=== PATIENT | female | born 2000 | race Caucasian/White ===

== ENCOUNTER 2025-02-23 10:55 | Outpatient (OUT) | payer OTHER, SELFPAY ==
[2025-02-23 11:48] LABS: Basophils Percent Auto 0.3 % (0.2-2.0); Eosinophils Absolute Auto 0.2 10^3/uL (0.0-0.7); Eosinophils Percent Auto 1.2 % (0.9-7.0); Hematocrit 35.1 % (36.0-48.0); Hemoglobin 12.5 g/dL (12.0-16.0); Immature Granulocytes Abs Auto 0.06 10^3/uL (0.00-0.03); Immature Granulocytes Pct Auto 0.4 % (0.0-0.5); Lymphocytes Absolute Auto 3.8 10^3/uL (1.2-3.8); Lymphocytes Percent Auto 27.2 % (20.5-60.0); Mean Corpuscular HGB Conc 35.6 g/dL (29.9-35.2); Mean Corpuscular Hemoglobin 32.2 pg (26.7-34.0); Mean Corpuscular Volume 90.5 fL (81.0-99.0); Mean Platelet Volume 9.2 fL (9.5-13.5); Monocytes Absolute Auto 0.8 10^3/uL (0.3-0.8); Monocytes Percent Auto 5.5 % (1.7-12.0); Neutrophils Absolute Auto 9.2 10^3/uL (1.4-6.5); Neutrophils Percent Auto 65.4 % (43.0-75.0); Platelet Count 245 10^3/uL (150-450); Red Blood Count 3.88 10^6/uL (4.20-5.40); Red Cell Distribution Width 12.6 % (11.0-15.0); White Blood Count 14.1 10^3/uL (4.0-11.0)
[2025-02-23 12:21] LABS: Thyroid Stimulating Hormone 1.845 uIU/mL (0.358-3.740)
[2025-02-23 12:46] LABS: Amphetamine Screen Urine NEGATIVE (NEGATIVE); Barbiturates Screen Urine NEGATIVE (NEGATIVE); Benzodiazepines Screen Urine NEGATIVE (NEGATIVE); Buprenorphine Screen Urine NEGATIVE (NEGATIVE); Cannabinoid Screen Urine POSITIVE (NEGATIVE); Cocaine Screen Urine NEGATIVE (NEGATIVE); Methadone Screen Urine NEGATIVE (NEGATIVE); Methamphetamines Screen Urine NEGATIVE (NEGATIVE); Opiate Screen Urine NEGATIVE (NEGATIVE); Oxycodone Screen Urine NEGATIVE (NEGATIVE); Phencyclidine Screen Urine NEGATIVE (NEGATIVE); Tricyclic Antidepressant Urine NEGATIVE (NEGATIVE)
[2025-02-23 13:06] LABS: BOX Test Reference Lab unity; BOX Test Sent Out unity
[2025-02-23 13:13] LABS: Estimated Average Glucose 103 mg/dL; Glycohemoglobin A1C 5.2 % (4.5-6.2)
[2025-02-24 05:11] LABS: HIV Ab/p24 Ag Screen Non Reactive (Non Reactive)
[2025-02-24 06:08] LABS: HBsAg Screen Negative (Negative); HCV Ab Non Reactive (Non Reactive)
[2025-02-24 08:09] LABS: Rubella Antibodies, IgG 1.09 index (Immune >0.99)
[2025-02-24 12:10] LABS: Rapid Plasma Reagin, Quant Non Reactive titer (NonRea<1:1)
[2025-02-25 01:08] LABS: AFP Value 42.1 ng/mL (.); Gest. Age on Collection Date 18.9 weeks (.); Gestat. Age Based On As provided (.); Insulin Dep Diabetes No (.); Maternal Age At EDD 26.7 yr (.); OSBR Risk 1 IN 6916 (.); Results Report (.)
== END 2025-02-23 10:56 | disposition home or self-care (01) ==
LOC: LAB 11:03
PROVIDERS: Visit Provider Obstetrics & Gynecology
DX: Z34.90 Encounter for supervision of normal pregnancy, unspecified, unspecified trimester (principal); N92.6 Irregular menstruation, unspecified; Z01.419 Encounter for gynecological examination (general) (routine) without abnormal findings
CPT/HCPCS: 36415; 80307; 82105; 83036; 84443; 85025; 86592; 86762; 86803; 86850; 86900; 86901; 87086; 87340; 87389; 88175

== ENCOUNTER 2025-02-23 13:00 | Outpatient (REF) | payer OTHER, SELFPAY | END 2025-02-23 13:01 | disposition home or self-care (01) | LOC: LAB 13:00 | PROVIDERS: Visit Provider Physician Assistant | DX: Z01.419 Encounter for gynecological examination (general) (routine) without abnormal findings (principal) | CPT/HCPCS: 88175 ==

== ENCOUNTER 2025-03-31 10:00 | Outpatient (OUT) | payer OTHER, SELFPAY ==
--- OUTSIDE RECORDS SUMMARY | 2025-03-23 10:40 | XMS_ITS | Encounter Summary ---
Author Organization [facility] Address [address] [place] [address] Care Team Providers Care Director Dance Name Role Phone Unavailable Primary Care Provider Unavailabl e Reason for Visit * Reason Comments Routine Visit Encounter Details Date Type Department Care Team (Late st Contact Info) Description 03/23/2025 10:40 AM EDT Routine [facility] [address] [id number] Jose Bonilla, DO [address] [facility] [address] [place], [facility]11 Second trimester ; 22 weeks gestation of ; Diabetes mellitus screening Social History Tobacco Use Types Packs/Day Years Used Date Smoking Tobacco: Never Assessed Estimated Date of Delivery Comme nts Yes 07/21/2025 Based on Ultraso und Sex and Gender Information Value Date Recorded Sex Assigned at Not on file Legal Sex Female 7:31 PM EDT Gender Identity Not on file Sexual Orientation Not on file documented as of this encounter Last Filed Vital Signs Vital Sign Reading Time Taken Comments Blood Pressure 114/74 03/23/2025 11:11 AM EDT Pulse - - Temperature - - Respiratory Rate - - Oxygen Saturation - - Inhaled Oxygen Concentration - - Weight 119 kg (263 lb 1.9 oz) 03/23/2025 11:11 A M EDT Height - - Body Mass Index - - documented in this encounter Progress Notes * Cheri Lombardi LPN - 03/23/2025 10:40 AM EDT Reason for Appointment: Patient ID: Hanna Barnes is a 24 y.o. female who presents for Routine Visit Patient presents today for Return OB appointment. MEDICATIONS Current Outpatient Medications Medication Instructions ondansetron (ZOFRAN) 4 mg, Oral, Every 6 hours PRN, Take 1 tablet by mouth every 6 hours as needed for nausea. MV-Min-Fe Fum-FA-DHA ( 1 PO) Take by mouth ALLERGIES Allergies Allergen Reactions Latex Hives and Rash Wound Dressing Adhesive Hives, Rash and Itching PROBLEMS Active Ambulatory Problems Diagnosis Date Noted No Active Ambulatory Problems Resolved Ambulatory Problems Diagnosis Date Noted No Resolved Ambulatory Problems No Additional Past Medical History HISTORY PAST MEDICAL HISTORY SOCIAL HISTORY History reviewed. No pertinent past medical history. Social History Tobacco Use Smoking status: Not on file Smokeless tobacco: Not on file Substance Use Topics Alcohol use: Not on file Drug use: Not on file FAMILY HISTORY No family history on file. SURGICAL HISTORY History reviewed. No pertinent surgical history. REVIEW OF SYSTEMS Review of Systems: Review of Systems Constitutional: Negative. HENT: Negative. Eyes: Negative. Respiratory: Negative. Cardiovascular: Negative. Gastrointestinal: Negative. Genitourinary: Negative. Musculoskeletal: Negative. Skin: Negative. Neurological: Negative. All other systems reviewed and are negative. Hematological: Negative. Endocrine: Negative. Allergic/Immunologic: Negative. OBJECTIVE Objective: Physical Exam Constitutional: Appearance: Normal appearance. She is well-developed. Cardiovascular: Rate and Rhythm: Normal rate and regular rhythm. Pulmonary: Effort: Pulmonary effort is normal. Breath sounds: Normal breath sounds. Abdominal: General: Bowel sounds are normal. There is no distension. Palpations: Abdomen is soft. Tenderness: There is no abdominal tenderness. There is no guarding or rebound. Musculoskeletal: General: No swelling. Normal range of motion. Right lower leg: No edema. Left lower leg: No edema. Neurological: Mental Status: She is alert and oriented to person, place, and time. Skin: General: Skin is warm and dry. Psychiatric: Mood and Affect: Mood normal. Behavior: Behavior normal. Vitals and nursing note reviewed. Exam conducted with a hog room supervisor present. Vitals: There is no height or weight on file to calculate BMI. BP: 114/74 Patient's last menstrual period was 10/23/2024. ASSESSMENT & PLAN ICD-10-CM 1. Second trimester Z34.92 POCT urinalysis dipstick manually resulted 2. 22 weeks gestation of Z3A.22 POCT urinalysis dipstick manually resulted 3. Diabetes mellitus screening Z13.1 CBC Glucose tolerance, 1 hour CBC Glucose tolerance, 1 hour Patient presents today for a routine obstetrics appointment. Patient is currently 22w6d with a Estimated Date of Delivery: 07/21/25. Pt given glucola and cbc orders to have obtained. Pt has HS- discussed metabolic issues. Pt to return in 4 weeks for scheduled OB appt. Documented by Cheri Lombardi LPN on behalf of: Jose Bonilla DO documented in this encounter Plan of Treatment Upcoming Encounters Date Type Department Care Team (Late st Contact Info) Description 04/20/2025 9:20 AM EDT Routine [facility] [address] [facility] [place] [id number] Jose Bonilla DO [address] [place], [place] [id number] Scheduled Orders Name Type Priority Associated Diagnoses Orde r Schedule CBC Lab Routine Diabetes mellitus screening Expected: 03/23/2025 (Approximate), Expires: 03/23/2026 Glucose tolerance, 1 hour Lab Routine Diabetes mellitus screening Expected: 03/23/2025 (Approximate), Expires: 03/23/2026 documented as of this encounter Procedures Procedure Name Priority Date/Time Associated Diagnosis Comments POCT URINALYSIS DIPSTICK Routine 03/23/2025 11:19 AM EDT Second trimester 22 weeks gestation of documented in this encounter Results * (ABNORMAL) POCT urinalysis dipstick manually resulted (03/23/2025 11:19 AM EDT) Color, UA Yellow Clarity, UA Clear Glucose, UA Negative Negative - 2000(110) ++++ mg/dL Bilirubin, UA Negative Negative - 4(70) +++ mg/dL Ketones, UA Negative Negative - 160(16) ++++ mg/dL Spec Grav, UA 1.020 1 - 1.03 Blood, UA Negative Negative - 50 Han/mcL pH, UA 5.5 5 - 9 Protein, UA Negative Negative - 1999(20) ++++ mg/dL Urobilinogen, UA 1.0 0.2 - 12 mg/dL Leukocytes, UA Negative Negative - 500+++ Jinny/mcL Nitrite, UA Negative Negative - Positive Urine 03/23/2025 11:1 9 AM EDT Jose Bonilla DO POINT OF CARE TEST ENTER/EDIT OR DERABLES Final Result documented in this encounter Visit Diagnoses Diagnosis Second trimester state, incidental 22 weeks gestation of Diabetes mellitus screening Screening for diabetes mellitus documented in this encounter
--- OUTSIDE RECORDS SUMMARY | 2025-03-23 10:40 | XMS_ITS | Encounter Summary ---
Author Organization [facility] Address [address] [facility] [place] [address] Care Team Providers Care [employer] Teacher Name Role Phone Unavailable Primary Care Provider Unavailabl e Reason for Visit * Reason Comments Routine Visit Encounter Details Date Type Department Care Team (Late st Contact Info) Description 03/23/2025 10:40 AM EDT Routine [facility] [address] [facility] [phone] Jose Bonilla, DO [address] [facility] [address] [place], [facility]11 Second trimester ; 22 weeks gestation of [...] nursing note reviewed. Exam conducted with a pharmacy helper present. Vitals: There is no height or [...] AM EDT Routine [facility] [address] [facility] [place] [phone] Jose Bonilla DO [address] [place], [place] [id number] Scheduled Orders Name Type Priority Associated Diagnoses [...]
--- OUTSIDE RECORDS SUMMARY | 2025-03-31 08:30 | XMS_ITS | Encounter Summary ---
Author Organization [facility] Healthcare Address [address] [place] [address] Care Team Providers Care Mental Health Nurse Practitioner Name Role Phone Unavailable Primary Care Provider Unavailabl e Encounter Details Date Type Department Care Team (Latest Contact Info) Description 03/31/2025 8:30 AM EDT Ancillary Procedure [facility] [address] [place] [address] Screening, , for anatomic survey Social History Tobacco Use Types Packs/Day Years Used Date Smoking Tobacco: Never Assessed Estimated Date of Delivery Comme nts Yes 07/21/2025 Based on Ultraso und Sex and Gender Information Value Date Recorded Sex Assigned at Not on file Legal Sex Female 7:31 PM EDT Gender Identity Not on file Sexual Orientation Not on file documented as of this encounter Plan of Treatment Upcoming Encounters Date Type Department Care Team (Late st Contact Info) Description 04/20/2025 9:20 AM EDT Routine [facility] [address] [place], [place] [address] [place] [address] Jose Bonilla [address] [place], [place] [id number] Pending Results Name Type Priority Associated Diagnoses Date /Time US OB 14+ weeks anatomy scan Imaging Routine Screening, , for anatomic survey 03/31/2025 9:28 AM EDT documented as of this encounter Visit Diagnoses Diagnosis Screening, , for anatomic survey Encounter for anatomic survey documented in this encounter
--- OUTSIDE RECORDS SUMMARY | 2025-03-31 08:30 | XMS_ITS | Encounter Summary ---
Author Organization [facility] Healthcare Address [address] [place] [address] Care Team Providers Care Block Sawyer Name Role Phone Unavailable Primary Care Provider Unavailabl e Encounter Details Date Type Department Care Team (Latest Contact Info) Description 03/31/2025 8:30 AM EDT Ancillary Procedure [facility] [address] [facility] [address] Screening, , for anatomic survey Social [...] Description 04/20/2025 9:20 AM EDT Routine [facility] OB [address] [place], [place] [address] [place] [address] Jose Bonilla [address] [place], [place] [id number] Pending Results Name Type Priority Associated Diagnoses Date /Time US OB 14+ weeks anatomy scan Imaging Routine Screening, , for anatomic survey 03/31/2025 9:28 AM EDT documented as of this encounter Visit Diagnoses Diagnosis Screening, , for anatomic survey Encounter for anatomic survey documented in this encounter
--- OUTSIDE RECORDS SUMMARY | 2025-03-31 09:33 | XMS_ITS | Clinical Summary ---
Author Organization [facility] Healthcare Address [address] [place] [address] Care Team Providers Care Health Information Tech Name Role Phone Unavailable Primary Care Provider Unavailabl e Allergies Active Allergy Reactions Criticality Noted Date Comments Latex Hives,Rash Low 12/25/2024 Wound Dressing Adhesive Hives,Rash,Itching Low 09/20 Medications MV-Min-Fe Fum-FA-DHA ( 1 PO) Take by mouth Active ondansetron (Zofran) 4 MG tabletIndicatio ns:Nausea and vomiting in Take 1 tablet (4 mg) by mouth every 6 (six) hours if needed for nausea or vomiting for up to 30 doses Take 1 tablet by mouth every 6 hours as needed for nausea. 30 tablet 3 01/25/2025 Active Encounters Date Type Department Care Team Description 03/31/2025 8:30 AM EDT Ancillary Procedure [facility] [address] [facility] [place] [address] Screening, , for anatomic survey 03/23/2025 10:40 AM EDT Routine [facility] [address] [place] [address] Jose Bonilla DO Second trimester ; 22 weeks gestation of ; Diabetes mellitus screening 03/23/2025 Bamboo flowsheet [facility] [address] [place] [address] Jose Bonilla DO 03/08/2025 Orders Only [facility] [address] [place] [address] Ellen Lr LPN 03/08/2025 Abstract [facility] [address] [place] [address] Jose Bonilla DO 03/02/2025 Abstract [facility] [address] [place] [address] Regla Gutierrez MA 02/23/2025 9:20 AM EDT Routine [facility]OM[facility] [address] [place] [address] Myrna Levy PA Screening, , for anatomic survey; Well woman exam with routine gynecological exam; Second trimester ; 18 weeks gestation of ; Vaginal discharge; STD exposure 02/23/2025 External Result Encounter [facility] External Department Unsolicited Myrna Levy PA 02/23/2025 Clinisync Result Encounter [facility] External Department Unsolicited Jose Bonilla DO 02/23/2025 Bamboo flowsheet [facility] [address] [place] [address] Myrna Levy PA 01/25/2025 11:20 AM EDT Routine [facility] [address] [place] [address] Jose Bonilla DO Nausea and vomiting in (Primary Dx); 14 weeks gestation of ; Second trimester 01/25/2025 Bamboo flowsheet [facility]OM[facility] [address] [place] [address] Jose Bonilla DO from Last 3 Months Social History Tobacco Use Types Packs/Day Years Used Date Smoking Tobacco: Never Assessed Estimated Date of Delivery Comme nts Yes 07/21/2025 Based on Ultraso und Sex and Gender Information Value Date Recorded Sex Assigned at Not on file Legal Sex Female 7:31 PM EDT Gender Identity Not on file Sexual Orientation Not on file Last Filed Vital Signs Vital Sign Reading Time Taken Comments Blood Pressure 114/74 03/23/2025 11:11 AM EDT Pulse - - Temperature - - Respiratory Rate - - Oxygen Saturation - - Inhaled Oxygen Concentration - - Weight 119 kg (263 lb 1.9 oz) 03/23/2025 11:11 A M EDT Height - - Body Mass Index - - Plan of Treatment Upcoming Encounters Date Type Department Care Team (Late st Contact Info) Description 04/20/2025 9:20 AM EDT Routine [facility] [address] [facility] [place] [address] Jose Bonilla, DO [address] [place] [address] [place] [address] Health Maintenance Due Date Last Done Comments Influenza Vaccine (Season Ended) 2025 11/17/19 13, 08/13/2008 Procedures Procedure Name Priority Date/Time Associated Diagnosis Comments CULTURE, URINE, ROUTINE Routine 03/23/2025 3:33 PM EDT Missed menses POCT URINALYSIS DIPSTICK Routine 03/23/2025 11:19 AM EDT Second trimester 22 weeks gestation of RECURRENT VAGINITIS (HTRX) Routine 02/23/2025 12:02 PM EDT AFP, SERUM, OPEN SPINA BIFIDA Routine 02/23/2025 11:33 AM EDT HBSAG SCREEN Routine 02/23/2025 11:33 AM EDT RAPID PLASMA REAGIN, QUANT Routine 02/23/2025 11:33 AM EDT HCV ANTIBODY RFX TO QUANT PCR Routine 02/23/2025 11:33 AM EDT ALL RUBELLA IGG AB Routine 02/23/2025 11 :33 AM EDT HIV AB/P24 AG WITH REFLEX Routine 02/23/2025 11:33 AM EDT ALL TYPE AND SCREEN Routine 02/23/2025 1 1:33 AM EDT MLR HEMOGLOBIN A1C Routine 02/23/2025 11 :33 AM EDT BOX TEST Routine 02/23/2025 11:33 AM EDT ALL THYROID STIM HORMONE Routine 02/23/2025 11:33 AM EDT ALL CBC WITH AUTO DIFF Routine 02/23/2025 11:33 AM EDT TB[facility] DRUG SCREEN RAPID (URINE) Routine 02/23/2025 11:08 AM EDT POCT URINALYSIS DIPSTICK Routine 02/23/2025 10:23 AM EDT 18 weeks gestation of IGP,APTIMA HPV,AGE GDLN Routine 02/23/2025 10:01 AM EDT PAP SMEAR Routine 02/23/2025 12:00 AM EDT POCT URINALYSIS DIPSTICK Routine 01/25/2025 11:38 AM EDT 14 weeks gestation of Second trimester from Last 3 Months Results * Urine culture (03/23/2025 3:33 PM EDT) Urine Urine specimen obtained by clean catch procedure / Unknown us Jose Irene DO LAB MICROBIOLOGY - GENERAL ORDER SHANTE Final Result EXTERNAL LAB * (ABNORMAL) POCT urinalysis dipstick manually resulted (03/23/2025 11:19 AM EDT) Only the most recent of3 resultswithin the time period is included. Color, UA Yellow Clarity, UA Clear Glucose, UA Negative Negative - 2000(110) ++++ mg/dL Bilirubin, UA Negative Negative - 4(70) +++ mg/dL Ketones, UA Negative Negative - 160(16) ++++ mg/dL Spec Grav, UA 1.020 1 - 1.03 Blood, UA Negative Negative - 50 Han/mcL pH, UA 5.5 5 - 9 Protein, UA Negative Negative - 2000(20) ++++ mg/dL Urobilinogen, UA 1.0 0.2 - 12 mg/dL Leukocytes, UA Negative Negative - 500+++ Jinny/mcL Nitrite, UA Negative Negative - Positive Urine 03/23/2025 11:1 9 AM EDT Jose Bonilla DO POINT OF CARE TEST ENTER/EDIT OR DERABLES Final Result * RECURRENT VAGINITIS (HTRX) (02/23/2025 12:02 PM EDT) [facility] ATOPOBIUM VAGINAE 0.000 19.961 - 24.689 ppm 02/24/2025 6:01 AM EDT [facility] ATOPOBIUM VAGINAE Not Detected 19.961 - 24.689 ppm 02/24/2025 6:01 AM EDT [facility] BVAB 2,3 (BACTERIAL VAGINOSIS ASSOCIATED BACTERIA 2, 3); MOBILUNCUS SPP 0.000 19.961 - 24.689 ppm 02/24/2025 6:01 AM EDT [facility] BVAB 2,3 (BACTERIAL VAGINOSIS ASSOCIATED BACTERIA 2, 3); MOBILUNCUS SPP Not Detected 19.961 - 24.689 ppm 02/24/2025 6:01 AM EDT [facility] INDU ALBICANS, PARAPSILOSIS, TROPICALIS 0.000 19.961 - 30.770 ppm 02/24/2025 6:01 AM EDT [facility] INDU ALBICANS, PARAPSILOSIS, TROPICALIS Not Detected 19.961 - 30.770 ppm 02/24/2025 6:01 AM EDT [facility] INDU GLABRATA 0.000 23.000 - 32.138 ppm 02/24/2025 6:01 AM EDT [facility] INDU GLABRATA Not Detected 23.000 - 32.138 ppm 02/24/2025 6:01 AM EDT [facility] INDU KRUSEI 0.000 23.000 - 32.271 ppm 02/24/2025 6:01 AM EDT [facility] INDU KRUSEI Not Detected 23.000 - 32.271 ppm 02/24/2025 6:01 AM EDT [facility] CHLAMYDIA TRACHOMATIS 0.000 23.000 - 31.467 ppm 02/24/2025 6:01 AM EDT [facility] CHLAMYDIA TRACHOMATIS Not Detected 23.000 - 31.467 ppm 02/24/2025 6:01 AM EDT [facility] GARDNERELLA VAGINALIS 0.000 19.961 - 24.689 ppm 02/24/2025 6:01 AM EDT [facility] GARDNERELLA VAGINALIS Not Detected 19.961 - 24.689 ppm 02/24/2025 6:01 AM EDT [facility] MEGASPHAERA (TYPES 1, 2) 0.000 19.961 - 24.689 ppm 02/24/2025 6:01 AM EDT [facility] MEGASPHAERA (TYPES 1, 2) Not Detected 19.961 - 24.689 ppm 02/24/2025 6:01 AM EDT [facility] NEISSERIA GONORRHOEAE 0.000 23.000 - 32.117 ppm 02/24/2025 6:01 AM EDT [facility] NEISSERIA GONORRHOEAE Not Detected 23.000 - 32.117 ppm 02/24/2025 6:01 AM EDT [facility] TRICHOMONAS VAGINALIS 0.000 23.000 - 32.119 ppm 02/24/2025 6:01 AM EDT [facility] TRICHOMONAS VAGINALIS Not Detected 23.000 - 32.119 ppm 02/24/2025 6:01 AM EDT [facility] MYCOPLASMA GENITALIUM 0.000 19.961 - 24.689 ppm 02/24/2025 6:01 AM EDT [facility] MYCOPLASMA GENITALIUM Not Detected 19.961 - 24.689 ppm 02/24/2025 6:01 AM EDT [facility] Tissue 02/23/2025 12:0 2 PM EDT 02/24/2025 1:27 AM EDT Myrna GARIBAY LAB BLOOD ORDERABLES Final Resul t [facility] Jeanne Paredes [facility] [place] [address] * BOX TEST (02/23/2025 11:33 AM EDT) BOX TEST SENT OUT [facility] [address] [facility] [address] 02/23/25 [facility] 02/23/2025 11:3 3 AM EDT 02/23/2025 11:35 AM EDT Narrative CLINISYTX - 02/23/2025 1:06 PM EDT Jose Irene LAB BLOOD ORDERABLES Final Resul t Performing Organization Address [facility] Co de Phone Number [facility] * HBSAG SCREEN (02/23/2025 11:33 AM EDT) Pathologist [facility] HBSAG SCREEN Negative Negative [facility] Comment: Performed at: [address] [id number] Nipple Machine Operator: Suhas Segovia PhD, Phone: [phone] 02/23/2025 11:3 3 AM EDT 02/23/2025 11:35 AM EDT Narrative CLINISYTX - 02/24/2025 12:10 PM EDT Jose Irene DO LAB BLOOD ORDERABLES Final Resul t Performing Organization Address City/[facility]/ZIP Co de Phone Number [facility] * RAPID PLASMA REAGIN, QUANT (02/23/2025 11:33 AM EDT) Pathologist [facility] RAPID PLASMA REAGIN, QUANT Non Reactive NonRea<1: 1 titer [facility] Comment: Please Note: This test does not meet current guidelines for screening and diagnosis of syphilis. This test is intended for following treatment response in patients being treated for syphilis infection. To screen for syphilis infection, a reflex cascade that includes both RPR and a treponema-specific assay should be utilized, such as Treponema pallidum (Syphilis) Screening [place] (133273) or Rapid Plasma Reagin (RPR) Test With Reflex to Quantitative RPR and Confirmatory Treponema pallidum Antibodies (817063). Performed at: [address] [id number] Nipple Machine Operator: Suhas Segovia PhD, Phone: [phone] 02/23/2025 11:3 3 AM EDT 02/23/2025 11:35 AM EDT Narrative CLINISYTX - 02/24/2025 12:10 PM EDT Jose Irene DO LAB BLOOD ORDERABLES Final Resul t Performing Organization Address [facility] Co de Phone Number [facility] * HIV AB/P24 AG WITH REFLEX (02/23/2025 11:33 AM EDT) HIV AB/P24 AG SCREEN Non Reactive Non Reactive [facility] Comment: HIV-1/HIV-2 antibodies and HIV-1 p24 antigen were NOT detected. There is no laboratory evidence of HIV infection. HIV Negative Performed at: [address] [id number] Nipple Machine Operator: Suhas Segovia PhD, Phone: [phone] 02/23/2025 11:3 3 AM EDT 02/23/2025 11:35 AM EDT Narrative CLINISYTX - 02/24/2025 5:11 AM EDT Matchbooko DO LAB BLOOD ORDERABLES Final Resul t Performing Organization Address City/[facility] Co de Phone Number [facility] * AFP, SERUM, OPEN SPINA BIFIDA (02/23/2025 11:33 AM EDT) RESULTS Report . [facility] TEST RESULTS: *Screen Negative* . TB GEST. AGE ON COLLECTION DATE 18.9 . weeks TB GESTAT. AGE BASED ON As provided . [facility] Comment: Recalculations are not recommended when gestational dating by LMP and ultrasound are within 10 days. [age] [facility] RACE . [facility] WEIGHT 256 . lbs [facility] INSULIN DEP DIABETES No . [facility] MULTIPLE GESTATION Comment . [facility] Comment:Not provided. AFP VALUE 42.1 . ng/mL [facility] AFP MOM 1.18 . [facility] OSBR RISK 1 IN 6916 . [facility] INTERPRETATION Comment . [facility] Comment: Interpretation: Screen Negative This result is screen negative for OSB. The AFP MoM calculated is based on the gestational age provided. MS-AFP can identify up to 80% of open neural tube defects. Closed neural tube defects and some open defects may not be detected by this test. This test does not screen for Down Syndrome or Trisomy 18. If screening for Down Syndrome or Trisomy 18 is desired, contact [facility] to discuss available options. The [employer] recommends amniocentesis be offered to women age 35 and older. COMMENT: Comment . [facility] Comment: Katelin Brothers, Ph.D., [facility] Director References: Available Upon Request. Multiples Of Median Cutoffs For AFP Elevations Pablo 2.5 Black 2.8 IDD 2.0 Twins 4.5 Abbreviation Definitions IDD - Insulin Dep Diabetes OSBR - Open Spina Bifida Risk For further inquiries contact [facility] at [phone]. This test was developed and its performance characteristics determined by [employer]. It has not been cleared or approved by the Food and Drug Administration. Performed at: [facility] [address] [id number] Nipple Machine Operator: Janet Lantigua [facility], Phone: [phone] 02/23/2025 11:3 3 AM EDT 02/23/2025 11:35 AM EDT Narrative CLINISYNC - 02/25/2025 1:08 AM EDT [id number] [phone] N 256 us Jose Bonilla DO LAB BLOOD ORDERABLES Final Resul t [facility] * HCV ANTIBODY RFX TO QUANT PCR (02/23/2025 11:33 AM EDT) HCV AB Non Reactive Non Reactive TB INTERPRETATION: Comment . [facility] Comment: Not infected with HCV unless early or acute infection is suspected (which may be delayed in an immunocompromised individual), or other evidence exists to indicate HCV infection. Performed at: [facility] [address] [id number] Nipple Machine Operator: Suhas Segovia PhD, Phone: [phone] 02/23/2025 11:3 3 AM EDT 02/23/2025 11:35 AM EDT Narrative CLINISYNC - 02/24/2025 8:09 AM EDT Jose Irene DO LAB BLOOD ORDERABLES Final Resul t Performing Organization Address [facility] Co de Phone Number [facility] * MLR HEMOGLOBIN A1C (02/23/2025 11:33 AM EDT) Pathologist [facility] GLYCOHEMOGLOBIN A1C 5.2 4.5 - 6.2 % [facility] Comment: ADA RECOMMENDED LIMIT 4.0 - 6.0 ADA THERAPEUTIC TARGET < 7.0 ACTION SUGGESTED > 7.0 ESTIMATED AVERAGE GLUCOSE 103 mg/dL TB 02/23/2025 11:3 3 AM EDT 02/23/2025 11:35 AM EDT Narrative CLINISYNC - 02/23/2025 1:15 PM EDT us Jose Oateso DO CLINISYNC Final Result Performing Organization Address [facility] Co de Phone Number [facility] * ALL TYPE AND SCREEN (02/23/2025 11:33 AM EDT) Pathologist [facility] BLOOD TYPE A Positive [facility] ANTIBODY SCREEN NEGATIVE TB 02/23/2025 11:3 3 AM EDT 02/23/2025 11:35 AM EDT Narrative CLINISYNC - 02/23/2025 2:44 PM EDT [facility] , Jose Irene DO CLINISYNC Final Result Performing Organization Address [facility] Co de Phone Number [facility] * ALL THYROID STIM HORMONE (02/23/2025 11:33 AM EDT) Pathologist [facility] THYROID STIMULATING HORMONE 1.845 0.358 - 3.740 uIU/mL [facility] 02/23/2025 11:3 3 AM EDT 02/23/2025 11:35 AM EDT Narrative CLINISYTX - 02/23/2025 12:22 PM EDT Jose Irene DO CLINISYNC Final Result Performing Organization Address [facility] Co de Phone Number [facility] * ALL RUBELLA IGG AB (02/23/2025 11:33 AM EDT) Pathologist [facility] RUBELLA ANTIBODIES, IGG 1.09 Immune >0.99 index [facility] Comment: Non-immune <0.90 Equivocal 0.90 - 0.99 Immune >0.99 Performed at: [facility] [id number] Nipple Machine Operator: Suhas Segovia PhD, Phone: [phone] 02/23/2025 11:3 3 AM EDT 02/23/2025 11:35 AM EDT [facility] - 02/24/2025 8:09 AM EDT Ojse Irene DO CLINISYNC Final Result Performing Organization Address [facility] Co de Phone Number [facility] * (ABNORMAL) ALL CBC WITH AUTO DIFF (02/23/2025 11:33 AM EDT) Pathologist [facility] TB WBC 14.1(H) 4.0 - 11.0 10 3/uL [facility] RBC 3.88(L) 4.20 - 5.40 10 6/uL [facility] HGB 12.5 12.0 - 16.0 g/dL [facility] TBH HCT 35.1(L) 36.0 - 48.0 % [facility] MCV 90.5 81.0 - 99.0 fL TBH TBH MCH 32.2 26.7 - 34.0 pg TBH [facility] MCHC 35.6(H) 29.9 - 35.2 g/dL [facility] TBH RDW 12.6 11.0 - 15.0 % [facility] TBH PLT 245 150 - 450 10 3/uL [facility] TBH MPV 9.2(L) 9.5 - 13.5 fL [facility] NEUTROPHILS PERCENT AUTO 65.4 43.0 - 75.0 % [facility] LYMPHOCYTES PERCENT AUTO 27.2 20.5 - 60.0 % [facility] MONOCYTES PERCENT AUTO 5.5 1.7 - 12.0 % [facility]H EO % 1.2 0.9 - 7.0 % [facility] BASOPHILS PERCENT AUTO 0.3 0.2 - 2.0 % [facility] IMMATURE GRANULOCYTES PCT AUTO 0.4 0.0 - 0.5 % [facility] NEUTROPHILS ABSOLUTE AUTO 9.2(H) 1.4 - 6.5 10 3/uL [facility] LYMPHOCYTES ABSOLUTE AUTO 3.8 1.2 - 3.8 10 3/uL [facility] MONOCYTES ABSOLUTE AUTO 0.8 0.3 - 0.8 10 3/uL [facility] TBH EO # 0.2 0.0 - 0.7 10 3/uL [facility] BASOPHILS ABSOLUTE AUTO 0.0 0.0 - 0.1 10 3/uL [facility] IMMATURE GRANULOCYTES ABS AUTO 0.06(H) 0.00 - 0.03 10 3/uL [facility] 02/23/2025 11:3 3 AM EDT 02/23/2025 11:35 AM EDT Narrative CLINISYNC - 02/23/2025 11:59 AM EDT us Jose Irene DO CLINISYNC Final Result [facility] * (ABNORMAL) TB DRUG SCREEN RAPID (URINE) (02/23/2025 11:08 AM EDT) Pathologist [facility] CANNABINOID SCREEN URINE POSITIVE(A) NEGATIVE TB[facility] PHENCYCLIDINE SCREEN URINE NEGATIVE NEGATIVE [facility] COCAINE SCREEN URINE NEGATIVE NEGATIVE TBH METHAMPHETAMINES SCREEN URINE NEGATIVE NEGATIVE TBH OPIATE SCREEN URINE NEGATIVE NEGATIVE TBH AMPHETAMINE SCREEN URINE NEGATIVE NEGATIVE TBH BENZODIAZEPINES SCREEN URINE NEGATIVE NEGATIVE TBH TRICYCLIC ANTIDEPRESSANT URINE NEGATIVE NEGATIVE TBH METHADONE SCREEN URINE NEGATIVE NEGATIVE TBH BARBITURATES SCREEN URINE NEGATIVE NEGATIVE TBH OXYCODONE SCREEN URINE NEGATIVE NEGATIVE TBH BUPRENORPHINE SCREEN URINE NEGATIVE NEGATIVE [facility] Comment: DRUG CLASS TEST SYSTEM CUT-OFF CONCENTRATIONS ARE FOLLOWS: AMP (Amphetamine): 500 ng/mL BAR (Barbiturates): 200 ng/mL BZO (Benzodiazepines): 150 ng/mL BUP (Buprenorphine): 10 ng/mL ARIEL (Cocaine): 150 ng/mL mAMP (Methamphetamine): 500 ng/mL MTD (Methadone): 200 ng/mL OPI (Opiates): 100 ng/mL OXY (Oxycodone): 100 ng/mL PCP (Phencyclidine): 25 ng/mL THC (Cannabinoids): 50 ng/mL TCA (Trycyclic Antidepressants): 300 ng/mL 02/23/2025 11:0 8 AM EDT 02/23/2025 12:21 PM EDT Narrative CLINISYNC - 02/23/2025 12:46 PM EDT Jose Bonilla DO CLINISYNC Final Result [facility]INIS[facility]NC [facility] * IGP,APTIMA HPV,AGE GDLN (02/23/2025 10:01 AM EDT) AGE GDLN ACOG TESTING Note . [facility] Comment: TESTS RESULT FLAG UNITS REF RANGE LAB Clinician Provided Cytology Information Source.............Cervix No. of containers..01 ThinPrep Vial Age Algo ACOG Nancy... FLAG LEGEND: L-Low Normal,H-High Normal,LL-Alert Low,HH-Alert High <-Panic Low,>-Panic High,A-Abnormal,AA-Critical Abnormal Performed at: 01 =G [facility] [place] [address] Jovita Russell MD, IGP, RFX APTIMA HPV ASCU Note . [facility] Comment: TESTS RESULT FLAG UNITS REF RANGE LAB DIAGNOSIS: 02 NEGATIVE FOR INTRAEPITHELIAL LESION OR MALIGNANCY. Specimen adequacy: 02 Satisfactory for evaluation. Endocervical and/or squamous metaplastic cells (endocervical component) are present. Performed by: Bing Torres, Lumber Loader ([facility]) . 02 Note: Note 02 The Pap smear is a screening test designed to aid in the detection of premalignant and malignant conditions of the uterine cervix. It is not a diagnostic procedure and should not be used as the sole means of detecting cervical cancer. Both false-positive and false-negative reports do occur. Test Methodology: Note 02 This liquid based ThinPrep(R) pap test was screened with the use of an image guided system. . 02 The HPV DNA reflex criteria were not met with this specimen result therefore, no HPV testing was performed. FLAG LEGEND: L-Low Normal,H-High Normal,LL-Alert Low,HH-Alert High <-Panic Low,>-Panic High,A-Abnormal,AA-Critical Abnormal Performed at: [address] [address] Jovita Russell MD, Performed at: =G - [facility] [address] [id number] Nipple Machine Operator: Jovita Russell MD, Phone: [phone] Performed at: - [facility] [address] [id number] Nipple Machine Operator: Jovita Russell MD, Phone: [phone] 02/23/2025 10:0 1 AM EDT 02/23/2025 1:17 PM EDT Narrative CLINISYNC - 02/25/2025 10:08 AM EDT SPATULA-ALONE CERVIX Myrna GARIBAY LAB BLOOD ORDERABLES Final Resul t Performing Organization Address [facility]/ZIP Co de Phone Number CLINISYNC [facility] * Pap Smear (02/23/2025 12:00 AM EDT) Swab Cervical swab / Unknown Myrna GARIBAY LAB CYTOLOGY ORDERABLES Final Re sult Performing Organization Address [facility]/ZIP Co de Phone Number EXTERNAL LAB from Last 3 Months Insurance [employer]
--- OUTSIDE RECORDS SUMMARY | 2025-03-31 09:33 | XMS_ITS | Encounter Summary ---
Author Organization [facility] Address [address] [place] [address] Care Team Providers Care Change Advisor Name Role Phone Unavailable Primary Care Provider Unavailabl e Encounter Details Date Type Department Care Team (Late st Contact Info) Description 03/02/2025 Abstract [facility] [address] [place] [address] Regla Gutierrez MA Social History Tobacco Use Types Packs/Day Years [...] Description 04/20/2025 9:20 AM EDT Routine [facility] [address] [place] [address] Jose Bonilla [facility] [address] [place], [place] [id number] documented as of this encounter Visit Diagnoses Not on filedocumented in this encounter
--- OUTSIDE RECORDS SUMMARY | 2025-03-31 09:33 | XMS_ITS ---
Author Organization [facility] Source Produ ction (ClinicalSummary Clone) Address Unknown Care Team Providers Care Lace Pinner Name Role Phone Unavailable Primary Care Physician Unavailab le Results * [UNITY] CARRIER SCREEN Performed by: [employer] Component Value Range Date Sickle Cell Disease/Beta-Thalassemia/Hemo globinopathies carrier screen NEGATIVE 03/05/2025 03:29 pm UTC Alpha-Thalassemia carrier screen NEGATIVE 03/05/2025 03:29 pm UTC Cystic Fibrosis carrier screen NEGATIVE 03/05/2025 03:29 pm [place] Spinal Muscular Atrophy carrier screen NEGATIVE 2 SMN1 copies, SNP not present 03/05/2025 03:29 pm UT For detailed report, see PDF See PDF 03/05/2025 03:29 pm UTC 03/05/2025 03:2 9 pm [facility] Social History Observation Value Start Date End Date
--- OUTSIDE RECORDS SUMMARY | 2025-03-31 09:33 | XMS_ITS | Encounter Summary ---
Author Organization [facility] Address [address] [place] [address] Care Team Providers Care Segment Block Layer Name Role Phone Unavailable Primary Care Provider Unavailabl e Encounter Details Date Type Department Care Team (Late st Contact Info) Description 03/08/2025 Orders Only [facility] [address] [place] [address] Ellen Lr LPN [address] [id number] Social History Tobacco Use Types Packs/Day Years [...] Description 04/20/2025 9:20 AM EDT Routine [facility] [address] [place] [address] Jose Bonilla DO [address] [place] [address] documented as of this encounter Procedures Procedure Name Priority Date/Time Associated Diagnosis Comments PAP SMEAR Routine 02/23/2025 12:00 AM EDT documented in this encounter Results * Pap Smear (02/23/2025 12:00 AM EDT) Swab Cervical swab / Unknown us Myr[facility] ORDERABLES Final Re sult [facility] documented in this encounter Visit Diagnoses Not on filedocumented in this encounter
--- OUTSIDE RECORDS SUMMARY | 2025-03-31 09:33 | XMS_ITS | Clinical Summary ---
Author Organization [facility] tem Address [id number] [address] [place] [address] Care Team Providers Care Wet Pour Mixer Name Role Phone Sade Bosserie Kem AUTOMATIC PINSETTER ADJUSTER-NURSE QUALITY Primary Care Provid er Allergies Active Allergy Reactions Criticality Noted Date Comments Adhesive 10/07/2019 Latex 11/29/2021 Medications etonogestreL (NEXPLANON) 68 mg implant 68 mg by subdermal route once. Removal in 2022 Active ibuprofen (ADVIL,MOTRIN) 800 mg tabletIndication s:Sprain of left knee, unspecified ligament, subsequent encounter Take 1 tablet (800 mg total) by mouth every 6 (six) hours as needed for pain. Take with food 60 tablet 2 Active Active Problems No known active problems Family History Medical History Relation Name Comments Mental illness Father Schizophrenia Father No Known Problems Mother Relation Name Status Comments Father Alive Mother Alive Social History Tobacco Use Types Packs/Day Years Used Date Smoking Tobacco: Never Smokeless Tobacco: Never Tobacco Cessation:Counseling Given: No Alcohol Use Standard Drinks/Week Comments No 0 (1 standard drink = 0.6 oz pur e alcohol) PHQ-2 Answer Date Recorded Total Score 0 12/07/2021 Childcare Answer Date Recorded Childcare Unknown 04/01/2019 Employment Answer Date Recorded Employment Unknown 04/01/2019 Purpose - Life Answer Date Recorded Purpose and direction in life Unknown Comments Unknown Sex and Gender Information Value Date Recorded Sex Assigned at Not on file Legal Sex Female 11:54 AM EDT Gender Identity Not on file Sexual Orientation Not on file Last Filed Vital Signs Vital Sign Reading Time Taken Comments Blood Pressure 124/76 12/07/2021 8:22 AM EST Pulse 90 12/07/2021 8:22 AM EST Temperature 36.4 C (97.6 F) 12/07/2021 8:22 AM EST Respiratory Rate 16 12/07/2021 8:22 AM EST Oxygen Saturation 97% 12/07/2021 8:22 AM EST Inhaled Oxygen Concentration - - Weight 132 kg (291 lb) 12/07/2021 8:22 AM EST Height 175.3 cm (5' 9 ) 12/07/2021 8:22 AM EST Body Mass Index 42.97 12/07/2021 8:22 AM EST Plan of Treatment Health Maintenance Due Date Last Done Comments Depression Screening 2010 Tobacco Screening 2010 Adult BMI Screening 2016 Pap Smear 2019 DTaP,Tdap and Td Vaccines (7 - Td or Tdap) 09/25/2021 09/25/2011, 07/05/2004, 05/28/2000, Additional history exists COVID-19 Vaccine (2023-2 5 season) 2024 03/28/2021, 03/07/2021 Influenza Vaccine 06/21/2025 11/17/2012, 08/13/2008 Medical Devices Not on file Insurance [employer] Care Teams Wet Pour Mixer Relationship Specialty Start Date End Date Mary Boss, CLARA-NURSE QUALITY [address] [facility] [place] [address] PCP - General Family Medicine 11/29/21
--- OUTSIDE RECORDS SUMMARY | 2025-03-31 09:33 | XMS_ITS | Encounter Summary ---
Author Organization [facility] Address [address] [facility] [place] [address] Care Team Providers Care Cash Shortage Investigator Name Role Phone Unavailable Primary Care Provider Unavailabl e Encounter Details Date Type Department Care Team (Late st Contact Info) Description 03/08/2025 Abstract [facility] [address] [place] [address] Jose Bonilla, DO [address] [place], [facility] Social History Tobacco Use Types Packs/Day Years [...] Description 04/20/2025 9:20 AM EDT Routine [facility] [address] [place] [address] Jose Bonilla, DO [address] [place] [address] documented as of this encounter Visit Diagnoses Not on filedocumented in this encounter
--- OUTSIDE RECORDS SUMMARY | 2025-03-31 09:33 | XMS_ITS | Encounter Summary ---
Author Organization [facility] Address [address] [place] [address] Care Team Providers Care Blasting Miner Name Role Phone Unavailable Primary Care Provider Unavailabl e Encounter Details Date Type Department Care Team (Late st Contact Info) Description 03/23/2025 Bamboo flowsheet [facility] OB [address] [place] [address] Jose Bonilla, DO [address] [place], [facility] Social History Tobacco Use Types Packs/Day Years [...] AM EDT Routine [facility] [address] [place] [address] Jose Bonilla, DO [address] [place], [facility] documented as of this encounter Visit Diagnoses Not on filedocumented in this encounter
--- OUTSIDE RECORDS SUMMARY | 2025-03-31 09:53 | XMS_ITS | CCD ---
Author Organization [facility]ini[facility] Care Team Providers Care Market Manager Name Role Phone HORACIO ESCOBAR Admitting Unavailable HORACIO ESCOBAR Attending Unavailable JOHN, NONE LISTED Primary Care Unavaila Germain Jasso Consulting Unavailable HORACIO ESCOBAR Consulting Unavailable Sheree Kimbrough Unavailable Isadora Arroyo Unavailable Unavailable Primary Care Provider UnavailRENATE Quinones Attending Unavailable MYRNA GARCIA Attending Unavailable RENATE BONILLA Attending Unavailable Allergies Allergy Classification Reported Allergen(s) Allergy Type Date of Onset Reaction(s) Facility (10 sources) Latex Allergy to substance 5 Hives, Rash [facility] (10 sources) Wound Dressing Adhesive Propensity to adverse reactions 5 Hives, Rash [facility] Medications Current Medications Medication Drug Class(es) Dates Sig (Normalized) Sig (Original) clindamycin 300 mg oral capsule (1 source) Lincosamide Antibacterial Start: 05-01-2023 take 1 capsule by mouth every twelve hours ondansetron 4 mg oral tablet (8 sources) Serotonin-3 Receptor Antagonist Start: 01-25-2025 take 1 tablet by mouth every six hours as needed for nausea and nausea, then take 1 tablet by mouth every six hours as needed for nausea and nausea ondansetron (Zofran) 4 MG tablet Indications: Nausea and vomiting in Take 1 tablet (4 mg) by mouth every 6 (six) hours if needed for nausea or vomiting for up to 30 doses Take 1 tablet by mouth every 6 hours as needed for nausea. 30 tablet 3 01/25/2025 Active MV-Min-Fe Fum-FA-DHA ( 1 PO) (10 sources) MV-Min-Fe Fum-FA-DHA ( 1 PO) Take by mouth Active Completed/Discontinued Medications Medication Drug Class(es) Dates Sig (Normalized) Sig (Original) brompheniramine maleate 0.4 mg/ml / dextromethorphan hydrobromide 2 mg/ml / pseudoephedrine hydrochloride 6 mg/ml oral solution (3 sources) alpha-Adrenergic Agonist, Uncompetitive F-nyfcqj-N-aspartat e Receptor Antagonist, Sigma-1 Agonist Start: 07-27-2021 Start: 07-27-2021 take 10 mL by mouth every six hours Wfxbvtemz-Zmrfulge-KQ 30-2-10 MG/5ML 10 mL Orally every 6 hours for 5 days Jul, Not-Taking dextromethorphan hydrobromid e 15 mg / guaiFENesin 400 mg / pseudoephedrine hydrochloride 60 mg oral tablet (3 sources) alpha-Adrenergic Agonist, Uncompetitive U-ipmfxh-G-aspartate Receptor Antagonist, Sigma-1 Agonist Start: 07-27-2021 Start: 07-27-2021 take 4 tablets by mo uth every twenty-four hours as needed Capmist DM 60-15-400 MG as needed Orally every 4-6 hours as needed, max 4 tablets in 24 hours for 5 days Jul, Not-Taking Problems Active Problems Problem Classification Problem Date Documented Date Episodic/Chronic E Codes: Fall (1 source) Unspecified fall, initial encounter; Translations: [UNSPECIFIED FALL INITIAL ENCOUNTER] Onset: 11-29-2021 Episodic Immunizations and screening for infectious disease (4 sources) Contact with and (suspected) exposure to other viral communicable diseases; Translations: [Exposure to sexually transmissible disorder] Onset: 07-27-2021 Resolved: 09-19-2021 Episodic Menstrual disorders (1 source) Missed period; Translations: [Irregular menstruation, unspecified] 12-24-2024 Chronic Other complications of (2 sources) Vomiting of , unspecified; Translations: [Unspecified vomiting of , unspecified as to episode of care or not applicable] 01-25-2025 Episodic Other female genital disorders (2 sources) Vaginal discharge; Translations: [Other specified noninflammatory disorders of vagina] 02-23-2025 Episodic Other non-traumatic joint disorders (3 sources) Pain in left knee; Translations: [PAIN IN LEFT KNEE] Onset: 11-27-2021 Episodic Other and delivery including normal (6 sources) Second trimester ; Translations: [Encounter for supervision of normal , unspecified, second trimester] 01-25-2025 Episodic Other screening for suspected conditions (not mental disorders or infectious disease) (2 sources) Patient encounter status; Translations: [Encounter for other specified screening] 02-23-2025 Episodic Other skin disorders (1 source) Personal history of diseases of the skin and subcutaneous tissue Episodic Residual codes; unclassified (2 sources) Gestation period, 14 weeks; Translations: [14 weeks gestation of ] 01-25-2025 Episodic Residual codes; unclassified (2 sources) Gestation period, 18 weeks; Translations: [18 weeks gestation of ] 02-23-2025 Episodic Skin and subcutaneous tissue infections (1 source) Cutaneous abscess of right lower limb Episodic Sprains and strains (1 source) Sprain of unspecified site of left knee, initial encounter; Translations: [SPRAIN UNS SITE LT KNEE INITIAL] Onset: 11-29-2021 Episodic Past or Other Problems Problem Classification Problem Date Documented Da te Episodic/Chronic Other upper respiratory infections (1 source) Acute upper respiratory infection, unspecified; Translations: [Viral URI with cough J06.9] Onset: 07-27-2021 Resolved: 07-27-2021 Episodic Viral infection (1 source) COVID-19 Onset: 09-19-2021 Resolved: 09-19-2021 Results Test Name Value Interpretation Reference Range Facility RECURRENT VAGINITIS (HTRX)on 02-24-2025 ATOPOBIUM VAGINAE 0 [facility] ATOPOBIUM VAGINAE Not detected [facility] BVAB 2,3 (BACTERIAL VAGINOSIS ASSOCIATED BACTERIA 2, 3); MOBILUNCUS SPP 0 [facility] BVAB 2,3 (BACTERIAL VAGINOSIS ASSOCIATED BACTERIA 2, 3); MOBILUNCUS SPP Not detected [facility] INDU ALBICANS, PARAPSILOSIS, TROPICALIS 0 [facility] INDU ALBICANS, PARAPSILOSIS, TROPICALIS Not detected [facility] INDU GLABRATA [address] [facility] INDU GLABRATA Not detected [facility]I [facility]I Not [facility] CHLAMYDIA TRACHOMATIS 0 [facility] CHLAMYDIA TRACHOMATIS Not detected [facility] GARDNERELLA VAGINALIS 0 [facility] GARDNERELLA VAGINALIS Not detected [facility] MEGASPHAERA (TYPES 1, 2) 0 [facility] MEGASPHAERA (TYPES 1, 2) Not detected [facility] MYCOPLASMA GENITALIUM 0 [facility] MYCOPLASMA GENITALIUM Not detected [facility] NEISSERIA GONORRHOEAE 0 [facility] NEISSERIA GONORRHOEAE Not detected [facility] TRICHOMONAS VAGINALIS 0 [facility] TRICHOMONAS VAGINALIS Not detected [facility] ALL CBC WITH AUTO DIFFon BASOPHILS ABSOLUTE AUTO 0 [facility] Basophils/100 WBC (Bld) 0.3 % 0.2 - 2.0 % [facility] Eosinophils/100 WBC (Bld) 1.2 % 0.9 - 7.0 % [facility] Erythrocyte distribution width (RBC) [Ratio] 12.6 % 11.0 - 15.0 % [facility] Hematocrit (Bld) [Volume fraction] 35.1 % Low 36.0 - 48.0 % [facility] Hemoglobin (Bld) [Mass/Vol] 12.5 g/dL 12.0 - 16.0 g/dL [facility] IMMATURE GRANULOCYTES ABS AUTO 0.06 High [facility] Immature granulocytes/100 WBC (Bld) 0.4 % 0.0 - 0.5 % [facility] Interpretation and review of laboratory results Abnormal [facility] LYMPHOCYTES ABSOLUTE AUTO 3.8 [facility] Lymphocytes/100 WBC (Bld) 27.2 % 20.5 - 60.0 % [facility] MCH (RBC) [Entitic mass] 32.2 pg 26.7 - 34.0 pg [facility] MCHC (RBC) [Mass/Vol] 35.6 g/dL High 29.9 - 35.2 g/dL [facility] MCV (RBC) [Entitic vol] 90.5 fL 81.0 - 99.0 fL [facility] MONOCYTES ABSOLUTE AUTO 0.8 [facility] Monocytes/100 WBC (Bld) 5.5 % 1.7 - 12.0 % [facility] NEUTROPHILS ABSOLUTE AUTO 9.2 High [facility] Neutrophils/100 WBC (Bld) 65.4 % 43.0 - 75.0 % [facility] Platelet mean volume (Bld) [Entitic vol] 9.2 fL Low 9.5 - 13.5 fL [facility].2 [facility] PLT 245 [facility] TB RBC 3.88 Low [facility] WBC 14.1 High [facility] Health[facility] e [facility] e Urinalysis macro (dipstick) panel (U)on 02-23-2025 Bilirubin, UA Negative Negative - 4(70) +++ mg/dL [facility] Blood, UA Negative Negative - 50 Han/mcL [facility] Clarity, UA Clear [facility] Color, UA Yellow [facility] Glucose, UA Negative Negative - 1999(110) ++++ mg/dL [facility] Interpretation and review of laboratory results Abnormal [facility] Ketones, UA Negative Negative - 160(16) ++++ mg/dL [facility] Leukocytes, UA Negative Negative - 500+++ Jinny/mcL [facility] Nitrite, UA Negative Negative - Positive [facility] pH, UA 6.5 5 - 9 [facility] Healthcar e Protein, UA Negative Negative - 1999(20) ++++ mg/dL [facility] Spec Grav, UA 1.02 1 - 1.03 [facility] Urobilinogen, UA 1.0 0.2 - 12 mg/dL [facility] Urinalysis macro (dipstick) panel (U)on 01-25-2025 Bilirubin, UA Negative Negative - 4(70) +++ mg/dL [facility] Blood, UA Positive Negative - 50 Han/mcL [facility] Comment on above: trace-intact Clarity, UA Clear [facility] Healthca re Color, UA Yellow [facility] Health[facility] e Glucose, UA Negative Negative - 1999(110) ++++ mg/dL [facility] Interpretation and review of laboratory results Abnormal [facility] Ketones, UA Negative Negative - 160(16) ++++ mg/dL [facility] Leukocytes, UA Negative Negative - 500+++ Jinny/mcL [facility] Healthcare Nitrite, UA Negative Negative - Positive [facility] pH, UA 6.5 5 - 9 [facility] Health[facility] e Protein, UA Negative Negative - 1999(20) ++++ mg/dL [facility] Spec Grav, UA 1.025 1 - 1.03 [facility] Urobilinogen, UA 0.2 0.2 - 12 mg/dL [facility] HCG ( test) Ql (U)o n 12-25-2024 Interpretation and review of laboratory results Abnormal [facility] Preg Test, Ur Positive Negative [facility]inalysis macro (dipstick) panel (U)on 12-25-2024 Bilirubin, UA Negative Negative - 4(70) +++ mg/dL [facility] Blood, UA Positive Negative - 50 Han/mcL [facility] Comment on above: small Clarity, UA Clear [facility], UA Yellow [facility] e Glucose, UA Negative Negative - 1999(110) ++++ mg/dL [facility] Interpretation and review of laboratory results Abnormal [facility] Ketones, UA Negative Negative - 160(16) ++++ mg/dL [facility] Leukocytes, UA Negative Negative - 500+++ Jinny/mcL [facility] Nitrite, UA Negative Negative - Positive [facility] pH, UA 6 5 - 9 [facility] e Protein, UA Negative Negative - 1999(20) ++++ mg/dL [facility] Spec Grav, UA 1.03 1 - 1.03 [facility] Urobilinogen, UA 0.2 0.2 - 12 mg/dL [facility] US OB TRANSVAGINALon 025 US OB TRANSVAGINAL EXAM: US OB TRANSVAGINAL HISTORY: Dating. COMPARISON: None available. TECHNIQUE: Two-dimensional transvaginal grayscale ultrasound imaging of the pelvis was performed. Color Doppler evaluation of the ovaries was also performed. FINDINGS: The uterus demonstrates a normal homogeneous echotexture. The cervix measures 3.9 cm in length and the cervical os is closed. The right ovary is not visualized. The left ovary measures 2.8 x 1.9 x 1.9 cm and demonstrates a normal echotexture. There is normal color Doppler flow. No fluid is present within the cul-de-sac. There is a single, live intrauterine gestation identified with a heart rate of 164 beats per minute and a crown-rump length measurement of 3.2 cm, correlating to a gestational age of 10 weeks 1 days (+/- 6 days). There is no subchorionic hemorrhage visualized. A yolk sac is visualized. IMPRESSION: 1. Single, live intrauterine gestation 8 weeks, 6 days by LMP. Today's ultrasound measurements correlate with a gestational age of 10 weeks 1 days (+/- 6 days). NEREIDA by today's ultrasound is 07/21/2025. 2. Normal color Doppler evaluation of the left ovary, the right ovary was not visualized. Electronically Signed:Electronical ly signed by NANDA GRANT II, MD, PHD at 25-Dec-2024 08:23:40 AM [facility] Normal Not Available Comment on above: Order Comment: US OB TRANSVAGINAL No LMP recorded. XR KNEE LT 4V or >on 022 XR KNEE LT 4V or > EXAM: Left knee HISTORY: Medial left knee pain after a fall. TECHNIQUE: 4 views of the left knee were obtained. FINDINGS: There is no evidence of fracture or dislocation. There are no suspicious bone lesions. Soft tissues are normal. IMPRESSION: Unremarkable exam. Electronically authenticated by: GERMAIN LUNA Date: 2021-11-27 08:39 Normal [facility] COVID Quick Testingon 2020 Result Negative [employer] Other Vital Signs Date Time Vital Sign Value Performing Clinician Facility 02-23-2025 10:18-0400 Body weight 116.48 kg Myrna GARIBAY Work Phone: [facility] 02-23-2025 10:18-0400 Diastolic blood pressure 70 mm[Hg] Myrna GARIBAY Work Phone: [facility] 02-23-2025 10:18-0400 Systolic blood pressure 116 mm[Hg] Myrna GARIBAY Work Phone: [facility] 01-25-2025 11:32-0400 Body weight 117.84 kg Renate Irene DO Work Phone: [facility] 01-25-2025 11:32-0400 Diastolic blood pressure 68 mm[Hg] Renate Irene DO Work Phone: [facility] 01-25-2025 11:32-0400 Systolic blood pressure 118 mm[Hg] Renate Irene DO Work Phone: [facility] 12-25-2024 11:54-0500 Body weight 109.77 kg [facility] 12-25-2024 11:54-0500 Diastolic blood pressure 70 mm[Hg] [facility] Nurse [facility] 12-25-2024 11:54-0500 Systolic blood pressure 118 mm[Hg] [facility] Nurse [facility] 05-01-2023 13:20-0400 Body height 175.26 cm Isadora Arroyo Other [facility] Other 05-01-2023 13:20-0400 Body mass index (BMI) [Ratio] 38.98 kg/m2 Isadora Arroyo Other [facility] Other 05-01-2023 13:20-0400 Body temperature 97.8 [degF] Isadora Arroyo Other [facility] Other 05-01-2023 13:20-0400 Body weight 119.75 kg Isadora Arroyo Other [facility] Other 05-01-2023 13:20-0400 Respiratory rate 18 /min Isadora Arroyo Other [facility] Other 05-01-2023 13:20-0400 SaO2% (BldA) [Mass fraction] 98 % Isadora Arroyo Other [facility] Other 09-19-2021 14:15-0500 Body height 175.26 cm Sheree Ginty Other [facility] Other 09-19-2021 14:15-0500 Body mass index (BMI) [Ratio] 36.91 kg/m2 Sheree Ginty Other [facility] Other 09-19-2021 14:15-0500 Body temperature 96.3 [degF] Sheree Ginty Other [facility] Other 09-19-2021 14:15-0500 Body weight 113.4 kg Sheree Ginty Other [facility] Other 09-19-2021 14:15-0500 Respiratory rate 18 /min Sheree Ginty Other [facility] Other 09-19-2021 14:15-0500 SaO2% (BldA) [Mass fraction] 97 % Sheree Ginty Other [facility] Other 07-27-2021 11:15-0400 Body height 175.26 cm Sheree Ginty Other [facility] Other 07-27-2021 11:15-0400 Body mass index (BMI) [Ratio] 36.91 kg/m2 Sheree Ginty Other [facility] Other 07-27-2021 11:15-0400 Body temperature 96.7 [degF] Sheree Ginty Other [facility] Other 07-27-2021 11:15-0400 Body weight 113.4 kg Sheree Ginty Other [facility] Other 07-27-2021 11:15-0400 Respiratory rate 18 /min Sheree Ginty Other [facility] Other 07-27-2021 11:15-0400 SaO2% (BldA) [Mass fraction] 98 % Sheree Ginty Other [facility] [employer] Other Encounters Encounter Date Encounter Type Care Provider Facility Start: 03-23-2025 End: 03-23-2025 Diana Bonilla DO Work Phone: [facility] Start: 03-23-2025 End: 03-23-2025 Bamboo flowsheet Renate Irene DO Work Phone: [facility] Start: 03-23-2025 End: 03-23-2025 ambulatory RENATE IRENE Not Available Start: 02-23-2025 End: 02-23-2025 Bamboo flowsheet Myrna GARIBAY Work Phone: [facility] Start: 02-23-2025 End: 02-24-2025 Bamboo flowsheet Myrna GARIBAY Work Phone: [facility] Start: 02-23-2025 End: 02-23-2025 [facility]inis[facility] Result Encounter Renate Irene DO Work Phone: [facility] External Department Unsolicited Start: 02-23-2025 End: 02-24-2025 External Result Encounter Myrna GARIBAY Work Phone: [facility] External Department Unsolicited Start: 02-23-2025 End: 02-23-2025 Patient encounter procedure Myrna GARIBAY Work Phone: [facility] Healthcare Start: 02-23-2025 End: 02-23-2025 Periodic preventive med est patient 18-39 yrs Myrna GARIBAY Work Phone: [facility] Comment on above: Screening, , for anatomic survey; Well woman exam with routine gynecological exam; Second trimester ; 18 weeks gestation of ; Vaginal discharge; STD exposure Start: 02-23-2025 End: 02-23-2025 ambulatory MYRNA GARCIA Not Available Start: 01-25-2025 End: 01-25-2025 Bamboo flowsheet Renate Irene DO Work Phone: [facility] Start: 01-25-2025 End: 01-25-2025 Bamboo flowsheet Renate Irene DO Work Phone: [facility] Start: 01-25-2025 End: 01-25-2025 ambulatory RENATE IRENE Not Available Start: 01-25-2025 End: 01-25-2025 flow sheet Renate Irene DO Work Phone: [facility] Comment on above: Nausea and vomiting in (Primary Dx); 14 weeks gestation of ; Second trimester Start: 12-24-2024 End: 12-24-2024 Office outpatient visit 5 minutes [facility] Irene Nurse [facility] Comment on above: GA: 10w1d Start: 12-24-2024 End: 12-24-2024 ambulatory RENATE IRENE Not Available Start: 05-01-2023 End: 05-01-2023 ambulatory Isadora Arroyo Other [employer] Other Start: 05-01-2023 Office outpatient vi sit 15 minutes Isadoradmitry Arroyo [facility] Start: 11-27-2021 End: 11-27-2021 ambulatory HORACIO ESCOBAR Facility: Start: 09-19-2021 End: 09-19-2021 ambulatory Sheree Ginty Other [facility] [employer] Other Start: 09-19-2021 Office outpatient vi sit 15 minutes Sheree Ginty [facility] Start: 07-27-2021 Office outpatient vi sit 15 minutes Sheree Ginty [facility] Procedures Date Procedure Procedure Detail Performing Clinician Start: 02-23-2025 RECURRENT VAGINITIS (HTRX) Myrna GARIBAY Work Phone: Start: 02-23-2025 ALL CBC WITH AUTO DIFF Renate Irene DO Work Phone: Start: 02-23-2025 Urnls dip stick/tabl et rgnt non-auto w/o micrscp Renate Irene DO Work Phone: Start: 01-25-2025 Urnls dip stick/tabl et rgnt non-auto w/o micrscp Renate Irene DO Work Phone: Start: 12-25-2024 Urnls dip stick/tabl et rgnt non-auto w/o micrscp Renate Irene DO Work Phone: Plan of Treatment Date Care Activity Detail Author Start: 06-21-2025 Influenza vaccination Influenz a Vaccine (Season Ended) [facility] Start: 03-23-2025 End: 03-23-2025 Patient encounter procedure [facility] Comment on above: Arrived Start: 02-23-2025 End: 08-26-2025 Alpha fetoprotein, maternal Alpha fetoprotein, maternal Lab Routine Second trimester 18 weeks gestation of Expected: 02/23/2025 (Approximate), Expires: 08/26/2025 [facility] Healthcare Comment on above: Expected: 02/23/2025 (Approximate), Expires: 08/26/2025 Start: 02-23-2025 End: 05-26-2025 US for US OB 14+ weeks anatomy scan Imaging Routine Screening, , for anatomic survey Expected: 02/23/2025, Expires: 05/26/2025 [facility] Comment on above: Expected: 02/23/2025 , Expires: 05/26/2025 Start: 02-23-2025 End: 02-23-2025 Patient encounter procedure [facility] Comment on above: Arrived Start: 12-24-2024 End: 12-24-2025 ABO/Rh ABO/Rh Lab Routine Missed menses , unspecified gestational age Expected: 12/24/2024 (Approximate), Expires: 12/24/2025 [facility] Comment on above: Expected: 12/24/2024 (Approximate), Expires: 12/24/2025 Start: 12-24-2024 End: 12-24-2025 Blood type and Indirect antibody screen panel - Blood Type and screen Lab Routine Missed menses , unspecified gestational age Expected: 12/24/2024 (Approximate), Expires: 12/24/2025 [facility] Work Phone: Comment on above: Expected: 12/24/2024 (Approximate), Expires: 12/24/2025 Start: 12-24-2024 End: 12-24-2025 Drugs of abuse panel - Urine by Screen method Rapid drug screen, urine Lab Routine , unspecified gestational age Encounter for supervision of normal first in first trimester Expected: 12/24/2024 (Approximate), Expires: 12/24/2025 [facility] Comment on above: Expected: 12/24/2024 (Approximate), Expires: 12/24/2025 Bacteria identified in Urine by Culture Urine culture Microbiology Routine Missed menses Ordered: 12/24/2024 [facility] Comment on above: Ordered: 12/24/2024 CBC W Auto Different ial panel - Blood CBC and differential Lab Routine Missed menses , unspecified gestational age Ordered: 12/24/2024 [facility] Comment on above: Ordered: 12/24/2024 CHLAMYDIA TRACHOMATI S (GENITO/STI) CHLAMYDIA TRACHOMATIS (GENITO/STI) Lab Routine STD exposure Ordered: 02/23/2025 [facility] Comment on above: Ordered: 02/23/2025 Cytology Cervical or vaginal smear or scraping study Pap Smear Pathology and Cytology Routine Well woman exam with routine gynecological exam Ordered: 02/23/2025 [facility] Comment on above: Ordered: 02/23/2025 Hemoglobin A1c/Hemoglobin.total in Blood Hemoglobin A1c Lab Routine Missed menses , unspecified gestational age Ordered: 12/24/2024 [facility] Comment on above: Ordered: 12/24/2024 Hepatitis B virus surface Ag [Presence] in Serum or Plasma by Immunoassay Hepatitis B surface antigen Lab Routine Missed menses , unspecified gestational age Ordered: 12/24/2024 [facility] Comment on above: Ordered: 12/24/2024 Hepatitis C virus Ab [Presence] in Serum or Plasma by Immunoassay Hepatitis C antibody Lab Routine Missed menses , unspecified gestational age Ordered: 12/24/2024 [facility] Comment on above: Ordered: 12/24/2024 HIV-1/HIV-2 antigen/antibody combination immunoassay HIV-1 and HIV-2 antibodies Lab Routine Missed menses , unspecified gestational age Ordered: 12/24/2024 [facility] Comment on above: Ordered: 12/24/2024 Neisseria gonorrhoea e DNA [Presence] in Unspecified specimen by COLLIN with probe detection Neisseria gonorrhea DNA probe, direct Lab Routine STD exposure Ordered: 02/23/2025 [facility] Comment on above: Ordered: 02/23/2025 Reagin Ab [Presence] in Serum by RPR RPR Lab Routine Missed menses , unspecified gestational age Ordered: 12/24/2024 [facility] Comment on above: Ordered: 12/24/2024 Rubella antibody, IgG Rubella an tibody, IgG Lab Routine Missed menses , unspecified gestational age Ordered: 12/24/2024 [facility] Healthcare Comment on above: Ordered: 12/24/2024 SURESWAB(R) ADVANCED VAGINITIS PLUS, TMA SURESWAB(R) ADVANCED VAGINITIS PLUS, TMA Pathology and Cytology Routine Vaginal discharge Ordered: 02/23/2025 [facility] Work Phone: Comment on above: Ordered: 02/23/2025 Thyrotropin [Units/volume] in Serum or Plasma TSH Lab Routine , unspecified gestational age Ordered: 12/24/2024 [facility] Comment on above: Ordered: 12/24/2024 Immunizations Immunization Date Immunization Notes Care Provider Maria santiago 11-17-2012 influenza virus vacc ine, unspecified formulation Renate Irene DO Work Phone: [facility] Payers Date Payer Category Payer Private Health [place] [address] [id number] 2024 Unknown [id number] 1998 Unknown [id number] 1998 Unknown [id number] [id number] 1998 Unknown [id number] [id number] 1998 Unknown [id number] [id number] 1998 Unknown [id number] [id number] 1998 Unknown [id number] [id number] 1959 Unknown [id number] Unknown [id number] Social History Date Type Detail Facility Sex Assigned At [facility] Other Tobacco smoking status TXIS Tobacco smoking consumption unknown [facility] Start: 10-28-2024 [facility] Start: [facility] Sex assigned at Not on file [facility] History of Present illness Narrative 02-23-2025 PH[facility]EN[facility] Desir - 02/23/2025 9:20 AM EDT Note Date & Type Note Facility 02-23-2025 History of Presen t illness Narrative Reason for Appointment: Patient ID: Hanna Barnes is a 24 y.o. female who presents for Routine Visit, Well Women Visit, and STI Screening Patient presents today for Return OB appointment. MEDICATIONS Current Outpatient Medications Medication Instructions ondansetron (ZOFRAN) 4 mg, Oral, Every 6 hours PRN, Take 1 tablet by mouth every 6 hours as needed for nausea. MV-Min-Fe Fum-FA-DHA ( 1 PO) Take by mouth ALLERGIES Allergies Allergen Reactions Latex Hives and Rash Wound Dressing Adhesive Hives and Rash PROBLEMS Active Ambulatory Problems Diagnosis Date Noted No Active Ambulatory Problems Resolved Ambulatory Problems Diagnosis Date Noted No Resolved Ambulatory Problems No Additional Past Medical History HISTORY PAST MEDICAL HISTORY SOCIAL HISTORY No past medical history on file. Social History Tobacco Use Smoking status: Not on file Smokeless tobacco: Not on file Substance Use Topics Alcohol use: Not on file Drug use: Not on file FAMILY HISTORY No family history on file. SURGICAL HISTORY No past surgical history on file. REVIEW OF SYSTEMS Review of Systems: Review of Systems Constitutional: Negative. HENT: Negative. Eyes: Negative. Respiratory: Negative. Cardiovascular: Negative. Gastrointestinal: Negative. Genitourinary: Negative. Musculoskeletal: Negative. Skin: Negative. Neurological: Negative. All other systems reviewed and are negative. Hematological: Negative. Endocrine: Negative. Allergic/Immunologic: Negative. OBJECTIVE Objective: Physical Exam Constitutional: Appearance: Normal appearance. She is normal weight. Genitourinary: Right Adnexa: not tender and no mass present. Left Adnexa: not tender and no mass present. No cervical discharge. Breasts: Breasts are soft. Right: Normal. Left: Normal. HENT: Head: Normocephalic. Nose: Nose normal. Mouth/Throat: Mouth: Mucous membranes are moist. Cardiovascular: Rate and Rhythm: Normal rate. Pulses: Normal pulses. Pulmonary: Effort: Pulmonary effort is normal. Breath sounds: Normal breath sounds. Abdominal: General: Bowel sounds are normal. Palpations: Abdomen is soft. Musculoskeletal: General: Normal range of motion. Cervical back: Normal range of motion. Neurological: General: No focal deficit present. Mental Status: She is alert and oriented to person, place, and time. Skin: General: Skin is warm and dry. Psychiatric: Mood and Affect: Mood normal. Behavior: Behavior normal. Thought Content: Thought content normal. Judgment: Judgment normal. Vitals and nursing note reviewed. Exam conducted with a oil sprayer present. Vitals: There is no height or weight on file to calculate BMI. BP: 116/70 Patient's last menstrual period was 10/23/2024. ASSESSMENT & PLAN ICD-10-CM 1. Screening, , for anatomic survey Z36.89 US OB 14+ weeks anatomy scan 2. Well woman exam with routine gynecological exam Z01.419 Pap Smear 3. Second trimester Z34.92 Alpha fetoprotein, maternal Alpha fetoprotein, maternal 4. 18 weeks gestation of Z3A.18 POCT urinalysis dipstick manually resulted Alpha fetoprotein, maternal Alpha fetoprotein, maternal 5. Vaginal discharge N89.8 SURESWAB(R) ADVANCED VAGINITIS PLUS, TMA 6. STD exposure Z20.2 CHLAMYDIA TRACHOMATIS (GENITO/STI) Neisseria gonorrhea DNA probe, direct Return OB/Annual Exam: Patient presents today for a annual exam/routine obstetrics appointment. Patient is currently 18w6d . Patient states she is doing well but has complaints of nausea in the morning. Pap and cultures was obtained without difficulty and patient was given orders for anatomy scan and msAFP to be obtained. Orders Placed This Encounter Procedures US OB 14+ weeks anatomy scan CHLAMYDIA TRACHOMATIS (GENITO/STI) Neisseria gonorrhea DNA probe, direct Alpha fetoprotein, maternal POCT urinalysis dipstick manually resulted Follow Up: Patient is to schedule annual exam for next year and return to office in 4 weeks for OB appointment. Documented by PH[facility]EN[facility] Desir on behalf of: [facility] Desir documented in this encounter [facility] History of Present illness Narrative 01-25-2025 Melissa Cowna NP - 01/25/2025 11:20 AM EDT Note Date & Type Note Facility 01-25-2025 History of Presen t illness Narrative Reason for Appointment: Patient ID: Hanna Barnes is a 24 y.o. female who presents for Routine Visit Patient presents today for Return OB appointment. MEDICATIONS Current Outpatient Medications Medication Instructions MV-Min-Fe Fum-FA-DHA ( 1 PO) Take by mouth ALLERGIES Allergies Allergen Reactions Latex Hives and Rash Wound Dressing Adhesive Hives and Rash PROBLEMS Active Ambulatory Problems Diagnosis Date Noted [...] Eyes: Negative. Respiratory: Negative. Cardiovascular: Negative. Gastrointestinal: Positive for nausea. Genitourinary: Negative. Musculoskeletal: Negative. Skin: Negative. Neurological: [...] nursing note reviewed. Exam conducted with a oil sprayer present. Vitals: There is no height or weight on file to calculate BMI. BP: 118/68 Patient's last menstrual period was 10/23/2024. ASSESSMENT & PLAN ICD-10-CM 1. 14 weeks gestation of Z3A.14 POCT urinalysis dipstick manually resulted 2. Second trimester Z34.92 POCT urinalysis dipstick manually resulted Return OB: Patient presents today for a routine obstetrics appointment. Patient is currently 14w5d . Patient states she is doing well but has complaints of being tired due to current . Complaints of nausea and vomiting but reports this has improved and she is able to eat and drink throughout the day. Zofran is sent to the pharmacy today. Orders Placed This Encounter Procedures POCT urinalysis dipstick manually resulted Follow Up: Patient is to return to office in 4 week for routine OB appointment. Documented by Melissa Cowan NP on behalf of: Renate Bonilla DO documented in this encounter [facility] History of Present illness Narrative 12-24-2024 Regla Gutierrez MA - 12/24/2024 1:00 PM EST Note Date & Type Note Facility 12-24-2024 History of Presen t illness Narrative Reason for Appointment: Patient ID: Hanna Barnes is a 24 y.o. female who presents for Amenorrhea Patient presents today for a Nurse OB Intake appointment. Patient is 10w2d with a Estimated Date of Delivery: 07/21/25 OB History Para Term AB Living 1 SAB IAB Ectopic Multiple Live Births # Outcome Date GA Lbr Zhang/2nd Weight Sex Type Anes PTL Lv 1 Current Current Medications: has a current medication list which includes the following prescription(s): mv-min-fe fum-fa-dha. Medical History: Active Ambulatory Problems Diagnosis Date Noted No Active Ambulatory Problems Resolved Ambulatory Problems Diagnosis Date Noted No Resolved Ambulatory Problems No Additional Past Medical History No family history on file. Social History Tobacco Use Smoking status: Not on file Smokeless tobacco: Not on file Substance Use Topics Alcohol use: Not on file Drug use: Not on file No past surgical history on file. Allergies Allergen Reactions Latex Hives and Rash Wound Dressing Adhesive Hives and Rash Vitals: There is no height or weight on file to calculate BMI. BP: 118/70 Patient's last menstrual period was 10/23/2024. Assessment/Plan Diagnoses and all orders for this visit: Missed menses - Type and screen; Future - ABO/Rh; Future - CBC and differential - Hemoglobin A1c - RPR - Rubella antibody, IgG - Hepatitis B surface antigen - Hepatitis C antibody - HIV-1 and HIV-2 antibodies - Urine culture - POCT , urine manually resulted - POCT urinalysis dipstick manually resulted , unspecified gestational age - Type and screen; Future - ABO/Rh; Future - CBC and differential - Hemoglobin A1c - RPR - Rubella antibody, IgG - Hepatitis B surface antigen - Hepatitis C antibody - HIV-1 and HIV-2 antibodies - Rapid drug screen, urine; Future - TSH Encounter for supervision of normal first in first trimester - Rapid drug screen, urine; Future Nurse Note: OB Intake: Patient presents today for first OB visit. Patients history has been reviewed in great detail including any potential risks. Patient signed consent forms and patient desires testing in both trimesters. Patient currently has no complaints and has been advised to drink 6-8 glasses of water a day, eat no raw or undercooked meat, and stay away from [facility]. Patient has also been advised to not change litter boxes and eat 6 small meals a day. Patient has been consulted regarding the do's and don'ts of . Patient was given labs and all questions and concerns were answered. Follow Up: Patient is to return in 4 weeks for routine OB appointment. Follow Up: Patient is to have labs drawn at directed and return to office for initial OB appointment with provider. Patient may call office as needed with any concerns or questions. Nurse Visit Completed by: Regla Gutierrez MA documented in this encounter [facility] Evaluation note 09-19-2021 Note Date & Type Note Facility 09-19-2021 Evaluation note Encounter Date Diagnosis Assessment Notes Aug, Contact with and (suspected) exposure to other viral communicable diseases (ICD-10 - Z20.828) Aug, COVID-19 (ICD-10 - U07.1) Rapid COVID test performed in office today. Advised patient that test was positive. Instructed patient to isolate per CDC guidelines for 10 days from symptom onset. May return to work/activities outside home after isolation period as long as symptoms are improving and has been afebrile for 24 hours without use of antipyretic. Advised patient that health dept. will be in contact as results are reported to them. Advised patient that treatment of COVID is with viral supportive care OTC cold medications, Tylenol/Motrin as needed for body aches/fever. Increase fluids and rest. Encouraged use of cool mist humidifier. Follow-up with PCP to advise of positive result and further management need. Immediate eval for SOB, difficulty, chest pain, fevers that do not break with antipyretic or any other concerning symptoms as reviewed on patient education handout. Patient verbalizes understanding and is agreeable to treatment plan. Patient left in stable condition Aug, Other Additional time spent conducting pre-visit phone call, screening for symptoms, instructions on social distancing, application and removal of PPE, and cleaning of examination room, equipment and supplies was preformed. Patient education given for testing methodology and results. Patient care instructions given in writting by [facility] document [facility] Other Evaluation note 07-27-2021 Note Date & Type Note Facility 07-27-2021 Evaluation note Encounter Date Diagnosis Assessment Notes Jul, Contact with and (suspected) exposure to other viral communicable diseases (ICD-10 - Z20.828) Jul, Viral URI with cough (ICD-10 - J06.9) Advised patient that COVID antigen test was negative today. Advised patient that will tx as viral URI. Supportive care as directed, increase fluids and rest, Tylenol/Motrin as directed, rx of Capmist, cool mist humidifier, throat lozenges. Advised patient that Capmist contains cough suppressant, antihistamine, and nasal decongestant and to avoid other OTC medications unless directed by provider. Discussed infection control practices such as good hand washing and mask wearing. Patient to follow-up with UC or PCP for persistent or worsening sx despite tx. Immediate eval by ER for warning s/sx as discussed, including but not limited to, SOB, difficulty breathing, chest pain, palpitations, fever >103 or fevers that are not reduced with antipyretic, significant dehydration (unable to keep fluids or food down, persistent vomiting/diarrh ea), abdominal pain, lethargy, severe headache. Patient was provided with education hand sheet. Patient verbalizes understanding and is agreeable to treatment plan Jul, Other Additional time spent conducting pre-visit phone call, screening for symptoms, instructions on social distancing, application and removal of PPE, and cleaning of examination room, equipment and supplies was preformed. Patient education given for testing methodology and results. Patient care instructions given in writting by [facility] Care [facility] document [facility] Other Evaluation note Note Date & Type Note Facility Evaluation note [place] [facility] Other Evaluation note Note Date & Type Note Facility Evaluation note Diagnosis Nausea and vomiting in - Primary Unspecified vomiting of , unspecified as to episode of care 14 weeks gestation of Second trimester state, incidental documented in this encounter [facility] Evaluation note Note Date & Type Note Facility Evaluation note Diagnosis Screening, , for anatomic survey Encounter for anatomic survey Well woman exam with routine gynecological exam Routine gynecological examination Second trimester state, incidental 18 weeks gestation of Vaginal discharge Leukorrhea, not specified as infective STD exposure documented in this encounter [facility] Evaluation note Note Date & Type Note Facility Evaluation note Diagnosis Missed menses , unspecified gestational age Encounter for supervision of normal first in first trimester documented in this encounter [facility] Healthcare Summary Purpose Family History No Family History Records FoundNo Family History Records Found Advance Directives No Advanced Directives Records FoundNo Advanced Directives Records Found Additional Source Comments INFORMATION SOURCE (unrecogn ized section and content) DATE CREATED AUTHOR 11/29/2021 [facility] DATE CREATED AUTHOR 'S TC ATGENARO 03/24/2025 [facility] EPIC REASON FOR VISIT (unrecogniz ed section and content) Reason Comments Routine Visit Reason Comments Routine Visit Well Women Visit STI Screening Reason Comments Amenorrhea FOR RECORDS PERTAINING TO PATIENTS WHO ARE OR HAVE BEEN ENROLLED IN A CHEMICAL DEPENDENCY/SUBSTANCEABUSE PROGRAM, SOME INFORMATION MAY BE OMITTED. This clinical summary was aggregated from multiple sources. Caution should be exercised in using it in the provision of clinical care. This summary normalizes information from multiple sources, and as a consequence, information in this document may materially change the coding, format and clinical context of patient data. In addition, data may be omitted in some cases. CLINICAL DECISIONS SHOULD BE BASED ON THE PRIMARY CLINICAL RECORDS. [facility]. provides no warranty or guarantee of the accuracy or completeness of information in this document.
--- OUTSIDE RECORDS SUMMARY | 2025-03-31 10:02 | XMS_ITS | Clinical Summary ---
Author Organization [facility] Healthcare Address [address] [place] [address] Care Team Providers Care Supply Chain Analyst Name Role Phone Unavailable Primary Care Provider [...] 03/31/2025 8:30 AM EDT Ancillary Procedure [facility] [address] [place] [address] Screening, , for anatomic survey 03/31/2025 Telephone [facility] [address] [place] [address] Ellen Lr LPN 03/23/2025 10:40 AM EDT Routine [facility] [address] [place] [address] Jose Bonilla DO Second trimester ; 22 weeks gestation of ; Diabetes mellitus screening 03/23/2025 Bamboo flowsheet [facility] [address] [place] [address] Jose Bonilla DO 03/08/2025 Orders Only [facility] [address] [place] [address] Joshrohit EllenLESLY 03/08/2025 Abstract [facility] [address] [place] [address] Jose Bonilla DO 03/02/2025 Abstract [facility] [address] [place] [address] Regla Gutierrez MA 02/23/2025 9:20 AM EDT Routine [facility]OM[facility] [address] [place] [address] Myrna Levy PA Screening, , for anatomic survey; Well woman exam with routine gynecological exam; Second trimester ; 18 weeks gestation of ; Vaginal discharge; STD exposure 02/23/2025 External Result Encounter [facility] External Department Unsolicited Myrna Levy PA 02/23/2025 Clinisync Result Encounter [facility] External Department Unsolicited Jose Bonilla, 02/23/2025 Bamboo flowsheet [facility]OM[facility] [address] [place] [address] Myrna Levy PA 01/25/2025 11:20 AM EDT Routine [facility]OM[facility] [address] [place] [address] Jose Bonilla DO Nausea and vomiting in (Primary Dx); 14 weeks gestation of ; Second trimester 01/25/2025 Bamboo flowsheet [facility]OM[facility] [address] [place] [address] Jose Bonilla DO from Last 3 Months [...] AM EDT Routine [facility] [address] [facility] [place] [address] Jose Bonilla, DO [address] [facility] [place] [address] Health Maintenance Due Date Last Done Comments [...] RECURRENT VAGINITIS (HTRX) (02/23/2025 12:02 PM EDT) [facility] ATOPOBIUM VAGINAE 0.000 19.961 - 24.689 ppm 02/24/2025 6:01 AM EDT [facility] ATOPOBIUM VAGINAE Not Detected 19.961 - 24.689 ppm 02/24/2025 6:01 AM EDT [facility] BVAB 2,3 (BACTERIAL VAGINOSIS ASSOCIATED BACTERIA 2, 3); MOBILUNCUS SPP 0.000 19.961 - 24.689 ppm 02/24/2025 6:01 AM EDT [facility] BVAB 2,3 (BACTERIAL VAGINOSIS ASSOCIATED BACTERIA 2, 3); MOBILUNCUS SPP Not Detected 19.961 - 24.689 ppm 02/24/2025 6:01 AM EDT [facility] INDU ALBICANS, PARAPSILOSIS, TROPICALIS 0.000 19.961 - 30.770 ppm 02/24/2025 6:01 AM EDT [facility] INDU ALBICANS, PARAPSILOSIS, TROPICALIS Not Detected 19.961 - 30.770 ppm 02/24/2025 6:01 AM EDT [facility] INDU GLABRATA 0.000 23.000 - 32.138 ppm 02/24/2025 6:01 AM EDT [facility] INDU GLABRATA Not Detected 23.000 - 32.138 ppm 02/24/2025 6:01 AM EDT [facility] INDU KRUSEI 0.000 23.000 - 32.271 ppm 02/24/2025 6:01 AM EDT [facility] INDU KRUSEI Not Detected 23.000 - 32.271 ppm 02/24/2025 6:01 AM EDT [facility] CHLAMYDIA TRACHOMATIS 0.000 23.000 - 31.467 ppm 02/24/2025 6:01 AM EDT [facility] CHLAMYDIA TRACHOMATIS Not Detected 23.000 - 31.467 ppm 02/24/2025 6:01 AM EDT [facility] GARDNERELLA VAGINALIS 0.000 19.961 - 24.689 ppm 02/24/2025 6:01 AM EDT [facility] GARDNERELLA VAGINALIS Not Detected 19.961 - 24.689 ppm 02/24/2025 6:01 AM EDT [facility] MEGASPHAERA (TYPES 1, 2) 0.000 19.961 - 24.689 ppm 02/24/2025 6:01 AM EDT [facility] MEGASPHAERA (TYPES 1, 2) Not Detected 19.961 - 24.689 ppm 02/24/2025 6:01 AM EDT [facility] NEISSERIA GONORRHOEAE 0.000 23.000 - 32.117 ppm 02/24/2025 6:01 AM EDT [facility] NEISSERIA GONORRHOEAE Not Detected 23.000 - 32.117 ppm 02/24/2025 6:01 AM EDT [facility] TRICHOMONAS VAGINALIS 0.000 23.000 - 32.119 ppm 02/24/2025 6:01 AM EDT [facility] TRICHOMONAS VAGINALIS Not Detected 23.000 - 32.119 ppm 02/24/2025 6:01 AM EDT [facility] MYCOPLASMA GENITALIUM 0.000 19.961 - 24.689 ppm 02/24/2025 6:01 AM EDT [facility] MYCOPLASMA GENITALIUM Not Detected 19.961 - 24.689 ppm 02/24/2025 6:01 AM EDT [facility] Tissue 02/23/2025 12:0 2 PM EDT 02/24/2025 1:27 AM EDT Myrna GARIBAY LAB BLOOD ORDERABLES Final Resul t [facility] [address] [place] [address] * BOX TEST (02/23/2025 11:33 AM EDT) Pathologist [facility] BOX TEST SENT OUT [facility] BOX1 [facility] BOX2 02/23/25 [facility] 02/23/2025 11:3 3 AM EDT 02/23/2025 11:35 AM EDT Narrative [facility] - 02/23/2025 1:06 PM EDT Jose Irene DO LAB BLOOD ORDERABLES Final Resul t Performing Organization Address City/[facility]/ZIP Co de Phone Number [facility] * HBSAG SCREEN (02/23/2025 11:33 AM EDT) Pathologist [facility] HBSAG SCREEN Negative Negative [facility] Comment: Performed at: - [address] [id number] Office Services Specialist: Suhas Segovia PhD, Phone: [phone] 02/23/2025 11:3 3 AM EDT 02/23/2025 11:35 AM EDT Narrative [facility] - 02/24/2025 12:10 PM EDT Jose Irene DO LAB BLOOD ORDERABLES Final Resul t Performing Organization Address City/[facility]/ZIP Co de Phone Number [facility] * RAPID PLASMA REAGIN, QUANT (02/23/2025 11:33 AM EDT) Pathologist [facility] RAPID PLASMA REAGIN, QUANT Non Reactive NonRea<1: 1 titer [facility] Comment: Please Note: This test does not meet current guidelines for screening and diagnosis of syphilis. This test is intended for following treatment response in patients being treated for syphilis infection. To screen for syphilis infection, a reflex cascade that includes both RPR and a treponema-specific assay should be utilized, such as Treponema pallidum (Syphilis) Screening [place] (958147) or Rapid Plasma Reagin (RPR) Test With Reflex to Quantitative RPR and Confirmatory Treponema pallidum Antibodies (976931). Performed at: [address] [id number] Office Services Specialist: Suhas Segovia PhD, Phone: [phone] 02/23/2025 11:3 3 AM EDT 02/23/2025 11:35 AM EDT Narrative [facility] - 02/24/2025 12:10 PM EDT SMRxT LAB BLOOD ORDERABLES Final Resul t Performing Organization Address [facility] Co de Phone Number [facility] * HIV AB/P24 AG WITH REFLEX (02/23/2025 11:33 AM EDT) Pathologist [facility] HIV AB/P24 AG SCREEN Non Reactive Non Reactive [facility] Comment: HIV-1/HIV-2 antibodies and HIV-1 p24 antigen were NOT detected. There is no laboratory evidence of HIV infection. HIV Negative Performed at: [address] [id number] Office Services Specialist: Suhas Segovia PhD, Phone: [phone] 02/23/2025 11:3 3 AM EDT 02/23/2025 11:35 AM EDT Narrative [facility] - 02/24/2025 5:11 AM EDT SMRxT LAB BLOOD ORDERABLES Final Resul t Performing Organization Address City/[facility] Co de Phone Number [facility] * AFP, SERUM, OPEN SPINA BIFIDA (02/23/2025 11:33 AM EDT) Pathologist [facility] RESULTS Report . [facility] TEST RESULTS: *Screen Negative* . [facility] GEST. AGE ON COLLECTION DATE 18.9 . weeks [facility] GESTAT. AGE BASED ON As provided . [facility] Comment: Recalculations are not recommended when gestational dating by LMP and ultrasound are within 10 days. [age] [facility] RACE . [facility] WEIGHT 256 . lbs [facility] INSULIN DEP DIABETES No . [facility] MULTIPLE GESTATION Comment . [facility] Comment:Not provided. AFP VALUE 42.1 . ng/mL [facility] AFP MOM 1.18 . [facility] OSBR RISK 1 IN 16 . [facility] INTERPRETATION Comment . [facility] Comment: Interpretation: Screen Negative This result [...] Customer Services to discuss available options. The [place] [employer] recommends amniocentesis be offered to women age 35 and older. COMMENT: Comment . [facility] Comment: Katelin Brothers, Ph.D., [facility] Director References: Available Upon Request. Multiples Of Median Cutoffs For AFP Elevations Pablo 2.5 Black 2.8 IDD 2.0 Twins 4.5 Abbreviation Definitions IDD - Insulin Dep Diabetes OSBR - Open Spina Bifida Risk For further inquiries contact [employer] [facility] at [phone]. This test was developed and its performance characteristics determined by [employer]. It has not been cleared or approved by the Food and Drug Administration. Performed at: [facility] [place], [place] [id number] Office Services Specialist: Janet Lantigua [facility], Phone: [phone] 02/23/2025 11:3 3 AM EDT 02/23/2025 11:35 AM EDT Narrative [facility] - 02/25/2025 1:08 AM EDT [id number] Jose Bonilla DO LAB BLOOD ORDERABLES Final Resul t Performing Organization Address City/[facility] Co de Phone Number [facility] * HCV ANTIBODY RFX TO QUANT PCR (02/23/2025 11:33 AM EDT) [facility] HCV AB Non Reactive Non Reactive [facility] INTERPRETATION: Comment . TB Comment: Not infected with HCV unless early or acute infection is suspected (which may be delayed in an immunocompromised individual), or other evidence exists to indicate HCV infection. Performed at: [facility] [address] [id number] Office Services Specialist: Suhas Segovia PhD, Phone: [phone] 02/23/2025 11:3 3 AM EDT 02/23/2025 11:35 AM EDT Narrative [facility] - 02/24/2025 8:09 AM EDT Jose Irene DO LAB BLOOD ORDERABLES Final Resul t Performing Organization Address [facility] Co de Phone Number [facility] * MLR HEMOGLOBIN A1C (02/23/2025 11:33 AM EDT) [facility] GLYCOHEMOGLOBIN A1C 5.2 4.5 - 6.2 % [facility] Comment: ADA RECOMMENDED LIMIT 4.0 - 6.0 ADA THERAPEUTIC TARGET < 7.0 ACTION SUGGESTED > 7.0 ESTIMATED AVERAGE GLUCOSE 103 mg/dL TB 02/23/2025 11:3 3 AM EDT 02/23/2025 11:35 AM EDT Narrative [facility] - 02/23/2025 1:15 PM EDT [employer] DO CLINISYNC Final Result Performing Organization Address [facility] Co de Phone Number [facility] * ALL TYPE AND SCREEN (02/23/2025 11:33 AM EDT) [facility] BLOOD TYPE A Positive [facility] ANTIBODY SCREEN NEGATIVE TB 02/23/2025 11:3 3 AM EDT 02/23/2025 11:35 AM EDT Narrative [facility] - 02/23/2025 2:44 PM EDT [facility] , Jose Irene DO CLINISYNC Final Result Performing Organization Address City/[facility]/ZIP Co de Phone Number [facility] * ALL THYROID STIM HORMONE (02/23/2025 11:33 AM EDT) Pathologist [facility] THYROID STIMULATING HORMONE 1.845 0.358 - 3.740 uIU/mL [facility] 02/23/2025 11:3 3 AM EDT 02/23/2025 11:35 AM EDT Narrative [facility] - 02/23/2025 12:22 PM EDT Jose Irene DO CLINISYNC Final Result Performing Organization Address [facility] Co de Phone Number [facility] * ALL RUBELLA IGG AB (02/23/2025 11:33 AM EDT) [facility] RUBELLA ANTIBODIES, IGG 1.09 Immune >0.99 index [facility] Comment: Non-immune <0.90 Equivocal 0.90 - 0.99 Immune >0.99 Performed at: [facility] [address] [id number] Office Services Specialist: Suhas Segovia PhD, Phone: [phone] 02/23/2025 11:3 3 AM EDT 02/23/2025 11:35 AM EDT Narrative [facility] - 02/24/2025 8:09 AM EDT Jose Irene DO CLINISYNC Final Result Performing Organization Address City/[facility]/ZIP Co de Phone Number [facility] * (ABNORMAL) ALL CBC WITH AUTO DIFF (02/23/2025 11:33 AM EDT) [facility] WBC 14.1(H) 4.0 - 11.0 10 3/uL [...] - 02/23/2025 11:59 AM EDT us Jose Bonilla DO CLINISYNC Final Result [facility] * (ABNORMAL) TB DRUG SCREEN RAPID (URINE) (02/23/2025 11:08 AM EDT) [facility] CANNABINOID SCREEN URINE POSITIVE(A) NEGATIVE TB PHENCYCLIDINE SCREEN URINE NEGATIVE NEGATIVE [facility] COCAINE [...] Narrative [facility] - 02/23/2025 12:46 PM EDT us Jose Bonilla DO CL[facility] Final Result [facility] * IGP,APTIMA HPV,AGE GDLN (02/23/2025 10:01 AM EDT) AGE GDLN ACOG TESTING Note . [facility] Comment: TESTS RESULT FLAG UNITS REF RANGE LAB Clinician Provided Cytology Information Source.............Cervix No. of containers..01 ThinPrep Vial Age Algo ACOG Nancy... FLAG LEGEND: L-Low Normal,H-High Normal,LL-Alert Low,HH-Alert High <-Panic Low,>-Panic High,A-Abnormal,AA-Critical Abnormal Performed at: 01 =G [facility] [address] [place] [address] Jovita Russell MD, IGP, RFX APTIMA HPV ASCU Note . [facility] Comment: TESTS RESULT FLAG UNITS REF RANGE LAB DIAGNOSIS: 02 NEGATIVE FOR INTRAEPITHELIAL LESION OR MALIGNANCY. Specimen adequacy: 02 Satisfactory for evaluation. Endocervical and/or squamous metaplastic cells (endocervical component) are present. Performed by: Bing Torres, Soda Flaker ([facility]) . 02 Note: Note 02 [...] <-Panic Low,>-Panic High,A-Abnormal,AA-Critical Abnormal Performed at: [address] [id number] Jovita Russell MD, Performed at: =G - [facility] [address] [id number] Office Services Specialist: Jovita Russell MD, Phone: [phone] Performed at: [facility] [address] [id number] Office Services Specialist: Jovita Russell MD, Phone: [phone] 02/23/2025 10:0 1 AM EDT 02/23/2025 1:17 PM EDT Narrative [facility] - 02/25/2025 10:08 AM EDT SPATULA-ALONE CERVIX Myrna GARIBAY LAB BLOOD ORDERABLES Final Resul t Performing Organization Address [facility] de Phone Number [facility] * Pap Smear (02/23/2025 12:00 AM EDT) Swab Cervical swab / Unknown Myrna GARIBAY LAB CYTOLOGY ORDERABLES Final Re sult Performing Organization Address [facility] de Phone Number EXTERNAL LAB from Last 3 Months Insurance [employer]
--- OUTSIDE RECORDS SUMMARY | 2025-03-31 10:02 | XMS_ITS | Clinical Summary ---
Author Organization [employer] [facility] tem Address [facility] [id number] [address] [place] [address] Care Team Providers Care Media Specialist Name Role Phone Sade Bosserie Kem TITLE I COORDINATOR-[facility] Primary Care Provid er Allergies Active Allergy [...] on file Insurance [employer] Care Teams Media Specialist Relationship Specialty Start Date End Date Mary Boss, [facility] [address] [facility] [place] [address] PCP - General Family Medicine 11/29/21
--- OUTSIDE RECORDS SUMMARY | 2025-03-31 10:03 | XMS_ITS | Encounter Summary ---
Author Organization [facility] Address [address] [facility] [place] [address] Care Team Providers Care Dairy Bar Manager Name Role Phone Unavailable Primary Care Provider Unavailabl e Encounter Details Date Type Department Care Team (Late st Contact Info) Description 03/02/2025 Abstract [facility] [address] [facility] [place] [place] [address] Regla Gutierrez MA Social History Tobacco [...] Description 04/20/2025 9:20 AM EDT Routine [facility] [address] [place] [address] Jose Bonilla [facility] [address] [place], [place] [id number] documented as of this encounter Visit Diagnoses Not on filedocumented in this encounter
--- OUTSIDE RECORDS SUMMARY | 2025-03-31 10:03 | XMS_ITS | Encounter Summary ---
Author Organization [facility] Address [address] [facility] [place] [place] [address] Care Team Providers Care Family Services Coordinator Name Role Phone Unavailable Primary Care Provider Unavailabl e Encounter Details Date Type Department Care Team (Late st Contact Info) Description 03/08/2025 Orders Only [facility] [address] [facility] [place] [address] Ellen Lr LPN [address] [place] [id number] Social History Tobacco Use Types Packs/Day Years [...] Description 04/20/2025 9:20 AM EDT Routine [facility] [address] [facility] [place] [address] Jose Bonilla DO [address] [facility] [place] [address] documented as of this encounter Procedures [...]
--- OUTSIDE RECORDS SUMMARY | 2025-03-31 10:03 | XMS_ITS | Encounter Summary ---
Author Organization [facility] Address [address] [place] [address] Care Team Providers Care Pay Station Department Manager Name Role Phone Unavailable Primary Care Provider Unavailabl e Encounter Details Date Type Department Care Team (Late st Contact Info) Description 03/23/2025 Bamboo flowsheet [facility] OB [address] [place] [address] Jose Bonilla, DO [address], [facility]11 Social History Tobacco Use Types Packs/Day [...] Routine [facility] [address] [place] [address] Jose Bonilla, DO [address] [place], [facility]11 documented as of this encounter Visit Diagnoses Not on filedocumented in this encounter
--- OUTSIDE RECORDS SUMMARY | 2025-03-31 10:03 | XMS_ITS | Encounter Summary ---
Author Organization [facility] Address [address] [facility] [place] [address] Care Team Providers Care Bias Machine Operator Helper Name Role Phone Unavailable Primary Care Provider Unavailabl e Encounter Details Date Type Department Care Team (Late st Contact Info) Description 03/08/2025 Abstract [facility] OB [address] [place] [address] Jose Bonilla, DO [address] [place], [facility] Social History Tobacco Use Types Packs/Day [...] Description 04/20/2025 9:20 AM EDT Routine [facility] [address] [place] [address] Jose Bonilla, DO [address] [place] [address] documented as of this encounter Visit Diagnoses Not on filedocumented in this encounter
--- OUTSIDE RECORDS SUMMARY | 2025-03-31 10:03 | XMS_ITS | Encounter Summary ---
Author Organization [facility] Address [address] [facility] [place] [address] Care Team Providers Care Excel Vba Developer Name Role Phone Unavailable Primary Care Provider Unavailabl e Encounter Details Date Type Department Care Team (Late st Contact Info) Description 03/31/2025 Telephone [facility] [address] [facility] [place] [address] Ellen Lr LPN [address] [place] [address] Social History Tobacco Use Types Packs/Day Years Used Date Smoking Tobacco: Never Assessed Estimated Date of Delivery Comme nts Yes 07/21/2025 Based on Ultraso und Sex and Gender Information Value Date Recorded Sex Assigned at Not on file Legal Sex Female 7:31 PM EDT Gender Identity Not on file Sexual Orientation Not on file documented as of this encounter Miscellaneous Notes * Telephone Encounter - Ellen Lr LPN - 03/31/2025 9:49 AM EDT Pt went too get 1 hour glucose done, and ended up throwing up the glucose. A1C order sent to [facility] to instead. documented in this encounter Plan of Treatment Upcoming Encounters Date Type Department Care Team (Late st Contact Info) Description 04/20/2025 9:20 AM EDT Routine [facility] [address] [place] [address] Jose Bonilla, DO [address] [facility] [place] [address] Scheduled Orders Name Type Priority Associated Diagnoses Orde r Schedule Hemoglobin A1c Lab Routine Diabetes mellitus screening Expected: 03/31/2025 (Approximate), Expires: 03/31/2026 documented as of this encounter Visit Diagnoses Diagnosis Diabetes mellitus screening Screening for diabetes mellitus documented in this encounter
--- OUTSIDE RECORDS SUMMARY | 2025-03-31 10:15 | XMS_ITS | CCD ---
Author Organization [facility]ini[facility] Care Team Providers Care Chorus Master Name Role Phone HORACIO ESCOBAR Admitting Unavailable [...] Propensity to adverse reactions 5 Hives, Rash [facility] Healthcare Medications Current Medications Medication Drug [...] oral solution (3 sources) alpha-Adrenergic Agonist, Uncompetitive G-mjuuen-V-aspartat e Receptor Antagonist, Sigma-1 Agonist Start: 07-27-2021 Start: 07-27-2021 take 10 mL by mouth every six hours Echaxxkso-Ycecwkly-AC 30-2-10 MG/5ML 10 mL Orally every 6 hours for 5 days Jul, Not-Taking dextromethorphan hydrobromid e 15 mg / guaiFENesin 400 mg / pseudoephedrine hydrochloride 60 mg oral tablet (3 sources) alpha-Adrenergic Agonist, Uncompetitive Z-gojpzn-B-aspartate Receptor Antagonist, Sigma-1 Agonist Start: 07-27-2021 Start: [...] VAGINITIS (HTRX)on 02-24-2025 ATOPOBIUM VAGINAE 0 [facility] ATOPOBIUM VAGINAE Not detected [facility] Healthcare BVAB 2,3 (BACTERIAL VAGINOSIS ASSOCIATED BACTERIA 2, 3); MOBILUNCUS SPP 0 [facility] BVAB 2,3 (BACTERIAL VAGINOSIS ASSOCIATED BACTERIA 2, 3); MOBILUNCUS SPP Not detected [facility] Healthcare INDU ALBICANS, PARAPSILOSIS, TROPICALIS 0 [facility] INDU ALBICANS, PARAPSILOSIS, TROPICALIS Not detected [facility] INDU GLABRATA 0 [facility] lthcare INDU GLABRATA Not detected [facility]I Not [facility] CHLAMYDIA TRACHOMATIS 0 [facility] CHLAMYDIA TRACHOMATIS Not detected [facility] GARDNERELLA VAGINALIS 0 [facility] GARDNERELLA VAGINALIS Not detected [facility] MEGASPHAERA (TYPES 1, 2) 0 [facility] MEGASPHAERA (TYPES 1, 2) Not detected [facility] MYCOPLASMA GENITALIUM 0 [facility] MYCOPLASMA GENITALIUM Not detected [facility] NEISSERIA GONORRHOEAE 0 [facility] NEISSERIA GONORRHOEAE Not detected [facility] TRICHOMONAS VAGINALIS 0 [facility] TRICHOMONAS VAGINALIS Not detected [facility] e ALL CBC WITH AUTO DIFFon BASOPHILS ABSOLUTE AUTO 0 [facility] Basophils/100 WBC (Bld) 0.3 % 0.2 - 2.0 % [facility] Eosinophils/100 WBC (Bld) 1.2 % 0.9 - 7.0 % [facility] Erythrocyte distribution width (RBC) [Ratio] 12.6 % 11.0 - 15.0 % [facility] Hematocrit (Bld) [Volume fraction] 35.1 % Low 36.0 - 48.0 % [facility] Healthcar e Hemoglobin (Bld) [Mass/Vol] 12.5 g/dL 12.0 - 16.0 g/dL [facility] IMMATURE GRANULOCYTES ABS AUTO 0.06 High [facility] Immature granulocytes/100 WBC (Bld) 0.4 % 0.0 - 0.5 % [facility] Interpretation and review of laboratory results Abnormal [facility] LYMPHOCYTES ABSOLUTE AUTO 3.8 [facility] Lymphocytes/100 WBC (Bld) 27.2 % 20.5 - 60.0 % [facility] MCH (RBC) [Entitic mass] 32.2 pg 26.7 - 34.0 pg [facility] MCHC (RBC) [Mass/Vol] 35.6 g/dL High 29.9 - 35.2 g/dL [facility] MCV (RBC) [Entitic vol] 90.5 fL 81.0 - 99.0 fL [facility] MONOCYTES ABSOLUTE AUTO 0.8 [facility] Monocytes/100 WBC (Bld) 5.5 % 1.7 - 12.0 % [facility] NEUTROPHILS ABSOLUTE AUTO 9.2 High [facility] Neutrophils/100 WBC (Bld) 65.4 % 43.0 - 75.0 % [facility] Platelet mean volume (Bld) [Entitic vol] 9.2 fL Low 9.5 - 13.5 fL [facility] # 0.2 [facility] TBH PLT 245 [facility] TB RBC 3.88 Low [facility] WBC 14.1 High [facility] Healthcar e [facility] Healthcar e Urinalysis macro (dipstick) panel (U)on 02-23-2025 Bilirubin, UA Negative Negative - 4(70) +++ mg/dL [facility] Blood, UA Negative Negative - 50 Han/mcL [facility] Healthcare Clarity, UA Clear [facility] re Color, UA Yellow [facility] Healthcar e Glucose, UA Negative Negative - 1999(110) ++++ mg/dL [facility] Interpretation and review of laboratory results Abnormal [facility] Ketones, UA Negative Negative - 160(16) ++++ mg/dL [facility] Leukocytes, UA Negative Negative - 500+++ Jinny/mcL [facility] Healthcare Nitrite, UA Negative Negative - Positive [facility] pH, UA 6.5 5 - 9 [facility] Healthcar e Protein, UA Negative Negative - 1999(20) ++++ mg/dL [facility] Spec Grav, UA 1.02 1 - 1.03 [facility] Urobilinogen, UA 1.0 0.2 - 12 mg/[facility] Urinalysis macro (dipstick) panel (U)on 01-25-2025 Bilirubin, UA Negative Negative - 4(70) +++ mg/dL [facility] Blood, UA Positive Negative - 50 Han/mcL [facility] Healthcare Comment on above: trace-intact Clarity, UA Clear [facility] Healthca re Color, UA Yellow [facility] Healthcar e Glucose, UA Negative Negative - 1999(110) ++++ mg/dL [facility] Interpretation and review of laboratory results Abnormal [facility] Ketones, UA Negative Negative - 160(16) ++++ mg/dL [facility] Leukocytes, UA Negative Negative - 500+++ Jinny/mcL [facility] Healthcare Nitrite, UA Negative Negative - Positive [facility] pH, UA 6.5 5 - 9 [facility] Healthcar e Protein, UA Negative Negative - 1999(20) ++++ mg/dL [facility] Spec Grav, UA 1.025 1 - 1.03 [facility] Urobilinogen, UA 0.2 0.2 - 12 mg/dL [facility] HCG ( test) Ql (U)o n 12-25-2024 Interpretation and review of laboratory results Abnormal [facility] Preg Test, Ur Positive Negative [facility] Urinalysis macro (dipstick) panel (U)on 12-25-2024 Bilirubin, UA Negative Negative - 4(70) +++ mg/dL [facility] Blood, UA Positive Negative - 50 Han/mcL [facility] Comment on above: small Clarity, UA Clear [facility] Color, UA Yellow [facility] An[facility]kecar [facility] Glucose, UA Negative Negative - 1999(110) ++++ mg/dL [facility] Interpretation and review of laboratory results Abnormal [facility] Ketones, UA Negative Negative - 160(16) ++++ mg/dL [facility] Leukocytes, UA Negative Negative - 500+++ Jinny/mcL [facility] Nitrite, UA Negative Negative - Positive [facility] pH, UA 6 5 - 9 [facility] e Protein, UA Negative Negative - 1999(20) ++++ mg/dL [facility] Spec Grav, UA 1.03 1 - 1.03 [facility] Urobilinogen, UA 0.2 0.2 - 12 mg/dL [facility] Healthcar e US OB TRANSVAGINALon 025 US [...] II, MD, PHD at 25-Dec-2024 08:23:40 AM [facility] T[facility] Normal Not Available Comment on above: [...] GERMAIN LUNA Date: 2021-11-27 08:39 Normal [facility] COVID Quick Testingon 2020 Result Negative [employer] Other Vital Signs Date Time Vital Sign Value Performing Clinician Facility 02-23-2025 10:18-0400 Body weight 116.48 kg Myrna GARIBAY Work Phone: [facility] 02-23-2025 10:18-0400 Diastolic blood pressure 70 mm[Hg] Myrna GARIBAY Work Phone: [facility] 02-23-2025 10:18-0400 Systolic blood pressure 116 mm[Hg] Myrna GARIBAY Work Phone: [facility] 01-25-2025 11:32-0400 Body weight 117.84 kg Renate Irene DO Work Phone: [facility] 01-25-2025 11:32-0400 Diastolic blood pressure 68 mm[Hg] Renate Irene DO Work Phone: [facility] 01-25-2025 11:32-0400 Systolic blood pressure 118 mm[Hg] Renate Irene DO Work Phone: [facility] 12-25-2024 11:54-0500 Body weight 109.77 kg [facility] Nurse [facility] 12-25-2024 11:54-0500 Diastolic blood pressure 70 mm[Hg] [facility] Nurse [facility] 12-25-2024 11:54-0500 Systolic blood pressure 118 mm[Hg] [facility] Nurse [facility] 05-01-2023 13:20-0400 Body height 175.26 cm Isadora Arroyo Other [facility] Other 05-01-2023 13:20-0400 Body mass index (BMI) [Ratio] 38.98 kg/m2 Isadora Arroyo Other [facility] Other 05-01-2023 13:20-0400 Body temperature 97.8 [degF] Isadora Arroyo Other [facility] Other 05-01-2023 13:20-0400 Body weight 119.75 kg Isadora Arroyo Other [facility] Other 05-01-2023 13:20-0400 Respiratory rate 18 /min Isadora Arroyo Other [facility] Other 05-01-2023 13:20-0400 SaO2% (BldA) [Mass fraction] 98 % Isadora Arroyo Other [facility] Other 09-19-2021 14:15-0500 Body height 175.26 cm Sheree Ginty Other [facility] Other 09-19-2021 14:15-0500 Body mass index (BMI) [Ratio] 36.91 kg/m2 Sheree Ginty Other [facility] Other 09-19-2021 14:15-0500 Body temperature 96.3 [degF] Sheree Ginty Other [facility] Other 09-19-2021 14:15-0500 Body weight 113.4 kg Sheree Ginty Other [facility] Other 09-19-2021 14:15-0500 Respiratory rate 18 /min Sheree Ginty Other [facility] Other 09-19-2021 14:15-0500 SaO2% (BldA) [Mass fraction] 97 % Sheree Ginty Other [facility] Other 07-27-2021 11:15-0400 Body height 175.26 cm Sheree Ginty Other [facility] Other 07-27-2021 11:15-0400 Body mass index (BMI) [Ratio] 36.91 kg/m2 Sheree Ginty Other [facility] Other 07-27-2021 11:15-0400 Body temperature 96.7 [degF] Sheree Ginty Other [facility] Other 07-27-2021 11:15-0400 Body weight 113.4 kg Sheree Ginty Other [facility] Other 07-27-2021 11:15-0400 Respiratory rate 18 /min Sheree Ginty Other [facility] Other 07-27-2021 11:15-0400 SaO2% (BldA) [Mass fraction] 98 % Sheree Ginty Other [facility] Other Encounters Encounter Date Encounter Type Care [...] Result Encounter Renate Irene DO Work Phone: [facility] External Department Unsolicited Start: 02-23-2025 End: 02-24-2025 External Result Encounter Myrna GARIBAY Work Phone: [facility] External Department Unsolicited Start: 02-23-2025 End: 02-23-2025 Patient encounter procedure Myrna GARIBAY Work Phone: [facility] Healthcare Start: 02-23-2025 End: 02-23-2025 Periodic [...] 05-01-2023 End: 05-01-2023 ambulatory Isadora Arroyo Other [employer] Other Start: 05-01-2023 Office outpatient vi sit 15 minutes Isadoradmitry Arroyo [facility] Start: 11-27-2021 End: 11-27-2021 ambulatory HORACIO ESCOBAR Facility: Start: 09-19-2021 End: 09-19-2021 ambulatory Sheree Ginty Other [facility] Other Start: 09-19-2021 Office outpatient vi sit [...] gestation of Expected: 02/23/2025 (Approximate), Expires: 08/26/2025 [facility] Comment on above: Expected: 02/23/2025 (Approximate), Expires: 08/26/2025 Start: 02-23-2025 End: 05-26-2025 US for US OB 14+ weeks anatomy scan Imaging Routine Screening, , for anatomic survey Expected: 02/23/2025, Expires: 05/26/2025 [facility] Comment on above: Expected: 02/23/2025 , Expires: 05/26/2025 Start: 02-23-2025 End: 02-23-2025 Patient encounter procedure [facility] Comment on above: Arrived Start: 12-24-2024 End: 12-24-2025 ABO/Rh ABO/Rh Lab Routine Missed menses , unspecified gestational age Expected: 12/24/2024 (Approximate), Expires: 12/24/2025 [facility] Comment on above: Expected: 12/24/2024 (Approximate), Expires: 12/24/2025 Start: 12-24-2024 End: 12-24-2025 Blood type and Indirect antibody screen panel - Blood Type and screen Lab Routine Missed menses , unspecified gestational age Expected: 12/24/2024 (Approximate), Expires: 12/24/2025 [facility] Work Phone: Comment on above: Expected: 12/24/2024 (Approximate), Expires: 12/24/2025 Start: 12-24-2024 End: 12-24-2025 Drugs of abuse panel - Urine by Screen method Rapid drug screen, urine Lab Routine , unspecified gestational age Encounter for supervision of normal first in first trimester Expected: 12/24/2024 (Approximate), Expires: 12/24/2025 [facility] Comment on above: Expected: 12/24/2024 (Approximate), Expires: 12/24/2025 Bacteria identified in Urine by Culture Urine culture Microbiology Routine Missed menses Ordered: 12/24/2024 [facility] Comment on above: Ordered: 12/24/2024 CBC W Auto Different ial panel - Blood CBC and differential Lab Routine Missed menses , unspecified gestational age Ordered: 12/24/2024 [facility] Comment on above: Ordered: 12/24/2024 CHLAMYDIA TRACHOMATI S (GENITO/STI) CHLAMYDIA TRACHOMATIS (GENITO/STI) Lab Routine STD exposure Ordered: 02/23/2025 [facility] Comment on above: Ordered: 02/23/2025 Cytology Cervical or vaginal smear or scraping study Pap Smear Pathology and Cytology Routine Well woman exam with routine gynecological exam Ordered: 02/23/2025 [facility] Comment on above: Ordered: 02/23/2025 Hemoglobin A1c/Hemoglobin.total in Blood Hemoglobin A1c Lab Routine Missed menses , unspecified gestational age Ordered: 12/24/2024 [facility] Comment on above: Ordered: 12/24/2024 Hepatitis B virus surface Ag [Presence] in Serum or Plasma by Immunoassay Hepatitis B surface antigen Lab Routine Missed menses , unspecified gestational age Ordered: 12/24/2024 [facility] Comment on above: Ordered: 12/24/2024 Hepatitis C virus Ab [Presence] in Serum or Plasma by Immunoassay Hepatitis C antibody Lab Routine Missed menses , unspecified gestational age Ordered: 12/24/2024 [facility] Comment on above: Ordered: 12/24/2024 HIV-1/HIV-2 antigen/antibody combination immunoassay HIV-1 and HIV-2 antibodies Lab Routine Missed menses , unspecified gestational age Ordered: 12/24/2024 [facility] Comment on above: Ordered: 12/24/2024 Neisseria gonorrhoea e DNA [Presence] in Unspecified specimen by COLLIN with probe detection Neisseria gonorrhea DNA probe, direct Lab Routine STD exposure Ordered: 02/23/2025 [facility] Comment on above: Ordered: 02/23/2025 Reagin Ab [Presence] in Serum by RPR RPR Lab Routine Missed menses , unspecified gestational age Ordered: 12/24/2024 [facility] Comment on above: Ordered: 12/24/2024 Rubella antibody, IgG Rubella an tibody, IgG Lab Routine Missed menses , unspecified gestational age Ordered: 12/24/2024 [facility] Healthcare Comment on above: Ordered: 12/24/2024 SURESWAB(R) ADVANCED VAGINITIS PLUS, TMA SURESWAB(R) ADVANCED VAGINITIS PLUS, TMA Pathology and Cytology Routine Vaginal discharge Ordered: 02/23/2025 [facility] Work Phone: Comment on above: Ordered: 02/23/2025 Thyrotropin [Units/volume] in Serum or Plasma TSH Lab Routine , unspecified gestational age Ordered: 12/24/2024 [facility] Comment on above: Ordered: 12/24/2024 Immunizations Immunization Date Immunization Notes Care Provider Maria santiago 11-17-2012 influenza virus vacc ine, unspecified formulation Renate Irene DO Work Phone: [facility] Healthcare Payers Date Payer Category Payer Private Health Insurance [employer] [id number] 2024 Unknown [id number] 1998 Unknown [id number] 1998 Unknown [id number] 1998 Unknown [id number] 1998 Unknown [id number] 1998 Unknown [id number] 1998 Unknown [id number] 1959 Unknown [id number] Unknown [id number] Social History Date Type Detail Facility Sex Assigned At [facility] Other Tobacco smoking status NCIS Tobacco smoking consumption unknown [facility] Start: [...] nursing note reviewed. Exam conducted with a batting machine operator insulation present. Vitals: There is no height or [...] History of Present illness Narrative 01-25-2025 Melissa Cowan NP - 01/25/2025 11:20 AM EDT Note [...] nursing note reviewed. Exam conducted with a batting machine operator insulation present. Vitals: There is no height or [...] or undercooked meat, and stay away from [facility]. Patient has also been advised to [...] Regla Gutierrez MA documented in this encounter [facility] Evaluation note 09-19-2021 Note Date & [...] Patient care instructions given in writting by [facility] At Home document [facility] Other Evaluation note 07-27-2021 Note Date & [...] Patient care instructions given in writting by [facility] Care At Home document [employer] Other Evaluation note Note Date & Type Note Facility Evaluation note [facility] Other Evaluation note Note Date & Type [...] in first trimester documented in this encounter [facility] Healthcare Summary Purpose Family History No Family History Records FoundNo Family History Records Found Advance Directives No Advanced Directives Records FoundNo Advanced Directives Records Found Additional Source Comments INFORMATION SOURCE (unrecogn ized section and content) DATE CREATED AUTHOR 11/29/2021 [facility] DATE CREATED AUTHOR 'S TC ATGENARO 03/24/2025 [facility] EPIC REASON FOR VISIT (unrecogniz [...] BE BASED ON THE PRIMARY CLINICAL RECORDS. [facility]. provides no warranty or guarantee of the accuracy or completeness of information in this document.
[2025-03-31 10:23] LABS: Basophils Absolute Auto 0.1 10^3/uL (0.0-0.1); Basophils Percent Auto 0.4 % (0.2-2.0); Eosinophils Absolute Auto 0.1 10^3/uL (0.0-0.7); Hematocrit 33.7 % (36.0-48.0); Hemoglobin 11.6 g/dL (12.0-16.0); Immature Granulocytes Abs Auto 0.09 10^3/uL (0.00-0.03); Immature Granulocytes Pct Auto 0.7 % (0.0-0.5); Lymphocytes Absolute Auto 3.2 10^3/uL (1.2-3.8); Lymphocytes Percent Auto 23.7 % (20.5-60.0); Mean Corpuscular HGB Conc 34.4 g/dL (29.9-35.2); Mean Corpuscular Hemoglobin 32.1 pg (26.7-34.0); Mean Corpuscular Volume 93.4 fL (81.0-99.0); Mean Platelet Volume 9.2 fL (9.5-13.5); Monocytes Absolute Auto 0.9 10^3/uL (0.3-0.8); Monocytes Percent Auto 6.3 % (1.7-12.0); Neutrophils Absolute Auto 9.2 10^3/uL (1.4-6.5); Neutrophils Percent Auto 67.9 % (43.0-75.0); Platelet Count 231 10^3/uL (150-450); Red Blood Count 3.61 10^6/uL (4.20-5.40); White Blood Count 13.6 10^3/uL (4.0-11.0)
[2025-03-31 10:41] LABS: Estimated Average Glucose 91 mg/dL; Glycohemoglobin A1C 4.8 % (4.5-6.2)
== END 2025-03-31 10:01 | disposition home or self-care (01) ==
LOC: LAB 10:01
PROVIDERS: Visit Provider Obstetrics & Gynecology
DX: Z13.1 Encounter for screening for diabetes mellitus (principal)
CPT/HCPCS: 36415; 83036; 85025

== ENCOUNTER 2025-06-24 14:43 | Outpatient (REF) | payer OTHER, SELFPAY ==
--- OUTSIDE RECORDS SUMMARY | 2025-06-24 15:06 | XMS_ITS | CCD ---
Author Organization [facility] Care Team Providers Care Nursing Information Systems Coordinator Name Role Phone HORACIO ESCOBAR Admitting Unavailable HORACIO ESCOBAR Attending Unavailable DR JOHN NONE LISTED Primary Care Unavaila Germain Jasso Consulting Unavailable HORACIO ESCOBAR Consulting Unavailable Sheree Kimbrough Unavailable Isadora Arroyo Unavailable Unavailable Primary Care Provider UnavailRENATE Quinones Attending Unavailable MYRNA GARCIA Attending Unavailable RENATE BONILLA Attending Unavailable RENATE BONILLA Attending Unavailable MYRNA GARCIA Attending Unavailable MYRNA GARCIA Referring Unavailable MELISSA COWAN Attending Unavailable RENATE BONILLA Attending Unavailable MYRNA GARCIA Attending Unavailable Allergies Allergy Classification Reported Allergen(s) Allergy Type Date of Onset Reaction(s) Facility (20 sources) Latex Allergy to substance 5 Hives, Rash [facility] (20 sources) Wound Dressing Adhesive Propensity to adverse reactions 9 Hives, Rash, Itching [facility] Medications Current Medications Medication Drug Class(es) Dates Sig (Normalized) Sig (Original) clindamycin 300 mg oral capsule (1 source) Lincosamide Antibacterial Start: 05-01-2023 take 1 capsule by mouth every twelve hours ondansetron 4 mg oral tablet (20 sources) Serotonin-3 Receptor Antagonist Start: 01-25-2025 take 1 tablet by mouth every six hours as needed for nausea and nausea, then take 1 tablet by mouth every six hours as needed for nausea and nausea ondansetron (Zofran) 4 MG tablet Indications: Nausea and vomiting in ([facility]) Take 1 tablet (4 mg) by mouth every 6 (six) hours if needed for nausea or vomiting for up to 30 doses Take 1 tablet by mouth every 6 hours as needed for nausea. 30 tablet 3 01/25/2025 Active MV-Min-Fe Fum-FA-DHA ( 1 PO) (20 sources) MV-Min-Fe Fum-FA-DHA ( 1 PO) Take by mouth Active Completed/Discontinued Medications Medication Drug Class(es) Dates Sig (Normalized) Sig (Original) brompheniramine maleate 0.4 mg/ml / dextromethorphan hydrobromide 2 mg/ml / pseudoephedrine hydrochloride 6 mg/ml oral solution (3 sources) alpha-Adrenergic Agonist, Uncompetitive V-cwzueg-Z-aspartat e Receptor Antagonist, Sigma-1 Agonist Start: 07-27-2021 Start: 07-27-2021 take 10 mL by mouth every six hours Ndslesesu-Urdmblqc-MN 30-2-10 MG/5ML 10 mL Orally every 6 hours for 5 days Jul, Not-Taking dextromethorphan hydrobromid e 15 mg / guaiFENesin 400 mg / pseudoephedrine hydrochloride 60 mg oral tablet (3 sources) alpha-Adrenergic Agonist, Uncompetitive G-hbkapf-Z-aspartate Receptor Antagonist, Sigma-1 Agonist Start: 07-27-2021 Start: 07-27-2021 take 4 tablets by mo [facility] every twenty-four hours as needed Capmist DM [...] care or not applicable] 01-25-2025 Episodic Other complications of (2 sources) size does not accord with dates; Translations: [Uterine size-date discrepancy, second trimester] 05-05-2025 Episodic Other female genital disorders (2 sources) Vaginal discharge; Translations: [Other specified noninflammatory disorders of vagina] 02-23-2025 Episodic Other non-traumatic joint disorders (3 sources) Pain in left knee; Translations: [PAIN IN LEFT KNEE] Onset: 11-27-2021 Episodic Other and delivery including normal (20 sources) Second trimester ; Translations: [Encounter for supervision of normal , unspecified, second trimester] 01-25-2025 Episodic Other screening for suspected conditions (not mental disorders or infectious disease) (4 sources) Patient encounter status; Translations: [Encounter for other specified screening] 02-23-2025 Episodic Other skin disorders (1 source) Personal history of diseases of the skin and subcutaneous tissue Episodic Residual codes; unclassified (2 sources) Gestation period, 14 weeks; Translations: [14 weeks gestation of ] 01-25-2025 Episodic Residual codes; unclassified (2 sources) Gestation period, 18 weeks; Translations: [18 weeks gestation of ] 02-23-2025 Episodic Residual codes; unclassified (2 sources) Gestation period, 22 weeks; Translations: [22 weeks gestation of ] 03-23-2025 Episodic Residual codes; unclassified (2 sources) Gestation period, 26 weeks; Translations: [26 weeks gestation of ] 04-20-2025 Episodic Residual codes; unclassified (2 sources) Gestation period, 29 weeks; Translations: [29 weeks gestation of ] 05-05-2025 Episodic Residual codes; unclassified (2 sources) Gestation period, 31 weeks; Translations: [31 weeks gestation of ] 05-19-2025 Episodic Residual codes; unclassified (2 sources) Gestation period, 32 weeks; Translations: [32 weeks gestation of ] 05-31-2025 Episodic Residual codes; unclassified (2 sources) Gestation period, 35 weeks; Translations: [35 weeks gestation of ] 06-16-2025 Episodic Residual codes; unclassified (2 sources) Gestation period, 36 weeks; Translations: [36 weeks gestation of ] 06-24-2025 Episodic Skin and subcutaneous tissue infections (1 [...] Test Name Value Interpretation Reference Range Facility Urinalysis macro (dipstick) panel (U)on 06-24-2025 Bilirubin, UA Negative Negative - 4(70) +++ mg/dL [facility] Blood, UA Negative Negative - 50 Han/mcL [facility] Healthcare Clarity, UA Cloudy [facility] re Color, UA Yellow [facility] Glucose, UA Negative Negative - 1999(110) ++++ mg/dL [facility] Interpretation and review of laboratory results Abnormal [facility] Ketones, UA Negative Negative - 160(16) ++++ mg/dL [facility] Leukocytes, UA 1+ Negative - 500+++ Jinny/mcL [facility] Nitrite, UA Negative Negative - Positive [facility] pH, UA 6 5 - 9 [facility] Protein, UA Negative Negative - 1999(20) ++++ mg/dL [facility] Spec Grav, UA 1.02 1 - 1.03 [facility] care Urobilinogen, UA 1.0 0.2 - 12 mg/dL [facility] Urinalysis macro (dipstick) panel (U)on 06-16-2025 Bilirubin, UA Negative Negative - 4(70) +++ mg/dL [facility] Blood, UA Negative Negative - 50 Han/mcL [facility] Healthcare Clarity, UA Clear [facility] Color, UA Yellow [facility] Glucose, UA Negative Negative - 1999(110) ++++ mg/dL [facility] Interpretation and review of laboratory results Normal [facility] Ketones, UA Negative Negative - 160(16) ++++ mg/dL [facility] Leukocytes, UA Negative Negative - 500+++ Jinny/mcL [facility] Healthcare Nitrite, UA Negative Negative - Positive [facility] pH, UA 6.5 5 - 9 [facility] Protein, UA Negative Negative - 1999(20) ++++ mg/dL [facility] Spec Grav, UA 1.025 1 - 1.03 [facility] Urobilinogen, UA 1.0 0.2 - 12 mg/dL [facility] Urinalysis macro (dipstick) panel (U)on 05-31-2025 Bilirubin, UA Negative Negative - 4(70) +++ mg/dL [facility] Blood, UA Negative Negative - 50 Han/mcL [facility] Clarity, UA [facility], UA Yellow [facility] Healthcar e Glucose, UA Negative Negative - 1999(110) ++++ mg/dL [facility] Interpretation and review of laboratory results Abnormal [facility] Ketones, UA Negative Negative - 160(16) ++++ mg/dL [facility] Leukocytes, UA Negative Negative - 500+++ Jinny/mcL [facility] Nitrite, UA Negative Negative - Positive [facility] pH, UA 6 5 - 9 [facility] [employer] [facility] e Protein, UA Trace Negative - 1999(20) ++++ mg/dL [facility] Spec Grav, UA 0.03 1 - 1.03 [facility] Urobilinogen, UA 0.2 0.2 - 12 mg/dL [facility] US OB FOLLOW UP TRANSABDOMIN AL APPROACHon 05-19-2025 US OB FOLLOW UP TRANSABDOMINAL APPROACH EXAM: US OB FOLLOW UP TRANSABDOMINAL APPROACH HISTORY: Inconsistent size. COMPARISON: Ob ultrasound 03/31/2025. TECHNIQUE: Two-dimensional transabdominal grayscale ultrasound imaging of the pelvis was performed. FINDINGS: Gestation: Single Presentation: Cephalic Cardiac Activity: 126 beats per minute Amniotic Fluid Index: 22.2 cm MEASUREMENTS: BPD: 8.0 cm EGA: 32 weeks 2 days HC: 28.9 cm EGA: 31 weeks 6 days AC: 27.7 cm EGA: 31 weeks 5 days FL: 6.0 cm EGA: 31 weeks 3 days HC/AC Ratio: 1.05 The gestational age by today's ultrasound is 31 weeks 6 days (+/- 16 days gestation). Estimated Weight: 1812 grams, +/- 272 grams ( 4 lb 0 oz). Weight Percentile for gestational age: 61 % IMPRESSION: 1. Single, live intrauterine gestation 31 weeks, 0 days by LMP. Today's ultrasound measurements correlate with a gestational age of 31 weeks 6 days. Estimated weight is 1812 grams, +/- 272 grams ( 4 lb 0 oz) which correlates to 61 %. NEREIDA by today's ultrasound is 07/15/2025. 2. Amniotic fluid index within the upper limits of normal. Interpreted by: Electronically signed by NANDA GRANT II, MD, PHD at 20-May-2025 08:33:27 AM [facility] Normal Not Available Comment on above: Order Comment: US OB SCAN FOR GROWTH Estimated Date of Delivery: 07/21/25 Gestational Age as of 05/05/2025: 29w0d Urinalysis macro (dipstick) panel (U)on 05-19-2025 Bilirubin, UA Negative Negative - 4(70) +++ mg/dL [facility] Blood, UA Negative Negative - 50 Han/mcL [facility] Clarity, UA Clear [facility] Color, UA Yellow [facility] Glucose, UA Negative Negative - 1999(110) ++++ mg/dL [facility] Interpretation and review of laboratory results Normal [facility] Ketones, UA Negative Negative - 160(16) ++++ mg/dL [facility] Healthcare Leukocytes, UA Negative Negative - 500+++ Jinny/mcL [facility] Nitrite, UA Negative Negative - Positive [facility] pH, UA 6 5 - 9 [facility] Protein, UA Negative Negative - 1999(20) ++++ mg/dL [facility] Spec Grav, UA 1.03 1 - 1.03 [facility] Urobilinogen, UA 0.2 0.2 - 12 mg/dL [facility] Urinalysis macro (dipstick) panel (U)on 05-05-2025 Bilirubin, UA Negative Negative - 4(70) +++ mg/dL [facility] Blood, UA Negative Negative - 50 Han/mcL [facility] Clarity, UA Clear [facility] re Color, UA Yellow [facility] Glucose, UA Negative Negative - 1999(110) ++++ mg/dL [facility] Interpretation and review of laboratory results Abnormal [facility] Ketones, UA Negative Negative - 160(16) ++++ mg/dL [facility] Leukocytes, UA Negative Negative - 500+++ Jinny/mcL [facility] Nitrite, UA Negative Negative - Positive [facility] pH, UA 6.5 5 - 9 [facility] Healthcar e Protein, UA Trace Negative - 1999(20) ++++ mg/dL [facility] Spec Grav, UA 1.025 1 - 1.03 [facility] Urobilinogen, UA 0.2 0.2 - 12 mg/dL [facility] Urinalysis macro (dipstick) panel (U)on 04-20-2025 Bilirubin, UA Negative Negative - 4(70) +++ mg/dL [facility] Blood, UA Negative Negative - 50 Han/mcL [facility] Clarity, UA Clear [facility] re Color, UA Sheree [facility] e Glucose, UA Negative Negative - 1999(110) ++++ mg/dL [facility] Interpretation and review of laboratory results Abnormal [facility] Ketones, UA Negative Negative - 160(16) ++++ mg/dL [facility] Leukocytes, UA Negative Negative - 500+++ Jinny/mcL [facility] Nitrite, UA Negative Negative - Positive [facility] pH, UA 5.5 5 - 9 [facility] Healthcar e Protein, UA Trace Negative - 1999(20) ++++ mg/dL [facility] Spec Grav, UA 1.03 1 - 1.03 [facility] Urobilinogen, UA 0.2 0.2 - 12 mg/dL [facility] MLR HEMOGLOBIN A1Con 025 Glucose [Mass/Vol] 91 mg/dL [facility] HbA1c (Bld) [Mass fraction] 4.8 % 4.5 - 6.2 % [facility] Comment on above: ADA RECOMMENDED LIMI T 4.0 - 6.0 ADA THERAPEUTIC TARGET < 7.0 ACTION SUGGESTED > 7.0 [facility] Healthcar e US OB 14+ WEEKS ANATOMY SCAN on 03-31-2025 US OB 14+ WEEKS ANATOMY SCAN EXAM: US OB 14+ WEEKS ANATOMY SCAN HISTORY: anatomy. COMPARISON: Ob ultrasound 12/24/2024. TECHNIQUE: Two-dimensional transabdominal grayscale ultrasound imaging of the pelvis was performed. FINDINGS: Gestation: Single Presentation: Cephalic Cardiac Activity: Present Placental Location: Posterior with no sonographic abnormalities identified. Distance from Placental Tip to Cervix: 4.7 cm Cervical Length: 4.0 cm Amniotic Fluid: Appears adequate MEASUREMENTS: BPD: 6.2 cm EGA: 25 weeks 0 days HC: 22.5 cm EGA: 24 weeks 4 days AC: 20.6 cm EGA: 25 weeks 1 days FL: 4.3 cm EGA: 23 weeks 6 days HC/AC Ratio: 1.09 The gestational age by today's ultrasound is 24 weeks 5 days (+/- 12 days gestation). Estimated Weight: 718 grams, +/- 108 grams ( 1 lb 9 oz). Weight Percentile for gestational age: 71 % ANATOMY C-Spine: Unremarkable T-Spine: Unremarkable L-Spine: Unremarkable Sacrum: Unremarkable Four Chamber Heart: Unremarkable LVOT: Unremarkable RVOT: Unremarkable Stomach: Unremarkable Kidneys: Unremarkable Bladder: Unremarkable Diaphragm: Unremarkable Cord insertion: Unremarkable Cord vessels: Three Lateral Ventricles: Unremarkable Cerebellum: Unremarkable Cisterna Magna: Unremarkable Posterior Fossa: Unremarkable Right Femur: Unremarkable Left Femur: Unremarkable Right Tib/Fib: Unremarkable Left Tib/Fib: Unremarkable Right Rad/Ulnar: Unremarkable Left Rad/Ulnar: Unremarkable Right Humerus: Unremarkable Left Humerus: Unremarkable Nose/Lips: Unremarkable Profile: Unremarkable Orbits: Unremarkable IMPRESSION: 1. Single, live intrauterine gestation 24 weeks, 0 days by LMP. Today's ultrasound measurements correlate with a gestational age of 24 weeks 5 days. Estimated weight is 718 grams, +/- 108 grams ( 1 lb 9 oz) which correlates to 71 %. NEREIDA is 07/16/2025. 2. Unremarkable ultrasound of the anatomy. Interpreted by: Electronically signed by NANDA GRANT II, MD, PHD at 02-Apr-2025 10:21:46 AM [facility] Normal Not Available Comment on above: Order Comment: US OB ANATOMY SINGLE W US OB CERVICAL LENGTH Estimated Date of Delivery: 07/21/25 Gestational Age as of 02/23/2025: 18w6d Urinalysis macro (dipstick) panel (U)on 03-23-2025 Bilirubin, UA Negative Negative - 4(70) +++ mg/dL [facility] Blood, UA Negative Negative - 50 Han/mcL [facility] Clarity, UA Clear [facility] Color, UA Yellow [facility] Glucose, UA Negative Negative - 2000(110) ++++ mg/dL [facility] Interpretation and review of laboratory results Abnormal [facility] Ketones, UA Negative Negative - 160(16) ++++ mg/dL [facility] Leukocytes, UA Negative Negative - 500+++ Jinny/mcL [facility] Nitrite, UA Negative Negative - Positive [facility] pH, UA 5.5 5 - 9 [facility] e Protein, UA Negative Negative - 2000(20) ++++ mg/dL [facility] Spec Grav, UA 1.02 1 - 1.03 [facility] Urobilinogen, UA 1.0 0.2 - 12 mg/dL [facility] RECURRENT VAGINITIS (HTRX)on 02-24-2025 ATOPOBIUM VAGINAE 0 [facility] ATOPOBIUM VAGINAE Not detected [facility] BVAB 2,3 (BACTERIAL VAGINOSIS ASSOCIATED BACTERIA 2, 3); MOBILUNCUS SPP 0 [facility] BVAB 2,3 (BACTERIAL VAGINOSIS ASSOCIATED BACTERIA 2, 3); MOBILUNCUS SPP Not detected [facility] INDU ALBICANS, PARAPSILOSIS, TROPICALIS 0 [facility] INDU ALBICANS, PARAPSILOSIS, TROPICALIS Not detected [facility]DU [facility]RATA [facility] Not detected [facility] INDU [facility]USEI 0 [facility] IN[facility]I Not detected [facility] CHLAMYDIA TRACHOMATIS 0 [facility] CHLAMYDIA TRACHOMATIS Not detected [facility] GARDNERELLA VAGINALIS 0 [facility] GARDNERELLA VAGINALIS Not detected [facility] MEGASPHAERA (TYPES 1, 2) 0 [facility] MEGASPHAERA (TYPES 1, 2) Not detected [facility] MYCOPLASMA GENITALIUM 0 [facility] MYCOPLASMA GENITALIUM Not detected [facility] NEISSERIA GONORRHOEAE 0 [facility] NEISSERIA GONORRHOEAE Not detected [facility] TRICHOMONAS VAGINALIS [address] [facility] TRICHOMONAS VAGINALIS Not detected [facility] e ALL CBC WITH AUTO DIFFon BASOPHILS ABSOLUTE AUTO 0 [facility] Basophils/100 WBC (Bld) 0.3 % 0.2 - 2.0 % [facility] Eosinophils/100 WBC (Bld) 1.2 % 0.9 - 7.0 % [facility] Erythrocyte distribution width (RBC) [Ratio] 12.6 % 11.0 - 15.0 % [facility] Hematocrit (Bld) [Volume fraction] 35.1 % Low 36.0 - 48.0 % [facility] Healthcar e Hemoglobin (Bld) [Mass/Vol] 12.5 g/dL 12.0 - 16.0 g/dL [facility] IMMATURE GRANULOCYTES ABS AUTO 0.[address] [facility] Immature granulocytes/100 WBC (Bld) 0.4 % 0.0 - 0.5 % [facility] Interpretation and review of laboratory results Abnormal [facility] LYMPHOCYTES ABSOLUTE AUTO 3.8 [facility] Lymphocytes/100 WBC (Bld) 27.2 % 20.5 - 60.0 % [facility] MCH (RBC) [Entitic mass] 32.2 pg 26.7 - 34.[address] [facility] MCHC (RBC) [Mass/Vol] 35.6 g/dL High 29.9 - 35.2 g/dL [facility] MCV (RBC) [Entitic vol] 90.5 fL 81.0 - 99.[address] [facility] MONOCYTES ABSOLUTE AUTO 0.8 [facility] Monocytes/100 WBC (Bld) 5.5 % 1.7 - 12.0 % [facility] NEUTROPHILS ABSOLUTE AUTO 9.[address] [facility] Neutrophils/100 WBC (Bld) 65.4 % 43.0 - 75.0 % [facility] Platelet mean volume (Bld) [Entitic vol] 9.2 fL Low 9.5 - 13.5 fL [facility] EO # 0.2 [facility] TB PLT 245 [facility] e TB RBC 3.88 Low [facility] Healthcar e TB WBC 14.1 High [facility] Healthcar e [facility] e Urinalysis macro (dipstick) panel (U)on 02-23-2025 Bilirubin, UA Negative Negative - 4(70) +++ mg/dL [facility] Blood, UA Negative Negative - 50 Han/mcL [facility] Clarity, UA Clear [facility] Healthca re Color, UA Yellow [facility] Health[facility] e Glucose, UA Negative Negative - 2000(110) ++++ mg/dL [facility] Interpretation and review of laboratory results Abnormal [facility] Ketones, UA Negative Negative - 160(16) ++++ mg/dL [facility] Leukocytes, UA Negative Negative - 500+++ Jinny/mcL [facility] Nitrite, UA Negative Negative - Positive [facility] pH, UA 6.5 5 - 9 [facility] Protein, UA Negative Negative - 1999(20) ++++ mg/dL [facility] Healthcare Spec Grav, UA 1.02 1 - 1.03 [facility] care Urobilinogen, UA 1.0 0.2 - 12 mg/dL [facility] Urinalysis macro (dipstick) panel (U)on 01-25-2025 Bilirubin, UA Negative Negative - 4(70) +++ mg/dL [facility] Healthcare Blood, UA Positive Negative - 50 Han/mcL [facility] Healthcare Comment on above: trace-intact Clarity, UA Clear [facility] re Color, UA Yellow [facility] Glucose, UA Negative Negative - 1999(110) ++++ mg/dL [facility] Interpretation and review of laboratory results Abnormal [facility] Ketones, UA Negative Negative - 160(16) ++++ mg/dL [facility] Leukocytes, UA Negative Negative - 500+++ Jinny/mcL [facility] Nitrite, UA Negative Negative - Positive [facility] pH, UA 6.5 5 - 9 [facility] Healthcar e Protein, UA Negative Negative - 1999(20) ++++ mg/dL [facility] Healthcare Spec Grav, UA 1.025 1 - 1.03 [facility] care Urobilinogen, UA 0.2 0.2 - 12 mg/dL [facility] Healthcare [facility] HCG ( test) Ql (U)o n 12-25-2024 Interpretation and review of laboratory results Abnormal [facility] Preg Test, Ur Positive Negative [facility] Health care [facility] Urinalysis macro (dipstick) panel (U)on 12-25-2024 Bilirubin, UA Negative Negative - 4(70) +++ mg/dL [facility] Blood, UA Positive Negative - 50 Han/mcL [facility] Healthcare Comment on above: small Clarity, UA Clear [facility] Color, UA Yellow [facility] Glucose, UA Negative Negative - 1999(110) ++++ mg/dL [facility] Interpretation and review of laboratory results Abnormal [facility] Ketones, UA Negative Negative - 160(16) ++++ mg/dL [facility] Healthcare Leukocytes, UA Negative Negative - 500+++ Jinny/mcL [facility] Healthcare Nitrite, UA Negative Negative - Positive [facility] pH, UA 6 5 - 9 [facility] Healthcar e Protein, UA Negative Negative - 1999(20) ++++ mg/dL [facility] Spec Grav, UA 1.03 1 - 1.03 [facility] Urobilinogen, UA 0.2 0.2 - 12 mg/dL [facility] US OB TRANSVAGINALon 025 US [...] II, MD, PHD at 25-Dec-2024 08:23:40 AM [facility] [employer] Normal Not Available Comment on above: Order Comment: US OB TRANSVAGINAL No LMP recorded. XR KNEE LT 4V or >on XR KNEE LT 4V or > EXAM: Left knee HISTORY: Medial left knee pain after a fall. TECHNIQUE: 4 views of the left knee were obtained. FINDINGS: There is no evidence of fracture or dislocation. There are no suspicious bone lesions. Soft tissues are normal. IMPRESSION: Unremarkable exam. Electronically authenticated by: GERMAIN LUNA Date: 2021-11-27 08:39 Normal [facility] COVID Quick Testingon 2020 Result [facility] Other Vital Signs Date Time Vital Sign Value Performing Clinician Facility 06-24-2025 08:45-0400 Body weight 134.72 kg Renate Irene DO Work Phone: [facility] 06-24-2025 08:45-0400 Diastolic blood pressure 82 mm[Hg] Renate Irene DO Work Phone: [facility] 06-24-2025 08:45-0400 Systolic blood pressure 126 mm[Hg] Renate Irene DO Work Phone: [facility] 06-16-2025 08:58-0400 Body weight 131.14 kg Myrna GARIBAY Work Phone: [facility] 06-16-2025 08:58-0400 Diastolic blood pressure 82 mm[Hg] Myrna GARIBAY Work Phone: [facility] 06-16-2025 08:58-0400 Systolic blood pressure 120 mm[Hg] Myrna GARIBAY Work Phone: [facility] 05-31-2025 08:51-0400 Body weight 125.08 kg Renate Irene DO Work Phone: [facility] 05-31-2025 08:51-0400 Diastolic blood pressure 82 mm[Hg] Renate Irene DO Work Phone: [facility] 05-31-2025 08:51-0400 Systolic blood pressure 126 mm[Hg] Renate Irene DO Work Phone: [facility] 05-19-2025 10:38-0400 Body weight 123.49 kg Melissa Cowan NP Work Phone: [facility] 05-19-2025 10:38-0400 Diastolic blood pressure 72 mm[Hg] Melissa Cowan [employer] RECREATION MANAGER Work Phone: [facility] 05-19-2025 10:38-0400 Systolic blood pressure 120 mm[Hg] Melissa Cowan P[employer] RECREATION MANAGER Work Phone: [facility] 05-05-2025 09:06-0400 Body weight 121.9 kg Myrna GARIBAY Work Phone: [facility] 05-05-2025 09:06-0400 Diastolic blood pressure 80 mm[Hg] Myrna GARIBAY Work Phone: [facility] 05-05-2025 09:06-0400 Systolic blood pressure 132 mm[Hg] Myrna GARIBAY Work Phone: [facility] 04-20-2025 09:27-0400 Body weight 122.24 kg Renate Irene DO Work Phone: [facility] 04-20-2025 09:27-0400 Diastolic blood pressure 70 mm[Hg] Renate Irene DO Work Phone: [facility] 04-20-2025 09:27-0400 Systolic blood pressure 120 mm[Hg] Renate Irene DO Work Phone: [facility] 03-23-2025 11:11-0400 Body weight 119.35 kg Renate Irene DO Work Phone: [facility] 03-23-2025 11:11-0400 Diastolic blood pressure 74 mm[Hg] Renate Irene DO Work Phone: [facility] 03-23-2025 11:11-0400 Systolic blood pressure 114 mm[Hg] Renate Irene DO Work Phone: [facility] 02-23-2025 10:18-0400 Body weight 116.48 kg Myrna GARIBAY Work Phone: [facility] 02-23-2025 10:18-0400 Diastolic blood pressure 70 mm[Hg] Myrna GARIBAY Work Phone: [facility] 02-23-2025 10:18-0400 Systolic blood pressure 116 mm[Hg] Myrna GARIBAY Work Phone: [facility] 01-25-2025 11:32-0400 Body weight 117.84 kg Renate Irene DO Work Phone: [facility] 01-25-2025 11:32-0400 Diastolic blood pressure 68 mm[Hg] Renate Irene DO Work Phone: [facility] 01-25-2025 11:32-0400 Systolic blood pressure 118 mm[Hg] Renate Irene DO Work Phone: [facility] 12-25-2024 11:54-0500 Body weight 109.[address] [facility] 12-25-2024 11:54-0500 Diastolic blood pressure 70 mm[Hg] [facility] Nurse [facility] 12-25-2024 11:54-0500 Systolic blood pressure 118 mm[Hg] [facility] Nurse [facility] 05-01-2023 13:20-0400 Body height 175.26 cm Isadora Arroyo [facility] Other 05-01-2023 13:20-0400 Body mass index (BMI) [Ratio] 38.98 kg/m2 Isadora Dina [facility] Other 05-01-2023 13:20-0400 Body temperature 97.8 [degF] Isadora Dina [facility] Other 05-01-2023 13:20-0400 Body weight 119.75 kg Isadora Dina [facility] Other 05-01-2023 13:20-0400 Respiratory rate 18 /min Isadora Dina [facility] Other 05-01-2023 13:20-0400 SaO2% (BldA) [Mass fraction] 98 % Isadora Dina [facility] Other 09-19-2021 14:15-0500 Body height 175.26 cm Sheree Kimbrough [facility] Other 09-19-2021 14:15-0500 Body mass index (BMI) [Ratio] 36.91 kg/m2 Sheree Ginty [facility] Other 09-19-2021 14:15-0500 Body temperature 96.3 [degF] Sheree Ginty [facility] Other 09-19-2021 14:15-0500 Body weight 113.4 kg Sheree Ginty [facility] Other 09-19-2021 14:15-0500 Respiratory rate 18 /min Sheree Ginty [facility] Other 09-19-2021 14:15-0500 SaO2% (BldA) [Mass fraction] 97 % Sheree Ginty [facility] Other 07-27-2021 11:15-0400 Body height 175.26 cm Sheree Ginty [facility] Other 07-27-2021 11:15-0400 Body mass index (BMI) [Ratio] 36.91 kg/m2 Sheree Ginty [facility] Other 07-27-2021 11:15-0400 Body temperature 96.7 [degF] Sheree Ginty [facility] Other 07-27-2021 11:15-0400 Body weight 113.4 kg Sheree Ginty [facility] Other 07-27-2021 11:15-0400 Respiratory rate 18 /min Sheree Heathernghia [facility] Other 07-27-2021 11:15-0400 SaO2% (BldA) [Mass fraction] 98 % Sheree Heathernghia [facility] Other Encounters Encounter Date Encounter Type Care Provider Facility Start: 06-24-2025 End: 06-24-2025 Bamboo flowsheet Renate Irene DO Work Phone: [facility] Start: 06-24-2025 End: 06-24-2025 Bamboo flowsheet Renate Irene DO Work Phone: [facility] Start: 06-24-2025 End: 06-24-2025 flow sheet Renate Irene DO Work Phone: [facility] Comment on above: Third trimester preg leticia ([facility]); 36 weeks gestation of ([facility]) Start: 06-16-2025 End: 06-16-2025 Bamboo flowsheet Myrna GARIBAY Work Phone: [facility] Start: 06-16-2025 End: 06-16-2025 Bamboo flowsheet Myrna GARIBAY Work Phone: [facility] Start: 06-16-2025 End: 06-16-2025 ambulatory MYRNA GARCIA Not Available Start: 06-16-2025 End: 06-16-2025 flow sheet Myrna GARIBAY Work Phone: [facility] Comment on above: Third trimester preg leticia ([facility]); 35 weeks gestation of ([facility]) Start: 05-31-2025 End: 05-31-2025 Bamboo flowsheet Renate Irene DO Work Phone: [facility] Start: 05-31-2025 End: 05-31-2025 Bamboo flowsheet Renate Irene DO Work Phone: [facility] Start: 05-31-2025 End: 05-31-2025 flow sheet Renate Irene DO Work Phone: [facility] Comment on above: Third trimester preg leticia ([facility]); 32 weeks gestation of ([facility]) Start: 05-31-2025 End: 05-31-2025 ambulatory RENATE IRENE Not Available Start: 05-19-2025 End: 05-19-2025 Office outpatient visit 15 minutes Melissa Cowan [employer] RECRE[employer] MANAGER Work Phone: [facility] Comment on above: Third trimester preg leticia ([facility]); 31 weeks gestation of ([facility]) Start: 05-19-2025 End: 05-19-2025 ambulatory MELISSA COWAN Not Available Start: 05-05-2025 End: 05-05-2025 Bamboo flowsheet Myrna GARIBAY Work Phone: [facility] Start: 05-05-2025 End: 05-05-2025 Bamboo flowsheet Myrna GARIBAY Work Phone: [facility] Start: 05-05-2025 End: 05-05-2025 ambulatory MYRNA GARCIA Not Available Start: 05-05-2025 End: 05-05-2025 Office outpatient visit 15 minutes Myrna GARIBAY Work Phone: [facility] Comment on above: Size of fetus incons istent with dates in second trimester ([facility]) (Primary Dx); Third trimester ([facility]); 29 weeks gestation of ([facility]) Start: 04-20-2025 End: 04-20-2025 Bamboo flowsheet Renate Irene DO Work Phone: [facility] Start: 04-20-2025 End: 04-20-2025 Bamboo flowsheet Renate Irene DO Work Phone: [facility] Start: 04-20-2025 End: 04-20-2025 flow sheet Renate Irene DO Work Phone: [facility] Comment on above: Second trimester pre gnancy ([facility]); 26 weeks gestation of ([facility]) Start: 04-20-2025 End: 04-20-2025 ambulatory RENATE IRENE Not Available Start: 03-31-2025 End: 03-31-2025 Clinisync Result Encounter Renate Irene DO Work Phone: [facility] Unsolicited Start: 03-31-2025 End: 03-31-2025 Clinisync Result Encounter Renate Irene DO Work Phone: [facility] Unsolicited Start: 03-31-2025 End: 03-31-2025 ambulatory RENATE IRENE Not Available Start: 03-23-2025 End: 03-23-2025 Bamboo flowsheet Renate Irene DO Work Phone: [facility] Start: 03-23-2025 End: 03-23-2025 Bamboo flowsheet Renate Irene DO Work Phone: [facility] Start: 03-23-2025 End: 03-23-2025 flow sheet Renate Irene DO Work Phone: [facility] Comment on above: Second trimester pre gnancy; 22 weeks gestation of ; Diabetes mellitus screening Start: 03-23-2025 End: 03-23-2025 ambulatory RENATE IRENE Not Available Start: 02-23-2025 End: 02-23-2025 Bamboo flowsheet Myrna GARIBAY Work Phone: [facility] Start: 02-23-2025 End: 02-24-2025 Bamboo flowsheet Myrna GARIBAY Work Phone: [facility] Start: 02-23-2025 End: 02-23-2025 Clinisync Result Encounter Renate Irene DO Work Phone: [facility] Unsolicited Start: 02-23-2025 End: 02-24-2025 External Result Encounter Myrna GARIBAY Work Phone: [facility] External Department Unsolicited Start: 02-23-2025 End: 02-23-2025 Patient encounter procedure Myrna GARIBAY Work Phone: [facility] Healthcare Start: 02-23-2025 End: 02-23-2025 Periodic preventive med est patient 18-39 yrs Myrna GARIBAY Work Phone: [facility] Comment on above: Screening, , for anatomic survey; Well woman exam with routine gynecological exam; Second trimester ; 18 weeks gestation of ; Vaginal discharge; STD exposure Start: 02-23-2025 End: 02-23-2025 ambulatory MYRNA GARCIA Not Available Start: 01-25-2025 End: 01-25-2025 Bamboo flowsheet Renate Irene DO Work Phone: [facility] Start: 01-25-2025 End: 01-25-2025 Bamboo flowsheet Renate Irene DO Work Phone: [facility] Start: 01-25-2025 End: 01-25-2025 ambulatory RENATE IRENE Not Available Start: 01-25-2025 End: 01-25-2025 flow sheet Renate Irene DO Work Phone: [facility] Comment on above: Nausea and vomiting in (Primary Dx); 14 weeks gestation of ; Second trimester Start: 12-24-2024 End: 12-24-2024 Office outpatient visit 5 minutes [facility] Irene Nurse [facility] Comment on above: GA: 10w1d Start: 12-24-2024 End: 12-24-2024 ambulatory RENATE IRENE Not Available Start: 05-01-2023 End: 05-01-2023 ambulatory Isadora Arroyo [facility] Other Start: 05-01-2023 Office outpatient vi sit 15 minutes Isadora Arroyo [facility] Start: 11-27-2021 End: 11-27-2021 ambulatory HORACIO ESCOBAR Facility:[facility] Start: 09-19-2021 End: 09-19-2021 ambulatory [facility]inty [facility] Other Start: 09-19-2021 Office outpatient vi sit 15 minutes Sheree Ginty [facility] Start: 07-27-2021 Office outpatient vi sit 15 minutes Sheree Ginty [facility] Procedures Date Procedure Procedure Detail Performing Clinician Start: 06-24-2025 Urnls dip stick/tabl et rgnt non-auto w/o micrscp Renate Irene DO Work Phone: Start: 06-16-2025 Urnls dip stick/tabl et rgnt non-auto w/o micrscp Myrna GARIBAY Work Phone: Start: 05-31-2025 Urnls dip stick/tabl et rgnt non-auto w/o micrscp Renate Irene DO Work Phone: Start: 05-19-2025 Urnls dip stick/tabl et rgnt non-auto w/o micrscp Melissa Cowan NP Work Phone: Start: 05-05-2025 Urnls dip stick/tabl et rgnt non-auto w/o micrscp Myrna GARIBAY Work Phone: Start: 04-20-2025 Urnls dip stick/tabl et rgnt non-auto w/o micrscp Renate Irene DO Work Phone: Start: 03-31-2025 MLR HEMOGLOBIN A1C Core y Irene DO Work Phone: Start: 03-23-2025 Urnls dip stick/tabl et rgnt non-auto w/o micrscp Renate Irene DO Work Phone: Start: 02-23-2025 RECURRENT VAGINITIS (HTRX) Myrna GARIBAY [...] Treatment Date Care Activity Detail Author Start: 07-01-2025 End: 07-01-2025 Patient encounter procedure 07/01/2025 9:10 AM EDT Routine [facility] [address] [place] [id number] Myrna Garcia, PA [address] [place] [address] [facility] Start: 06-24-2025 End: 06-24-2026 CULTURE, GROUP B STREP WITH SUSCEPTIBLITY CULTURE, GROUP B STREP WITH SUSCEPTIBLITY Lab Routine Third trimester ([facility]) Expected: 06/24/2025, Expires: 06/24/2026 [facility] Work Phone: Comment on above: Expected: 06/24/2025 , Expires: 06/24/2026 Start: 06-24-2025 End: 06-24-2025 Patient encounter procedure [facility] Comment on above: Arrived Start: 06-21-2025 Influenza vaccination [facility] Start: 06-16-2025 End: 06-16-2025 Patient encounter procedure 06/16/2025 8:50 AM EDT Routine [facility] [address] [phone] Myrna Garcia, PA [address] [place] [address] [facility] Start: 05-31-2025 End: 05-31-2025 Patient encounter procedure 05/31/2025 8:40 AM EDT Routine [facility] [address] [phone] Renate Bonilla DO [address] [place], [place] [id number] Arrived [facility] Comment on above: Arrived Start: 05-05-2025 End: 09-05-2025 US for US OB follow up transabdominal approach Imaging Routine Size of fetus inconsistent with dates in second trimester ([facility]) Expected: 05/05/2025, Expires: 09/05/2025 [facility] Work Phone: Comment on above: Expected: 05/05/2025 , Expires: 09/05/2025 Start: 05-05-2025 End: 05-05-2025 Patient encounter procedure 05/05/2025 8:30 AM EDT Routine [facility] [address] [place] [address] Melissa Cowan, TORY [address] [place] [phone] [facility] Start: 04-20-2025 End: 04-20-2025 Patient encounter procedure [facility] Comment on above: Arrived Start: 03-31-2025 End: 03-31-2025 Professional / ancillary services management 03/31/2025 8:30 AM EDT Ancillary Procedure [facility] [address] [place] [address] [facility] Start: 03-23-2025 End: 03-23-2026 CBC panel - Blood by Automated count CBC Lab Routine Diabetes mellitus screening Expected: 03/23/2025 (Approximate), Expires: 03/23/2026 [facility] Work Phone: Comment on above: Expected: 03/23/2025 (Approximate), Expires: 03/23/2026 Start: 03-23-2025 End: 03-23-2026 Measurement of glucose 1 hour after glucose challenge for glucose tolerance test Glucose tolerance, 1 hour Lab Routine Diabetes mellitus screening Expected: 03/23/2025 (Approximate), Expires: 03/23/2026 [facility] Comment on above: Expected: 03/23/2025 (Approximate), Expires: 03/23/2026 Start: 03-23-2025 End: 03-23-2025 Patient encounter procedure [facility] Comment on above: Arrived Start: 02-23-2025 End: 08-26-2025 Alpha fetoprotein, maternal Alpha fetoprotein, maternal Lab Routine Second trimester 18 weeks gestation of Expected: 02/23/2025 (Approximate), Expires: 08/26/2025 [facility] Comment on above: Expected: 02/23/2025 (Approximate), Expires: 08/26/2025 Start: 02-23-2025 End: 05-26-2025 US for US OB 14+ weeks anatomy scan Imaging Routine Screening, , for anatomic survey Expected: 02/23/2025, Expires: 05/26/2025 [facility] Comment on above: Expected: 02/23/2025 , Expires: 05/26/2025 Start: 02-23-2025 End: 02-23-2025 Patient encounter procedure [facility] Comment on above: Arrived Start: 12-24-2024 End: 12-24-2025 ABO/Rh ABO/Rh Lab Routine Missed menses , unspecified gestational age Expected: 12/24/2024 (Approximate), Expires: 12/24/2025 [facility] Comment on above: Expected: 12/24/2024 (Approximate), Expires: 12/24/2025 Start: 12-24-2024 End: 12-24-2025 Blood type and Indirect antibody screen panel - Blood Type and screen Lab Routine Missed menses , unspecified gestational age Expected: 12/24/2024 (Approximate), Expires: 12/24/2025 [facility] Work Phone: Comment on above: Expected: 12/24/2024 (Approximate), Expires: 12/24/2025 Start: 12-24-2024 End: 12-24-2025 Drugs of abuse panel - Urine by Screen method Rapid drug screen, urine Lab Routine , unspecified gestational age Encounter for supervision of normal first in first trimester Expected: 12/24/2024 (Approximate), Expires: 12/24/2025 [facility] Comment on above: Expected: 12/24/2024 (Approximate), Expires: 12/24/2025 Bacteria identified in Urine by Culture Urine culture Microbiology Routine Missed menses Ordered: 12/24/2024 [facility] Comment on above: Ordered: 12/24/2024 CBC W Auto Different ial panel - Blood CBC and differential Lab Routine Missed menses , unspecified gestational age Ordered: 12/24/2024 [facility] Comment on above: Ordered: 12/24/2024 CHLAMYDIA TRACHOMATI S (GENITO/STI) CHLAMYDIA TRACHOMATIS (GENITO/STI) Lab Routine STD exposure Ordered: 02/23/2025 [facility] Comment on above: Ordered: 02/23/2025 Cytology Cervical or vaginal smear or scraping study Pap Smear Pathology and Cytology Routine Well woman exam with routine gynecological exam Ordered: 02/23/2025 [facility] Comment on above: Ordered: 02/23/2025 Hemoglobin A1c/Hemoglobin.total in Blood Hemoglobin A1c Lab Routine Missed menses , unspecified gestational age Ordered: 12/24/2024 [facility] Comment on above: Ordered: 12/24/2024 Hepatitis B virus surface Ag [Presence] in Serum or Plasma by Immunoassay Hepatitis B surface antigen Lab Routine Missed menses , unspecified gestational age Ordered: 12/24/2024 [facility] Comment on above: Ordered: 12/24/2024 Hepatitis C virus Ab [Presence] in Serum or Plasma by Immunoassay Hepatitis C antibody Lab Routine Missed menses , unspecified gestational age Ordered: 12/24/2024 [facility] Comment on above: Ordered: 12/24/2024 HIV-1/HIV-2 antigen/antibody combination immunoassay HIV-1 and HIV-2 antibodies Lab Routine Missed menses , unspecified gestational age Ordered: 12/24/2024 [facility] Comment on above: Ordered: 12/24/2024 Neisseria gonorrhoea e DNA [Presence] in Unspecified specimen by COLLIN with probe detection Neisseria gonorrhea DNA probe, direct Lab Routine STD exposure Ordered: 02/23/2025 [facility] Comment on above: Ordered: 02/23/2025 Reagin Ab [Presence] in Serum by RPR RPR Lab Routine Missed menses , unspecified gestational age Ordered: 12/24/2024 [facility] Comment on above: Ordered: 12/24/2024 Rubella antibody, IgG Rubella an tibody, IgG Lab Routine Missed menses , unspecified gestational age Ordered: 12/24/2024 [facility] Comment on above: Ordered: 12/24/2024 SURESWAB(R) ADVANCED VAGINITIS PLUS, TMA SURESWAB(R) ADVANCED VAGINITIS PLUS, TMA Pathology and Cytology Routine Vaginal discharge Ordered: 02/23/2025 [facility] Work Phone: Comment on above: Ordered: 02/23/2025 Thyrotropin [Units/volume] in Serum or Plasma TSH Lab Routine , unspecified gestational age Ordered: 12/24/2024 [facility] Comment on above: Ordered: 12/24/2024 Immunizations Immunization Date Immunization Notes Care Provider Maria santiago 11-17-2012 influenza virus vacc ine, unspecified formulation Renate Bonilla DO Work Phone: [facility] Payers Date Payer Category Payer Private Health [facility] [id number] 2024 Unknown [id number] 1998 Unknown [id number] [id number]. 2.593 1998 Unknown [id number]. 2.9 1998 Unknown [id number] 2.16.840.1.087639.3.579. 2.9 1998 Unknown [id number] 2.16.840.1.200595.3.579. 2.9 1998 Unknown [id number] 2.16.840.1.454120.3.579. 2.9 1998 Unknown [id number] 2.16.840.1.499165.3.579. 2.9 1998 Unknown [id number] 2.16.840.1.345568.3.579. 2.1258 1998 Unknown [id number] 2.16.840.1.550681.3.579. 2.9 1998 Unknown [id number] 2.16.840.1.628349.3.579. 2.1258 1998 Unknown [id number] 2.16.840.1.274641.3.579. 2.9 1998 Unknown [id number] 2.16.840.1.995147.3.579. 2.9 1998 Unknown [id number] 2.16.840.1.406623.3.579. 2.9 1998 Unknown [id number] 2.16.840.1.802399.3.579. 2.9 1959 Unknown [id number] Unknown [id number] Social History Date Type Detail Facility Sex Assigned At [facility] Other Tobacco smoking status IAIS Tobacco smoking consumption unknown [facility] Start: 10-28-2024 [facility] Start: 2000 Sex assigned at Not on file [facility] Clinical Notes 07-27-2021 to 06-24-2025 Melissa Cowan NP - 06/24/2025 8:40 AM [facility] Cast - 06/16/2025 8:50 AM Lopez Cowan NP - 05/31/2025 8:40 AM Lopez Cowan NP - 05/19/2025 10:30 AM EDT Note Date & Type Note Facility 06-24-2025 History of Presen t illness Narrative Reason [...] nursing note reviewed. Exam conducted with a roller skate assembler present. Vitals: There is no height or weight on file to calculate BMI. BP: 126/82 Patient's last menstrual period was 10/23/2024. ASSESSMENT & PLAN ICD-10-CM 1. Third trimester ([facility]) Z34.93 POCT urinalysis dipstick manually resulted CULTURE, GROUP B STREP WITH SUSCEPTIBLITY CULTURE, GROUP B STREP WITH SUSCEPTIBLITY 2. 36 weeks gestation of ([facility]) Z3A.36 Return OB: Patient presents today for [...] Renate Bonilla DO documented in this encounter [facility] 06-16-2025 History of Presen t illness Narrative Reason [...] Appearance: Normal appearance. She is normal weight. HENT: Head: Normocephalic. Cardiovascular: Rate and Rhythm: Normal rate. Pulses: Normal pulses. Pulmonary: Effort: Pulmonary effort is normal. Breath sounds: Normal breath sounds. Abdominal: Palpations: Abdomen is soft. Musculoskeletal: General: Normal range of motion. Neurological: General: No focal deficit present. Mental Status: She is alert and oriented to person, place, and time. Psychiatric: Mood and Affect: Mood normal. Behavior: Behavior normal. Thought Content: Thought content normal. Judgment: Judgment normal. Vitals and nursing note reviewed. Vitals: There is no height or weight on file to calculate BMI. BP: 120/82 Patient's last menstrual period was 10/23/2024. ASSESSMENT & PLAN ICD-10-CM 1. Third trimester ([facility]) Z34.93 POCT urinalysis dipstick manually resulted POCT urinalysis dipstick manually resulted 2. 35 weeks gestation of ([facility]) Z3A.35 POCT urinalysis dipstick manually resulted Return OB: Patient presents today for a routine obstetrics appointment. Patient is currently 35w0d . Patient states she is doing well but has complaints of being tired due to current . Patient has verbalizes frequent movement. labor precautions was discussed/given and patient was instructed to perform kick counts three times a day. Orders Placed This Encounter Procedures POCT urinalysis dipstick manually resulted POCT urinalysis dipstick manually resulted Follow Up: Patient is to return to office in 1 week for routine OB appointment. Documented by PHOENIX Desir on behalf of: PHOENIX Desir documented in this encounter [facility] 05-31-2025 History of Presen t illness Narrative Reason for Appointment: Patient ID: Hanna Barnes is a 24 y.o. female who presents for Routine Visit Patient presents today for 2 Week Post Op Follow Up appointment. MEDICATIONS Current Outpatient Medications Medication Instructions [...] nursing note reviewed. Exam conducted with a roller skate assembler present. Vitals: There is no height or weight on file to calculate BMI. BP: 126/82 Patient's last menstrual period was 10/23/2024. ASSESSMENT & PLAN ICD-10-CM 1. Third trimester ([facility]) Z34.93 POCT urinalysis dipstick manually resulted 2. 32 weeks gestation of ([facility]) Z3A.32 Return OB: Patient presents today for a routine obstetrics appointment. Patient is currently 32w5d . Patient states she is doing well but has complaints of being tired due to current . Patient has verbalizes frequent movement. labor precautions was discussed/given and patient was instructed to perform kick counts three times a day. Orders Placed This Encounter Procedures POCT urinalysis dipstick manually resulted Follow Up: Patient is to return to office in 2 week for routine OB appointment. Documented by Melissa Cowan NP on behalf of: Renate Bonilla DO documented in this encounter [facility] 05-19-2025 History of Presen t illness Narrative Reason [...] nursing note reviewed. Exam conducted with a roller skate assembler present. Vitals: There is no height or weight on file to calculate BMI. BP: 120/72 Patient's last menstrual period was 10/23/2024. ASSESSMENT & PLAN ICD-10-CM 1. Third trimester ([facility]) Z34.93 POCT urinalysis dipstick manually resulted 2. 31 weeks gestation of ([facility]) Z3A.31 Return OB: Patient presents today for a routine obstetrics appointment. Patient is currently 31w0d . Patient states she is doing well but has complaints of being tired due to current . Patient has verbalizes frequent movement. labor precautions was discussed/given and patient was instructed to perform kick counts three times a day. Orders Placed This Encounter Procedures POCT urinalysis dipstick manually resulted Follow Up: Patient is to return to office in 2 week for routine OB appointment. Documented by Melissa Cowan NP on behalf of: Melissa Cowan NP documented in this encounter [facility] 05-05-2025 History of Presen t illness Narrative Reason [...] Objective: Physical Exam Constitutional: Appearance: Normal appearance. Genitourinary: Breasts: Breasts are soft. Right: Normal. Left: Normal. HENT: Head: Normocephalic. Nose: Nose normal. Mouth/Throat: Mouth: Mucous membranes are moist. Cardiovascular: Rate and Rhythm: Normal rate. Pulmonary: Effort: Pulmonary effort is normal. Abdominal: General: Bowel sounds are normal. Palpations: Abdomen is soft. Musculoskeletal: General: Normal range of motion. Cervical back: Normal range of motion. Neurological: General: No focal deficit present. Mental Status: She is alert. Skin: General: Skin is warm and dry. Psychiatric: Mood and Affect: Mood normal. Vitals and nursing note reviewed. Exam conducted with a roller skate assembler present. Vitals: There is no height or weight on file to calculate BMI. BP: 132/80 Patient's last menstrual period was 10/23/2024. ASSESSMENT & PLAN ICD-10-CM 1. Size of fetus inconsistent with dates in second trimester ([facility]) O26.842 US OB follow up transabdominal approach 2. Third trimester ([facility]) Z34.93 POCT urinalysis dipstick manually resulted 3. 29 weeks gestation of ([facility]) Z3A.29 Return OB: Patient presents today for a routine obstetrics appointment. Patient is currently 29w0d . Patient states she is doing well but has complaints of being tired due to current . Patient has verbalizes frequent movement. labor precautions was discussed/given and patient was instructed to perform kick counts three times a day. Orders Placed This Encounter Procedures US OB follow up transabdominal approach POCT urinalysis dipstick manually resulted Follow Up: Patient is to return to office in 2 week for routine OB appointment. Documented by PHOENIX Desir on behalf of: PHOENIX Desir documented in this encounter [facility] 04-20-2025 History of Presen t illness Narrative Reason [...] nursing note reviewed. Exam conducted with a roller skate assembler present. Vitals: There is no height or weight on file to calculate BMI. BP: 120/70 Patient's last menstrual period was 10/23/2024. ASSESSMENT & PLAN ICD-10-CM 1. Second trimester ([facility]) Z34.92 POCT urinalysis dipstick manually resulted 2. 26 weeks gestation of ([facility]) Z3A.26 Return OB: Patient presents today for a routine obstetrics appointment. Patient is currently 26w6d . Patient states she is doing well but has complaints of being tired due to current . Patient has verbalizes frequent movement. labor precautions was discussed/given and patient was instructed to perform kick counts three times a day. Orders Placed This Encounter Procedures POCT urinalysis dipstick manually resulted Follow Up: Patient is to return to office in 2 week for routine OB appointment. Documented by Cheri Lombardi LPN on behalf of: Renate Bonilla DO documented in this encounter [facility] 03-23-2025 History of Presen t illness Narrative Reason [...] nursing note reviewed. Exam conducted with a roller skate assembler present. Vitals: There is no height or [...] by Cheri Lombardi LPN on behalf of: Renate Bonilla DO documented in this encounter [facility] 02-23-2025 History of Presen t illness Narrative [...] nursing note reviewed. Exam conducted with a roller skate assembler present. Vitals: There is no height or [...] of: PHOENIX Desir documented in this encounter [facility] 01-25-2025 History of Presen t illness Narrative [...] nursing note reviewed. Exam conducted with a roller skate assembler present. Vitals: There is no height or [...] Renate Bonilla DO documented in this encounter [facility] 12-24-2024 History of Presen t illness Narrative [...] or undercooked meat, and stay away from [facility]. Patient has also been advised to [...] Regla Gutierrez MA documented in this encounter [facility] 09-19-2021 Evaluation note Encounter Date Diagnosis Assessment [...] Patient care instructions given in writting by [employer] [facility] [employer] Other 10-07-2021 Evaluation note* Encounter Date Diagnosis Assessment Notes Treatment Notes Treatment Clinical Notes Jul, Contact with and (suspected) exposure [...] to keep fluids or food down, persistent vomiting/diarrhea) , abdominal pain, lethargy, severe headache. Patient was [...] Patient care instructions given in writting by [employer] [facility] [employer] Other [facility] Other Evaluation note* Diagnosis Nausea and vomiting in - Primary Unspecified vomiting of , unspecified as to episode of care 14 weeks gestation of Second trimester state, incidental [facility] Diagnosis Screening, , for anatomic survey Encounter for anatomic survey Well woman exam with routine gynecological exam Routine gynecological examination Second trimester state, incidental 18 weeks gestation of Vaginal discharge Leukorrhea, not specified as infective STD exposure [facility]* Diagnosis Missed menses , unspecified gestational age Encounter for supervision of normal first in first trimester [facility] Diagnosis Second trimester state, incidental 22 weeks gestation of Diabetes mellitus screening Screening for diabetes mellitus [facility] Diagnosis Second trimester ([facility]) state, incidental 26 weeks gestation of ([facility]) [facility] Diagnosis Size of fetus inconsistent with dates in second trimester ([facility])- Primary Third trimester ([facility]) state, incidental 29 weeks gestation of ([facility]) [facility] Diagnosis Third trimester ([facility]) state, incidental 31 weeks gestation of ([facility]) [facility] Diagnosis Third trimester ([facility]) state, incidental 32 weeks gestation of ([facility]) [facility] Diagnosis Third trimester ([facility]) state, incidental 35 weeks gestation of ([facility]) [facility] Diagnosis Third trimester ([facility]) state, incidental 36 weeks gestation of ([facility]) documented in this encounter [facility] Summary Purpose Family History No Family History Records FoundNo Family History Records Found Advance Directives No Advanced Directives Records FoundNo Advanced Directives Records Found Additional Source Comments INFORMATION SOURCE (unrecogn ized section and content) DATE CREATED AUTHOR 11/29/2021 [facility] DATE CREATED AUTHOR AUTHOR'S ORGANIZ ATION 06/18/2025 [facility] EPIC REASON FOR VISIT [...] BE BASED ON THE PRIMARY CLINICAL RECORDS. [facility]. provides no warranty or guarantee of the accuracy or completeness of information in this document.
== END 2025-06-24 14:44 | disposition home or self-care (01) ==
LOC: LAB 14:43
PROVIDERS: Visit Provider Obstetrics & Gynecology
DX: Z34.93 Encounter for supervision of normal pregnancy, unspecified, third trimester (principal); Z3A.36 36 weeks gestation of pregnancy
CPT/HCPCS: 87081

== ENCOUNTER 2025-07-08 09:57 | Observation (INO) | payer OTHER, SELFPAY ==
--- OUTSIDE RECORDS SUMMARY | 2025-06-24 08:40 | XMS_ITS | Encounter Summary ---
Author Organization [facility] Address [address] [place] [address] Care Team Providers Care Alley Tender Name Role Phone Unavailable Primary Care Provider Unavailabl e Reason for Visit * Reason Comments Routine Visit Encounter Details Date Type Department Care Team (Late st Contact Info) Description 06/24/2025 8:40 AM EDT Routine [facility] [address] [id number] Jose Bonilla DO [address] [place] [address] Third trimester ([facility]); 36 weeks gestation of ([facility]) Social History Tobacco Use Types Packs/Day Years [...] Sign Reading Time Taken Comments Blood Pressure 126/82 06/24/2025 8:45 AM EDT Pulse - - Temperature - - Respiratory Rate - - Oxygen Saturation - - Inhaled Oxygen Concentration - - Weight 135 kg (297 lb) 06/24/2025 8:45 AM EDT Height - - Body Mass Index - - documented in this encounter Progress Notes * Melissa Cowan NP - 06/24/2025 8:40 AM EDT Reason for Appointment: Patient ID: [...] nursing note reviewed. Exam conducted with a verification clerk present. Vitals: There is no height or weight on file to calculate BMI. BP: 126/82 Patient's last menstrual period was 10/23/2024. ASSESSMENT & PLAN ICD-10-CM 1. Third trimester ([facility]) Z34.93 POCT urinalysis dipstick manually resulted CULTURE, GROUP B STREP WITH SUSCEPTIBLITY CULTURE, GROUP B STREP WITH SUSCEPTIBLITY 2. 36 weeks gestation of ([facility]) Z3A.36 Return OB: Patient presents today for a routine obstetrics appointment. Patient is currently 36w1d . Patient states she is doing well but has complaints of being tired due to current . Patient has verbalizes frequent movement. labor precautions was discussed/given and patient was instructed to perform kick counts three times a day. Orders Placed This Encounter Procedures CULTURE, GROUP B STREP WITH SUSCEPTIBLITY POCT urinalysis dipstick manually resulted Follow Up: Patient is to return to office in 1 week for routine OB appointment. Documented by Melissa Cowan NP on behalf of: Jose Bonilla DO documented in this encounter Plan of Treatment Upcoming Encounters Date Type Department Care Team (Late st Contact Info) Description 07/13/2025 8:50 AM EDT Routine [facility] [address] [place] [phone] Myrna Levy PA [address] [place] [address] documented as of this encounter Procedures Procedure Name Priority Date/Time Associated Diagnosis Comments POCT URINALYSIS DIPSTICK Routine 06/24/2025 8:47 AM EDT Third trimester ([facility]) CULTURE, GROUP B STREP WITH SUSCEPTIBLITY Routine 06/24/2025 8:34 AM EDT Third trimester ([facility]) documented in this encounter Results * (ABNORMAL) POCT urinalysis dipstick manually resulted (06/24/2025 8:47 AM EDT) Color, UA Yellow Clarity, UA Cloudy Glucose, UA Negative Negative - 2000(110) ++++ mg/dL Bilirubin, UA Negative Negative - 4(70) +++ mg/dL Ketones, UA Negative Negative - 160(16) ++++ mg/dL Spec Grav, UA 1.020 1 - 1.03 Blood, UA Negative Negative - 50 Han/mcL pH, UA 6.0 5 - 9 Protein, UA Negative Negative - 2000(20) ++++ mg/dL Urobilinogen, UA 1.0 0.2 - 12 mg/dL Leukocytes, UA 1+ Negative - 500+++ Jinny/mcL Nitrite, UA Negative Negative - Positive Urine 06/24/2025 8:47 AM EDT Jose Irene DO POINT OF CARE TEST ENTER/EDIT OR DERABLES Final Result * CULTURE, GROUP B STREP WITH SUSCEPTIBLITY (06/24/2025 8:34 AM EDT) Swab 06/24/2025 8:34 AM EDT Jose Irene DO LAB BLOOD ORDERABLES Final Resul t EXTERNAL LAB documented in this encounter Visit Diagnoses Diagnosis Third trimester ([facility]) state, incidental 36 weeks gestation of ([facility]) documented in this encounter
--- OUTSIDE RECORDS SUMMARY | 2025-07-01 09:10 | XMS_ITS | Encounter Summary ---
Author Organization [facility] Address [address] [place] [address] Care Team Providers Care Bulb Assembler Name Role Phone Unavailable Primary Care Provider Unavailabl e Reason for Visit * Reason Comments Routine Visit Encounter Details Date Type Department Care Team (Late st Contact Info) Description 07/01/2025 9:10 AM EDT Routine [facility] [address] [place] [id number] Myrna Levy PA [address] [place], [facility] Third trimester ([facility]); 37 weeks gestation of ([facility]) Social History Tobacco Use Types Packs/Day Years [...] Sign Reading Time Taken Comments Blood Pressure 128/76 07/01/2025 9:11 AM EDT Pulse - - Temperature - - Respiratory Rate - - Oxygen Saturation - - Inhaled Oxygen Concentration - - Weight 138 kg (305 lb) 07/01/2025 9:11 AM EDT Height - - Body Mass Index - - documented in this encounter Progress Notes * PHOENIX Desir - 07/01/2025 9:10 AM EDT Reason for Appointment: Patient ID: [...] SYSTEMS Review of Systems: Review of Systems OBJECTIVE Objective: OBGyn Exam Vitals: There is no height or weight on file to calculate BMI. BP: Patient's last menstrual period was 10/23/2024. ASSESSMENT & PLAN ICD-10-CM 1. Third trimester ([facility]) Z34.93 2. 37 weeks gestation of ([facility]) Z3A.37 Return OB: Patient presents today for a routine obstetrics appointment. Patient is currently 37w1d . Patient states she is doing well but has complaints of being tired due to current . Patient has verbalizes frequent movement. labor precautions was discussed/given and patient was instructed to perform kick counts three times a day. No orders of the defined types were placed in this encounter. Follow Up: Patient is to return to office in 1 week for routine OB appointment. Documented by Diamond Holder MA on behalf of: PHOENIX Desir documented in this encounter Plan of Treatment Upcoming Encounters Date Type Department Care Team (Late st Contact Info) Description 07/13/2025 8:50 AM EDT Routine [facility] [address] [place] [address] Myrna Levy PA [address] [place] [address] documented as of this encounter Procedures Procedure Name Priority Date/Time Associated Diagnosis Comments POCT URINALYSIS DIPSTICK Routine 07/01/2025 9:16 AM EDT Third trimester ([facility]) documented in this encounter Results * POCT urinalysis dipstick manually resulted (07/01/2025 9:16 AM EDT) Color, UA Yellow Clarity, UA [...] Nitrite, UA Negative Negative - Positive Urine 07/01/2025 9:16 AM EDT Myrna GARIBAY POINT OF CARE TEST ENTER/EDIT OR DERABLES Final Result documented in this encounter Visit Diagnoses Diagnosis Third trimester ([facility]) state, incidental 37 weeks gestation of ([facility]) documented in this encounter
--- OUTSIDE RECORDS SUMMARY | 2025-07-08 09:20 | XMS_ITS | Encounter Summary ---
Author Organization [facility] Address [address] [place] [address] Care Team Providers Care Parts Room Clerk Name Role Phone Unavailable Primary Care Provider Unavailabl e Reason for Visit * Reason Comments Routine Visit Encounter Details Date Type Department Care Team (Late Contact Info) Description 07/08/2025 9:20 AM EDT Routine [facility] [address] [place] [id number] Jose Bonilla DO [address] [place] [address] Prieto [place], [place] [id number] 38 weeks gestation of ([facility]); Third trimester ([facility]) Social History Tobacco Use Types Packs/Day Years [...] Sign Reading Time Taken Comments Blood Pressure 138/76 07/08/2025 9:29 AM EDT Pulse - - Temperature - - Respiratory Rate - - Oxygen Saturation - - Inhaled Oxygen Concentration - - Weight 139 kg (307 lb) 07/08/2025 9:29 AM EDT Height - - Body Mass Index - - documented in this encounter Plan of Treatment Upcoming Encounters Date Type Department Care Team (Late Contact Info) Description 07/13/2025 8:50 AM EDT Routine [facility] [address] [place] [address] Myrna Levy PA [address] [place] [address] [place] [phone] documented as of this encounter Procedures Procedure Name Priority Date/Time Associated Diagnosis Comments POCT URINALYSIS DIPSTICK Routine 07/08/2025 9:34 AM EDT 38 weeks gestation of ([facility]) Third trimester ([facility]) documented in this encounter Results * (ABNORMAL) POCT urinalysis dipstick manually resulted (07/08/2025 9:34 AM EDT) Color, UA Straw Clarity, UA Clear Glucose, UA Negative Negative - 2000(110) ++++ mg/dL Bilirubin, UA Negative Negative - 4(70) +++ mg/dL Ketones, UA Negative Negative - 160(16) ++++ mg/dL Spec Grav, UA 1.020 1 - 1.03 Blood, UA Negative Negative - 50 Han/mcL pH, UA 6.0 5 - 9 Protein, UA Positive Negative - 2000(20) ++++ mg/dL Urobilinogen, UA 1.0 0.2 - 12 mg/dL Leukocytes, UA Positive Negative - 500+++ Jinny/mcL Nitrite, UA Negative Negative - Positive Urine 07/08/2025 9:34 AM EDT Jose Bonilla DO POINT OF CARE TEST ENTER/EDIT OR DERABLES Final Result documented in this encounter Visit Diagnoses Diagnosis 38 weeks gestation of ([facility]) Third trimester ([facility]) state, incidental documented in this encounter
--- OUTSIDE RECORDS SUMMARY | 2025-07-08 10:02 | XMS_ITS | Encounter Summary ---
Author Organization [facility] Address [address] [place] [address] Care Team Providers Care Wave Soldering Machine Operator Name Role Phone Unavailable Primary Care Provider Unavailabl e Encounter Details Date Type Department Care Team (Late st Contact Info) Description 06/24/2025 Bamboo flowsheet [facility] [address] [place] [phone] Jose Bonilla DO [address] [place], [place] [address] Social History Tobacco Use Types Packs/Day Years [...] EDT Routine [facility] [address] [place] [address] Myrna Levy PA [address] [place] [address] documented as of this encounter Visit Diagnoses Not on filedocumented in this encounter
--- OUTSIDE RECORDS SUMMARY | 2025-07-08 10:02 | XMS_ITS | Encounter Summary ---
Author Organization [facility] Address [address] [place] [address] Care Team Providers Care Traveling Nurse Name Role Phone Unavailable Primary Care Provider Unavailabl e Encounter Details Date Type Department Care Team (Late st Contact Info) Description 03/02/2025 Abstract [facility] [address] [place] [address] Regla Gutierrez MA Social History Tobacco [...] EDT Routine [facility] [address] [place] [address] Myrna Levy PA [address] [place], [id number] documented as of this encounter Visit Diagnoses Not on filedocumented in this encounter
--- OUTSIDE RECORDS SUMMARY | 2025-07-08 10:02 | XMS_ITS | Clinical Summary ---
Author Organization [facility] Address [address] [place] [place] [address] Care Team Providers Care Glass Melt Operator Name Role Phone Unavailable Primary Care Provider Unavailabl e Allergies Active Allergy Reactions Criticality Noted Date Comments Latex Hives,Rash Low 12/25/2024 Wound Dressing Adhesive Hives,Rash,Itching Low 09/20 Medications MV-Min-Fe Fum-FA-DHA ( 1 PO) Take by mouth Active ondansetron (Zofran) 4 MG tabletIndicatio ns:Nausea and vomiting in ([facility]) Take 1 tablet (4 mg) by mouth every 6 (six) hours if needed for nausea or vomiting for up to 30 doses Take 1 tablet by mouth every 6 hours as needed for nausea. 30 tablet 3 01/25/2025 Active Encounters Date Type Department Care Team Description 07/08/2025 9:20 AM [place] [address] Jose Bonilla DO 38 weeks gestation of ([facility]); Third trimester ([facility]) 07/08/2025 [place] [address] Jose Bonilla DO 07/01/2025 9:10 [place] [address] Myrna Levy PA Third trimester ([facility]); 37 weeks gestation of ([facility]) 07/01/2025 Bamboo flowsheet [facility] [address] [place] [address] Myrna Levy PA 06/24/2025 8:40 AM EDT Routine [facility] [address] [place] [address] Jose Bonilla, Third trimester ([facility]); 36 weeks gestation of ([facility]) 06/24/2025 Bamboo flowsheet [facility] [address] [place] [address] Jose Bonilla DO 06/16/2025 8:50 AM EDT Routine [facility] [address] [place] [address] Myrna Levy PA Third trimester ([facility]); 35 weeks gestation of ([facility]) 06/16/2025 Bamboo flowsheet [facility] [address] [place] [address] Myrna Levy PA 06/14/2025 Telephone [facility] [address] [place] [address] Regla Gutierrez [place] 06/09/2025 Telephone [facility] [address] [place] [address] [place] 05/31/2025 8:40 AM EDT Routine [facility] [address] [place] [address] Jose Bonilla DO Third trimester ([facility]); 32 weeks gestation of ([facility]) 05/31/2025 Bamboo flowsheet [facility] [address] [place] [address] Jose Bonilla DO 05/19/2025 10:30 AM EDT Routine [facility] [address] [place] [address] Melissa Cowan NP Third trimester ([facility]); 31 weeks gestation of ([facility]) 05/19/2025 10:00 AM EDT Ancillary Procedure [facility] [address] [place] [address] Size of fetus inconsistent with dates in second trimester ([facility]) 05/05/2025 8:40 AM EDT Routine [facility] [address] [place] [address] Myrna Levy PA Size of fetus inconsistent with dates in second trimester ([facility]) (Primary Dx); Third trimester ([facility]); 29 weeks gestation of ([facility]) 05/05/2025 Bamboo flowsheet [facility] [address] [place] [address] Myrna Levy PA 04/20/2025 9:20 AM EDT Routine [facility] [place] [address] Jose Bonilla DO Second trimester ([facility]); 26 weeks gestation of ([facility]) 04/20/2025 Bamboo flowsheet [facility] [facility] [place] [address] Jose Bonilla DO from Last 3 Months [...] AM EDT Routine [facility] [address] [place] [address] Myrna Levy PA [address] [place] [address] Health Maintenance Due Date Last Done Comments Influenza Vaccine (#1) 2025 11/17/2012, 2007 Procedures Procedure Name Priority Date/Time Associated Diagnosis Comments POCT URINALYSIS DIPSTICK Routine 07/08/2025 9:34 AM EDT 38 weeks gestation of ([facility]) Third trimester ([facility]) POCT URINALYSIS DIPSTICK Routine 07/01/2025 9:16 AM EDT Third trimester ([facility]) POCT URINALYSIS DIPSTICK Routine 06/24/2025 8:47 AM EDT Third trimester ([facility]) CULTURE, GROUP B STREP WITH SUSCEPTIBLITY Routine 06/24/2025 8:34 AM EDT Third trimester ([facility]) POCT URINALYSIS DIPSTICK Routine 06/16/2025 10:42 AM EDT Third trimester ([facility]) 35 weeks gestation of ([facility]) POCT URINALYSIS DIPSTICK Routine 05/31/2025 8:57 AM EDT Third trimester ([facility]) POCT URINALYSIS DIPSTICK Routine 05/19/2025 10:48 AM EDT Third trimester ([facility]) US OB FOLLOW UP TRANSABDOMINAL APPROACH Routine 05/19/2025 10:31 AM EDT Size of fetus inconsistent with dates in second trimester ([facility]) POCT URINALYSIS DIPSTICK Routine 05/05/2025 9:09 AM EDT Third trimester ([facility]) POCT URINALYSIS DIPSTICK Routine 04/20/2025 9:31 AM EDT Second trimester ([facility]) from Last 3 Months Results * (ABNORMAL) POCT urinalysis dipstick manually resulted (07/08/2025 9:34 AM EDT) Only the most recent of8 resultswithin the time period is included. Color, UA Straw Clarity, UA Clear Glucose, [...] - Positive Urine 07/08/2025 9:34 AM EDT us Jose Irene DO POINT OF CARE TEST ENTER/EDIT OR DERABLES Final Result * CULTURE, GROUP B STREP WITH SUSCEPTIBLITY (06/24/2025 8:34 AM EDT) Swab 06/24/2025 8:34 AM EDT us Jose Irene DO LAB BLOOD ORDERABLES Final Resul t EXTERNAL LAB * US OB follow up transabdominal approach (05/19/2025 10:31 AM EDT) Anatomical Region Laterality Modality Body Ultrasound 05/20/2025 8:35 AM EDT Narrative 05/20/2025 8:35 AM EDT EXAM: US OB FOLLOW UP TRANSABDOMINAL APPROACH [...] II, MD, PHD at 20-May-2025 08:33:27 AM [facility] Procedure Note Nanda Grant MD - 05/20/2025 EXAM: US OB FOLLOW UP TRANSABDOMINAL APPROACH HISTORY: Inconsistent size. COMPARISON: Ob ultrasound 03/31/2025. TECHNIQUE: Two-dimensional transabdominal grayscale ultrasound imaging ofthe pelvis was performed. FINDINGS: Gestation: Single Presentation: [...] is 31 weeks 6 days (+/- 16 daysgestation). Estimated Weight: 1812 grams, +/- 272 grams ( 4 lb 0 oz). Weight Percentile for gestational age: 61 % IMPRESSION: 1. Single, live intrauterine gestation 31 weeks, 0 days by LMP. Today'sultrasound measurements correlate with a gestational age of 31 weeks 6days. Estimated weight is 1812 grams, +/- 272 grams ( 4 lb 0 oz)which correlates to 61 %. NEREIDA by today's ultrasound is 07/15/2025. 2. Amniotic fluid index within the upper limits of normal. Interpreted by: Electronically signed by NANDA GRANT II, MD, PHD [id number] 08:33:27 AM [facility] us Myrna GARIBAY IMG OB US PROCEDURES Final Resul t from Last 3 Months Insurance [employer]
--- OUTSIDE RECORDS SUMMARY | 2025-07-08 10:02 | XMS_ITS | Encounter Summary ---
Author Organization [facility] Address [address] [place] [address] Care Team Providers Care Videogame Designer Name Role Phone Unavailable Primary Care Provider Unavailabl e Encounter Details Date Type Department Care Team (Late st Contact Info) Description 07/01/2025 Bamboo flowsheet [facility] [address] [place] [address] Myrna Levy, PA [address] [place], [facility] Social History Tobacco Use Types Packs/Day [...] EDT Routine [facility] [address] [place] [phone] Myrna Levy PA [address] [place], [facility] documented as of this encounter Visit Diagnoses Not on filedocumented in this encounter
--- OUTSIDE RECORDS SUMMARY | 2025-07-08 10:02 | XMS_ITS | Clinical Summary ---
Author Organization [facility] tem Address [id number] [address] [place] [address] Care Team Providers Care Insulation Estimator Name Role Phone Mary Boss Kem TOOLING SPECIALIST-RISK MANAGER Primary Care Provid er Allergies Active Allergy [...] 07/05/2004, 05/28/2000, Additional history exists COVID-19 Vaccine (3 2024-2 6 season) 2025 03/28/2021, 03/07/2021 Influenza Vaccine 06/21/2025 11/17/2012, 08/13/2008 Medical Devices Not on file Insurance [employer] Care Teams Insulation Estimator Relationship Specialty Start Date End Date Mary Boss APRN-RISK MANAGER PCP - General Family Medicine 11/29/21
--- OUTSIDE RECORDS SUMMARY | 2025-07-08 10:02 | XMS_ITS | Encounter Summary ---
Author Organization [facility] Address [address] [place] [address] Care Team Providers Care Business Office Assistant Name Role Phone Unavailable Primary Care Provider Unavailabl e Encounter Details Date Type Department Care Team (Late st Contact Info) Description 03/08/2025 Orders Only [facility] [address] [place] [address] [place] [address] Ellen Lr LPN [address] [place], [place] [id number] Social History Tobacco Use Types Packs/Day Years [...] Info) Description 07/13/2025 8:50 AM EDT Routine [facility] [address] [place] [address] Myrna Levy PA [address] [place], [facility]11 documented as of this encounter Procedures Procedure [...]
--- OUTSIDE RECORDS SUMMARY | 2025-07-08 10:02 | XMS_ITS | Encounter Summary ---
Author Organization [facility] Address [address] [place] [address] Care Team Providers Care Geospatial Information Scientist Name Role Phone Unavailable Primary Care Provider Unavailabl e Encounter Details Date Type Department Care Team (Late st Contact Info) Description 03/08/2025 Abstract [facility] [address] [facility] [address] [address] Jose Bonilla DO [address] [place], [facility] Social History Tobacco Use Types Packs/Day Years [...] EDT Routine [facility] [address] [place] [address] Myrna Levy PA [address] [facility] [facility] [address] [place], [facility]11 documented as of this encounter Visit Diagnoses Not on filedocumented in this encounter
--- OUTSIDE RECORDS SUMMARY | 2025-07-08 10:02 | XMS_ITS | Encounter Summary ---
Author Organization [facility] Address [address] [place] [address] Care Team Providers Care Electronics Assembler And Tester Name Role Phone Unavailable Primary Care Provider Unavailabl e Encounter Details Date Type Department Care Team (Late st Contact Info) Description 07/08/2025 Bamboo flowsheet [facility] [address] [place] [address] Jose Bonilla DO [address] [place], [place] [address] Social History Tobacco Use Types Packs/Day Years [...] EDT Routine [facility] [address] [place] [address] Myrna Levy PA [address] [address] documented as of this encounter Visit Diagnoses Not on filedocumented in this encounter
--- OUTSIDE RECORDS SUMMARY | 2025-07-08 10:09 | XMS_ITS | CCD ---
Author Organization [facility] CliniSyoh Care Team Providers Care Babbitter Name Role Phone HORACIO ESCOBAR Admitting Unavailable HORACIO ESCOBAR Attending Unavailable DR JOHN NONE LISTED Primary Care Unavaila Germain Jasso Consulting Unavailable HORACIO ESCOBAR Consulting Unavailable Sheree Kimbrough Unavailable Isadora Arroyo Unavailable Unavailable Primary Care Provider UnavailRENATE Quinones Attending Unavailable MYRNA GARCIA Attending Unavailable IRENE, RENATE Attending Unavailable IRENE, RENATE Attending Unavailable MYRNA GARCIA Attending Unavailable MYRNA GARCIA Referring Unavailable MELISSA COWAN Attending Unavailable IRENE, RENATE Attending Unavailable RADHAMYRNA Attending Unavailable IRENE, RENATE Attending Unavailable MYRNA GARCIA Attending Unavailable Allergies [...] MG tablet Indications: Nausea and vomiting in ([facility]) Take 1 tablet (4 mg) by mouth [...] oral solution (3 sources) alpha-Adrenergic Agonist, Uncompetitive K-ujlles-W-aspartat e Receptor Antagonist, Sigma-1 Agonist Start: 07-27-2021 Start: 07-27-2021 take 10 mL by mouth every six hours Qaoosvhtl-Pnfucigp-VO 30-2-10 MG/5ML 10 mL Orally every 6 hours for 5 days Jul, Not-Taking dextromethorphan hydrobromid e 15 mg / guaiFENesin 400 mg / pseudoephedrine hydrochloride 60 mg oral tablet (3 sources) alpha-Adrenergic Agonist, Uncompetitive F-egsiwt-G-aspartate Receptor Antagonist, Sigma-1 Agonist Start: 07-27-2021 Start: [...] [36 weeks gestation of ] 06-24-2025 Episodic Residual codes; unclassified (2 sources) Gestation period, 37 weeks; Translations: [37 weeks gestation of ] 07-01-2025 Episodic Skin and subcutaneous tissue infections (1 [...] Range Facility Urinalysis macro (dipstick) panel (U)on 07-01-2025 Bilirubin, UA Negative Negative - 4(70) +++ mg/dL [facility] Blood, UA Negative Negative - 50 Han/mcL [facility] Clarity, UA Clear [facility] re Color, UA Yellow [facility] e Glucose, UA Negative Negative - 1999(110) ++++ mg/dL [facility] Interpretation and review of laboratory results Normal [facility] Ketones, UA Negative Negative - 160(16) ++++ mg/dL [facility] Leukocytes, UA Negative Negative - 500+++ Jinny/mcL [facility] Nitrite, UA Negative Negative - Positive [facility] pH, UA 6 5 - 9 [facility] e Protein, UA Negative Negative - 1999(20) ++++ mg/dL [facility] Spec Grav, UA 1.02 1 - 1.03 [facility] Urobilinogen, UA 1.0 0.2 - 12 mg/dL [facility]inalysis macro (dipstick) panel (U)on 06-24-2025 Bilirubin, UA Negative Negative - 4(70) +++ mg/dL [facility] Blood, UA Negative Negative - 50 Han/mcL [facility] Clarity, UA Cloudy [facility] re Color, UA Yellow [facility] Glucose, UA Negative Negative - 1999(110) ++++ mg/dL [facility] Interpretation and review of laboratory results Abnormal [facility] Ketones, UA Negative Negative - 160(16) ++++ mg/dL [facility] Leukocytes, UA 1+ Negative - 500+++ Jinny/mcL [facility] Healthcare Nitrite, UA Negative Negative - Positive [facility] Healthcare pH, UA 6 5 - 9 [facility] Protein, UA Negative Negative - 1999(20) ++++ mg/dL [facility] Healthcare Spec Grav, UA 1.02 1 - 1.03 [facility] care Urobilinogen, UA 1.0 0.2 - 12 mg/dL [facility] Urinalysis macro (dipstick) panel (U)on 06-16-2025 Bilirubin, UA Negative Negative - 4(70) +++ mg/dL [facility] Blood, UA Negative Negative - 50 Han/mcL [facility] Healthcare Clarity, UA Clear [facility] Color, UA Yellow [facility] Glucose, UA Negative Negative - 1999(110) ++++ mg/dL [facility] Interpretation and review of laboratory results Normal [facility] Ketones, UA Negative Negative - 160(16) ++++ mg/dL [facility] Healthcare Leukocytes, UA Negative Negative - 500+++ Jinny/mcL [facility] Healthcare Nitrite, UA Negative Negative - Positive [facility] pH, UA 6.5 5 - 9 [facility] Healthcar e Protein, UA Negative Negative - 1999(20) ++++ mg/dL [facility] Spec Grav, UA 1.025 1 - 1.03 [facility] care Urobilinogen, UA 1.0 0.2 - 12 mg/dL [facility] Urinalysis macro (dipstick) panel (U)on 05-31-2025 Bilirubin, UA Negative Negative - 4(70) +++ mg/dL [facility] Blood, UA Negative Negative - 50 Han/mcL [facility] Healthcare Clarity, UA Clear [facility] Color, UA Yellow [facility] Glucose, UA Negative Negative - 1999(110) ++++ mg/dL [facility] Interpretation and review of laboratory results Abnormal [facility] Healthcare Ketones, UA Negative Negative - 160(16) ++++ mg/dL [facility] Healthcare Leukocytes, UA Negative Negative - 500+++ Jinny/mcL [facility] Healthcare Nitrite, UA Negative Negative - Positive [facility] pH, UA 6 5 - 9 [facility] Protein, UA Trace Negative - 1999(20) ++++ mg/dL [facility] Healthcare Spec Grav, UA 0.03 1 - 1.03 [facility] Urobilinogen, UA 0.2 0.2 - 12 mg/dL [facility] US OB FOLLOW UP TRANSABDOMIN [...] II, MD, PHD at 20-May-2025 08:33:27 AM [facility] Normal Not Available Comment on above: Order Comment: US OB SCAN FOR GROWTH Estimated Date of Delivery: 07/21/25 Gestational Age as of 05/05/2025: 29w0d Urinalysis macro (dipstick) panel (U)on 05-19-2025 Bilirubin, UA Negative Negative - 4(70) +++ mg/dL [facility] Blood, UA Negative Negative - 50 Han/mcL [facility] Clarity, UA Clear [facility] Health[facility] re Color, UA Yellow [facility] Glucose, UA Negative Negative - 2000(110) ++++ mg/dL [facility] Interpretation and review of laboratory results Normal [facility] Ketones, UA Negative Negative - 160(16) ++++ mg/dL [facility] Healthcare Leukocytes, UA Negative Negative - 500+++ Jinny/mcL [facility] Healthcare Nitrite, UA Negative Negative - Positive [facility] pH, UA 6 5 - 9 [facility] Protein, UA Negative Negative - 1999(20) ++++ mg/dL [facility] Healthcare Spec Grav, UA 1.03 1 - 1.03 [facility] care Urobilinogen, UA 0.2 0.2 - 12 mg/dL [facility] Urinalysis macro (dipstick) panel (U)on 05-05-2025 Bilirubin, UA Negative Negative - 4(70) +++ mg/dL [facility] Blood, UA Negative Negative - 50 Han/mcL [facility] Healthcare Clarity, UA Clear [facility] Color, UA Yellow [facility] Glucose, UA Negative Negative - 1999(110) ++++ mg/dL [facility] Interpretation and review of laboratory results Abnormal [facility] Ketones, UA Negative Negative - 160(16) ++++ mg/dL [facility] Leukocytes, UA Negative Negative - 500+++ Jinny/mcL [facility] Healthcare Nitrite, UA Negative Negative - Positive [facility] pH, UA 6.5 5 - 9 [facility] Healthcar e Protein, UA Trace Negative - 1999(20) ++++ mg/dL [facility] Spec Grav, UA 1.025 1 - 1.03 [facility] Urobilinogen, UA 0.2 0.2 - 12 mg/dL [facility] Urinalysis macro (dipstick) panel (U)on 04-20-2025 Bilirubin, UA Negative Negative - 4(70) +++ mg/dL [facility] Blood, UA Negative Negative - 50 Han/mcL [facility] Healthcare Clarity, UA Clear [facility] Color, UA Sheree [facility] Glucose, UA Negative Negative - 1999(110) ++++ mg/dL [facility] Interpretation and review of laboratory results Abnormal [facility] Ketones, UA Negative Negative - 160(16) ++++ mg/dL [facility] Leukocytes, UA Negative Negative - 500+++ Jinny/mcL [facility] Healthcare Nitrite, UA Negative Negative - Positive [facility] pH, UA 5.5 5 - 9 [facility] e Protein, UA Trace Negative - 1999(20) ++++ mg/dL [facility] Spec Grav, UA 1.03 1 - 1.03 [facility] Urobilinogen, UA 0.2 0.2 - 12 mg/dL [facility] Health[facility] e MLR HEMOGLOBIN A1Con 025 Glucose [Mass/Vol] 91 mg/dL [facility] HbA1c (Bld) [Mass fraction] 4.8 % 4.5 - 6.2 % [facility] Comment on above: ADA RECOMMENDED LIMI T 4.0 - 6.0 ADA THERAPEUTIC TARGET < 7.0 ACTION SUGGESTED > 7.0 CLINISYNC [facility] e US OB 14+ WEEKS ANATOMY SCAN [...] II, MD, PHD at 02-Apr-2025 10:21:46 AM [facility] Normal Not Available Comment on above: Order Comment: US OB ANATOMY SINGLE W US OB CERVICAL LENGTH Estimated Date of Delivery: 07/21/25 Gestational Age as of 02/23/2025: 18w6d Urinalysis macro (dipstick) panel (U)on 03-23-2025 Bilirubin, UA Negative Negative - 4(70) +++ mg/dL [facility] Blood, UA Negative Negative - 50 Han/mcL [facility] Clarity, UA Clear [facility] re Color, UA Yellow [facility] e Glucose, UA Negative Negative - 1999(110) ++++ mg/dL [facility] Interpretation and review of laboratory results Abnormal [facility] Ketones, UA Negative Negative - 160(16) ++++ mg/dL [facility] Leukocytes, UA Negative Negative - 500+++ Jinny/mcL [facility] Nitrite, UA Negative Negative - Positive [facility] pH, UA 5.5 5 - 9 [facility] e Protein, UA Negative Negative - 1999(20) ++++ mg/dL [facility] Spec Grav, UA 1.02 1 - 1.03 [facility] Urobilinogen, UA 1.0 0.2 - 12 mg/dL [facility] e RECURRENT VAGINITIS (HTRX)on 02-24-2025 ATOPOBIUM VAGINAE 0 [facility] ATOPOBIUM VAGINAE Not detected [facility] BVAB 2,3 (BACTERIAL VAGINOSIS ASSOCIATED BACTERIA 2, 3); MOBILUNCUS SPP 0 [facility] BVAB 2,3 (BACTERIAL VAGINOSIS ASSOCIATED BACTERIA 2, 3); MOBILUNCUS SPP Not detected [facility] INDU ALBICANS, PARAPSILOSIS, TROPICALIS 0 [facility] INDU ALBICANS, PARAPSILOSIS, TROPICALIS Not detected [facility] INDU GLABRATA 0 [facility] Hea [facility]thcare INDU GLABRATA Not detected [facility] H ealthcare INDU KRUSEI 0 [facility] Healt hcare INDU KRUSEI Not detected [facility] CHLAMYDIA TRACHOMATIS 0 [facility] CHLAMYDIA TRACHOMATIS Not detected [facility] GARDNERELLA VAGINALIS 0 [facility] GARDNERELLA VAGINALIS Not detected [facility] MEGASPHAERA (TYPES 1, 2) 0 [facility] MEGASPHAERA (TYPES 1, 2) Not detected [facility] MYCOPLASMA GENITALIUM 0 [facility] MYCOPLASMA GENITALIUM Not detected [facility] NEISSERIA GONORRHOEAE 0 [facility] NEISSERIA GONORRHOEAE Not detected [facility] TRICHOMONAS VAGINALIS 0 [facility] TRICHOMONAS VAGINALIS Not detected [facility] e ALL CBC WITH AUTO DIFFon BASOPHILS ABSOLUTE AUTO 0 [facility] Basophils/100 WBC (Bld) 0.3 % 0.2 - 2.0 % [facility] Eosinophils/100 WBC (Bld) 1.2 % 0.9 - 7.0 % [facility] Erythrocyte distribution width (RBC) [Ratio] 12.6 % 11.0 - 15.0 % [facility] Hematocrit (Bld) [Volume fraction] 35.1 % Low 36.0 - 48.0 % [facility] Hem[facility] (Bld) [Mass/Vol] 12.5 g/dL 12.0 - 16.0 g/dL [facility] IMMATURE GRANULOCYTES ABS AUTO 0.06 High [facility] Immature granulocytes/100 WBC (Bld) 0.4 % 0.0 - 0.5 % [facility] Interpretation and review of laboratory results Abnormal [facility] LYMPHOCYTES ABSOLUTE AUTO 3.8 [facility] Lymphocytes/100 WBC (Bld) 27.2 % 20.5 - 60.0 % [facility] MCH (RBC) [Entitic mass] 32.2 pg 26.7 - 34.0 pg [facility] MCHC (RBC) [Mass/Vol] 35.6 g/dL High 29.9 - 35.2 g/dL [facility] MCV (RBC) [Entitic vol] 90.5 fL 81.0 - 99.0 fL [facility] MONOCYTES ABSOLUTE AUTO 0.8 [facility] Monocytes/100 WBC (Bld) 5.5 % 1.7 - 12.0 % [facility] NEUTROPHILS ABSOLUTE AUTO 9.2 High [facility] Neutrophils/100 WBC (Bld) 65.4 % 43.0 - 75.0 % [facility] Healthcare Platelet mean volume (Bld) [Entitic vol] 9.2 fL Low 9.5 - 13.5 fL [facility] Health are TBH EO # 0.2 [facility] TB PLT 245 [facility] TB RBC 3.88 Low [facility] TBH WBC 14.1 High [facility] Health[facility] e CLINISYNC [facility] e Urinalysis macro (dipstick) panel (U)on 02-23-2025 Bilirubin, UA Negative Negative - 4(70) +++ mg/dL [facility] Blood, UA Negative Negative - 50 Han/mcL [facility] Healthcare Clarity, UA Clear [facility] Color, UA Yellow [facility] e Glucose, UA Negative Negative - 1999(110) ++++ mg/dL [facility] Interpretation and review of laboratory results Abnormal [facility] Ketones, UA Negative Negative - 160(16) ++++ mg/dL [facility] Leukocytes, UA Negative Negative - 500+++ Jinny/mcL [facility] Healthcare Nitrite, UA Negative Negative - Positive [facility] pH, UA 6.5 5 - 9 [facility] Protein, UA Negative Negative - 1999(20) ++++ mg/dL [facility] Spec Grav, UA 1.02 1 - 1.03 [facility] Urobilinogen, UA 1.0 0.2 - 12 mg/dL [facility] Urinalysis macro (dipstick) panel (U)on 01-25-2025 Bilirubin, UA Negative Negative - 4(70) +++ mg/dL [facility] Blood, UA Positive Negative - 50 Han/mcL [facility] Healthcare Comment on above: trace-intact Clarity, UA Clear [facility] Color, UA Yellow [facility] Health[facility] e Glucose, UA Negative Negative - 1999(110) ++++ mg/dL [facility] Interpretation and review of laboratory results Abnormal [facility] Ketones, UA Negative Negative - 160(16) ++++ mg/dL [facility] Leukocytes, UA Negative Negative - 500+++ Jinny/mcL [facility] Healthcare Nitrite, UA Negative Negative - Positive [facility] pH, UA 6.5 5 - 9 [facility] e Protein, UA Negative Negative - 1999(20) ++++ mg/dL [facility] Spec Grav, UA 1.025 1 - 1.03 [facility] Urobilinogen, UA 0.2 0.2 - 12 mg/dL [facility] HCG ( test) Ql (U)o n 12-25-2024 Interpretation and review of laboratory results Abnormal [facility] Preg Test, Ur Positive Negative [facility] Urinalysis macro (dipstick) panel (U)on 12-25-2024 Bilirubin, UA Negative Negative - 4(70) +++ mg/dL [facility] Blood, UA Positive Negative - 50 Han/mcL [facility] Comment on above: small Clarity, UA Clear [facility] re Color, UA Yellow [facility] e Glucose, UA Negative Negative - 1999(110) ++++ mg/dL [facility] Interpretation and review of laboratory results Abnormal [facility] Ketones, UA Negative Negative - 160(16) ++++ mg/dL [facility] Leukocytes, UA Negative Negative - 500+++ Jinny/mcL [facility] Nitrite, UA Negative Negative - Positive [facility] pH, UA 6 5 - 9 [facility] Protein, UA Negative Negative - 1999(20) ++++ mg/dL [facility] Spec Grav, UA 1.03 1 - 1.03 [facility] Urobilinogen, UA 0.2 0.2 - 12 mg/dL [facility] US OB TRANSVAGINALon 025 US [...] II, MD, PHD at 25-Dec-2024 08:23:40 AM [facility] Normal Not Available Comment on above: [...] GERMAIN LUNA Date: 2021-11-27 08:39 Normal [facility] COVID Quick Testingon 2020 Result Negative [facility] Other Vital Signs Date Time Vital Sign Value Performing Clinician Facility 07-01-2025 09:11-0400 Body weight 138.35 kg Myrna GARIBAY Work Phone: [facility] 07-01-2025 09:11-0400 Diastolic blood pressure 76 mm[Hg] Myrna GARIBAY Work Phone: [facility] 07-01-2025 09:11-0400 Systolic blood pressure 128 mm[Hg] Myrna GARIBAY Work Phone: [facility] 06-24-2025 08:45-0400 Body weight 134.72 kg Renate Irene DO Work Phone: [facility] 06-24-2025 08:45-0400 Diastolic blood pressure 82 mm[Hg] Renate Irene DO Work Phone: [facility] 06-24-2025 08:45-0400 Systolic blood pressure 126 mm[Hg] Renate Irene DO Work Phone: [facility] 06-16-2025 08:58-0400 Body weight 131.14 kg Myrna Garcia PA Work Phone: [facility] 06-16-2025 08:58-0400 Diastolic blood pressure 82 mm[Hg] Myrna Garcia PA Work Phone: [facility] 06-16-2025 08:58-0400 Systolic blood pressure 120 mm[Hg] Myrna Radha PA Work Phone: [facility] 05-31-2025 08:51-0400 Body weight 125.08 kg Renate Irene DO Work Phone: [facility] 05-31-2025 08:51-0400 Diastolic blood pressure 82 mm[Hg] Renate Irene DO Work Phone: [facility] 05-31-2025 08:51-0400 Systolic blood pressure 126 mm[Hg] Renate Irene DO Work Phone: [facility] 05-19-2025 10:38-0400 Body weight 123.49 kg Melissa Camryn BELL CLERK Work Phone: [facility] 05-19-2025 10:38-0400 Diastolic blood pressure 72 mm[Hg] Melissa Camryn BELL CLERK Work Phone: [facility] 05-19-2025 10:38-0400 Systolic blood pressure 120 mm[Hg] Melissa Camryn BELL CLERK Work Phone: [facility] 05-05-2025 09:06-0400 Body weight 121.9 kg Myrna Garcia PA Work Phone: [facility] 05-05-2025 09:06-0400 Diastolic blood pressure 80 mm[Hg] Myrna Garcia PA Work Phone: [facility] 05-05-2025 09:06-0400 Systolic blood pressure 132 mm[Hg] Mynra Garcia PA Work Phone: [facility] 04-20-2025 09:27-0400 Body weight 122.24 kg Renate Irene DO Work Phone: [facility] 04-20-2025 09:27-0400 Diastolic blood pressure 70 mm[Hg] Renate Irene DO Work Phone: [facility] 04-20-2025 09:27-0400 Systolic blood pressure 120 mm[Hg] Renate Irene DO Work Phone: [facility] 03-23-2025 11:11-0400 Body weight 119.35 kg Renate Irene DO Work Phone: [facility] 03-23-2025 11:11-0400 Diastolic blood pressure 74 mm[Hg] Renate Irene DO Work Phone: [facility] 03-23-2025 11:11-0400 Systolic blood pressure 114 mm[Hg] Renate Irene DO Work Phone: [facility] 02-23-2025 10:18-0400 Body weight 116.48 kg Myrna GARIBAY Work Phone: [facility] 02-23-2025 10:18-0400 Diastolic blood pressure 70 mm[Hg] Myrna Garcia PA Work Phone: [facility] 02-23-2025 10:18-0400 Systolic blood pressure 116 mm[Hg] Myrna GARIBAY Work Phone: [facility] 01-25-2025 11:32-0400 Body weight 117.84 kg Renate Irene DO Work Phone: [facility] 01-25-2025 11:32-0400 Diastolic blood pressure 68 mm[Hg] Renate Irene DO Work Phone: [facility] 01-25-2025 11:32-0400 Systolic blood pressure 118 mm[Hg] Renate Irene DO Work Phone: [facility] 12-25-2024 11:54-0500 Body weight 109.77 kg [facility] Nurse [facility] 12-25-2024 11:54-0500 Diastolic blood pressure 70 mm[Hg] [facility] Nurse [facility] 12-25-2024 11:54-0500 Systolic blood pressure 118 mm[Hg] [facility] Nurse [facility] 05-01-2023 13:20-0400 Body height 175.26 cm Isadora Arroyo Other [facility] Other 05-01-2023 13:20-0400 Body mass index (BMI) [Ratio] 38.98 kg/m2 Isadora Arroyo Other [facility] Other 05-01-2023 13:20-0400 Body temperature 97.8 [degF] Isadora Arroyo Other [facility] Other 05-01-2023 13:20-0400 Body weight 119.75 kg Isadora Arroyo Other [facility] Other 05-01-2023 13:20-0400 Respiratory rate 18 /min Isadora Arroyo Other [facility] Other 05-01-2023 13:20-0400 SaO2% (BldA) [Mass fraction] 98 % Isadora Arroyo Other [facility] Other 09-19-2021 14:15-0500 Body height 175.26 cm Sheree Ginty Other [facility] Other 09-19-2021 14:15-0500 Body mass index (BMI) [Ratio] 36.91 kg/m2 Sheree Ginty Other [facility] Other 09-19-2021 14:15-0500 Body temperature 96.3 [degF] Sheree Ginty Other [facility] Other 09-19-2021 14:15-0500 Body weight 113.4 kg Sheree Ginty Other [facility] Other 09-19-2021 14:15-0500 Respiratory rate 18 /min Sheree Ginty Other [facility] Other 09-19-2021 14:15-0500 SaO2% (BldA) [Mass fraction] 97 % Sheree Ginty Other [facility] Other 07-27-2021 11:15-0400 Body height 175.26 cm Sheree Ginty Other [facility] Other 07-27-2021 11:15-0400 Body mass index (BMI) [Ratio] 36.91 kg/m2 Sheree Ginty Other [facility] Other 07-27-2021 11:15-0400 Body temperature 96.7 [degF] Sheree Ginty Other [facility] Other 07-27-2021 11:15-0400 Body weight 113.4 kg Sheree Ginty Other [facility] Other 07-27-2021 11:15-0400 Respiratory rate 18 /min Sheree Ginty Other [facility] Other 07-27-2021 11:15-0400 SaO2% (BldA) [Mass fraction] 98 % Sheree Ginty Other [facility] Other Encounters Encounter Date Encounter Type Care Provider Facility Start: 07-08-2025 End: 07-08-2025 Romeroboo flowsheet Renate Irene DO Work Phone: [facility] Start: 07-08-2025 End: 07-08-2025 Bamboo flowsheet Renate Irene DO Work Phone: [facility] Start: 07-01-2025 End: 07-01-2025 Bamboo flowsheet Myrna GARIBAY Work Phone: [facility] Start: 07-01-2025 End: 07-01-2025 Bamboo flowsheet Myrna GARIBAY Work Phone: [facility] Start: 07-01-2025 End: 07-01-2025 flow sheet Myrna GARIBAY Work Phone: [facility] Comment on above: Third trimester preg leticia ([facility]); 37 weeks gestation of ([facility]) Start: 07-01-2025 End: 07-01-2025 ambulatory MYRNA GARCIA Not Available Start: 06-24-2025 End: 06-24-2025 Bamboo flowsheet Renate Irene DO Work Phone: [facility] Start: 06-24-2025 End: 06-24-2025 Bamboo flowsheet Renate Irene DO Work Phone: [facility] Start: 06-24-2025 End: 06-24-2025 flow sheet Renate Irene DO Work Phone: [facility] Comment on above: Third trimester preg leticia ([facility]); 36 weeks gestation of ([facility]) Start: 06-24-2025 End: 06-24-2025 ambulatory RENATE IRENE Not Available Start: 06-16-2025 End: 06-16-2025 Bamboo flowsheet Myrna GARIBAY Work Phone: [facility] Start: 06-16-2025 End: 06-16-2025 Bamboo flowsheet Myrna GARIBAY Work Phone: [facility] Start: 06-16-2025 End: 06-16-2025 ambulatory MYRNA GARCIA Not Available Start: 06-16-2025 End: 06-16-2025 flow sheet Myrna GARIBAY Work Phone: [facility] Comment on above: Third trimester preg leticia ([facility]); 35 weeks gestation of ([facility] Start: 05-31-2025 End: 05-31-2025 Bamboo flowsheet Renate Irene DO Work Phone: [facility] Start: 05-31-2025 End: 05-31-2025 Bamboo flowsheet Renate Irene DO Work Phone: [facility] Start: 05-31-2025 End: 05-31-2025 flow sheet Renate Irene DO Work Phone: [facility] Comment on above: Third trimester preg leticia ([facility]); 32 weeks gestation of ([facility]) Start: 05-31-2025 End: 05-31-2025 ambulatory RENATE IRENE Not Available Start: 05-19-2025 End: 05-19-2025 Office outpatient visit 15 minutes Melissa Cowan NP Work Phone: [facility] Comment on above: Third trimester preg leticia ([facility]); 31 weeks gestation of ([facility] [facility] Start: 05-19-2025 End: 05-19-2025 ambulatory MELISSA [...] incons istent with dates in second trimester ([facility]) (Primary Dx); Third trimester ([facility]); 29 weeks gestation of ([facility]) Start: 04-20-2025 End: 04-20-2025 Bamboo flowsheet Renate Irene DO Work Phone: [facility] Start: 04-20-2025 End: 04-20-2025 Bamboo flowsheet Renate Irene DO Work Phone: [facility] Start: 04-20-2025 End: 04-20-2025 flow sheet Renate Irene DO Work Phone: [facility] Comment on above: Second trimester pre gnancy ([facility]); 26 weeks gestation of ([facility]) Start: 04-20-2025 End: 04-20-2025 ambulatory RENATE IRENE [...] 02-23-2025 Bamboo flowsheet Myrna GARIBAY Work Phone: [facility] Start: 02-23-2025 End: 02-24-2025 Bamboo flowsheet Myrna GARIBAY Work Phone: [facility] Start: 02-23-2025 End: 02-23-2025 Clinisync Result Encounter Renate Irene DO Work Phone: [facility] External Department Unsolicited Start: 02-23-2025 End: 02-24-2025 External Result Encounter Myrna GARIBAY Work Phone: [facility] External Department Unsolicited Start: 02-23-2025 End: 02-23-2025 Patient encounter procedure Myrna GARIBAY Work Phone: [facility] Start: 02-23-2025 End: 02-23-2025 Periodic preventive med est patient 18-39 yrs Myrna GARIBAY Work Phone: [facility] Comment on above: Screening, , for anatomic survey; Well woman exam with routine gynecological exam; Second trimester ; 18 weeks gestation of ; Vaginal discharge; STD exposure Start: 02-23-2025 End: 02-23-2025 ambulatory MYRNA GARCIA Not Available Start: 01-25-2025 End: 01-25-2025 Bamboo flowsheet Renate Irene DO Work Phone: [facility] Start: 01-25-2025 End: 01-25-2025 Bamboo flowsheet Renate Irene DO Work Phone: [facility] Start: 01-25-2025 End: 01-25-2025 ambulatory RENATE IRENE Not Available Start: 01-25-2025 End: 01-25-2025 flow sheet Renate Irene DO Work Phone: [facility] Comment on above: Nausea and vomiting in (Primary Dx); 14 weeks gestation of ; Second trimester Start: 12-24-2024 End: 12-24-2024 Office outpatient visit 5 minutes [facility] Irene Nurse [facility] Comment on above: GA: 10w1d Start: 12-24-2024 End: 12-24-2024 ambulatory RENATE IRENE Not Available Start: 05-01-2023 End: 05-01-2023 ambulatory Isadora Dina Other achvr Other Start: 05-01-2023 Office outpatient vi sit 15 minutes Isadora Dina [facility] Start: 11-27-2021 End: 11-27-2021 ambulatory HORACIO ESCOBAR Facility: Start: 09-19-2021 End: 09-19-2021 ambulatory Sheree Ginty Other achvr Other Start: 09-19-2021 Office outpatient vi sit 15 minutes Sheree Ginty [facility] Start: 07-27-2021 Office outpatient vi sit 15 minutes Sheree Ginty [facility] Procedures Date Procedure Procedure Detail Performing Clinician Start: 07-01-2025 Urnls dip stick/tabl et rgnt non-auto w/o micrscp Myrna GARIBAY Work Phone: Start: 06-24-2025 Urnls dip stick/tabl et rgnt [...] Treatment Date Care Activity Detail Author Start: 07-08-2025 End: 07-08-2025 Patient encounter procedure POLO DE LA TORRE Comment on above: Arrived Start: 07-01-2025 End: 07-01-2025 Patient encounter procedure [facility]O [facility] Comment on above: Arrived Start: 06-24-2025 End: 06-24-2026 CULTURE, GROUP B STREP WITH SUSCEPTIBLITY CULTURE, GROUP B STREP WITH SUSCEPTIBLITY Lab Routine Third trimester ([facility]) Expected: 06/24/2025, Expires: 06/24/2026 [facility] Work Phone: Comment on above: Expected: 06/24/2025 , Expires: 06/24/2026 Start: 06-24-2025 End: 06-24-2025 Patient encounter procedure POLO [facility] Comment on above: Arrived Start: 06-21-2025 Influenza vaccination [facility] Start: 06-16-2025 End: 06-16-2025 Patient encounter procedure 06/16/2025 8:50 AM EDT Routine [facility] [address] [address] Myrna Garcia PA [address] [place], [facility] Start: 05-31-2025 End: 05-31-2025 Patient encounter procedure 05/31/2025 8:40 AM EDT Routine [facility] [address] [address] Renate Bonilla DO [address] [place], [facility] Arrived [facility] Comment on above: Arrived Start: 05-05-2025 End: 09-05-2025 US for US OB follow up transabdominal approach Imaging Routine Size of fetus inconsistent with dates in second trimester ([facility]) Expected: 05/05/2025, Expires: 09/05/2025 [facility] Work Phone: Comment on above: Expected: 05/05/2025 , Expires: 09/05/2025 Start: 05-05-2025 End: 05-05-2025 Patient encounter procedure 05/05/2025 8:30 AM EDT Routine [facility] [address] [address] Melissa Cowan, BELL CLERK [address] [place] [address] [facility] Start: 04-20-2025 End: 04-20-2025 Patient encounter procedure [facility] Comment on above: Arrived Start: 03-31-2025 End: 03-31-2025 Professional / ancillary services management 03/31/2025 8:30 AM EDT Ancillary Procedure [facility] [address] [id number] [facility] Start: 03-23-2025 End: 03-23-2026 [...] mellitus screening Expected: 03/23/2025 (Approximate), Expires: 03/23/2026 [facility] Comment on above: Expected: 03/23/2025 (Approximate), Expires: 03/23/2026 Start: 03-23-2025 End: 03-23-2025 Patient encounter procedure [facility] Comment on above: Arrived Start: 02-23-2025 End: 08-26-2025 Alpha fetoprotein, maternal Alpha fetoprotein, maternal Lab Routine Second trimester 18 weeks gestation of Expected: 02/23/2025 (Approximate), Expires: 08/26/2025 [facility] Comment on above: Expected: 02/23/2025 (Approximate), Expires: 08/26/2025 Start: 02-23-2025 End: 05-26-2025 US for US OB 14+ weeks anatomy scan Imaging Routine Screening, , for anatomic survey Expected: 02/23/2025, Expires: 05/26/2025 [facility] Comment on above: Expected: 02/23/2025 , Expires: 05/26/2025 Start: 02-23-2025 End: 02-23-2025 Patient encounter procedure [facility] Comment on above: Arrived Start: 12-24-2024 End: 12-24-2025 ABO/Rh ABO/Rh Lab Routine Missed menses , unspecified gestational age Expected: 12/24/2024 (Approximate), Expires: 12/24/2025 [facility] Comment on above: Expected: 12/24/2024 (Approximate), Expires: 12/24/2025 Start: 12-24-2024 End: 12-24-2025 Blood type and Indirect antibody screen panel - Blood Type and screen Lab Routine Missed menses , unspecified gestational age Expected: 12/24/2024 (Approximate), Expires: 12/24/2025 [facility] Work Phone: Comment on above: Expected: 12/24/2024 (Approximate), Expires: 12/24/2025 Start: 12-24-2024 End: 12-24-2025 Drugs of abuse panel - Urine by Screen method Rapid drug screen, urine Lab Routine , unspecified gestational age Encounter for supervision of normal first in first trimester Expected: 12/24/2024 (Approximate), Expires: 12/24/2025 [facility] Comment on above: Expected: 12/24/2024 (Approximate), Expires: 12/24/2025 Bacteria identified in Urine by Culture Urine culture Microbiology Routine Missed menses Ordered: 12/24/2024 [facility] Comment on above: Ordered: 12/24/2024 CBC W Auto Different ial panel - Blood CBC and differential Lab Routine Missed menses , unspecified gestational age Ordered: 12/24/2024 [facility] Comment on above: Ordered: 12/24/2024 CHLAMYDIA TRACHOMATI S (GENITO/STI) CHLAMYDIA TRACHOMATIS (GENITO/STI) Lab Routine STD exposure Ordered: 02/23/2025 [facility] Comment on above: Ordered: 02/23/2025 Cytology Cervical or vaginal smear or scraping study Pap Smear Pathology and Cytology Routine Well woman exam with routine gynecological exam Ordered: 02/23/2025 [facility] Comment on above: Ordered: 02/23/2025 Hemoglobin A1c/Hemoglobin.total in Blood Hemoglobin A1c Lab Routine Missed menses , unspecified gestational age Ordered: 12/24/2024 [facility] Comment on above: Ordered: 12/24/2024 Hepatitis B virus surface Ag [Presence] in Serum or Plasma by Immunoassay Hepatitis B surface antigen Lab Routine Missed menses , unspecified gestational age Ordered: 12/24/2024 [facility] Comment on above: Ordered: 12/24/2024 Hepatitis C virus Ab [Presence] in Serum or Plasma by Immunoassay Hepatitis C antibody Lab Routine Missed menses , unspecified gestational age Ordered: 12/24/2024 [facility] Comment on above: Ordered: 12/24/2024 HIV-1/HIV-2 antigen/antibody combination immunoassay HIV-1 and HIV-2 antibodies Lab Routine Missed menses , unspecified gestational age Ordered: 12/24/2024 [facility] Comment on above: Ordered: 12/24/2024 Neisseria gonorrhoea e DNA [Presence] in Unspecified specimen by COLLIN with probe detection Neisseria gonorrhea DNA probe, direct Lab Routine STD exposure Ordered: 02/23/2025 [facility] Comment on above: Ordered: 02/23/2025 Reagin Ab [Presence] in Serum by RPR RPR Lab Routine Missed menses , unspecified gestational age Ordered: 12/24/2024 [facility] Comment on above: Ordered: 12/24/2024 Rubella antibody, IgG Rubella an tibody, IgG Lab Routine Missed menses , unspecified gestational age Ordered: 12/24/2024 [facility] Comment on above: Ordered: 12/24/2024 SURESWAB(R) ADVANCED VAGINITIS PLUS, TMA SURESWAB(R) ADVANCED VAGINITIS PLUS, TMA Pathology and Cytology Routine Vaginal discharge Ordered: 02/23/2025 [facility] Work Phone: Comment on above: Ordered: 02/23/2025 Thyrotropin [Units/volume] in Serum or Plasma TSH Lab Routine , unspecified gestational age Ordered: 12/24/2024 [facility] Comment on above: Ordered: 12/24/2024 Immunizations Immunization Date Immunization Notes Care Provider Maria santiago 11-17-2012 influenza virus vacc ine, unspecified formulation Renate Bonilla DO Work Phone: [facility] Payers Date Payer Category Payer Private Health Insurance [employer] [id number] 2024 Unknown [id number] 2000 Unknown [id number] 2.16.840.1.948249.3.579. 2.593 1998 Unknown [id number] 2.16.840.1.764360.3.579. 2.9 1998 Unknown [id number] 2.16.840.1.014414.3.579. 2.9 1998 Unknown [id number] 2.16.840.1.147321.3.579. 2.1258 1998 Unknown [id number] 2.16.840.1.417023.3.579. 2.9 1998 Unknown [id number] 2.16.840.1.731164.3.579. 2.9 1998 Unknown [id number] 2.16.840.1.117189.3.579. 2.1259 1998 Unknown [id number] 2.16.840.1.972306.3.579. 2.9 1998 Unknown [id number] 2.16.840.1.971205.3.579. 2.9 1998 Unknown [id number] 2.16.840.1.797236.3.579. 2.1258 1998 Unknown [id number] 2.16.840.1.643493.3.579. 2.9 1998 Unknown [id number] 2.16.840.1.138049.3.579. 2.1258 1998 Unknown [id number] 2.16.840.1.036812.3.579. 2.1259 1998 Unknown [id number] 2.16.840.1.940821.3.579. 2.1259 1998 Unknown [id number] 2.16.840.1.308343.3.579. 2.1259 1959 Unknown [id number] Unknown [id number] 2.16.840.1.354805.19 Social History Date Type Detail Facility Sex Assigned At achvr Other Tobacco smoking status [facility] Tobacco smoking consumption unknown [facility] Start: 10-28-2024 [facility] Start: 2000 Sex assigned at Not on file [facility] Clinical Notes 07-27-2021 to 07-01-2025 [facility] Desir - 07/01/2025 9:10 AM Lopez Cowan NP - 06/24/2025 8:40 AM [place] Cast - 06/16/2025 8:50 AM Lopez Cowan NP - 05/31/2025 8:40 AM EDT Note Date & Type Note Facility 07-01-2025 History of Presen t illness Narrative Reason [...] ASSESSMENT & PLAN ICD-10-CM 1. Third trimester ([facility]) Z34.93 2. 37 weeks gestation of ([facility]) Z3A.37 Return OB: Patient presents today for [...] of: [place] Desir documented in this encounter [facility] 06-24-2025 History of Presen t illness Narrative [...] nursing note reviewed. Exam conducted with a shank paperer present. Vitals: There is no height or weight on file to calculate BMI. BP: 126/82 Patient's last menstrual period was 10/23/2024. ASSESSMENT & PLAN ICD-10-CM 1. Third trimester ([facility]) Z34.93 POCT urinalysis dipstick manually resulted CULTURE, GROUP B STREP WITH SUSCEPTIBLITY CULTURE, GROUP B STREP WITH SUSCEPTIBLITY 2. 36 weeks gestation of ([facility]) Z3A.36 Return OB: Patient presents today [...] Renate Bonilla DO documented in this encounter [facility] 06-16-2025 History of Presen t illness Narrative [...] ASSESSMENT & PLAN ICD-10-CM 1. Third trimester ([facility]) Z34.93 POCT urinalysis dipstick manually resulted POCT urinalysis dipstick manually resulted 2. 35 weeks gestation of ([facility]) Z3A.35 POCT urinalysis dipstick manually resulted [...] of: [place] Desir documented in this encounter [facility] 05-31-2025 History of Presen t illness Narrative [...] nursing note reviewed. Exam conducted with a shank paperer present. Vitals: There is no height or weight on file to calculate BMI. BP: 126/82 Patient's last menstrual period was 10/23/2024. ASSESSMENT & PLAN ICD-10-CM 1. Third trimester ([facility]) Z34.93 POCT urinalysis dipstick manually resulted 2. 32 weeks gestation of ([facility]) Z3A.32 Return OB: Patient presents today [...] Renate Bonilla DO documented in this encounter [facility] 05-19-2025 History of Presen t illness Narrative [...] nursing note reviewed. Exam conducted with a shank paperer present. Vitals: There is no height or weight on file to calculate BMI. BP: 120/72 Patient's last menstrual period was 10/23/2024. ASSESSMENT & PLAN ICD-10-CM 1. Third trimester ([facility]) Z34.93 POCT urinalysis dipstick manually resulted 2. 31 weeks gestation of ([facility]) Z3A.31 Return OB: Patient presents today [...] Melissa Cowan NP documented in this encounter [facility] 05-05-2025 History of Presen t illness Narrative [...] nursing note reviewed. Exam conducted with a shank paperer present. Vitals: There is no height or weight on file to calculate BMI. BP: 132/80 Patient's last menstrual period was 10/23/2024. ASSESSMENT & PLAN ICD-10-CM 1. Size of fetus inconsistent with dates in second trimester ([facility]) O26.842 US OB follow up transabdominal approach 2. Third trimester ([facility]) Z34.93 POCT urinalysis dipstick manually resulted 3. 29 weeks gestation of ([facility]) Z3A.29 Return OB: Patient presents today [...] of: [place] Desir documented in this encounter [facility] 04-20-2025 History of Presen t illness Narrative [...] nursing note reviewed. Exam conducted with a shank paperer present. Vitals: There is no height or weight on file to calculate BMI. BP: 120/70 Patient's last menstrual period was 10/23/2024. ASSESSMENT & PLAN ICD-10-CM 1. Second trimester ([facility]) Z34.92 POCT urinalysis dipstick manually resulted 2. 26 weeks gestation of ([facility]) Z3A.26 Return OB: Patient presents today [...] Renate Bonilla DO documented in this encounter [facility] 03-23-2025 History of Presen t illness Narrative [...] nursing note reviewed. Exam conducted with a shank paperer present. Vitals: There is no height or [...] Renate Bonilla DO documented in this encounter [facility] 02-23-2025 History of Presen t illness Narrative [...] nursing note reviewed. Exam conducted with a shank paperer present. Vitals: There is no height or [...] of: [place] Desir documented in this encounter [facility] 01-25-2025 History of Presen t illness Narrative [...] nursing note reviewed. Exam conducted with a shank paperer present. Vitals: There is no height or [...] Renate Bonilla DO documented in this encounter [facility] 12-24-2024 History of Presen t illness Narrative [...] or undercooked meat, [facility]. Patient has also been advised to [...] Regla Gutierrez MA documented in this encounter [facility] 09-19-2021 Evaluation note Encounter Date Diagnosis Assessment [...] Patient care instructions given in writting by [facility] document a[facility]vr Other 10-07-2021 Evaluation note* Encounter Date Diagnosis [...] Patient care instructions given in writting by [facility] document [facility] [employer] Other Evaluation noteNort [employer] Other Evaluation note* Diagnosis Nausea and vomiting [...] note* Diagnosis Third trimester ([facility]) state, incidental 37 weeks gestation of ([facility]) documented in this encounter [facility] Summary Purpose Family History No Family History Records FoundNo Family History Records Found Advance Directives No Advanced Directives Records FoundNo Advanced Directives Records Found Additional Source Comments INFORMATION SOURCE (unrecogn ized section and content) DATE CREATED AUTHOR 11/29/2021 [facility] DATE CREATED AUTHOR AUTHOR'S ORGANIZ ATION 07/03/2025 [facility] EPIC REASON FOR VISIT [...] BE BASED ON THE PRIMARY CLINICAL RECORDS. [employer] [facility]. provides no warranty or guarantee of the accuracy or completeness of information in this document.
--- NOTE | 2025-07-08 10:10 | US_ITS ---
[facility] [place] [address] Patient Name: KURTIS RIVERA MRN: [facility]:[id number] date: 2000 Sex: F Assigned Patient Location: [facility] Current Patient Location: [facility] Accession/Order Number: [id number] Exam Date: 07/08/2025 10:11 Report Date: 07/08/2025 10:39 At the request of: RENATE RAMON DO Procedure: US OB BPP w non-stress BIOPHYSICAL PROFILE: CLINICAL INFORMATION: Increased BPs COMPARISON: None There is a single live intrauterine gestation in cephalic presentation. The reported gestational age is 38 weeks 1 day. The heart rate measures 163 beats per minute. FINDINGS: TONE: 1 or more episodes of activity extension and flexion of extremity or opening and closing of the hand [Y] 2/2 GROSS BODY MOVEMENTS: 3 or more discrete body or limb movements [Y] 2/2 BREATHING MOVEMENTS: 1 or more episodes of breathing lasting at least 30 seconds [Y] 2/2 RIVERA: A single deepest vertical pocket of amniotic fluid greater than 2 cm [Y] 2/2 RIVERA: 13.4 cm Total score: 8/8 US/US OB BPP w non-stress IMPRESSION: NORMAL BIOPHYSICAL PROFILE Impression dictated by: Cheri Da Silva M.D. 07/08/2025 10:39 AM Dictation Location: [place] [address] Electronically authenticated by: [id number] Y Date: 07/08/2025 10:39
[2025-07-08 10:14] VITALS: BP 126/71; PULSE 96
[2025-07-08 10:15] VITALS: TEMP 36.3
[2025-07-08 10:45] VITALS: BP 118/69; PULSE 80
[2025-07-08 10:48] LABS: Hematocrit 33.9 % (36.0-48.0); Hemoglobin 11.7 g/dL (12.0-16.0); Immature Granulocytes Abs Auto 0.07 10^3/uL (0.00-0.03); Immature Granulocytes Pct Auto 0.6 % (0.0-0.5); Lymphocytes Absolute Auto 2.2 10^3/uL (1.2-3.8); Mean Corpuscular HGB Conc 34.5 g/dL (29.9-35.2); Mean Corpuscular Hemoglobin 32.4 pg (26.7-34.0); Mean Corpuscular Volume 93.9 fL (81.0-99.0); Platelet Count 234 10^3/uL (150-450); Red Blood Count 3.61 10^6/uL (4.20-5.40); White Blood Count 11.0 10^3/uL (4.0-11.0)
[2025-07-08 11:06] LABS: Alanine Aminotransferase 13 U/L (14-59); Aspartate Amino Transferase 12 U/L (15-37); Blood Urea Nitrogen 12.0 mg/dL (7.0-18.0); Estimated GFR (African America >60 (>=60 mL/min/1.73m^2); Estimated GFR (Non-African Ame >60 (>=60 mL/min/1.73m^2); Uric Acid 4.4 mg/dL (2.6-6.0)
[2025-07-08 11:06] LABS: Protein Creatinine Ratio Urine 0.13; Total Protein Urine Random 16.0 mg/dL (<=11.9)
[2025-07-08 11:07] LABS: Partial Thromboplastin Time 27.1 sec (22.3-36.2); Prothrombin Time 9.6 sec (9.0-11.6)
[2025-07-08 11:15] LABS: Fibrinogen 574 mg/dL (200-400); INR <0.93
== END 2025-07-08 11:20 | disposition home or self-care (01) ==
PROVIDERS: Admitting Provider Obstetrics & Gynecology; Visit Provider Obstetrics & Gynecology
DX: O99.891 Other specified diseases and conditions complicating pregnancy (principal); R03.0 Elevated blood-pressure reading, without diagnosis of hypertension; Z3A.38 38 weeks gestation of pregnancy
CPT/HCPCS: 36415; 76818; 82565; 82570; 84156; 84450; 84460; 84520; 84550; 85025; 85384; 85610; 85730; G0378; G0379

== ENCOUNTER 2025-07-10 16:07 | Outpatient (OUT) | payer OTHER, SELFPAY ==
--- OUTSIDE RECORDS SUMMARY | 2025-07-10 16:10 | XMS_ITS | CCD ---
Author Organization [facility] CliniSyme Care Team Providers Care Bpm Solution Architect Name Role Phone HORACIO ESCOBAR Admitting Unavailable HORACIO ESCOBAR Attending Unavailable JOHN, NONE LISTED Primary Care Unavaila Germain Jasso Consulting Unavailable HORACIO ESCOBAR Consulting Unavailable Sheree Kimbrough Unavailable Isadora Arroyo Unavailable Unavailable Primary Care Provider UnavailRENATE Quinones Attending Unavailable MYRNA GARCIA Attending Unavailable IRENE, RENATE Attending Unavailable IRENE, RENATE Attending Unavailable RADHA, MYRNA Attending Unavailable MYRNA GARCIA Referring Unavailable MELISSA COWAN Attending Unavailable IRENE, RENATE Attending Unavailable RADHA, MYRNA Attending Unavailable IRENE, RENATE Attending Unavailable RADHA, MYRNA Attending Unavailable IRENE, RENATE Attending Unavailable Allergies Allergy Classification Reported Allergen(s) [...] oral solution (3 sources) alpha-Adrenergic Agonist, Uncompetitive C-mneapk-L-aspartat e Receptor Antagonist, Sigma-1 Agonist Start: 07-27-2021 Start: 07-27-2021 take 10 mL by mouth every six hours Vjulixocc-Injbxyxq-LE 30-2-10 MG/5ML 10 mL Orally every 6 hours for 5 days Jul, Not-Taking dextromethorphan hydrobromid e 15 mg / guaiFENesin 400 mg / pseudoephedrine hydrochloride 60 mg oral tablet (3 sources) alpha-Adrenergic Agonist, Uncompetitive X-pdlyrr-J-aspartate Receptor Antagonist, Sigma-1 Agonist Start: 07-27-2021 Start: [...] [37 weeks gestation of ] 07-01-2025 Episodic Residual codes; unclassified (2 sources) Gestation period, 38 weeks; Translations: [38 weeks gestation of ] 07-08-2025 Episodic Skin and subcutaneous tissue infections (1 [...] Test Name Value Interpretation Reference Range Facility US OB BPP W NON-STRESS on 07-08-2025 [place] [address] Ultrasound Report Signed Patient: KURTIS BARNES MR#: [id number] : 2000 Acct:[id number] Age/Sex: 24 / F ADM Date: Loc: [facility] 254-[address]: Renate Bonilla D.O. Ordering Physician: Renate Bonilla D.O. Date of Service: 07/08/25 Procedure(s): US OB BPP w non-stress Accession Number(s): [id number] cc: Renate Bonilla D.O.; Physician,Non-Staff M.D. The [place] [id number] Patient Name: KURTIS BARNES MRN: [id number] date: 2000 Sex: F Assigned Patient Location: [facility] Current Patient Location: [facility] Accession/Order Number: [id number] Exam Date: 07/08/2025 10:11 Report Date: 07/08/2025 10:39 At the request of: RENATE BONILLA DO Procedure: US OB BPP w non-stress BIOPHYSICAL PROFILE: CLINICAL INFORMATION: Increased BPs COMPARISON: None There is a single live intrauterine gestation in cephalic presentation. The reported gestational age is 38 weeks 1 day. The heart rate measures 163 beats per minute. FINDINGS: TONE: 1 or more episodes of activity extension and flexion of extremity or opening and closing of the hand [Y] 2/2 GROSS BODY MOVEMENTS: 3 or more discrete body or limb movements [Y] 2/2 BREATHING MOVEMENTS: 1 or more episodes of breathing lasting at least 30 seconds [Y] 2/2 RIVERA: A single deepest vertical pocket of amniotic fluid greater than 2 cm [Y] 2/2 RIVERA: 13.4 cm Total score: 8/8 US/US OB BPP w non-stress IMPRESSION: NORMAL BIOPHYSICAL PROFILE Impression dictated by: Cheri Da Silva M.D. 07/08/2025 10:39 AM Dictation Location: [place] [address] Electronically authenticated by: [id number] Y Date: 07/08/2025 10:39 Dictated By: Cheri Da Silva M.D. Signed By: 07/08/25 1041 DD/ 1039 TD/TT: Instrument Worker: [facility] Radiology, Radiologist, MD - 07/08/2025 [place] [address] Ultrasound Report Signed Patient: KURTIS BARNES MR#: [id number] : 2000 Acct:[id number] Age/Sex: 24 / F ADM Date: Loc: [facility] 254-[address]: Renate Bonilla D.O. Ordering Physician: Renate Bonilla D.O. Date of Service: 07/08/25 Procedure(s): US OB BPP w non-stress Accession Number(s): [id number] cc: Renate Bonilla D.O.; Physician,Non-Staff [place]o The [address] [address] Patient Name: KURTIS BARNES MRN: [facility]:[id number] date: 2000 Sex: F Assigned Patient Location: [facility] Current Patient Location: [facility] Accession/Order Number: [id number] Exam Date: 07/08/2025 10:11 Report Date: 07/08/2025 10:39 At the request of: RENTAE BONILLA DO Procedure: US OB BPP w non-stress BIOPHYSICAL PROFILE: CLINICAL INFORMATION: Increased BPs COMPARISON: None There is a single live intrauterine gestation in cephalic presentation. The reported gestational age is 38 weeks 1 day. The heart rate measures 163 beats per minute. FINDINGS: TONE: 1 or more episodes of activity extension and flexion of extremity or opening and closing of the hand [Y] 2/2 GROSS BODY MOVEMENTS: 3 or more discrete body or limb movements [Y] 2/2 BREATHING MOVEMENTS: 1 or more episodes of breathing lasting at least 30 seconds [Y] 2/2 RIVERA: A single deepest vertical pocket of amniotic fluid greater than 2 cm [Y] 2/2 RIVERA: 13.4 cm Total score: 8/8 US/US OB BPP w non-stress IMPRESSION: NORMAL BIOPHYSICAL PROFILE Impression dictated by: Cheri Da Silva M.D. 07/08/2025 10:39 AM Dictation Location: [email or web address] Electronically authenticated by: [id number] Y Date: 07/08/2025 10:39 Dictated By: Cheri Da Silva M.D. Signed By: 07/08/25 1041 DD/ 1039 TD/TT: Instrument Worker: [facility] Radiology Study observation (narrative) [facility] US OB BPP W NON-STRESS Ordered By: Radiologist Radiology on 07-08-2025 [facility] Work Phone: Urinalysis macro (dipstick) panel (U)on 07-08-2025 Bilirubin, UA Negative Negative - 4(70) +++ mg/dL [facility] Blood, UA Negative Negative - 50 Han/mcL [facility] Clarity, UA Clear [facility], UA Straw [facility] e Glucose, UA Negative Negative - 2000(110) ++++ mg/dL [facility] Interpretation and review of laboratory results Abnormal [facility] Ketones, UA Negative Negative - 160(16) ++++ mg/dL [facility] Leukocytes, UA Positive Negative - 500+++ Jinny/mcL [facility] Nitrite, UA Negative Negative - Positive [facility] Healthcare pH, UA 6 5 - 9 [facility] Protein, UA Positive Negative - 1999(20) ++++ mg/dL [facility] Spec Grav, UA 1.02 1 - 1.03 [facility] care Urobilinogen, UA 1.0 0.2 - 12 mg/dL [facility] Urinalysis macro (dipstick) panel (U)on 07-01-2025 Bilirubin, UA Negative Negative - 4(70) +++ mg/dL [facility] Healthcare Blood, UA Negative Negative - 50 Han/mcL [facility] Healthcare Clarity, UA Clear [facility] re Color, UA Yellow [facility] Glucose, UA Negative Negative - 1999(110) ++++ mg/dL [facility] Interpretation and review of laboratory results Normal [facility] Ketones, UA Negative Negative - 160(16) ++++ mg/dL [facility] Leukocytes, UA Negative Negative - 500+++ Jinny/mcL [facility] Healthcare Nitrite, UA Negative Negative - Positive [facility] pH, UA 6 5 - 9 [facility] Healthcar e Protein, UA Negative Negative - 1999(20) ++++ mg/dL [facility] Healthcare Spec Grav, UA 1.02 1 - 1.03 [facility] Urobilinogen, UA 1.0 0.2 - 12 mg/dL [facility]inalysis macro (dipstick) panel (U)on 06-24-2025 Bilirubin, UA Negative Negative - 4(70) +++ mg/dL [facility] Blood, UA Negative Negative - 50 Han/mcL [facility] Healthcare Clarity, UA Cloudy [facility] re Color, UA Yellow [facility] Glucose, UA Negative Negative - 1999(110) ++++ mg/dL [facility] Interpretation and review of laboratory results Abnormal [facility] Healthcare Ketones, UA Negative Negative - 160(16) ++++ mg/dL [facility] Healthcare Leukocytes, UA 1+ Negative - 500+++ Jinny/mcL [facility] Healthcare Nitrite, UA Negative Negative - Positive [facility] pH, UA 6 5 - 9 [facility] Protein, UA Negative Negative - 1999(20) ++++ mg/dL [facility] Healthcare Spec Grav, UA 1.02 1 - 1.03 [facility] care Urobilinogen, UA 1.0 0.2 - 12 mg/dL [facility] Healthcar e Urinalysis macro (dipstick) panel (U)on 06-16-2025 Bilirubin, UA Negative Negative - 4(70) +++ mg/dL [facility] Blood, UA Negative Negative - 50 Han/mcL [facility] Healthcare Clarity, UA Clear [facility] re Color, UA Yellow [facility] Glucose, UA Negative Negative - 1999(110) ++++ mg/dL [facility] Interpretation and review of laboratory results Normal [facility] Ketones, UA Negative Negative - 160(16) ++++ mg/dL [facility] Healthcare Leukocytes, UA Negative Negative - 500+++ Jinny/mcL [facility] Healthcare Nitrite, UA Negative Negative - Positive [facility] pH, UA 6.5 5 - 9 [facility] Healthcar e Protein, UA Negative Negative - 1999(20) ++++ mg/dL [facility] Spec Grav, UA 1.025 1 - 1.03 [facility] Urobilinogen, UA 1.0 0.2 - 12 mg/dL [facility] Urinalysis macro (dipstick) panel (U)on 05-31-2025 Bilirubin, UA Negative Negative - 4(70) +++ mg/dL [facility] Blood, UA Negative Negative - 50 Han/mcL [facility] Healthcare Clarity, UA Clear [facility] re Color, UA Yellow [facility] Healthcar e Glucose, UA Negative Negative - 1999(110) ++++ mg/dL [facility] Interpretation and review of laboratory results Abnormal [facility] Ketones, UA Negative Negative - 160(16) ++++ mg/dL [facility] Leukocytes, UA Negative Negative - 500+++ Jinny/mcL [facility] Healthcare Nitrite, UA Negative Negative - Positive [facility] pH, UA 6 5 - 9 [facility] Protein, UA Trace Negative - 1999(20) ++++ mg/dL [facility] Spec Grav, UA 0.03 1 - 1.03 [facility] Health care Urobilinogen, UA 0.2 0.2 - 12 mg/dL [facility] US OB FOLLOW UP [...] II, MD, PHD at 20-May-2025 08:33:27 AM [facility] Normal Not Available Comment on above: Order Comment: US OB SCAN FOR GROWTH Estimated Date of Delivery: 07/21/25 Gestational Age as of 05/05/2025: 29w0d Urinalysis macro (dipstick) panel (U)on 05-19-2025 Bilirubin, UA Negative Negative - 4(70) +++ mg/dL [facility] Blood, UA Negative Negative - 50 Han/mcL [facility] Clarity, UA Clear [facility] Color, UA Yellow [facility] Glucose, UA Negative Negative - 2000(110) ++++ mg/dL [facility] Interpretation and review of laboratory results Normal [facility] Ketones, UA Negative Negative - 160(16) ++++ mg/dL [facility] Leukocytes, UA Negative Negative - 500+++ Jinny/mcL [facility] Nitrite, UA Negative Negative - Positive [facility] pH, UA 6 5 - 9 [facility] Protein, UA Negative Negative - 1999(20) ++++ mg/dL [facility] Spec Grav, UA 1.03 1 - 1.03 [facility] Urobilinogen, UA 0.2 0.2 - 12 mg/dL [facility] Healthcar e Urinalysis macro (dipstick) panel (U)on 05-05-2025 Bilirubin, UA Negative Negative - 4(70) +++ mg/dL [facility] Healthcare Blood, UA Negative Negative - 50 Han/mcL [facility] Healthcare Clarity, UA Clear [facility] Color, UA Yellow [facility] Glucose, UA Negative Negative - 1999(110) ++++ mg/dL [facility] Interpretation and review of laboratory results Abnormal [facility] Ketones, UA Negative Negative - 160(16) ++++ mg/dL [facility] Leukocytes, UA Negative Negative - 500+++ Jinny/mcL [facility] Healthcare Nitrite, UA Negative Negative - Positive [facility] pH, UA 6.5 5 - 9 [facility] Healthcar e Protein, UA Trace Negative - 1999(20) ++++ mg/dL [facility] Healthcare Spec Grav, UA 1.025 1 - 1.03 [facility] care Urobilinogen, UA 0.2 0.2 - 12 mg/dL [facility] Urinalysis macro (dipstick) panel (U)on 04-20-2025 Bilirubin, UA Negative Negative - 4(70) +++ mg/dL [facility] Blood, UA Negative Negative - 50 Han/mcL [facility] Healthcare Clarity, UA Clear [facility] Color, UA Sheree [facility] Glucose, UA Negative Negative - 1999(110) ++++ mg/dL [facility] Interpretation and review of laboratory results Abnormal [facility] Ketones, UA Negative Negative - 160(16) ++++ mg/dL [facility] Healthcare Leukocytes, UA Negative Negative - 500+++ Jinny/mcL [facility] Healthcare Nitrite, UA Negative Negative - Positive [facility] pH, UA 5.5 5 - 9 [facility] Protein, UA Trace Negative - 1999(20) ++++ mg/dL [facility] Spec Grav, UA 1.03 1 - 1.03 [facility] Urobilinogen, UA 0.2 0.2 - 12 mg/dL [facility] e MLR HEMOGLOBIN A1Con 025 Glucose [Mass/Vol] 91 mg/dL [facility] HbA1c (Bld) [Mass fraction] 4.8 % 4.5 - 6.2 % [facility] Comment on above: ADA RECOMMENDED LIMI T 4.0 - 6.0 ADA THERAPEUTIC TARGET < 7.0 ACTION SUGGESTED > 7.0 [facility] 14+ WEEKS ANATOMY SCAN [...] II, MD, PHD at 02-Apr-2025 10:21:46 AM [facility] Normal Not Available Comment on above: Order Comment: US OB ANATOMY SINGLE W US OB CERVICAL LENGTH Estimated Date of Delivery: 07/21/25 Gestational Age as of 02/23/2025: 18w6d Urinalysis macro (dipstick) panel (U)on 03-23-2025 Bilirubin, UA Negative Negative - 4(70) +++ mg/dL [facility] Blood, UA Negative Negative - 50 Han/mcL [facility] Clarity, UA Clear [facility] re Color, UA Yellow [facility] e Glucose, UA Negative Negative - 1999(110) ++++ mg/dL [facility] Interpretation and review of laboratory results Abnormal [facility] Ketones, UA Negative Negative - 160(16) ++++ mg/dL [facility] Leukocytes, UA Negative Negative - 500+++ Jinny/mcL [facility] Nitrite, UA Negative Negative - Positive [facility] pH, UA 5.5 5 - 9 [facility] e Protein, UA Negative Negative - 1999(20) ++++ mg/dL [facility] Spec Grav, UA 1.02 1 - 1.03 [facility] Urobilinogen, UA 1.0 0.2 - 12 mg/dL [facility] e RECURRENT VAGINITIS (HTRX)on 02-24-2025 ATOPOBIUM VAGINAE 0 [facility] ATOPOBIUM VAGINAE Not detected [facility] BVAB 2,3 (BACTERIAL VAGINOSIS ASSOCIATED BACTERIA 2, 3); MOBILUNCUS SPP 0 [facility] BVAB 2,3 (BACTERIAL VAGINOSIS ASSOCIATED BACTERIA 2, 3); MOBILUNCUS SPP Not detected [facility] INDU ALBICANS, PARAPSILOSIS, TROPICALIS 0 [facility] INDU ALBICANS, PARAPSILOSIS, TROPICALIS Not detected [facility] INDU GLABRATA 0 [facility] INDU GLABRATA Not detected [facility] INDU KRUSEI 0 [facility] INDU KRUSEI Not detected [facility] CHLAMYDIA TRACHOMATIS 0 [facility] CHLAMYDIA TRACHOMATIS Not detected [facility] GARDNERELLA VAGINALIS 0 [facility] GARDNERELLA VAGINALIS Not detected [facility] MEGASPHAERA (TYPES 1, 2) 0 [facility] MEGASPHAERA (TYPES 1, 2) Not detected [facility] MYCOPLASMA GENITALIUM 0 [facility] MYCOPLASMA GENITALIUM Not detected [facility] NEISSERIA GONORRHOEAE 0 [facility] NEISSERIA GONORRHOEAE Not detected [facility] TRICHOMONAS VAGINALIS 0 [facility] TRICHOMONAS VAGINALIS Not detected [facility] ALL CBC WITH AUTO DIFFon [...] 35.1 % Low 36.0 - 48.0 % [facility] Hemoglobin (Bld) [Mass/Vol] 12.5 g/dL [...] 9.2 fL Low 9.5 - 13.5 fL [facility] are [facility] EO # 0.2 [facility] [address] [facility] TB RBC 3.88 Low [facility] TB WBC 14.1 High [facility] Urinalysis macro (dipstick) panel (U)on 02-23-2025 Bilirubin, UA Negative Negative - 4(70) +++ mg/dL [facility] Healthcare Blood, UA Negative Negative - 50 Han/mcL [facility] Healthcare Clarity, UA Clear [facility] re Color, UA Yellow [facility] Glucose, UA Negative Negative - 1999(110) ++++ mg/dL [facility] Healthcare Interpretation and review of laboratory results Abnormal [facility] Healthcare Ketones, UA Negative Negative - 160(16) ++++ mg/dL [facility] Healthcare Leukocytes, UA Negative Negative - 500+++ Jinny/mcL [facility] Healthcare Nitrite, UA Negative Negative - Positive [facility] pH, UA 6.5 5 - 9 [facility] Health[facility] e Protein, UA Negative Negative - 1999(20) ++++ mg/dL [facility] Healthcare Spec Grav, UA 1.02 1 - 1.03 [facility] Urobilinogen, UA 1.0 0.2 - 12 mg/dL [facility] Urinalysis macro (dipstick) panel (U)on 01-25-2025 Bilirubin, UA Negative Negative - 4(70) +++ mg/dL [facility] Blood, UA Positive Negative - 50 Han/mcL [facility] Healthcare Comment on above: trace-intact Clarity, UA Clear [facility] Color, UA Yellow [facility] Glucose, UA Negative Negative - 1999(110) ++++ mg/dL [facility] Interpretation and review of laboratory results Abnormal [facility] Ketones, UA Negative Negative - 160(16) ++++ mg/dL [facility] Leukocytes, UA Negative Negative - 500+++ Jinny/mcL [facility] Healthcare Nitrite, UA Negative Negative - Positive [facility] pH, UA 6.5 5 - 9 [facility] Healthcar e Protein, UA Negative Negative - 1999(20) ++++ mg/dL [facility] Spec Grav, UA 1.025 1 - 1.03 [facility] Urobilinogen, UA 0.2 0.2 - 12 mg/dL [facility] HCG ( test) Ql (U)o n 12-25-2024 Interpretation and review of laboratory results Abnormal [facility] Preg Test, Ur Positive Negative [facility] Urinalysis macro (dipstick) panel (U)on 12-25-2024 Bilirubin, UA Negative Negative - 4(70) +++ mg/dL [facility] Blood, UA Positive Negative - 50 Han/mcL [facility] Comment on above: small Clarity, UA Clear [facility] [employer] re Color, UA Yellow [facility] e Glucose, UA Negative Negative - 1999(110) ++++ mg/dL [facility] Interpretation and review of laboratory results Abnormal [facility] Ketones, UA Negative Negative - 160(16) ++++ mg/dL [facility] Leukocytes, UA Negative Negative - 500+++ Jinny/mcL [facility] Nitrite, UA Negative Negative - Positive [facility] pH, UA 6 5 - 9 [facility] e Protein, UA Negative Negative - 1999(20) ++++ mg/dL [facility] Spec Grav, UA 1.03 1 - 1.03 [facility] Urobilinogen, UA 0.2 0.2 - 12 mg/dL [facility] US OB TRANSVAGINALon 025 US [...] II, MD, PHD at 25-Dec-2024 08:23:40 AM [facility] Normal Not Available Comment on above: [...] by: GERMAIN LUNA Date: 2021-11-27 08:39 Normal [facility] COVID Quick Testingon 2020 Result Negative [facility] Other Vital Signs Date Time Vital Sign Value Performing Clinician Facility 07-08-2025 09:29-0400 Body weight 139.25 kg Renate Irene DO Work Phone: [facility] 07-08-2025 09:29-0400 Diastolic blood pressure 76 mm[Hg] Renate Irene DO Work Phone: [facility] 07-08-2025 09:29-0400 Systolic blood pressure 138 mm[Hg] Renate Irene DO Work Phone: [facility] 07-01-2025 09:11-0400 Body weight 138.35 kg Myrna GARIBAY Work Phone: [facility] 07-01-2025 09:11-0400 Diastolic blood pressure 76 mm[Hg] Myrna GARIBAY Work Phone: [facility] 07-01-2025 09:11-0400 Systolic blood pressure 128 mm[Hg] Myrna GARIBAY Work Phone: [facility] 06-24-2025 08:45-0400 Body weight 134.72 kg Renate Irene DO Work Phone: [facility] 06-24-2025 08:45-0400 Diastolic blood pressure 82 mm[Hg] Renate Irene DO Work Phone: [facility] 06-24-2025 08:45-0400 Systolic blood pressure 126 mm[Hg] Renate Irene DO Work Phone: [facility] 06-16-2025 08:58-0400 Body weight 131.14 kg Myrna GARIBAY Work Phone: [facility] 06-16-2025 08:58-0400 Diastolic blood pressure 82 mm[Hg] Myrna GARIBAY Work Phone: [facility] 06-16-2025 08:58-0400 Systolic blood pressure 120 mm[Hg] Myrna Garcia PA Work Phone: [facility] 05-31-2025 08:51-0400 Body weight 125.08 kg Renate Irene DO Work Phone: [facility] 05-31-2025 08:51-0400 Diastolic blood pressure 82 mm[Hg] Renate Irene DO Work Phone: [facility] 05-31-2025 08:51-0400 Systolic blood pressure 126 mm[Hg] Renate Irene DO Work Phone: [facility] 05-19-2025 10:38-0400 Body weight 123.49 kg Melissa Camryn ESTHETICIAN FACIALIST Work Phone: [facility] 05-19-2025 10:38-0400 Diastolic blood pressure 72 mm[Hg] Melissa Camryn ESTHETICIAN FACIALIST Work Phone: [facility] 05-19-2025 10:38-0400 Systolic blood pressure 120 mm[Hg] Melissa Camryn ESTHETICIAN FACIALIST Work Phone: [facility] 05-05-2025 09:06-0400 Body weight 121.9 kg Myrna GARIBAY Work Phone: [facility] 05-05-2025 09:06-0400 Diastolic blood pressure 80 mm[Hg] Myrna GARIBAY Work Phone: [facility] 05-05-2025 09:06-0400 Systolic blood pressure 132 mm[Hg] Myrna Garcia PA Work Phone: [facility] 04-20-2025 09:27-0400 Body weight 122.24 kg Renate Irene DO Work Phone: [facility] 04-20-2025 09:27-0400 Diastolic blood pressure 70 mm[Hg] Renate Irene DO Work Phone: [facility] 04-20-2025 09:27-0400 Systolic blood pressure 120 mm[Hg] Renate Irene DO Work Phone: [facility] 03-23-2025 11:11-0400 Body weight 119.35 kg Renate Irene DO Work Phone: [facility] 03-23-2025 11:11-0400 Diastolic blood pressure 74 mm[Hg] Renate Irene DO Work Phone: [facility] 03-23-2025 11:11-0400 Systolic blood pressure 114 mm[Hg] Renate Irene DO Work Phone: [facility] 02-23-2025 10:18-0400 Body weight 116.48 kg Myrna GARIBAY Work Phone: [facility] 02-23-2025 10:18-0400 Diastolic blood pressure 70 mm[Hg] Myrna GARIBAY Work Phone: [facility] 02-23-2025 10:18-0400 Systolic blood pressure 116 mm[Hg] Myrna Garcia PA Work Phone: [facility] 01-25-2025 11:32-0400 Body weight 117.84 kg Renate Irene DO Work Phone: [facility] 01-25-2025 11:32-0400 Diastolic blood pressure 68 mm[Hg] Renate Irene DO Work Phone: [facility] 04-07-2025 11:32-0400 Systolic blood pressure 118 mm[Hg] Renate Bonilla DO Work Phone: [facility] 12-25-2024 11:54-0500 Body weight 109.77 kg [facility] Nurse [facility] 12-25-2024 11:54-0500 Diastolic blood pressure 70 mm[Hg] [facility] Nurse [facility] 12-25-2024 11:54-0500 Systolic blood pressure 118 mm[Hg] [facility] Nurse [facility] 05-01-2023 13:20-0400 Body height 175.26 cm Isadora Dina Other [facility] Other 05-01-2023 13:20-0400 Body mass index (BMI) [Ratio] 38.98 kg/m2 Isadora Sierramond Other [facility] Other 05-01-2023 13:20-0400 Body temperature 97.8 [degF] Isadora Dina Other [facility] Other 05-01-2023 13:20-0400 Body weight 119.75 kg Isadora Sierramond Other [facility] Other 05-01-2023 13:20-0400 Respiratory rate 18 /min Isadora Sierramond Other [facility] Other 05-01-2023 13:20-0400 SaO2% (BldA) [Mass fraction] 98 % Isadora Sierramond Other [facility] Other 09-19-2021 14:15-0500 Body height 175.26 cm Sheree Ginty Other [facility] Other 09-19-2021 14:15-0500 Body mass index (BMI) [Ratio] 36.91 kg/m2 Sheree Ginty Other [facility] Other 09-19-2021 14:15-0500 Body temperature 96.3 [degF] Sheree Ginty Other [facility] Other 09-19-2021 14:15-0500 Body weight 113.4 kg Sheree Ginty Other [facility] Other 09-19-2021 14:15-0500 Respiratory rate 18 /min Sheree Ginty Other [facility] Other 09-19-2021 14:15-0500 SaO2% (BldA) [Mass fraction] 97 % Sheree Ginty Other [facility] Other 07-27-2021 11:15-0400 Body height 175.26 cm Sheree Ginty Other [facility] Other 07-27-2021 11:15-0400 Body mass index (BMI) [Ratio] 36.91 kg/m2 Sheree Ginty Other [facility] Other 07-27-2021 11:15-0400 Body temperature 96.7 [degF] Sheree Ginty Other [facility] Other 07-27-2021 11:15-0400 Body weight 113.4 kg Sheree Ginty Other [facility] Other 07-27-2021 11:15-0400 Respiratory rate 18 /min Sheree Ginty Other [facility] Other 07-27-2021 11:15-0400 SaO2% (BldA) [Mass fraction] 98 % Sheree Ginty Other [facility] Self Representation Document Preparation Other Encounters Encounter Date Encounter Type Care Provider Facility Start: 07-08-2025 End: 07-08-2025 Bamboo flowsheet Renate Irene DO Work Phone: [facility] Start: 07-08-2025 End: 07-08-2025 Bamboo flowsheet Renate Irene DO Work Phone: [facility] Start: 07-08-2025 End: 07-08-2025 Clinisync Result Encounter Renate Irene DO Work Phone: [facility] Unsolicited Start: 07-08-2025 End: 07-08-2025 flow sheet Renate Irene DO Work Phone: [facility] Comment on above: 38 weeks gestation o f ([facility]); Third trimester ([facility]) Start: 07-08-2025 End: 07-08-2025 ambulatory RENATE IRENE Not Available Start: 07-01-2025 End: 07-01-2025 Bamboo flowsheet Myrna GARIBAY Work Phone: [facility] Start: 07-01-2025 End: 07-01-2025 Bamboo flowsheet Myrna GARIBAY Work Phone: [facility] Start: 07-01-2025 End: 07-01-2025 flow sheet Myrna GARIBAY Work Phone: [facility] Comment on above: Third trimester preg leticia ([facility]); 37 weeks gestation of ([facility]) Start: 07-01-2025 End: 07-01-2025 ambulatory MYRNA GARCIA Not Available Start: 06-24-2025 End: 06-24-2025 Bamboo flowsheet Renate Irene DO Work Phone: [facility] Start: 06-24-2025 End: 06-24-2025 Bamboo flowsheet Renate Irene DO Work Phone: [facility] Start: 06-24-2025 End: 06-24-2025 flow sheet Renate Irene DO Work Phone: [facility] Comment on above: Third trimester preg leticia ([facility]); 36 weeks gestation of ([facility]) Start: 06-24-2025 End: 06-24-2025 ambulatory RENATE IRENE Not Available Start: 06-16-2025 End: 06-16-2025 Bamboo flowsheet Myrna GARIBAY Work Phone: [facility] Start: 06-16-2025 End: 06-16-2025 Bamboo flowsheet Myrna GARIBAY Work Phone: [facility] Start: 06-16-2025 End: 06-16-2025 ambulatory MYRNA GARCIA Not Available Start: 06-16-2025 End: 06-16-2025 flow sheet Myrna GARIBAY Work Phone: [facility] Comment on above: Third trimester preg leticia ([facility]); 35 weeks gestation of ([facility]) Start: 05-31-2025 End: 05-31-2025 Bamboo flowsheet Renate Irene DO Work Phone: [facility] Start: 05-31-2025 End: 05-31-2025 Bamboo flowsheet Renate Irene DO Work Phone: [facility] Start: 05-31-2025 End: 05-31-2025 flow sheet Renate Irene DO Work Phone: [facility] Comment on above: Third trimester preg leticia ([facility]); 32 weeks gestation of ([facility]) Start: 05-31-2025 End: 05-31-2025 ambulatory RENATE IRENE Not Available Start: 05-19-2025 End: 05-19-2025 Office outpatient visit 15 minutes Melissa Cowan ESTHETICIAN FACIALIST Work Phone: [facility] [place] Comment on above: Third trimester preg leticia ([facility]); 31 weeks gestation of ([facility]) Start: 05-19-2025 End: 05-19-2025 ambulatory MELISSA COWAN Not Available Start: 05-05-2025 End: 05-05-2025 Bamboo flowsheet Myrna GARIBAY Work Phone: [facility] Start: 05-05-2025 End: 05-05-2025 Bamboo flowsheet Myrna GARIBAY Work Phone: [facility] Start: 05-05-2025 End: 05-05-2025 ambulatory MYRNA GARCIA Not Available Start: 05-05-2025 End: 05-05-2025 Office outpatient visit 15 minutes Myrna GARIBAY Work Phone: [facility] Comment on above: Size of fetus incons istent with dates in second trimester ([facility]) (Primary Dx); Third trimester ([facility]); 29 weeks gestation of ([facility]) Start: 04-20-2025 End: 04-20-2025 Bamboo flowsheet Renate Irene DO Work Phone: [facility] Start: 04-20-2025 End: 04-20-2025 Bamboo flowsheet Renate Irene DO Work Phone: [facility] Start: 04-20-2025 End: 04-20-2025 flow sheet Renate Irene DO Work Phone: [facility] Comment on above: Second trimester pre gnancy ([facility]); 26 weeks gestation of ([facility]) Start: 04-20-2025 End: 04-20-2025 ambulatory RENATE IRENE Not Available Start: 03-31-2025 End: 03-31-2025 Clinisync Result Encounter Renate Irene DO Work Phone: [facility] External Department Unsolicited Start: 03-31-2025 End: 03-31-2025 [...] External Result Encounter Myrna GARIBAY Work Phone: [facility] Unsolicited Start: 02-23-2025 End: 02-23-2025 Patient encounter procedure Myrna GARIBAY Work Phone: [facility] Start: 02-23-2025 End: 02-23-2025 Periodic preventive [...] 05-01-2023 End: 05-01-2023 ambulatory Isadora Arroyo Other [facility] Other Start: 05-01-2023 Office outpatient vi sit 15 minutes Isadoradmitry Arroyo [facility] Start: 11-27-2021 End: 11-27-2021 ambulatory HORACIO ESCOBAR Facility:[facility] Start: 09-19-2021 End: 09-19-2021 ambulatory Sheree Ginty Other [facility] Other Start: 09-19-2021 Office outpatient vi sit 15 minutes Sheree Ginty [facility] Start: 07-27-2021 Office outpatient vi sit 15 minutes Sheree Ginty [facility] Procedures Date Procedure Procedure Detail Performing Clinician Start: 07-08-2025 OB BPP W NON-STRESS Renate Irene DO Work Phone: Start: 07-08-2025 Urnls dip stick/tabl et rgnt non-auto w/o micrscp Renate Irene DO Work Phone: Start: 07-01-2025 Urnls dip stick/tabl et rgnt [...] Treatment Date Care Activity Detail Author Start: 07-13-2025 End: 07-13-2025 Patient encounter procedure 07/13/2025 8:50 AM EDT Routine [facility] [address] [place] [id number] Myrna Garcia PA [address] [place], [place] [id number] [facility] Start: 07-08-2025 End: 07-08-2025 Patient encounter procedure [facility] Comment on above: Arrived Start: 07-01-2025 End: 07-01-2025 Patient encounter procedure [facility] Comment on above: Arrived Start: 06-24-2025 End: 06-24-2026 CULTURE, GROUP B STREP WITH SUSCEPTIBLITY CULTURE, GROUP B STREP WITH SUSCEPTIBLITY Lab Routine Third trimester ([facility]) Expected: 06/24/2025, Expires: 06/24/2026 [facility] Work Phone: Comment on above: Expected: 06/24/2025 , Expires: 06/24/2026 Start: 06-24-2025 End: 06-24-2025 Patient encounter procedure [facility] Comment on above: Arrived Start: 06-21-2025 Influenza vaccination [facility] Start: 06-16-2025 End: 06-16-2025 Patient encounter procedure 06/16/2025 8:50 AM EDT Routine [facility] [address] [place] [id number] Myrna Garcia PA [address] [place], [place] [id number] [facility] Start: 05-31-2025 End: 05-31-2025 Patient encounter procedure 05/31/2025 8:40 AM EDT Routine [facility] [address] [address] Renate Bonilla DO [address] [place], [place] [id number] Arrived [facility] Comment on above: Arrived Start: 05-05-2025 End: 09-05-2025 US for US OB follow up transabdominal approach Imaging Routine Size of fetus inconsistent with dates in second trimester ([facility]) Expected: 05/05/2025, Expires: 09/05/2025 [facility] Work Phone: Comment on above: Expected: 05/05/2025 , Expires: 09/05/2025 Start: 05-05-2025 End: 05-05-2025 Patient encounter procedure 05/05/2025 8:30 AM EDT Routine [facility] [address] [phone] Melissa Cowan, ESTHETICIAN FACIALIST [address] [phone] [facility] Start: 04-20-2025 End: 04-20-2025 Patient encounter procedure [facility] Comment on above: Arrived Start: 03-31-2025 End: 03-31-2025 Professional / ancillary services management 03/31/2025 8:30 AM EDT Ancillary Procedure [facility] [address] [phone] [facility] Start: 03-23-2025 End: 06-03-2026 CBC panel - Blood by Automated count CBC Lab Routine Diabetes mellitus screening Expected: 03/23/2025 (Approximate), Expires: 03/23/2026 [facility] Work Phone: Comment on above: Expected: 03/23/2025 (Approximate), Expires: 03/23/2026 Start: 03-23-2025 End: 03-23-2026 Measurement of glucose 1 hour after glucose challenge for glucose tolerance test Glucose tolerance, 1 hour Lab Routine Diabetes mellitus screening Expected: 03/23/2025 (Approximate), Expires: 03/23/2026 [facility] Comment on above: Expected: 03/23/2025 (Approximate), Expires: 03/23/2026 Start: 03-23-2025 End: 03-23-2025 Patient encounter procedure [facility] Comment on above: Arrived Start: 02-23-2025 End: 08-26-2025 Alpha fetoprotein, maternal Alpha fetoprotein, maternal Lab Routine Second trimester 18 weeks gestation of Expected: 02/23/2025 (Approximate), Expires: 08/26/2025 [facility] Comment on above: Expected: 02/23/2025 [...] gestational age Expected: 12/24/2024 (Approximate), Expires: 12/24/2025 [facility] Comment on above: Expected: 12/24/2024 [...] [facility] Comment on above: Ordered: 12/24/2024 SURESWAB(R) ADVANCED VAGINITIS PLUS, TMA SURESWAB(R) ADVANCED VAGINITIS PLUS, TMA Pathology and Cytology Routine Vaginal discharge Ordered: 02/23/2025 [facility] Work Phone: Comment on above: Ordered: 02/23/2025 Thyrotropin [Units/volume] in Serum or Plasma TSH Lab Routine , unspecified gestational age Ordered: 12/24/2024 [facility] Comment on above: Ordered: 12/24/2024 Immunizations Immunization Date Immunization Notes Care Provider Maria santiago 11-17-2012 influenza virus vacc ine, unspecified formulation Renate Bonilla DO Work Phone: [facility] Payers Date Payer Category Payer Private Health Insurance [employer] [facility] [place] [id number] 2024 Unknown [id number] 1998 Unknown [id number] 2.16.840.1.121024.3.579. 2.593 1998 Unknown [id number] 2.16.840.1.396625.3.579. 2.9 1998 Unknown [id number] 2.16.840.1.867848.3.579. 2.9 1998 Unknown [id number] 2.16.840.1.841318.3.579. 2.1258 1998 Unknown [id number] 2.16.840.1.796564.3.579. 2.1258 1998 Unknown [id number] 2.16.840.1.633466.3.579. 2.1258 1998 Unknown [id number] 2.16.840.1.047163.3.579. 2.1258 1998 Unknown [id number] 2.16.840.1.769633.3.579. 2.1258 1998 Unknown [id number] 2.16.840.1.724677.3.579. 2.1258 1998 Unknown [id number] 2.16.840.1.654039.3.579. 2.1258 1998 Unknown [id number] 2.16.840.1.492823.3.579. 2.1258 1998 Unknown [id number] 2.16.840.1.180529.3.579. 2.1258 1998 Unknown [id number] 2.16.840.1.981968.3.579. 2.1258 1998 Unknown [id number] 2.16.840.1.379544.3.579. 2.1258 1998 Unknown [id number] 2.16.840.1.601880.3.579. 2.1258 1998 Unknown [id number] 2.16.840.1.034990.3.579. 2.1258 1959 Unknown [id number] Unknown [id number] 2.16.840.1.621727.19 Social History Date Type Detail Facility Sex Assigned At [facility] Other Tobacco smoking status WYIS Tobacco smoking consumption unknown [facility] Start: 10-28-2024 [facility] Start: 2000 Sex assigned at Not on file [facility] Clinical Notes 07-27-2021 to 07-08-2025 Sonia Gunderson LPN - 07/08/2025 9:20 AM [facility] - 07/01/2025 9:10 AM EDTMelissa Cowan NP - 06/24/2025 8:40 AM [facility] - 06/16/2025 8:50 AM EDT Note Date & Type Note Facility 07-08-2025 History of Presen t illness Narrative Reason for Appointment: Patient ID: Kurtis Barnes is a 24 y.o. female who [...] Constitutional: Appearance: Normal appearance. She is well-developed. Genitourinary: Vulva normal. Cardiovascular: Rate and Rhythm: Normal rate and [...] nursing note reviewed. Exam conducted with a emergency medicine specialist present. Vitals: There is no height or weight on file to calculate BMI. BP: 138/76 Patient's last menstrual period was 10/23/2024. ASSESSMENT & PLAN ICD-10-CM 1. 38 weeks gestation of ([facility]) Z3A.38 POCT urinalysis dipstick manually resulted 2. Third trimester ([facility]) Z34.93 POCT urinalysis dipstick manually resulted Patient presents today for a routine obstetrics appointment. Patient is currently 38w1d with a Estimated Date of Delivery: 07/21/25. Elevated BP this morning and protein in urine, patient to be assessed at [facility] with possible follow up over the weekend at [facility]. Pelvic exam performed and patient is 1cm and 80% effaced. Patient to return to clinic in 1 week for routine OB. Documented by Sonia Gunderson LPN on behalf of: Renate Bonilla DO documented in this encounter [facility] 07-01-2025 History of Presen t illness Narrative Reason for Appointment: Patient ID: Kurtis Barnes is a 24 y.o. female who [...] ASSESSMENT & PLAN ICD-10-CM 1. Third trimester ([facility]) Z34.93 2. 37 weeks gestation of ([facility]) Z3A.37 Return OB: Patient presents today [...] of: [place] [facility] documented in this encounter [facility] 06-24-2025 History of Presen t illness Narrative Reason for Appointment: Patient ID: Kurtis Barnes is a 24 y.o. female who [...] nursing note reviewed. Exam conducted with a emergency medicine specialist present. Vitals: There is no height or weight on file to calculate BMI. BP: 126/82 Patient's last menstrual period was 10/23/2024. ASSESSMENT & PLAN ICD-10-CM 1. Third trimester ([facility]) Z34.93 POCT urinalysis dipstick manually resulted CULTURE, GROUP B STREP WITH SUSCEPTIBLITY CULTURE, GROUP B STREP WITH SUSCEPTIBLITY 2. 36 weeks gestation of ([facility]) Z3A.36 Return OB: Patient presents today [...] Renate Bonilla DO documented in this encounter [facility] 06-16-2025 History of Presen t illness Narrative Reason for Appointment: Patient ID: Kurtis Barnes is a 24 y.o. female who [...] ASSESSMENT & PLAN ICD-10-CM 1. Third trimester ([facility]) Z34.93 POCT urinalysis dipstick manually resulted POCT urinalysis dipstick manually resulted 2. 35 weeks gestation of ([facility]) Z3A.35 POCT urinalysis dipstick manually resulted [...] of: [place] documented in this encounter [facility] 05-31-2025 History of Presen t illness Narrative Reason for Appointment: Patient ID: Kurtis Barnes is a 24 y.o. female who [...] nursing note reviewed. Exam conducted with a emergency medicine specialist present. Vitals: There is no height or weight on file to calculate BMI. BP: 126/82 Patient's last menstrual period was 10/23/2024. ASSESSMENT & PLAN ICD-10-CM 1. Third trimester ([facility]) Z34.93 POCT urinalysis dipstick manually resulted 2. 32 weeks gestation of ([facility]) Z3A.32 Return OB: Patient presents today [...] Renate Bonilla DO documented in this encounter [facility] 05-19-2025 History of Presen t illness Narrative Reason for Appointment: Patient ID: Kurtis Barnes is a 24 y.o. female who [...] nursing note reviewed. Exam conducted with a emergency medicine specialist present. Vitals: There is no height or weight on file to calculate BMI. BP: 120/72 Patient's last menstrual period was 10/23/2024. ASSESSMENT & PLAN ICD-10-CM 1. Third trimester ([facility]) Z34.93 POCT urinalysis dipstick manually resulted 2. 31 weeks gestation of ([facility]) Z3A.31 Return OB: Patient presents today [...] Melissa Cowan NP documented in this encounter [facility] 05-05-2025 History of Presen t illness Narrative Reason for Appointment: Patient ID: Kurtis Barnes is a 24 y.o. female who [...] nursing note reviewed. Exam conducted with a emergency medicine specialist present. Vitals: There is no height or weight on file to calculate BMI. BP: 132/80 Patient's last menstrual period was 10/23/2024. ASSESSMENT & PLAN ICD-10-CM 1. Size of fetus inconsistent with dates in second trimester ([facility]) O26.842 US OB follow up transabdominal approach 2. Third trimester ([facility]) Z34.93 POCT urinalysis dipstick manually resulted 3. 29 weeks gestation of ([facility]) Z3A.29 Return OB: Patient presents today [...] of: [place] Des[place] documented in this encounter [facility] 04-20-2025 History of Presen t illness Narrative Reason for Appointment: Patient ID: Kurtis Barnes is a 24 y.o. female who [...] nursing note reviewed. Exam conducted with a emergency medicine specialist present. Vitals: There is no height or weight on file to calculate BMI. BP: 120/70 Patient's last menstrual period was 10/23/2024. ASSESSMENT & PLAN ICD-10-CM 1. Second trimester ([facility]) Z34.92 POCT urinalysis dipstick manually resulted 2. 26 weeks gestation of ([facility]) Z3A.26 Return OB: Patient presents today [...] Renate Bonilla DO documented in this encounter [facility] 03-23-2025 History of Presen t illness Narrative Reason for Appointment: Patient ID: Kurtis Barnes is a 24 y.o. female who [...] nursing note reviewed. Exam conducted with a emergency medicine specialist present. Vitals: There is no height or [...] Renate Bonilla DO documented in this encounter [facility] 02-23-2025 History of Presen t illness Narrative Reason for Appointment: Patient ID: Kurtis Barnes is a 24 y.o. female who [...] nursing note reviewed. Exam conducted with a emergency medicine specialist present. Vitals: There is no height or [...] of: [place] [facility] documented in this encounter [facility] 01-25-2025 History of Presen t illness Narrative Reason for Appointment: Patient ID: Kurtis Barnes is a 24 y.o. female who [...] nursing note reviewed. Exam conducted with a emergency medicine specialist present. Vitals: There is no height or [...] Renate Bonilla DO documented in this encounter [facility] 12-24-2024 History of Presen t illness Narrative Reason for Appointment: Patient ID: Kurtis Barnes is a 24 y.o. female who [...] or undercooked meat, and stay away from [facility]. Patient has also been advised to [...] Regla Gutierrez MA documented in this encounter [facility] 09-19-2021 Evaluation note Encounter Date Diagnosis Assessment [...] Patient care instructions given in writting by [facility] Care At Home document [facility] Other 10-07-2021 Evaluation note* Encounter Date Diagnosis [...] Patient care instructions given in writting by [facility] Care At Home document [facility] Other [facility] Other Evaluation note* Diagnosis Nausea and vomiting [...] ([facility]) state, incidental 37 weeks gestation of ([facility]) [facility] Diagnosis 38 weeks gestation of ([facility]) Third trimester ([facility]) state, incidental documented in this encounter [facility] Summary Purpose Family History No Family History Records FoundNo Family History Records Found Advance Directives No Advanced Directives Records FoundNo Advanced Directives Records Found Additional Source Comments INFORMATION SOURCE (unrecogn ized section and content) DATE CREATED AUTHOR 11/29/2021 [facility] DATE CREATED AUTHOR AUTHOR'S ORGANIZ ATION 07/09/2025 [facility] EPIC REASON FOR VISIT [...] BE BASED ON THE PRIMARY CLINICAL RECORDS. [facility] [employer]mitt[employer]. provides no warranty or guarantee of the accuracy or completeness of information in this document.
[2025-07-10 16:22] VITALS: TEMP 36.5
[2025-07-10 16:23] VITALS: BP 126/65; PULSE 86
== END 2025-07-10 17:05 | disposition home or self-care (01) ==
LOC: FBCO 16:09 → FBC 16:11
PROVIDERS: Visit Provider Obstetrics & Gynecology
DX: O16.3 Unspecified maternal hypertension, third trimester (principal); Z3A.37 37 weeks gestation of pregnancy
CPT/HCPCS: 59025

== ENCOUNTER 2025-07-27 11:09 | Observation (INO) | payer OTHER, SELFPAY ==
--- OUTSIDE RECORDS SUMMARY | 2025-07-13 08:50 | XMS_ITS | Encounter Summary ---
Author Organization [facility] Address [address] [place] [address] Care Team Providers Care Tandem Mill Operator Name Role Phone Unavailable Primary Care Provider Unavailabl e Reason for Visit * Reason Comments Routine Visit Encounter Details Date Type Department Care Team (Late st Contact Info) Description 07/13/2025 8:50 AM EDT Routine [facility] [place] [facility] [address] [place] [id number] Myrna Levy PA [address] [place], [place] [id number] 38 weeks gestation of ([facility]) (Primary Dx); Third trimester ([facility]) Social History Tobacco Use Types Packs/Day Years [...] Sign Reading Time Taken Comments Blood Pressure 128/82 07/13/2025 9:09 AM EDT Pulse - - Temperature - - Respiratory Rate - - Oxygen Saturation - - Inhaled Oxygen Concentration - - Weight 143 kg (315 lb 12.8 oz) 07/13/2025 9:09 A M EDT Height - - Body Mass Index - - documented in this encounter Progress Notes * PHOENIX Desir - 07/13/2025 8:50 AM EDT Reason for Appointment: Patient ID: [...] nursing note reviewed. Exam conducted with a transfer station attendant present. Vitals: There is no height or weight on file to calculate BMI. BP: 128/82 Patient's last menstrual period was 10/23/2024. ASSESSMENT & PLAN ICD-10-CM 1. 38 weeks gestation of ([facility]) Z3A.38 POCT urinalysis dipstick manually resulted 2. Third trimester ([facility]) Z34.93 POCT urinalysis dipstick manually resulted Patient is doing well but has complaints of being tired and having maternal discomfort due to . Patient verbalized frequent movement and was instructed to perform kick counts three times per day. labor precautions were given. Orders Placed This Encounter Procedures POCT urinalysis dipstick manually resulted Follow Up: Patient is to return to office in 1 week for routine OB appointment Documented by Regla Gutierrez MA on behalf of: PHOENIX Desir documented in this encounter Plan of Treatment Not on file documented as of this encounter Procedures Procedure Name Priority Date/Time Associated Diagnosis Comments POCT URINALYSIS DIPSTICK Routine 07/13/2025 9:15 AM EDT Third trimester ([facility]) 38 weeks gestation of ([facility]) documented in this encounter Results * (ABNORMAL) POCT urinalysis dipstick manually resulted (07/13/2025 9:15 AM EDT) Color, UA Yellow Clarity, UA Clear Glucose, UA Negative Negative - 2000(110) ++++ mg/dL Bilirubin, UA Negative Negative - 4(70) +++ mg/dL Ketones, UA Negative Negative - 160(16) ++++ mg/dL Spec Grav, UA 1.030 1 - 1.03 Blood, UA Negative Negative - 50 Han/mcL pH, UA 6.0 5 - 9 Protein, UA Trace Negative - 2000(20) ++++ mg/dL Urobilinogen, UA 1.0 0.2 - 12 mg/dL Leukocytes, UA 1+ Negative - 500+++ Jinny/mcL Nitrite, UA Negative Negative - Positive Urine 07/13/2025 9:15 AM EDT Myrna GARBIAY POINT OF CARE TEST ENTER/EDIT OR DERABLES Final Result documented in this encounter Visit Diagnoses Diagnosis 38 weeks gestation of ([facility])- Primary Third trimester ([facility]) state, incidental documented in this encounter
--- OUTSIDE RECORDS SUMMARY | 2025-07-20 08:40 | XMS_ITS | Encounter Summary ---
Author Organization [facility] Address [address] [place] [address] Care Team Providers Care Community Services Coordinator Name Role Phone Unavailable Primary Care Provider Unavailabl e Reason for Visit * Reason Comments Routine Visit Encounter Details Date Type Department Care Team (Late st Contact Info) Description 07/20/2025 8:40 AM EDT Routine [facility] [address] [place] [address] Melissa Cowan NP [address] [place] [address] Third trimester ([facility]); 39 weeks gestation of ([facility]) Social History Tobacco Use Types Packs/Day [...] Sign Reading Time Taken Comments Blood Pressure 130/80 07/20/2025 8:44 AM EDT Pulse - - Temperature - - Respiratory Rate - - Oxygen Saturation - - Inhaled Oxygen Concentration - - Weight 143 kg (316 lb) 07/20/2025 8:44 AM EDT Height - - Body Mass Index - - documented in this encounter Progress Notes * Melissa Cowan NP - 07/20/2025 8:40 AM EDT Reason for Appointment: Patient [...] nursing note reviewed. Exam conducted with a obstetric anaesthetist present. Vitals: There is no height or weight on file to calculate BMI. BP: 130/80 Patient's last menstrual period was 10/23/2024. ASSESSMENT & PLAN ICD-10-CM 1. Third trimester ([facility]) Z34.93 POCT urinalysis dipstick manually resulted 2. 39 weeks gestation of ([facility]) Z3A.39 POCT urinalysis dipstick manually resulted Return OB: Patient presents today for a routine obstetrics appointment. Patient is currently 39w6d . Patient states she is doing well [...] week for routine OB appointment. Documented by Olimpia Gomes LPN on behalf of: Melissa Cowan NP documented in this encounter Plan of Treatment Not on file documented as of this encounter Procedures Procedure Name Priority Date/Time Associated Diagnosis Comments POCT URINALYSIS DIPSTICK Routine 07/20/2025 8:50 AM EDT Third trimester ([facility]) 39 weeks gestation of ([facility]) documented in this encounter Results * (ABNORMAL) POCT urinalysis dipstick manually resulted (07/20/2025 8:50 AM EDT) Color, UA Yellow Clarity, UA [...] Leukocytes, UA Positive Negative - 500+++ Jinny/mcL Comment:3+ Nitrite, UA Negative Negative - Positive Urine 07/20/2025 8:50 AM EDT Melissa Cowan NP POINT OF CARE TEST ENTER/EDIT ORDERABLES Final Result documented in this encounter Visit Diagnoses Diagnosis Third trimester ([facility]) state, incidental 39 weeks gestation of ([facility]) documented in this encounter
[2025-07-27] VITALS (9 sets, daily range): BP systolic 112–141; BP diastolic 72–90; PULSE 76–92
--- OUTSIDE RECORDS SUMMARY | 2025-07-27 09:50 | XMS_ITS | Encounter Summary ---
Author Organization [facility] Address [address] [place] [address] Care Team Providers Care Laboratory Phlebotomist Name Role Phone Unavailable Primary Care Provider Unavailabl e Reason for Visit * Reason Comments Routine Visit Encounter Details Date Type Department Care Team (Late st Contact Info) Description 07/27/2025 9:50 AM EDT Routine [facility] [address] [place] [address] Melissa Cowan NP [address] [place] [address] Third trimester ([facility]); 40 weeks gestation of ([facility]) Social History Tobacco Use Types Packs/Day [...] Sign Reading Time Taken Comments Blood Pressure 160/100 07/27/2025 10:44 AM EDT Pulse - - Temperature - - Respiratory Rate - - Oxygen Saturation - - Inhaled Oxygen Concentration - - Weight 146 kg (321 lb 8 oz) 07/27/2025 9:57 AM E DT Height - - Body Mass Index - - documented in this encounter Progress Notes * Melissa Cowan NP - 07/27/2025 9:50 AM EDT Reason for Appointment: Patient ID: [...] nursing note reviewed. Exam conducted with a tool maker present. Vitals: There is no height or weight on file to calculate BMI. BP: 142/90 Patient's last menstrual period was 10/23/2024. ASSESSMENT & PLAN ICD-10-CM 1. Third trimester ([facility]) Z34.93 POCT urinalysis dipstick manually resulted 2. 40 weeks gestation of ([facility]) Z3A.40 Return OB: Patient presents today for a routine obstetrics appointment. Patient is currently 40w6d . Patient states she is doing well but has complaints of being tired due to current . Patient has verbalizes frequent movement. labor precautions was discussed/given and patient was instructed to perform kick counts three times a day. Patient with elevated Blood Pressure at 160/100 and contractions approximately every 10 minutes andtrace proteinuria. Notified Labor and delivery that patient will be coming to be evaluated. Orders Placed This Encounter Procedures POCT urinalysis dipstick manually resulted Follow Up: Patient is to return to office in 1 week for routine OB appointment. Documented by Melissa Cowan NP on behalf of: Melissa Cowan NP documented in this encounter Plan of Treatment Not on file documented as of this encounter Procedures Procedure Name Priority Date/Time Associated Diagnosis Comments POCT URINALYSIS DIPSTICK Routine 07/27/2025 10:05 AM EDT Third trimester ([facility]) documented in this encounter Results * (ABNORMAL) POCT urinalysis dipstick manually resulted (07/27/2025 10:05 AM EDT) Color, UA Yellow Clarity, UA Clear Glucose, UA Negative Negative - 2000(110) ++++ mg/dL Bilirubin, UA Negative Negative - 4(70) +++ mg/dL Ketones, UA Negative Negative - 160(16) ++++ mg/dL Spec Grav, UA 1.025 1 - 1.03 Blood, UA Positive Negative - 50 Han/mcL Comment:3+ pH, UA 6.0 5 - 9 Protein, UA Positive Negative - 2000(20) ++++ mg/dL Comment:Trace Urobilinogen, UA 0.2 0.2 - 12 mg/dL Leukocytes, UA Positive Negative - 500+++ Jinny/mcL Comment:3+ Nitrite, UA Negative Negative - Positive Urine 07/27/2025 10:0 5 AM EDT us Melissa Camryn PRESS TECHNICIAN POINT OF CARE TEST ENTER/EDIT ORDERABLES Final Result documented in this encounter Visit Diagnoses Diagnosis Third trimester ([facility]) state, incidental 40 weeks gestation of ([facility]) documented in this encounter
--- OUTSIDE RECORDS SUMMARY | 2025-07-27 11:15 | XMS_ITS | Clinical Summary ---
Author Organization [facility] [facility] tem Address [id number] [address] [place] [address] Care Team Providers Care Carriage Dogger Name Role Phone Mary Boss Kem PR MANAGER-CRTT Primary Care Provid er Allergies Active Allergy [...] Devices Not on file Insurance [employer] [address] Care Teams Carriage Dogger Relationship Specialty Start Date End Date Mary Boss APRN-CRTT PCP - General Family Medicine 11/29/21
--- OUTSIDE RECORDS SUMMARY | 2025-07-27 11:15 | XMS_ITS ---
Author Organization [facility] Source Produ ction (ClinicalSummary Clone) Address Unknown Care Team Providers Care Endoscopy Nurse Name Role Phone Unavailable Primary Care Physician Unavailab le Results * [UNITY] ANEUPLOIDY NIPT Performed by: [employer] Value Range Date Fraction 7.8% 03/01/2025 07 :33 pm UTC Rh(D) NIPT RhD DETECTED 03/01/2025 07:3 3 pm UTC Sex Chromosome Aneuploidy NOT DETECTED 07:33 pm UTC Monosomy X LOW RISK <1 in 10,000 2024 07:33 pm UTC Trisomy 13 LOW RISK <1 in 10,000 2024 07:33 pm UTC Trisomy 18 LOW RISK <1 in 10,000 2024 07:33 pm UTC Trisomy 21 LOW RISK <1 in 10,000 2024 07:33 pm UTC Sex MALE 03/01/2025 07:3 3 pm UTC Gestation ISRAEL 03/01/20 07:33 pm UTC For detailed report, see PDF See PDF 03/01/2025 07:33 pm UTC 03/01/2025 07:3 3 pm UTC Social History Observation Value Start Date End Date
--- OUTSIDE RECORDS SUMMARY | 2025-07-27 11:15 | XMS_ITS | Encounter Summary ---
Author Organization [facility] Address [address] [place] [address] Care Team Providers Care Designer And Patternmaker Name Role Phone Unavailable Primary Care Provider Unavailabl e Encounter Details Date Type Department Care Team (Late st Contact Info) Description 07/13/2025 Bamboo flowsheet [facility] [address] [place] [address] Myrna Levy PA [address] [place], [place] [address] Social History Tobacco Use Types Packs/Day Years Used Date Smoking Tobacco: Never Assessed Estimated Date of Delivery Comme nts Yes 07/21/2025 Based on Ultraso und Sex and Gender Information Value Date Recorded Sex Assigned at Not on file Legal Sex Female 7:31 PM EDT Gender Identity Not on file Sexual Orientation Not on file documented as of this encounter Plan of Treatment Not on file documented as of this encounter Visit Diagnoses Not on filedocumented in this encounter
--- OUTSIDE RECORDS SUMMARY | 2025-07-27 11:15 | XMS_ITS | Encounter Summary ---
Author Organization [facility] Address [address] [place] [address] Care Team Providers Care Dental Technology Advisor Name Role Phone Unavailable Primary Care Provider Unavailabl e Encounter Details Date Type Department Care Team (Late st Contact Info) Description 03/08/2025 Abstract [facility] [place] [facility] [address] [place] [address] Jose Bonilla DO [address] [place], [place] [id number] Social History Tobacco Use Types Packs/Day Years [...]
--- OUTSIDE RECORDS SUMMARY | 2025-07-27 11:15 | XMS_ITS | Encounter Summary ---
Author Organization [facility] Address [address] [facility] [place] [address] Care Team Providers Care Plasterer Helper Name Role Phone Unavailable Primary Care Provider Unavailabl e Encounter Details Date Type Department Care Team (Late st Contact Info) Description 03/08/2025 Orders Only [facility] [address] [place] [address] Ellen Lr LPN [address] [place] [phone] Social History Tobacco Use Types Packs/Day Years [...]
--- OUTSIDE RECORDS SUMMARY | 2025-07-27 11:15 | XMS_ITS | Clinical Summary ---
Author Organization [facility] Healthcare Address [address] [place] [address] Care Team Providers Care Business Systems Consultant Name Role Phone Unavailable Primary Care Provider Unavailabl e Allergies Active Allergy Reactions Criticality Noted Date Comments Latex Hives,Rash Low 12/25/2024 Wound Dressing Adhesive Hives,Rash,Itching Low 09/20 Medications MV-Min-Fe Fum-FA-DHA ( 1 PO) Take by mouth Active ondansetron (Zofran) 4 MG tabletIndicatio ns:Nausea and vomiting in ([facility]) Take 1 tablet (4 mg) by mouth every 6 (six) hours if needed for nausea or vomiting for up to 30 doses Take 1 tablet by mouth every 6 hours as needed for nausea. 30 tablet 3 01/25/2025 Active Encounters Date Type Department Care Team Description 07/27/2025 9:50 AM EDT Routine [facility] [address] Melissa Cowan NP Third trimester ([facility]); 40 weeks gestation of ([facility]) 07/27/2025 Bamboo flowsheet [facility] [address] [place] [address] Melissa Cowan NP 07/20/2025 8:40 AM EDT Routine [facility] [place] [place] [address] Melissa Cowan NP Third trimester ([facility]); 39 weeks gestation of ([facility]) 07/20/2025 Bamboo flowsheet [facility] [address] [facility] [address] Melissa Cowan NP 07/13/2025 8:50 AM EDT Routine [facility] [address] [facility] [address] Myrna Levy PA 38 weeks gestation of ([facility]) (Primary Dx); Third trimester ([facility]) 07/13/2025 Bamboo flowsheet [facility] [address] [facility] [address] Myrna Levy PA 07/08/2025 9:20 AM EDT Routine [facility] [address] [facility] [address] Renate Bonilla, 38 weeks gestation of ([facility]); Third trimester ([facility]) 07/08/2025 Clinisync Result Encounter [facility] External Department Unsolicited Renate Bonilla, 07/08/2025 Bamboo flowsheet [facility] [address] [facility] [address] Renate Bonilla, 07/01/2025 9:10 AM EDT Routine [facility] [address] [facility] [address] Myrna Levy PA Third trimester ([facility]); 37 weeks gestation of ([facility]) 07/01/2025 Bamboo flowsheet [facility] [address] [facility] [address] Myrna Levy PA 06/24/2025 8:40 AM EDT Routine [facility] [address] [facility] [address] Renate Bonilla, DO Third trimester ([facility]); 36 weeks gestation of ([facility]) 06/24/2025 Bamboo flowsheet [facility] [address] [facility] [address] Renate Bonilla, 06/16/2025 8:50 AM EDT Routine [facility] [address] [place] [address] Myrna Levy PA Third trimester ([facility]); 35 weeks gestation of ([facility]) 06/16/2025 Bamboo flowsheet [facility] [address] [place] [address] Myrna Levy PA 06/14/2025 Telephone [facility] [address] [place] [address] Regla Gutierrez MA 06/09/2025 Telephone [facility] [address] [facility] [address] Diamond Holder MA 05/31/2025 8:40 AM EDT Routine [facility] [place] [address] Renate Bonilla, Third trimester ([facility]); 32 weeks gestation of ([facility]) 05/31/2025 Bamboo flowsheet [facility] [address] [facility] [address] Renate Bonilla, 05/19/2025 10:30 AM EDT Routine [facility] [address] [place] [address] Melissa Cowan NP Third trimester ([facility]); 31 weeks gestation of ([facility]) 05/19/2025 10:00 AM EDT Ancillary Procedure [facility] [address] [address] Size of fetus inconsistent with dates in second trimester ([facility]) 05/05/2025 8:40 AM EDT Routine [facility] [address] [facility] [address] Myrna Levy PA Size of fetus inconsistent with dates in second trimester ([facility]) (Primary Dx); Third trimester ([facility]); 29 weeks gestation of ([facility]) 05/05/2025 Bamboo flowsheet [facility] [address] [place] [address] Myrna Levy PA from Last 3 Months Social History Tobacco [...] Mass Index - - Plan of Treatment Health Maintenance Due Date Last Done Comments Influenza Vaccine (#1) 2025 11/17/2012, 2007 Procedures Procedure Name Priority Date/Time Associated Diagnosis Comments POCT URINALYSIS DIPSTICK Routine 07/27/2025 10:05 AM EDT Third trimester ([facility]) POCT URINALYSIS DIPSTICK Routine 07/20/2025 8:50 AM EDT Third trimester ([facility]) 39 weeks gestation of ([facility]) POCT URINALYSIS DIPSTICK Routine 07/13/2025 9:15 AM EDT Third trimester ([facility]) 38 weeks gestation of ([facility]) MHPT FIBRINOGEN Routine 07/08/2025 10:39 AM EDT [facility] APTT Routine 07/08/2025 10:39 AM EDT SRMCOH PROTHROMBIN TIME INR W/O COUM Routine 07/08/2025 10:39 AM EDT CCF ALT Routine 07/08/2025 10:39 AM EDT [facility] AST Routine 07/08/2025 10:39 AM EDT ALL URIC ACID Routine 07/08/2025 10:39 AM EDT TBH CREATININE Routine 07/08/2025 10:39 AM EDT ALL BUN Routine 07/08/2025 10:39 AM EDT ALL CBC WITH AUTO DIFF Routine 10:39 AM EDT US OB BPP W NON-STRESS 07/08/2025 10:39 AM EDT TBH URINE T PROTEIN CREAT RATIO Routine 07/08/2025 10:10 AM EDT POCT URINALYSIS DIPSTICK Routine 07/08/2025 9:34 AM EDT 38 weeks gestation of ([facility]) Third trimester ([facility]) POCT URINALYSIS DIPSTICK Routine 07/01/2025 9:16 AM EDT Third trimester ([facility]) POCT URINALYSIS DIPSTICK Routine 06/24/2025 8:47 AM EDT Third trimester ([facility]) CULTURE, GROUP B STREP WITH SUSCEPTIBLITY Routine 06/24/2025 8:34 AM EDT Third trimester ([facility]) POCT URINALYSIS DIPSTICK Routine 06/16/2025 10:42 AM EDT Third trimester ([facility]) 35 weeks gestation of ([facility]) POCT URINALYSIS DIPSTICK Routine 05/31/2025 8:57 AM EDT Third trimester ([facility]) POCT URINALYSIS DIPSTICK Routine 05/19/2025 10:48 AM EDT Third trimester ([facility]) US OB FOLLOW UP TRANSABDOMINAL APPROACH Routine 05/19/2025 10:31 AM EDT Size of fetus inconsistent with dates in second trimester ([facility]) POCT URINALYSIS DIPSTICK Routine 05/05/2025 9:09 AM EDT Third trimester ([facility]) from Last 3 Months Results * (ABNORMAL) POCT urinalysis dipstick manually resulted (07/27/2025 10:05 AM EDT) Only the most recent of10 resultswithin the time period is included. Color, [...] Positive Urine 07/27/2025 10:0 5 AM EDT Melissa Cowan NP POINT OF CARE TEST ENTER/EDIT ORDERABLES Final Result * US OB BPP W NON-STRESS (07/08/2025 10:39 AM EDT) Anatomical Region Laterality Modality Other 07/08/2025 10:3 9 AM EDT Narrative 07/08/2025 10:41 [place] [address] Ultrasound Report Signed Patient: KURTIS BARNES MR#: [id number] : 2000 Acct:[id number] Age/Sex: 24 / F ADM Date: Loc: [facility] 254-[address]: Renate Bonilla D.O. Ordering Physician: Renate Bonilla D.O. Date of Service: 07/08/25 Procedure(s): US OB BPP w non-stress Accession Number(s): [id number] cc: Renate Bonilla D.O.; Physician,Non-Staff M.[place]da [facility] [place] [address] Patient Name: KURTIS BARNES MRN: [id number] date: 2000 Sex: F Assigned Patient Location: [facility] Current Patient Location: [facility] Accession/Order Number: [id number] Exam Date: 07/08/2025 10:11 Report Date: 07/08/2025 [...] Silva M.D. 07/08/2025 10:39 AM Dictation Location: [place] [address] Electronically authenticated by: [id number] Y Date: 07/08/2025 10:39 Dictated By: Cheri Da Silva M.D. Signed By: 07/08/25 1041 DD/ 1039 TD/TT: Solution Design Engineer: Procedure Note Radiology, Radiologist, MD - 07/08/2025 [place] [address] Ultrasound Report Signed Patient: KURTIS BARNES RMR#: [id number] : 2000Acct:[id number] Age/Sex: M Date: Loc: [facility] 254-[address]: Renate Bonilla D.O. Ordering Physician: Renate Bonilla D.O. Date of Service: 07/08/25 Procedure(s): US OB BPP w non-stress Accession Number(s): [id number] cc: Renate Bonilla D.O.; Physician,Non-Staff [place] [place] [id number] Patient Name: KURTIS BARNES MRN: [id number] date: 2000 Sex: F Assigned Patient Location: [facility] Current Patient Location: [facility] Accession/Order Number: [id number] Exam Date: 07/08/2025 10:11 Report Date: 07/08/2025 10:39 At the request of: RENATE BONILLA DO Procedure: US OB BPP w non-stress BIOPHYSICAL PROFILE: CLINICAL INFORMATION: Increased BPs COMPARISON: None There is a single live intrauterine gestation in cephalic presentation.The reported gestational age is 38 weeks 1 day. The heart rate [id number] beats per minute. FINDINGS: TONE: 1 or more episodes of activity extension and flexion of extremity or opening and closing of the hand [Y] 2/2 GROSS BODY MOVEMENTS: 3 or more discrete body or limb movements [Y] 2/2 BREATHING MOVEMENTS: 1 or more episodes of breathing lastingat least 30 seconds [Y] 2/2 RIVERA: A single deepest vertical pocket of amniotic fluid greater than 2 cm [Y] 2/2 RIVERA: 13.4 cm Total score: 8/8 US/US OB BPP w non-stress IMPRESSION: NORMAL BIOPHYSICAL PROFILE Impression dictated by: Cheri Da Silva M.D. 07/08/2025 10:39 AM Dictation Location: [employer] Electronically authenticated by: [id number] Y Date: 0:39 Dictated By: Cheri Da Silva M.D. Signed By:07/08/25 1041 DD/ 1039 TD/TT: Solution Design Engineer: Renate Irene DO [facility] Final Result * (ABNORMAL) TBH CREATININE (07/08/2025 10:39 AM EDT) CREATININE 0.51(L) 0.55 - 1.02 mg/dL TBH TBH EGFR-AF KYRGYZ >60 >=60 mL/min/1.7 3m 2 TBH TBH EGFR-NON AF KYRGYZ >60 >=60 mL/min/1.7 3m 2 TBH 07/08/2025 10:3 9 AM EDT 07/08/2025 10:45 AM EDT Narrative [facility] - 07/08/2025 11:06 AM EDT Renate Irene DO [facility] Final Result [facility] * [facility] PROTHROMBIN TIME INR W/O COUM (07/08/2025 10:39 AM EDT) PROTHROMBIN TIME 9.6 9.0 - 11.6 sec TBH TBH INR <0.93 TBH Comment: DESIRED INR: 2.0-3.0 CONDITIONS NOT LISTED BELOW 2.5-3.5 FOR PROSTHETIC HEART VALVE REPLACEMENT 2.5-3.5 RECURRENT THROMBOSIS 07/08/2025 10:3 9 AM EDT 07/08/2025 10:45 AM EDT Narrative [facility] - 07/08/2025 11:15 AM EDT us Renate Irene DO [facility] Final Result [facility] * (ABNORMAL) MHPT FIBRINOGEN (07/08/2025 10:39 AM EDT) FIBRINOGEN 574(H) 200 - 400 mg/dL TBH 07/08/2025 10:3 9 AM EDT 07/08/2025 10:45 AM EDT Narrative [facility] - 07/08/2025 11:15 AM EDT us Renate Irene DO [facility] Final Result Performing Organization Address [facility]/ZIP Co de Phone Number [facility] * (ABNORMAL) CCF AST (07/08/2025 10:39 AM EDT) ASPARTATE AMINO TRANSFERASE 12(L) 15 - 37 U/L TBH 07/08/2025 10:3 9 AM EDT 07/08/2025 10:45 AM EDT Narrative [facility] - 07/08/2025 11:06 AM EDT us Renate Irene DO [facility] Final Result [facility] * CCF APTT (07/08/2025 10:39 AM EDT) PARTIAL THROMBOPLASTIN TIME 27.1 22.3 - 36.2 sec TBH 07/08/2025 10:3 9 AM EDT 07/08/2025 10:45 AM EDT Narrative [facility] - 07/08/2025 11:15 AM EDT us Renate Irene DO [facility] Final Result [facility] TB * (ABNORMAL) [facility] ALT (07/08/2025 10:39 AM EDT) Pathologist [facility] ALANINE AMINOTRANSFERASE 13(L) 14 - 59 U/L TBH 07/08/2025 10:3 9 AM EDT 07/08/2025 10:45 AM EDT Narrative [facility] - 07/08/2025 11:06 AM EDT Renate Irene DO [facility] Final Result [facility] * ALL URIC ACID (07/08/2025 10:39 AM EDT) Pathologist [facility] URIC ACID 4.4 2.6 - 6.0 mg/dL TB 07/08/2025 10:3 9 AM EDT 07/08/2025 10:45 AM EDT Narrative [facility] - 07/08/2025 11:06 AM EDT [facility] Irene DO [facility] Final Result Performing Organization Address City/[facility]/ZIP Co de Phone Number [facility] * (ABNORMAL) ALL CBC WITH AUTO DIFF (07/08/2025 10:39 AM EDT) Pathologist [facility] TB WBC 11.0 4.0 - 11.0 10 3/uL TBH TB RBC 3.61(L) 4.20 - 5.40 10 6/uL TBH TBH HGB 11.7(L) 12.0 - 16.0 g/dL TB TB HCT 33.9(L) 36.0 - 48.0 % TBH TBH MCV 93.9 81.0 - 99.0 fL TBH TBH MCH 32.4 26.7 - 34.0 pg TBH TBH MCHC 34.5 29.9 - 35.2 g/dL TBH TBH RDW 12.1 11.0 - 15.0 % TBH TBH PLT 234 150 - 450 10 3/uL TBH TBH MPV 9.6 9.5 - 13.5 fL TBH NEUTROPHILS PERCENT AUTO 70.2 43.0 - 75.0 % TBH LYMPHOCYTES PERCENT AUTO 20.3(L) 20.5 - 60.0 % TBH MONOCYTES PERCENT AUTO 7.7 1.7 - 12.0 % TBH TBH EO % 1.0 0.9 - 7.0 % TBH BASOPHILS PERCENT AUTO 0.2 0.2 - 2.0 % TBH IMMATURE GRANULOCYTES PCT AUTO 0.6(H) 0.0 - 0.5 % TBH NEUTROPHILS ABSOLUTE AUTO 7.7(H) 1.4 - 6.5 10 3/uL TBH LYMPHOCYTES ABSOLUTE AUTO 2.2 1.2 - 3.8 10 3/uL TBH MONOCYTES ABSOLUTE AUTO 0.9(H) 0.3 - 0.8 10 3/uL TBH TBH EO # 0.1 0.0 - 0.7 10 3/uL TBH BASOPHILS ABSOLUTE AUTO 0.0 0.0 - 0.1 10 3/uL TBH IMMATURE GRANULOCYTES ABS AUTO 0.07(H) 0.00 - 0.03 10 3/uL TBH 07/08/2025 10:3 9 AM EDT 07/08/2025 10:45 AM EDT Narrative [facility] - 07/08/2025 10:50 AM EDT Renate Irene DO [facility] Final Result Performing Organization Address [facility]/ZIP Co de Phone Number [facility] TB * ALL BUN (07/08/2025 10:39 AM EDT) Pathologist [facility] BLOOD UREA NITROGEN 12.0 7.0 - 18.0 mg/dL TB 07/08/2025 10:3 9 AM EDT 07/08/2025 10:45 AM EDT Narrative [facility] - 07/08/2025 11:06 AM EDT Renate Irene DO [facility] Final Result [facility] TB * (ABNORMAL) TBH URINE T PROTEIN CREAT RATIO (07/08/2025 10:10 AM EDT) TOTAL PROTEIN URINE RANDOM 16.0(H) <=11.9 mg/dL TBH CREATININE URINE RANDOM 121.60 20.00 - 300.00 mg/dL TBH PROTEIN CREATININE RATIO URINE 0.13 TBH 07/08/2025 10:1 0 AM EDT 07/08/2025 10:45 AM EDT Narrative [facility] - 07/08/2025 11:07 AM EDT us Renate Irene DO [facility] Final Result Performing Organization Address [facility]/ZIP Co de Phone Number [facility] TB * CULTURE, GROUP B STREP WITH SUSCEPTIBLITY (06/24/2025 8:34 AM EDT) Swab 06/24/2025 8:34 AM EDT us Renate Irene DO LAB BLOOD ORDERABLES Final Resul t Performing Organization Address [facility] Co de Phone Number EXTERNAL LAB * US OB follow up [...] II, MD, PHD at 20-May-2025 08:33:27 AM [facility] Procedure Note Nanda Grant MD - [...] signed by NANDA GRANT II, MD, PHD [id number] 08:33:27 AM [facility] us Myrna GARIBAY IMG OB US PROCEDURES Final Resul t from Last [address] [place] [address] [address] Just around Us
--- OUTSIDE RECORDS SUMMARY | 2025-07-27 11:15 | XMS_ITS | Encounter Summary ---
Author Organization [facility] Address [address] [place] [address] Care Team Providers Care Freight Representative Name Role Phone Unavailable Primary Care Provider Unavailabl e Encounter Details Date Type Department Care Team (Late st Contact Info) Description 03/02/2025 Abstract [facility] [address] [place] [id number] Regla Gutierrez MA Social History Tobacco Use [...]
--- OUTSIDE RECORDS SUMMARY | 2025-07-27 11:15 | XMS_ITS | Encounter Summary ---
Author Organization [facility] Address [address] [place] [address] Care Team Providers Care Preload Supervisor Name Role Phone Unavailable Primary Care Provider Unavailabl e Encounter Details Date Type Department Care Team (Late st Contact Info) Description 07/27/2025 Bamboo flowsheet [facility] [address] [place] [address] Melissa Cowan, TORY [address] [facility] [place] [address] Social History Tobacco Use Types Packs/Day Years [...]
--- OUTSIDE RECORDS SUMMARY | 2025-07-27 11:15 | XMS_ITS | Encounter Summary ---
Author Organization [facility] Address [address] [place] [address] Care Team Providers Care Clay Washer Name Role Phone Unavailable Primary Care Provider Unavailabl e Encounter Details Date Type Department Care Team (Late st Contact Info) Description 07/20/2025 Bamboo flowsheet [facility] [address] [place] [address] Melissa Cowan, TORY [address] [facility] [place] [address] Social History Tobacco Use Types Packs/Day [...]
--- OUTSIDE RECORDS SUMMARY | 2025-07-27 11:31 | XMS_ITS | CCD ---
Author Organization [facility]ini[facility] Care Team Providers Care Transportation Department Head Name Role Phone HORACIO ESCOBAR Admitting Unavailable HORACIO ESCOBAR Attending Unavailable DR JOHN NONE LISTED Primary Care Unavaila Germain Jasso Consulting Unavailable HORACIO ESCOBAR Consulting Unavailable Sheree Kimbrough Unavailable Isadora Arroyo Unavailable Unavailable Primary Care Provider UnavailRENATE Quinones Attending Unavailable RADHA, MYRNA Attending Unavailable IRENE, RENATE Attending Unavailable IRENE, RENATE Attending Unavailable RADHA, MYRNA Attending Unavailable RADHA MYRNA Referring Unavailable MELISSA COWAN Attending Unavailable IRENE, RENATE Attending Unavailable RADHA, MYRNA Attending Unavailable IRENE, RENATE Attending Unavailable RADHA, MYRNA Attending Unavailable IRENE, RENATE Attending Unavailable RADHA, MYRNA Attending Unavailable CAMRYNMELISSA SAUNDERS Attending Unavailable Allergies Allergy Classification Reported Allergen(s) [...] MG tablet Indications: Nausea and vomiting in ([facility]) Take 1 tablet (4 mg) by mouth [...] oral solution (3 sources) alpha-Adrenergic Agonist, Uncompetitive S-fhhqzc-U-aspartat e Receptor Antagonist, Sigma-1 Agonist Start: 07-27-2021 Start: 07-27-2021 take 10 mL by mouth every six hours Lbrmmupxu-Kbcvmoxo-PM 30-2-10 MG/5ML 10 mL Orally every 6 hours for 5 days Jul, Not-Taking dextromethorphan hydrobromid e 15 mg / guaiFENesin 400 mg / pseudoephedrine hydrochloride 60 mg oral tablet (3 sources) alpha-Adrenergic Agonist, Uncompetitive A-aixwiz-M-aspartate Receptor Antagonist, Sigma-1 Agonist Start: 07-27-2021 Start: [...] of ] 07-01-2025 Episodic Residual codes; unclassified (4 sources) Gestation period, 38 weeks; Translations: [38 weeks gestation of ] 07-08-2025 Episodic Residual codes; unclassified (2 sources) Gestation period, 39 weeks; Translations: [39 weeks gestation of ] 07-20-2025 Episodic Skin and subcutaneous tissue infections (1 [...] Range Facility Urinalysis macro (dipstick) panel (U)on 07-20-2025 Bilirubin, UA Negative Negative - 4(70) +++ mg/dL [facility] Blood, UA Negative Negative - 50 Han/mcL [facility] Clarity, UA Clear [facility] re Color, UA Yellow [facility] e Glucose, UA Negative Negative - 1999(110) ++++ mg/dL [facility] Interpretation and review of laboratory results Abnormal [facility] Ketones, UA Negative Negative - 160(16) ++++ mg/dL [facility] Leukocytes, UA Positive Negative - 500+++ Jinny/mcL [facility] Comment on above: 3+ Nitrite, UA Negative Negative - Positive [facility] pH, UA 6 5 - 9 [facility] e Protein, UA Negative Negative - 1999(20) ++++ mg/dL [facility] Spec Grav, UA 1.02 1 - 1.03 [facility] Urobilinogen, UA 1.0 0.2 - 12 mg/dL [facility] Urinalysis macro (dipstick) panel (U)on 07-13-2025 Bilirubin, UA Negative Negative - 4(70) +++ mg/dL [facility] Blood, UA Negative Negative - 50 Han/mcL [facility] Clarity, UA Clear [facility] re Color, UA Yellow [facility] Glucose, UA Negative Negative - 1999(110) ++++ mg/dL [facility] Interpretation and review of laboratory results Abnormal [facility] Ketones, UA Negative Negative - 160(16) ++++ mg/dL [facility] Leukocytes, UA 1+ Negative - 500+++ Jinny/mcL [facility] Nitrite, UA Negative Negative - Positive [facility] pH, UA 6 5 - 9 [facility] e Protein, UA Trace Negative - 1999(20) ++++ mg/dL [facility] Spec Grav, UA 1.03 1 - 1.03 [facility] care Urobilinogen, UA 1.0 0.2 - 12 mg/dL [facility] US OB BPP W NON-STRESS on 07-08-2025 [place] [address] Ultrasound Report Signed Patient: KURTIS BARNES MR#: [id number] : 2000 Acct:[id number] Age/Sex: 24 / F ADM Date: Loc: [facility] 254-[address]: Renate Bonilla D.O. Ordering Physician: Renate Bonilla D.O. Date of Service: 07/08/25 Procedure(s): US OB BPP w non-stress Accession Number(s): [id number] cc: Renate Bonilla D.O.; Physician,Non-Staff M.DMaxx [place] [id number] Patient Name: KURTIS BARNES MRN: [facility]:[id number] date: 2000 Sex: F Assigned Patient Location: [facility] Current Patient Location: [facility] Accession/Order Number: [id number] Exam Date: 07/08/2025 10:11 Report Date: 07/08/2025 [...] Silva M.D. 07/08/2025 10:39 AM Dictation Location[facility] Electronically authenticated by: [id number] Y Date: 07/08/2025 10:39 Dictated By: Cheri Da Silva M.D. Signed By: 07/08/25 1041 DD/ 1039 TD/TT: Felling Machine Operator: [facility] Radiology, Radiologist, - 07/08/2025 [place] [address] Ultrasound Report Signed Patient: KURTIS BARNES MR#: [id number] : 2000 Acct:[id number] Age/Sex: 24 / F ADM Date: Loc: [facility] 254-[address]: Renate Bonilla D.O. Ordering Physician: Renate Bonilla D.O. Date of Service: 07/08/25 Procedure(s): US OB BPP w non-stress Accession Number(s): [id number] cc: Renate Bonilla D.O.; Physician,Non-Staff Charo The [address] [address] Patient Name: KURTIS BARNES MRN: [facility]:[id number] date: 2000 Sex: F Assigned Patient Location: [facility] Current Patient Location: [facility] Accession/Order Number: [id number] Exam Date: 07/08/2025 10:11 Report Date: 07/08/2025 [...] Silva M.D. 07/08/2025 10:39 AM Dictation Location: [facility] Electronically authenticated by: [id number] Y Date: 07/08/2025 10:39 Dictated By: Cheri Da Silva M.D. Signed By: 07/08/25 1041 DD/ 1039 TD/TT: Felling Machine Operator: [facility] Radiology Study observation (narrative) [facility] OB BPP W NON-STRESS Ordered By: Radiologist Radiology on 07-08-2025 [facility] Work Phone: Urinalysis macro (dipstick) panel (U)on 07-08-2025 Bilirubin, UA Negative Negative - 4(70) +++ mg/dL [facility] Blood, UA Negative Negative - 50 Han/mcL [facility] Clarity, [facility] Clear [facility], UA Straw [facility] e Glucose, UA Negative Negative - 2000(110) ++++ mg/dL [facility] Interpretation and review of laboratory results Abnormal [facility] Ketones, UA Negative Negative - 160(16) ++++ mg/dL [facility] Leukocytes, UA Positive Negative - 500+++ Jinny/mcL [facility] Nitrite, UA Negative Negative - Positive [facility] Healthcare pH, UA 6 5 - 9 [facility] Protein, UA Positive Negative - 1999(20) ++++ mg/dL [facility] Spec Grav, UA 1.02 1 - 1.03 [facility] Urobilinogen, UA 1.0 0.2 - 12 mg/dL [facility] Urinalysis macro (dipstick) panel (U)on 07-01-2025 Bilirubin, UA Negative Negative - 4(70) +++ mg/dL [facility] Healthcare Blood, UA Negative Negative - 50 Han/mcL [facility] Healthcare Clarity, UA Clear [facility] re Color, UA Yellow [facility] Glucose, UA Negative Negative - 1999(110) ++++ mg/dL [facility] Interpretation and review of laboratory results Normal [facility] Ketones, UA Negative Negative - 160(16) ++++ mg/dL [facility] Healthcare Leukocytes, UA Negative Negative - 500+++ Jinny/mcL [facility] Healthcare Nitrite, UA Negative Negative - Positive [facility] pH, UA 6 5 - 9 [facility] e Protein, UA Negative Negative - 1999(20) ++++ mg/dL [facility] Healthcare Spec Grav, UA 1.02 1 - 1.03 [facility] Health care Urobilinogen, UA 1.0 0.2 - 12 mg/dL [facility] Healthcare [facility] e Urinalysis macro (dipstick) panel (U)on 06-24-2025 Bilirubin, UA Negative Negative - 4(70) +++ mg/dL [facility] Healthcare Blood, UA Negative Negative - 50 Han/mcL [facility] Healthcare Clarity, UA Cloudy [facility] re Color, UA Yellow [facility] Glucose, UA Negative Negative - 1999(110) ++++ mg/dL [facility] Interpretation and review of laboratory results Abnormal [facility] Healthcare Ketones, UA Negative Negative - 160(16) ++++ mg/dL [facility] Healthcare Leukocytes, UA 1+ Negative - 500+++ Jinny/mcL [facility] Healthcare Nitrite, UA Negative Negative - Positive [facility] pH, UA 6 5 - 9 [facility] Protein, UA Negative Negative - 1999(20) ++++ mg/dL [facility] Healthcare Spec Grav, UA 1.02 1 - 1.03 [facility] Urobilinogen, UA 1.0 0.2 - 12 mg/dL [facility] Urinalysis macro (dipstick) panel (U)on 06-16-2025 Bilirubin, UA Negative Negative - 4(70) +++ mg/dL [facility] Blood, UA Negative Negative - 50 Han/mcL [facility] Healthcare Clarity, UA Clear [facility] re Color, UA Yellow [facility] Glucose, UA Negative Negative - 1999(110) ++++ mg/dL [facility] Interpretation and review of laboratory results Normal [facility] Ketones, UA Negative Negative - 160(16) ++++ mg/dL [facility] Healthcare Leukocytes, UA Negative Negative - 500+++ Jinny/mcL [facility] Healthcare Nitrite, UA Negative Negative - Positive [facility] pH, UA 6.5 5 - 9 [facility] Protein, UA Negative Negative - 1999(20) ++++ mg/dL [facility] Healthcare Spec Grav, UA 1.025 1 - 1.03 [facility] Urobilinogen, UA 1.0 0.2 - 12 mg/dL [facility] Urinalysis macro (dipstick) panel (U)on 05-31-2025 Bilirubin, UA Negative Negative - 4(70) +++ mg/dL [facility] Blood, UA Negative Negative - 50 Han/mcL [facility] Healthcare Clarity, UA Clear [facility] re Color, UA Yellow [facility] Glucose, UA Negative Negative - 1999(110) ++++ mg/dL [facility] Interpretation and review of laboratory results Abnormal [facility] Ketones, UA Negative Negative - 160(16) ++++ mg/dL [facility] Healthcare Leukocytes, UA Negative Negative - 500+++ Jinny/mcL [facility] Healthcare Nitrite, UA Negative Negative - Positive [facility] pH, UA 6 5 - 9 [facility] Protein, UA Trace Negative - 1999(20) ++++ mg/dL [facility] Healthcare Spec Grav, UA 0.03 1 - 1.03 [facility] Urobilinogen, UA 0.2 0.2 - 12 mg/dL [facility] US OB FOLLOW UP [...] II, MD, PHD at 20-May-2025 08:33:27 AM [facility] Normal Not Available Comment on above: Order Comment: US OB SCAN FOR GROWTH Estimated Date of Delivery: 07/21/25 Gestational Age as of 05/05/2025: 29w0d Urinalysis macro (dipstick) panel (U)on 05-19-2025 Bilirubin, UA Negative Negative - 4(70) +++ mg/dL [facility] Healthcare Blood, UA Negative Negative - 50 Han/mcL [facility] Clarity, UA Clear [facility] re Color, UA Yellow [facility] Glucose, UA Negative Negative - 2000(110) ++++ mg/dL [facility] Interpretation and review of laboratory results Normal [facility] Ketones, UA Negative Negative - 160(16) ++++ mg/dL [facility] Leukocytes, UA Negative Negative - 500+++ Jinny/mcL [facility] Nitrite, UA Negative Negative - Positive [facility] pH, UA 6 5 - 9 [facility] Protein, UA Negative Negative - 1999(20) ++++ mg/dL [facility] Spec Grav, UA 1.03 1 - 1.03 [facility] Urobilinogen, UA 0.2 0.2 - 12 mg/dL [facility] Urinalysis macro (dipstick) panel (U)on 05-05-2025 Bilirubin, UA Negative Negative - 4(70) +++ mg/dL [facility] Blood, UA Negative Negative - 50 Han/mcL [facility] Clarity, UA Clear [facility] re Color, UA Yellow [facility] Glucose, UA Negative Negative - 1999(110) ++++ mg/dL [facility] Healthcare Interpretation and review of laboratory results Abnormal [facility] Healthcare Ketones, UA Negative Negative - 160(16) ++++ mg/dL [facility] Healthcare Leukocytes, UA Negative Negative - 500+++ Jinny/mcL [facility] Healthcare Nitrite, UA Negative Negative - Positive [facility] pH, UA 6.5 5 - 9 [facility] Protein, UA Trace Negative - 1999(20) ++++ mg/dL [facility] Healthcare Spec Grav, UA 1.025 1 - 1.03 [facility] Health care Urobilinogen, UA 0.2 0.2 - 12 mg/dL [facility] Healthcare [facility] e Urinalysis macro (dipstick) panel (U)on 04-20-2025 Bilirubin, UA Negative Negative - 4(70) +++ mg/dL [facility] Healthcare Blood, UA Negative Negative - 50 Han/mcL [facility] Healthcare Clarity, UA Clear [facility] re Color, UA Sheree [facility] Glucose, UA Negative Negative - 1999(110) ++++ mg/dL [facility] Interpretation and review of laboratory results Abnormal [facility] Healthcare Ketones, UA Negative Negative - 160(16) ++++ mg/dL [facility] Healthcare Leukocytes, UA Negative Negative - 500+++ Jinny/mcL [facility] Healthcare Nitrite, UA Negative Negative - Positive [facility] pH, UA 5.5 5 - 9 [facility] Protein, UA Trace Negative - 1999(20) ++++ mg/dL [facility] Healthcare Spec Grav, UA 1.03 1 - 1.03 [facility] Urobilinogen, UA 0.2 0.2 - 12 mg/dL [facility] MLR HEMOGLOBIN A1Con 025 Glucose [Mass/Vol] 91 mg/dL [facility]althcare HbA1c (Bld) [Mass fraction] 4.8 % 4.5 - 6.2 % [facility] Comment on above: ADA RECOMMENDED LIMI T 4.0 - 6.0 ADA THERAPEUTIC TARGET < 7.0 ACTION SUGGESTED > 7.0 [facility] e US OB 14+ WEEKS ANATOMY SCAN [...] II, MD, PHD at 02-Apr-2025 10:21:46 AM [facility] Normal Not Available Comment on above: Order Comment: US OB ANATOMY SINGLE W US OB CERVICAL LENGTH Estimated Date of Delivery: 07/21/25 Gestational Age as of 02/23/2025: 18w6d Urinalysis macro (dipstick) panel (U)on 03-23-2025 Bilirubin, UA Negative Negative - 4(70) +++ mg/dL [facility] Blood, UA Negative Negative - 50 Han/mcL [facility] Clarity, UA Clear [facility] re Color, UA Yellow [facility] Glucose, UA Negative Negative - 1999(110) ++++ mg/dL [facility] Interpretation and review of laboratory results Abnormal [facility] Ketones, UA Negative Negative - 160(16) ++++ mg/dL [facility] Leukocytes, UA Negative Negative - 500+++ Jinny/mcL [facility] Nitrite, UA Negative Negative - Positive [facility] pH, UA 5.5 5 - 9 [facility] e Protein, UA Negative Negative - 1999(20) ++++ mg/dL [facility] Spec Grav, UA 1.02 1 - 1.03 [facility] Urobilinogen, UA 1.0 0.2 - 12 mg/dL [facility] RECURRENT VAGINITIS (HTRX)on 02-24-2025 ATOPOBIUM VAGINAE 0 [facility] ATOPOBIUM VAGINAE Not detected [facility] BVAB 2,3 (BACTERIAL VAGINOSIS ASSOCIATED BACTERIA 2, 3); MOBILUNCUS SPP 0 [facility] BVAB 2,3 (BACTERIAL VAGINOSIS ASSOCIATED BACTERIA 2, 3); MOBILUNCUS SPP Not detected [facility] INDU ALBICANS, PARAPSILOSIS, TROPICALIS 0 [facility] INDU ALBICANS, PARAPSILOSIS, TROPICALIS Not detected [facility] INDU GLABRATA 0 [facility] INDU GLABRATA Not detected [facility] INDU [facility]I [facility] KRUSEI Not detected [facility] CHLAMYDIA TRACHOMATIS 0 [facility] CHLAMYDIA TRACHOMATIS Not detected [facility] GARDNERELLA VAGINALIS 0 [facility] GARDNERELLA VAGINALIS Not detected [facility] MEGASPHAERA (TYPES 1, 2) 0 [facility] MEGASPHAERA (TYPES 1, 2) Not detected [facility] MYCOPLASMA GENITALIUM 0 [facility] MYCOPLASMA GENITALIUM Not detected [facility] NEISSERIA GONORRHOEAE 0 [facility] NEISSERIA GONORRHOEAE Not detected [facility] TRICHOMONAS VAGINALIS 0 [facility] TRICHOMONAS VAGINALIS Not detected [facility] ALL CBC WITH AUTO DIFFon BASOPHILS ABSOLUTE AUTO 0 [facility] Basophils/100 WBC (Bld) 0.3 % 0.2 - 2.0 % [facility] Eosinophils/100 WBC (Bld) 1.2 % 0.9 - 7.0 % [facility] Erythrocyte distribution width (RBC) [Ratio] 12.6 % 11.0 - 15.0 % [facility] Hematocrit (Bld) [Volume fraction] 35.1 % Low 36.0 - 48.0 % [facility] Hemoglobin (Bld) [Mass/Vol] 12.5 g/dL 12.0 - 16.0 g/dL [facility] IMMATURE GRANULOCYTES ABS AUTO 0.06 High [facility] Immature granulocytes/100 WBC (Bld) 0.4 % 0.0 - 0.5 % [facility] Interpretation and review of laboratory results Abnormal [facility] LYMPHOCYTES ABSOLUTE AUTO 3.8 [facility] Lymphocytes/100 WBC (Bld) 27.2 % 20.5 - 60.0 % [facility] MCH (RBC) [Entitic mass] 32.2 pg 26.7 - 34.0 pg [facility] MCHC (RBC) [Mass/Vol] 35.6 g/dL High 29.9 - 35.2 g/dL [facility] MCV (RBC) [Entitic vol] 90.5 fL 81.0 - 99.0 fL [facility] MONOCYTES ABSOLUTE AUTO 0.8 [facility] Monocytes/100 WBC (Bld) 5.5 % 1.7 - 12.0 % [facility] NEUTROPHILS ABSOLUTE AUTO 9.2 High [facility] Neutrophils/100 WBC (Bld) 65.4 % 43.0 - 75.0 % [facility] Platelet mean volume (Bld) [Entitic vol] 9.2 fL Low 9.5 - 13.5 fL [facility] EO # 0.2 [facility] TB PLT 245 [facility] RBC 3.88 Low [facility] WBC 14.1 High [facility] Urinalysis macro (dipstick) panel (U)on 02-23-2025 Bilirubin, UA Negative Negative - 4(70) +++ mg/dL [facility] Blood, UA Negative Negative - 50 Han/mcL [facility] Clarity, UA Clear [facility] re Color, UA Yellow [facility] Glucose, UA Negative Negative - 1999(110) ++++ mg/dL [facility] Interpretation and review of laboratory results [...] Urobilinogen, UA 1.0 0.2 - 12 mg/dL [facility] Urinalysis macro (dipstick) panel (U)on 01-25-2025 Bilirubin, UA Negative Negative - 4(70) +++ mg/dL [facility] Blood, UA Positive Negative - 50 Han/mcL [facility] Comment on above: trace-intact Clarity, UA Clear [facility] re Color, UA Yellow [facility] Glucose, UA Negative Negative - 1999(110) ++++ mg/dL [facility] Interpretation and review of laboratory results Abnormal [facility] Ketones, UA Negative Negative - 160(16) ++++ mg/dL [facility] Leukocytes, UA Negative Negative - 500+++ Jinny/mcL [facility] Nitrite, UA Negative Negative - Positive [facility] pH, UA 6.5 5 - 9 [facility] Protein, UA Negative Negative - 1999(20) ++++ mg/dL [facility] Spec Grav, UA 1.025 1 - 1.03 [facility] Urobilinogen, UA 0.2 0.2 - 12 mg/dL [facility] HCG ( test) Ql (U)o n 12-25-2024 Interpretation and review of laboratory results Abnormal [facility] Preg Test, Ur Positive Negative [facility] Urinalysis macro (dipstick) panel (U)on 12-25-2024 Bilirubin, UA Negative Negative - 4(70) +++ mg/dL [facility] Blood, UA Positive Negative - 50 Han/mcL [facility] Comment on above: small Clarity, UA Clear [facility] [employer] re Color, UA Yellow [facility] [employer] Glucose, UA Negative Negative - 1999(110) ++++ mg/dL [facility] Interpretation and review of laboratory results Abnormal [facility] Ketones, UA Negative Negative - 160(16) ++++ mg/dL [facility] Leukocytes, UA Negative Negative - 500+++ Jinny/mcL [facility] Nitrite, UA Negative Negative - Positive [facility] pH, UA 6 5 - 9 [facility] [employer] Protein, UA Negative Negative - 1999(20) ++++ mg/dL [facility] Spec Grav, UA 1.03 1 - 1.03 [facility] Urobilinogen, UA 0.2 0.2 - 12 mg/dL [facility] US OB TRANSVAGINALon 025 [...] II, MD, PHD at 25-Dec-2024 08:23:40 AM [facility] Normal Not Available Comment on above: [...] GERMAIN LUNA Date: 2021-11-27 08:39 Normal [facility] COVID Quick Testingon 2020 Result Negative [employer] Other Vital Signs Date Time Vital Sign Value Performing Clinician Facility 07-20-2025 08:44-0400 Body weight 143.34 kg Melissa Cowan NP Work Phone: [facility] 07-20-2025 08:44-0400 Diastolic blood pressure 80 mm[Hg] Melissa Cowan NP Work Phone: [facility] 07-20-2025 08:44-0400 Systolic blood pressure 130 mm[Hg] Melissa Cowan NP Work Phone: [facility] 07-13-2025 09:09-0400 Body weight 143.25 kg Myrna GARIBAY Work Phone: [facility] 07-13-2025 09:09-0400 Diastolic blood pressure 82 mm[Hg] Myrna GARIBAY Work Phone: [facility] 07-13-2025 09:09-0400 Systolic blood pressure 128 mm[Hg] Myrna GARIBAY Work Phone: [facility] 07-08-2025 09:29-0400 Body weight 139.25 kg Renate Irene DO Work Phone: [facility] 07-08-2025 09:29-0400 Diastolic blood pressure 76 mm[Hg] Renate Irene DO Work Phone: [facility] 07-08-2025 09:29-0400 Systolic blood pressure 138 mm[Hg] Renate Irene DO Work Phone: [facility] 07-01-2025 09:11-0400 Body weight 138.35 kg Myrna GARIBAY Work Phone: [facility] 07-01-2025 09:11-0400 Diastolic blood pressure 76 mm[Hg] Myrna GARIBAY Work Phone: [facility] 07-01-2025 09:11-0400 Systolic blood pressure 128 mm[Hg] Myrna Garcia PA Work Phone: [facility] 06-24-2025 08:45-0400 Body weight 134.72 kg Renate Irene DO Work Phone: [facility] 06-24-2025 08:45-0400 Diastolic blood pressure 82 mm[Hg] Renate Irene DO Work Phone: [facility] 06-24-2025 08:45-0400 Systolic blood pressure 126 mm[Hg] Renate Irene DO Work Phone: [facility] 06-16-2025 08:58-0400 Body weight 131.14 kg Myrna GARIBAY Work Phone: [facility] 06-16-2025 08:58-0400 Diastolic blood pressure 82 mm[Hg] Myrna Garcia PA Work Phone: [facility] 06-16-2025 08:58-0400 Systolic blood pressure 120 mm[Hg] Myrna GARIBAY Work Phone: [facility] 05-31-2025 08:51-0400 Body weight 125.08 kg Renate Irene DO Work Phone: [facility] 05-31-2025 08:51-0400 Diastolic blood pressure 82 mm[Hg] Renate Irene DO Work Phone: [facility] 05-31-2025 08:51-0400 Systolic blood pressure 126 mm[Hg] Renate Irene DO Work Phone: [facility] 05-19-2025 10:38-0400 Body weight 123.49 kg Melissa Camryn CUSTOMER SERVICE REPRESENTATIVE TELLER Work Phone: [facility] 05-19-2025 10:38-0400 Diastolic blood pressure 72 mm[Hg] Melissa Eberly CUSTOMER SERVICE REPRESENTATIVE TELLER Work Phone: [facility] 05-19-2025 10:38-0400 Systolic blood pressure 120 mm[Hg] Melissa Camryn CUSTOMER SERVICE REPRESENTATIVE TELLER Work Phone: [facility] 05-05-2025 09:06-0400 Body weight 121.9 kg Myrna GARIBAY Work Phone: [facility] 05-05-2025 09:06-0400 Diastolic blood pressure 80 mm[Hg] Myrna GARIBAY Work Phone: [facility] 05-05-2025 09:06-0400 Systolic blood pressure 132 mm[Hg] Myrna GARIBAY Work Phone: [facility] 04-20-2025 09:27-0400 Body weight 122.24 kg Renate Irene DO Work Phone: [facility] 04-20-2025 09:27-0400 Diastolic blood pressure 70 mm[Hg] Renate Irene DO Work Phone: [facility] 04-20-2025 09:27-0400 Systolic blood pressure 120 mm[Hg] Renate Irene DO Work Phone: [facility] 03-23-2025 11:11-0400 Body weight 119.35 kg Renate Irene DO Work Phone: [facility] 03-23-2025 11:11-0400 Diastolic blood pressure 74 mm[Hg] Renate Irene DO Work Phone: [facility] 03-23-2025 11:11-0400 Systolic blood pressure 114 mm[Hg] Renate Irene DO Work Phone: [facility] 02-23-2025 10:18-0400 Body weight 116.48 kg Myrna Garcia PA Work Phone: [facility] 02-23-2025 10:18-0400 Diastolic blood pressure 70 mm[Hg] Myrna Garcia PA Work Phone: [facility] 02-23-2025 10:18-0400 Systolic blood pressure 116 mm[Hg] Myrna Garcia PA Work Phone: [facility] 01-25-2025 11:32-0400 Body weight 117.84 kg Renate Irene DO Work Phone: [facility] 01-25-2025 11:32-0400 Diastolic blood pressure 68 mm[Hg] Renate Irene DO Work Phone: [facility] 01-25-2025 11:32-0400 Systolic blood pressure 118 mm[Hg] Renate Irene DO Work Phone: [facility] 12-25-2024 11:54-0500 Body weight 109.77 kg Nom Nurse [facility] 12-25-2024 11:54-0500 Diastolic blood pressure 70 mm[Hg] [facility] 12-25-2024 11:54-0500 Systolic blood pressure 118 mm[Hg] [facility] 05-01-2023 13:20-0400 Body height 175.26 cm Isadora Arroyo Other [employer] Other 05-01-2023 13:20-0400 Body mass index (BMI) [Ratio] 38.98 kg/m2 Isadora Arroyo Other [employer] Other 05-01-2023 13:20-0400 Body temperature 97.8 [degF] Isadora Arroyo Other [employer] Other 05-01-2023 13:20-0400 Body weight 119.75 kg Isadora Arroyo Other [employer] Other 05-01-2023 13:20-0400 Respiratory rate 18 /min Isadora Arroyo Other [employer] Other 05-01-2023 13:20-0400 SaO2% (BldA) [Mass fraction] 98 % Isadora Arroyo Other [employer] Other 09-19-2021 14:15-0500 Body height 175.26 cm Sheree Ginty Other [employer] Other 09-19-2021 14:15-0500 Body mass index (BMI) [Ratio] 36.91 kg/m2 Sheree Ginty Other [facility] Other 09-19-2021 14:15-0500 Body temperature 96.3 [degF] Sheree Ginty Other [facility] Other 09-19-2021 14:15-0500 Body weight 113.4 kg Sheree Ginty Other [facility] Other 09-19-2021 14:15-0500 Respiratory rate 18 /min Sheree Ginty Other [facility] Other 09-19-2021 14:15-0500 SaO2% (BldA) [Mass fraction] 97 % Sheree Ginty Other [facility] Other 07-27-2021 11:15-0400 Body height 175.26 cm Sheree Ginty Other [facility] Other 07-27-2021 11:15-0400 Body mass index (BMI) [Ratio] 36.91 kg/m2 Sheree Ginty Other [facility] Other 07-27-2021 11:15-0400 Body temperature 96.7 [degF] Sheree Ginty Other [facility] Other 07-27-2021 11:15-0400 Body weight 113.4 kg Sheree Ginty Other [facility] Other 07-27-2021 11:15-0400 Respiratory rate 18 /min Sheree Ginty Other [facility] Other 07-27-2021 11:15-0400 SaO2% (BldA) [Mass fraction] 98 % Sheree Ginty Other [facility] Other Encounters Encounter Date Encounter Type Care Provider Facility Start: 07-20-2025 End: 07-20-2025 Bamboo flowsheet Melissa Cowan NP Work Phone: [facility] Start: 07-20-2025 End: 07-20-2025 Bamboo flowsheet Melissa Cowan CUSTOMER SERVICE REPRESENTATIVE TELLER Work Phone: [facility] Start: 07-20-2025 End: 07-20-2025 Office outpatient visit 15 minutes Melissa Cowan CUSTOMER SERVICE REPRESENTATIVE TELLER Work Phone: [facility] Comment on above: Third trimester preg leticia ([facility]); 39 weeks gestation of ([facility]) Start: 07-20-2025 End: 07-20-2025 ambulatory MELISSA COWAN Not Available Start: 07-13-2025 End: 07-13-2025 Bamboo flowsheet Myrna GARIBAY Work Phone: [facility] Start: 07-13-2025 End: 07-13-2025 Bamboo flowsheet Myrna GARIBAY Work Phone: [facility] Start: 07-13-2025 End: 07-13-2025 ambulatory MYRNA GARCIA Not Available Start: 07-13-2025 End: 07-13-2025 flow sheet Myrna GARIBAY Work Phone: [facility] Comment on above: 38 weeks gestation o f ([facility]) (Primary Dx); Third trimester ([facility]) Start: 07-08-2025 End: 07-08-2025 Bamboo flowsheet Renate Irene DO Work Phone: [facility] Start: 07-08-2025 End: 07-08-2025 Bamboo flowsheet Renate Irene DO Work Phone: [facility] Start: 07-08-2025 End: 07-08-2025 Clinisync Result Encounter Renate Irene DO Work Phone: [facility] Unsolicited Start: 07-08-2025 End: 07-08-2025 flow sheet Renate Irene DO Work Phone: [facility] Comment on above: 38 weeks gestation o f ([facility]); Third trimester ([facility]) Start: 07-08-2025 End: 07-08-2025 ambulatory RENATE IRENE Not Available Start: 07-01-2025 End: 07-01-2025 Bamboo flowsheet Myrna GARIBAY Work Phone: [facility] Start: 07-01-2025 End: 07-01-2025 Bamboo flowsheet Myrna GARIBAY Work Phone: [facility] Start: 07-01-2025 End: 07-01-2025 flow sheet Myrna GARIBAY Work Phone: [facility] Comment on above: Third trimester preg leticia ([facility]); 37 weeks gestation of ([facility]) Start: 07-01-2025 End: 07-01-2025 ambulatory MYRNA GARCIA Not Available Start: 06-24-2025 End: 06-24-2025 Bamboo flowsheet Renate Irene DO Work Phone: [facility] Start: 06-24-2025 End: 06-24-2025 Bamboo flowsheet Renate Irene DO Work Phone: [facility] Start: 06-24-2025 End: 06-24-2025 flow sheet Renate Irene DO Work Phone: [facility] Comment on above: Third trimester preg leticia ([facility]); 36 weeks gestation of ([facility]) Start: 06-24-2025 End: 06-24-2025 ambulatory RENATE [...] on above: Third trimester preg leticia ([facility]); 35 weeks gestation of ([facility]) Start: 05-31-2025 End: 05-31-2025 Bamboo flowsheet Renate Irene DO Work Phone: [facility] Start: 05-31-2025 End: 05-31-2025 Bamboo flowsheet Renate Irene DO Work Phone: [facility] Start: 05-31-2025 End: 05-31-2025 flow sheet Renate Irene DO Work Phone: [facility] Comment on above: Third trimester preg leticia ([facility]); 32 weeks gestation of ([facility]) Start: 05-31-2025 End: 05-31-2025 ambulatory RENATE IRENE Not Available Start: 05-19-2025 End: 05-19-2025 Office outpatient visit 15 minutes Melissa Cowan CUSTOMER SERVICE REPRESENTATIVE TELLER Work Phone: [facility] Comment on above: Third trimester preg leticia ([facility]); 31 weeks gestation of ([facility]) Start: 05-19-2025 End: 05-19-2025 ambulatory MELISSA [...] istent with dates in second trimester ([facility]) (Primary Dx); Third trimester ([facility]); 29 weeks gestation of ([facility]) Start: 04-20-2025 End: 04-20-2025 Bamboo flowsheet Renate Irene DO Work Phone: [facility] Start: 04-20-2025 End: 04-20-2025 Bamboo flowsheet Renate Irene DO Work Phone: [facility] Start: 04-20-2025 End: 04-20-2025 flow sheet Renate Irene DO Work Phone: [facility] Comment on above: Second trimester pre gnancy ([facility]); 26 weeks gestation of ([facility]) Start: 04-20-2025 End: 04-20-2025 ambulatory RENATE [...] 05-01-2023 End: 05-01-2023 ambulatory Isadora Arroyo Other [facility] Other Start: 05-01-2023 Office outpatient vi sit 15 minutes Isadora Arroyo [facility] Start: 11-27-2021 End: 11-27-2021 ambulatory OHRACIO ESCOBAR Facility: Start: 09-19-2021 End: 09-19-2021 ambulatory Sheree Kimbrough Other [facility] Other Start: 09-19-2021 Office outpatient vi sit 15 minutes Sheree Ginty [facility] Start: 07-27-2021 Office outpatient vi sit 15 minutes Sheree Ginty [facility] Procedures Date Procedure Procedure Detail Performing Clinician Start: 07-20-2025 Urnls dip stick/tabl et rgnt non-auto w/o micrscp Melissa Cowan NP Work Phone: Start: 07-13-2025 Urnls dip stick/tabl et rgnt non-auto w/o micrscp Myrna GARIBAY Work Phone: Start: 07-08-2025 US OB BPP W NON-STRESS Renate Irene DO [...] Phone: Start: 02-23-2025 RECURRENT VAGINITIS (HTRX) Myrna Garcia PA Work Phone: Start: 02-23-2025 ALL CBC WITH [...] Treatment Date Care Activity Detail Author Start: 07-27-2025 End: 07-27-2025 Patient encounter procedure 07/27/2025 9:50 AM EDT Routine [facility] [address] [place] [address] Melissa Cowan, CUSTOMER SERVICE REPRESENTATIVE TELLER [address] [place] [address] [facility] Start: 07-20-2025 End: 07-20-2025 Patient encounter procedure [facility] Comment on above: Arrived Start: 07-13-2025 End: 07-13-2025 Patient encounter procedure 07/13/2025 8:50 AM EDT Routine [facility] [address] [place] [id number] Myrna Garcia PA [address] [place] [address] [facility] Start: 07-08-2025 End: 07-08-2025 Patient encounter procedure [facility] Comment on above: Arrived Start: 07-01-2025 End: 07-01-2025 Patient encounter procedure [facility] Comment on above: Arrived Start: 06-24-2025 End: 06-24-2026 CULTURE, GROUP B STREP WITH SUSCEPTIBLITY CULTURE, GROUP B STREP WITH SUSCEPTIBLITY Lab Routine Third trimester ([facility]) Expected: 06/24/2025, Expires: 06/24/2026 [facility] Work Phone: Comment on above: Expected: 06/24/2025 , Expires: 06/24/2026 Start: 06-24-2025 End: 06-24-2025 Patient encounter procedure [facility] Comment on above: Arrived Start: 06-21-2025 Influenza vaccination [facility] Start: 06-16-2025 End: 06-16-2025 Patient encounter procedure 06/16/2025 8:50 AM EDT Routine [facility] [address] [id number] Myrna Garcia PA [address] [place] [address] [facility] Start: 05-31-2025 End: 05-31-2025 Patient encounter procedure 05/31/2025 8:40 AM EDT Routine [facility] [address] [id number] Renate Bonilla DO [address] [place] [address] Arrived [facility] [place] [facility] Comment on above: Arrived Start: 05-05-2025 End: 09-05-2025 US for US OB follow up transabdominal approach Imaging Routine Size of fetus inconsistent with dates in second trimester ([facility]) Expected: 05/05/2025, Expires: 09/05/2025 [facility] Work Phone: Comment on above: Expected: 05/05/2025 , Expires: 09/05/2025 Start: 05-05-2025 End: 05-05-2025 Patient encounter procedure 05/05/2025 8:30 AM EDT Routine [facility] [address] [place] [place] [address] Melissa Cowan, CUSTOMER SERVICE REPRESENTATIVE TELLER [address] [place] [id number] [facility] Start: 04-20-2025 End: 04-20-2025 Patient encounter procedure [facility] Comment on above: Arrived Start: 03-31-2025 End: 03-31-2025 Professional / ancillary services management 03/31/2025 8:30 AM EDT Ancillary Procedure [facility] [address] [place] [address] [facility] Start: 03-23-2025 End: 03-23-2026 CBC panel - Blood by Automated count CBC Lab Routine Diabetes mellitus screening Expected: 03/23/2025 (Approximate), Expires: 03/23/2026 [facility] Work Phone: Comment on above: Expected: 03/23/2025 (Approximate), Expires: 03/23/2026 Start: 03-23-2025 End: 03-23-2026 Measurement of glucose 1 hour after glucose challenge for glucose tolerance test Glucose tolerance, 1 hour Lab Routine Diabetes mellitus screening Expected: 03/23/2025 (Approximate), Expires: 03/23/2026 [facility] Comment on above: Expected: 03/23/2025 (Approximate), Expires: 03/23/2026 Start: 03-23-2025 End: 03-23-2025 Patient encounter procedure [facility] Comment on above: Arrived Start: 02-23-2025 End: 08-26-2025 Alpha fetoprotein, maternal Alpha fetoprotein, maternal Lab Routine Second trimester 18 weeks gestation of Expected: 02/23/2025 (Approximate), Expires: 08/26/2025 [facility] Comment on above: Expected: 02/23/2025 (Approximate), Expires: 08/26/2025 Start: 02-23-2025 End: 05-26-2025 US for US OB 14+ weeks anatomy scan Imaging Routine Screening, , for anatomic survey Expected: 02/23/2025, Expires: 05/26/2025 [facility] Comment on above: Expected: 02/23/2025 , Expires: 05/26/2025 Start: 02-23-2025 End: 02-23-2025 Patient encounter procedure [facility] Comment on above: Arrived Start: 12-24-2024 End: 12-24-2025 ABO/Rh ABO/Rh Lab Routine Missed menses , unspecified gestational age Expected: 12/24/2024 (Approximate), Expires: 12/24/2025 [facility] Comment on above: Expected: 12/24/2024 (Approximate), Expires: 12/24/2025 Start: 12-24-2024 End: 12-24-2025 Blood type and Indirect antibody screen panel - Blood Type and screen Lab Routine Missed menses , unspecified gestational age Expected: 12/24/2024 (Approximate), Expires: 12/24/2025 [facility] Work Phone: Comment on above: Expected: 12/24/2024 (Approximate), Expires: 12/24/2025 Start: 12-24-2024 End: 12-24-2025 Drugs of abuse panel - Urine by Screen method Rapid drug screen, urine Lab Routine , unspecified gestational age Encounter for supervision of normal first in first trimester Expected: 12/24/2024 (Approximate), Expires: 12/24/2025 [facility] Comment on above: Expected: 12/24/2024 (Approximate), Expires: 12/24/2025 Bacteria identified in Urine by Culture Urine culture Microbiology Routine Missed menses Ordered: 12/24/2024 [facility] Comment on above: Ordered: 12/24/2024 CBC W Auto Different ial panel - Blood CBC and differential Lab Routine Missed menses , unspecified gestational age Ordered: 12/24/2024 [facility] Comment on above: Ordered: 12/24/2024 CHLAMYDIA TRACHOMATI S (GENITO/STI) CHLAMYDIA TRACHOMATIS (GENITO/STI) Lab Routine STD exposure Ordered: 02/23/2025 [facility] Comment on above: Ordered: 02/23/2025 Cytology Cervical or vaginal smear or scraping study Pap Smear Pathology and Cytology Routine Well woman exam with routine gynecological exam Ordered: 02/23/2025 [facility] Comment on above: Ordered: 02/23/2025 Hemoglobin A1c/Hemoglobin.total in Blood Hemoglobin A1c Lab Routine Missed menses , unspecified gestational age Ordered: 12/24/2024 [facility] Comment on above: Ordered: 12/24/2024 Hepatitis B virus surface Ag [Presence] in Serum or Plasma by Immunoassay Hepatitis B surface antigen Lab Routine Missed menses , unspecified gestational age Ordered: 12/24/2024 [facility] Comment on above: Ordered: 12/24/2024 Hepatitis C virus Ab [Presence] in Serum or Plasma by Immunoassay Hepatitis C antibody Lab Routine Missed menses , unspecified gestational age Ordered: 12/24/2024 [facility] Comment on above: Ordered: 12/24/2024 HIV-1/HIV-2 antigen/antibody combination immunoassay HIV-1 and HIV-2 antibodies Lab Routine Missed menses , unspecified gestational age Ordered: 12/24/2024 [facility] Comment on above: Ordered: 12/24/2024 Neisseria gonorrhoea e DNA [Presence] in Unspecified specimen by COLLIN with probe detection Neisseria gonorrhea DNA probe, direct Lab Routine STD exposure Ordered: 02/23/2025 [facility] Comment on above: Ordered: 02/23/2025 Reagin Ab [Presence] in Serum by RPR RPR Lab Routine Missed menses , unspecified gestational age Ordered: 12/24/2024 [facility] Comment on above: Ordered: 12/24/2024 Rubella antibody, IgG Rubella an tibody, IgG Lab Routine Missed menses , unspecified gestational age Ordered: 12/24/2024 [facility] Comment on above: Ordered: 12/24/2024 SURESWAB(R) ADVANCED VAGINITIS PLUS, TMA SURESWAB(R) ADVANCED VAGINITIS PLUS, TMA Pathology and Cytology Routine Vaginal discharge Ordered: 02/23/2025 [facility] Work Phone: Comment on above: Ordered: 02/23/2025 Thyrotropin [Units/volume] in Serum or Plasma TSH Lab Routine , unspecified gestational age Ordered: 12/24/2024 [facility] Comment on above: Ordered: 12/24/2024 Immunizations Immunization Date Immunization Notes Care Provider Fa jack 11-17-2012 influenza virus vacc ine, unspecified formulation Renateneida Bonilla DO Work Phone: [facility] Payers Date Payer Category Payer Private Health Insurance [employer] [id number] 2024 Unknown [id number] 1998 Unknown [id number] 2..[id number]. 2.593 1998 Unknown [id number] 2.16.840.1.777905.3.579. 2.1259 1998 Unknown [id number] 2.16.840.1.312670.3.579. 2.1259 1998 Unknown [id number] 2.16.840.1.836222.3.579. 2.1259 1998 Unknown [id number] 2.16.840.1.100861.3.579. 2.1259 1998 Unknown [id number] 2.16.840.1.918154.3.579. 2.1259 1998 Unknown [id number] 2.16.840.1.813425.3.579. 2.9 1998 Unknown [id number] 2.16.840.1.436137.3.579. 2.9 1998 Unknown [id number] 2.16.840.1.382073.3.579. 2.1258 1998 Unknown [id number] 2.16.840.1.259583.3.579. 2.9 1998 Unknown [id number] 2.16.840.1.892632.3.579. 2.9 1998 Unknown [id number] 2.16.840.1.232595.3.579. 2.9 1998 Unknown [id number] 2.16.840.1.964806.3.579. 2.1258 1998 Unknown [id number] 2.16.840.1.015984.3.579. 2.9 1998 Unknown [id number] 2.16.840.1.046353.3.579. 2.1258 1998 Unknown [id number] 2.16.840.1.106710.3.579. 2.9 1998 Unknown [id number] 2.16.840.1.355544.3.579. 2.1258 1998 Unknown [id number] 2.16.840.1.003263.3.579. 2.9 1959 Unknown [id number] Unknown [id number] 2.16.840.1.308052.19 Social History Date Type Detail Facility Sex Assigned At [facility] Other Tobacco smoking status [facility] Tobacco smoking consumption unknown [facility] Start: 10-28-2024 [facility] Start: 1998 Sex assigned at Not on file [facility] Clinical Notes 07-27-2021 to 07-20-2025 Melissa Cowan NP - 07/20/2025 8:40 AM [facility] - 07/13/2025 8:50 AM Sarina Gunderson LPN - 07/08/2025 9:20 AM [facility] - 07/01/2025 9:10 AM EDT Note Date & Type Note Facility 07-20-2025 History of Presen t illness Narrative Reason [...] nursing note reviewed. Exam conducted with a contract sheltered workshop supervisor present. Vitals: There is no height or weight on file to calculate BMI. BP: 130/80 Patient's last menstrual period was 10/23/2024. ASSESSMENT & PLAN ICD-10-CM 1. Third trimester ([facility]) Z34.93 POCT urinalysis dipstick manually resulted 2. 39 weeks gestation of ([facility]) Z3A.39 POCT urinalysis dipstick manually resulted [...] Melissa Cowan NP documented in this encounter [facility] 07-13-2025 History of Presen t illness Narrative Reason [...] nursing note reviewed. Exam conducted with a contract sheltered workshop supervisor present. Vitals: There is no height or weight on file to calculate BMI. BP: 128/82 Patient's last menstrual period was 10/23/2024. ASSESSMENT & PLAN ICD-10-CM 1. 38 weeks gestation of ([facility]) Z3A.38 POCT urinalysis dipstick manually resulted 2. Third trimester ([facility]) Z34.93 POCT urinalysis dipstick manually resulted [...] of: [facility] documented in this encounter [facility] 07-08-2025 History of Presen t illness Narrative [...] nursing note reviewed. Exam conducted with a contract sheltered workshop supervisor present. Vitals: There is no height or weight on file to calculate BMI. BP: 138/76 Patient's last menstrual period was 10/23/2024. ASSESSMENT & PLAN ICD-10-CM 1. 38 weeks gestation of ([facility]) Z3A.38 POCT urinalysis dipstick manually resulted 2. Third trimester ([facility]) Z34.93 POCT urinalysis dipstick manually resulted Patient presents today for a routine obstetrics appointment. Patient is currently 38w1d with a Estimated Date of Delivery: 07/21/25. Elevated BP this morning and protein in urine, patient to be assessed at [facility] with possible follow up over the weekend at [facility]. Pelvic exam performed and patient is 1cm and 80% effaced. Patient to return to clinic in 1 week for routine OB. Documented by Sonia Gunderson LPN on behalf of: Renate Bonilla DO documented in this encounter [facility] 07-01-2025 History of Presen t illness Narrative [...] ASSESSMENT & PLAN ICD-10-CM 1. Third trimester ([facility]) Z34.93 2. 37 weeks gestation of ([facility]) Z3A.37 Return OB: Patient presents today for [...] of: [place] Desir documented in this encounter [facility] 06-24-2025 History of Presen t illness Narrative [...] nursing note reviewed. Exam conducted with a contract sheltered workshop supervisor present. Vitals: There is no height or weight on file to calculate BMI. BP: 126/82 Patient's last menstrual period was 10/23/2024. ASSESSMENT & PLAN ICD-10-CM 1. Third trimester ([facility]) Z34.93 POCT urinalysis dipstick manually resulted CULTURE, GROUP B STREP WITH SUSCEPTIBLITY CULTURE, GROUP B STREP WITH SUSCEPTIBLITY 2. 36 weeks gestation of ([facility]) Z3A.36 Return OB: Patient presents today [...] Renate Bonilla DO documented in this encounter [facility] 06-16-2025 History of Presen t illness Narrative [...] & PLAN ICD-10-CM 1. Third trimester ([facility]) Z34.93 POCT urinalysis dipstick manually resulted POCT urinalysis dipstick manually resulted 2. 35 weeks gestation of ([facility]) Z3A.35 POCT urinalysis dipstick manually resulted [...] of: [place] Desir documented in this encounter [facility] 05-31-2025 History of Presen t illness Narrative [...] nursing note reviewed. Exam conducted with a contract sheltered workshop supervisor present. Vitals: There is no height or weight on file to calculate BMI. BP: 126/82 Patient's last menstrual period was 10/23/2024. ASSESSMENT & PLAN ICD-10-CM 1. Third trimester ([facility]) Z34.93 POCT urinalysis dipstick manually resulted 2. 32 weeks gestation of ([facility]) Z3A.32 Return OB: Patient presents today [...] Renate Bonilla DO documented in this encounter [facility] 05-19-2025 History of Presen t illness Narrative [...] nursing note reviewed. Exam conducted with a contract sheltered workshop supervisor present. Vitals: There is no height or weight on file to calculate BMI. BP: 120/72 Patient's last menstrual period was 10/23/2024. ASSESSMENT & PLAN ICD-10-CM 1. Third trimester ([facility]) Z34.93 POCT urinalysis dipstick manually resulted 2. 31 weeks gestation of ([facility]) Z3A.31 Return OB: Patient presents today [...] Melissa Cowan NP documented in this encounter [facility] 05-05-2025 History of Presen t illness Narrative [...] nursing note reviewed. Exam conducted with a contract sheltered workshop supervisor present. Vitals: There is no height or weight on file to calculate BMI. BP: 132/80 Patient's last menstrual period was 10/23/2024. ASSESSMENT & PLAN ICD-10-CM 1. Size of fetus inconsistent with dates in second trimester ([facility]) O26.842 US OB follow up transabdominal approach 2. Third trimester ([facility]) Z34.93 POCT urinalysis dipstick manually resulted 3. 29 weeks gestation of ([facility]) Z3A.29 Return OB: Patient presents today [...] of: [place] Desir documented in this encounter [facility] 04-20-2025 History of Presen t illness Narrative [...] nursing note reviewed. Exam conducted with a contract sheltered workshop supervisor present. Vitals: There is no height or weight on file to calculate BMI. BP: 120/70 Patient's last menstrual period was 10/23/2024. ASSESSMENT & PLAN ICD-10-CM 1. Second trimester ([facility]) Z34.92 POCT urinalysis dipstick manually resulted 2. 26 weeks gestation of ([facility]) Z3A.26 Return OB: Patient presents today for [...] Renate Bonilla DO documented in this encounter [facility] 03-23-2025 History of Presen t illness Narrative [...] nursing note reviewed. Exam conducted with a contract sheltered workshop supervisor present. Vitals: There is no height [...] Renate Bonilla DO documented in this encounter [facility] 02-23-2025 History of Presen t illness Narrative [...] nursing note reviewed. Exam conducted with a contract sheltered workshop supervisor present. Vitals: There is no height [...] of: [place] Desir documented in this encounter [facility] 01-25-2025 History of Presen t illness Narrative [...] nursing note reviewed. Exam conducted with a contract sheltered workshop supervisor present. Vitals: There is no height [...] Renate Bonilla DO documented in this encounter [facility] 12-24-2024 History of Presen t illness Narrative [...] Regla Gutierrez MA documented in this encounter [facility] 09-19-2021 Evaluation note Encounter Date Diagnosis Assessment [...] Patient care instructions given in writting by [employer] [facility] document [employer] Other 10-07-2021 Evaluation note* Encounter Date Diagnosis [...] Patient care instructions given in writting by [employer] document [employer] Other Evaluation noteNort [employer] Other Evaluation note* Diagnosis Nausea and vomiting [...] HealthcareEvaluation note* Diagnosis 38 weeks gestation of ([facility])- Primary Third trimester ([facility]) state, incidental [facility] Diagnosis Third trimester ([facility]) state, incidental 39 weeks gestation of ([facility]) documented in this encounter [facility] Summary Purpose Family History No Family History Records FoundNo Family History Records Found Advance Directives No Advanced Directives Records FoundNo Advanced Directives Records Found Additional Source Comments INFORMATION SOURCE (unrecogn ized section and content) DATE CREATED AUTHOR 11/29/2021 [facility] DATE CREATED AUTHOR AUTHOR'S ORGANIZ ATION 07/25/2025 [facility] EPIC REASON FOR VISIT (unrecogniz [...] BE BASED ON THE PRIMARY CLINICAL RECORDS. [facility] [employer] provides no warranty or guarantee of the accuracy or completeness of information in this document.
[2025-07-27 12:10] LABS: Glucose Urine UA NEGATIVE (NEGATIVE)
[2025-07-27 12:17] LABS: Cast Seen? NONE SEEN #/LPF (NONE SEEN); Crystals Seen? None Seen #/HPF (None Seen); Urine Culture Indicated YES-LC
[2025-07-27 12:55] LABS: Hematocrit 33.4 % (36.0-48.0); Hemoglobin 11.5 g/dL (12.0-16.0); Immature Granulocytes Abs Auto 0.06 10^3/uL (0.00-0.03); Immature Granulocytes Pct Auto 0.5 % (0.0-0.5); Lymphocytes Absolute Auto 2.2 10^3/uL (1.2-3.8); Mean Corpuscular HGB Conc 34.4 g/dL (29.9-35.2); Mean Corpuscular Hemoglobin 32.4 pg (26.7-34.0); Mean Corpuscular Volume 94.1 fL (81.0-99.0); Platelet Count 211 10^3/uL (150-450); Red Blood Count 3.55 10^6/uL (4.20-5.40); White Blood Count 12.8 10^3/uL (4.0-11.0)
[2025-07-27 13:02] LABS: Alanine Aminotransferase 11 U/L (14-59); Aspartate Amino Transferase 15 U/L (15-37); Blood Urea Nitrogen 11.0 mg/dL (7.0-18.0); Estimated GFR (African America >60 (>=60 mL/min/1.73m^2); Estimated GFR (Non-African Ame >60 (>=60 mL/min/1.73m^2); Uric Acid 5.3 mg/dL (2.6-6.0)
[2025-07-27 13:43] LABS: Partial Thromboplastin Time 26.5 sec (22.3-36.2); Prothrombin Time 9.5 sec (9.0-11.6)
[2025-07-27 13:44] LABS: INR <0.93
[2025-07-27 13:45] LABS: Fibrinogen 617 mg/dL (200-400)
== END 2025-07-27 14:35 | disposition home or self-care (01) ==
PROVIDERS: Admitting Provider Obstetrics & Gynecology; Visit Provider Obstetrics & Gynecology
DX: O47.9 False labor, unspecified (principal); O13.9 Gestational [pregnancy-induced] hypertension without significant proteinuria, unspecified trimester; Z3A.00 Weeks of gestation of pregnancy not specified
CPT/HCPCS: 36415; 59025; 81001; 82565; 83615; 84450; 84460; 84520; 84550; 85025; 85384; 85610; 85730; 86850; 86900; 86901; 87086; G0378; G0379

== ENCOUNTER 2025-07-28 08:56 | Inpatient (IN) | payer OTHER, SELFPAY ==
[2025-07-28] VITALS (35 sets, daily range): BP systolic 103–139; BP diastolic 55–106; PULSE 76–136; TEMP 36.7–36.9
--- OUTSIDE RECORDS SUMMARY | 2025-07-28 09:03 | XMS_ITS | CCD ---
Author Organization [facility] CliniSyin Care Team Providers Care Sawmilling Operator Name Role Phone HORACIO ESCOBAR Admitting Unavailable [...] MG tablet Indications: Nausea and vomiting in ([facility]) Take 1 tablet (4 mg) by mouth [...] oral solution (3 sources) alpha-Adrenergic Agonist, Uncompetitive X-stvjuk-E-aspartat e Receptor Antagonist, Sigma-1 Agonist Start: 07-27-2021 Start: 07-27-2021 take 10 mL by mouth every six hours Kyvzsbpjx-Wzgyozky-QZ 30-2-10 MG/5ML 10 mL Orally every 6 hours for 5 days Jul, Not-Taking dextromethorphan hydrobromid e 15 mg / guaiFENesin 400 mg / pseudoephedrine hydrochloride 60 mg oral tablet (3 sources) alpha-Adrenergic Agonist, Uncompetitive F-jyerba-Q-aspartate Receptor Antagonist, Sigma-1 Agonist Start: 07-27-2021 Start: [...] UA Negative Negative - 4(70) +++ mg/dL [facility] Blood, UA Negative Negative - 50 Han/mcL [facility] Clarity, UA Clear [facility] re Color, UA Yellow [facility] e Glucose, UA Negative Negative - 1999(110) ++++ mg/dL [facility] Interpretation and review of laboratory results Abnormal [facility] Ketones, UA Negative Negative - 160(16) ++++ mg/dL [facility] Leukocytes, UA Positive Negative - 500+++ Jinny/mcL [facility] Comment on above: 3+ Nitrite, UA Negative Negative - Positive [facility] pH, UA 6 5 - 9 [facility] e Protein, UA Negative Negative - 1999(20) ++++ mg/dL [facility] Spec Grav, UA 1.02 1 - 1.03 [facility] Urobilinogen, UA 1.0 0.2 - 12 mg/dL [facility] Urinalysis macro (dipstick) panel (U)on 07-13-2025 Bilirubin, UA Negative Negative - 4(70) +++ mg/dL [facility] Blood, UA Negative Negative - 50 Han/mcL [facility] Clarity, UA Clear [facility] re Color, UA Yellow [facility] Glucose, UA Negative Negative - 1999(110) ++++ mg/dL [facility] Interpretation and review of laboratory results Abnormal [facility] Ketones, UA Negative Negative - 160(16) ++++ mg/dL [facility] Leukocytes, UA 1+ Negative - 500+++ Jinny/mcL [facility] Nitrite, UA Negative Negative - Positive [facility] pH, UA 6 5 - 9 [facility] e Protein, UA Trace Negative - 1999(20) ++++ mg/dL [facility] Spec Grav, UA 1.03 1 - 1.03 [facility] care Urobilinogen, UA 1.0 0.2 - 12 mg/dL [facility] US OB BPP W NON-STRESS on 07-08-2025 [place] [address] Ultrasound Report Signed Patient: KURTIS BARNES MR#: [id number] : 2000 Acct:[id number] Age/Sex: 24 / F ADM Date: Loc: [facility] 254-[address]: Renate Bonilla D.O. Ordering Physician: Renate Bonilla D.O. Date of Service: 07/08/25 Procedure(s): US OB BPP w non-stress Accession Number(s): [id number] cc: Renate Bonilla D.O.; Physician,Non-Staff M.DMaxx The [place] [id number] Patient Name: KURTIS BARNES MRN: [id number] date: 2000 Sex: F Assigned Patient Location: [facility] Current Patient Location: [facility] Accession/Order Number: [id number] Exam Date: 07/08/2025 10:11 Report Date: 07/08/2025 [...] Silva M.D. 07/08/2025 10:39 AM Dictation [facility] Electronically authenticated by: [id number] Y Date: 07/08/2025 10:39 Dictated By: Cheri Da Silva M.D. Signed By: 07/08/25 1041 DD/ 1039 TD/TT: Pick Pulling Machine Tender: [facility] Radiology, Radiologist, - 07/08/2025 [place] [address] Ultrasound Report Signed Patient: KURTIS BARNES MR#: [id number] : 2000 Acct:[id number] Age/Sex: 24 / F ADM Date: Loc: [facility] 254-[address]: Renate Bonilla D.O. Ordering Physician: Renate Bonilla D.O. Date of Service: 07/08/25 Procedure(s): US OB BPP w non-stress Accession Number(s): [id number] cc: Renate Bonilla D.O.; Physician,Non-Staff Charo The [address] [address] Patient Name: KURTIS BARNES MRN: [facility]:[id number] date: 2000 Sex: F Assigned Patient Location: [facility] Current Patient Location: [facility] Accession/Order Number: [id number] Exam Date: 07/08/2025 10:11 Report Date: 07/08/2025 [...] Silva M.D. 07/08/2025 10:39 AM Dictation Location: [facility] [employer] Electronically authenticated by: [id number] Y Date: 07/08/2025 10:39 Dictated By: Cheri Da Silva M.D. Signed By: 07/08/25 1041 DD/ 1039 TD/TT: Pick Pulling Machine Tender: [facility] Radiology Study observation (narrative) [facility] OB BPP W NON-STRESS Ordered By: Radiologist Radiology on 07-08-2025 [facility] Work Phone: Urinalysis macro (dipstick) panel (U)on 07-08-2025 Bilirubin, UA Negative Negative - 4(70) +++ mg/dL [facility] Blood, UA Negative Negative - 50 Han/mcL [facility] Clarity, UA Clear [facility], UA Straw [facility] e Glucose, UA Negative Negative - 2000(110) ++++ mg/dL [facility] Interpretation and review of laboratory results Abnormal [facility] Ketones, UA Negative Negative - 160(16) ++++ mg/dL [facility] Leukocytes, UA Positive Negative - 500+++ Jinny/mcL [facility] Nitrite, UA Negative Negative - Positive [facility] Healthcare pH, UA 6 5 - 9 [facility] Protein, UA Positive Negative - 1999(20) ++++ mg/dL [facility] Spec Grav, UA 1.02 1 - 1.03 [facility] Urobilinogen, UA 1.0 0.2 - 12 mg/dL [facility] Urinalysis macro (dipstick) panel (U)on 07-01-2025 Bilirubin, UA Negative Negative - 4(70) +++ mg/dL [facility] Healthcare Blood, UA Negative Negative - 50 Han/mcL [facility] Healthcare Clarity, UA Clear [facility] re Color, UA Yellow [facility] Glucose, UA Negative Negative - 1999(110) ++++ mg/dL [facility] Interpretation and review of laboratory results Normal [facility] Ketones, UA Negative Negative - 160(16) ++++ mg/dL [facility] Healthcare Leukocytes, UA Negative Negative - 500+++ Jinny/mcL [facility] Healthcare Nitrite, UA Negative Negative - Positive [facility] pH, UA 6 5 - 9 [facility] e Protein, UA Negative Negative - 1999(20) ++++ mg/dL [facility] Healthcare Spec Grav, UA 1.02 1 - 1.03 [facility] Health care Urobilinogen, UA 1.0 0.2 - 12 mg/dL [facility] Healthcare [facility] e Urinalysis macro (dipstick) panel (U)on 06-24-2025 Bilirubin, UA Negative Negative - 4(70) +++ mg/dL [facility] Healthcare Blood, UA Negative Negative - 50 Han/mcL [facility] Healthcare Clarity, UA Cloudy [facility] re Color, UA Yellow [facility] Glucose, UA Negative Negative - 1999(110) ++++ mg/dL [facility] Interpretation and review of laboratory results Abnormal [facility] Healthcare Ketones, UA Negative Negative - 160(16) ++++ mg/dL [facility] Healthcare Leukocytes, UA 1+ Negative - 500+++ Jinny/mcL [facility] Healthcare Nitrite, UA Negative Negative - Positive [facility] pH, UA 6 5 - 9 [facility] Protein, UA Negative Negative - 1999(20) ++++ mg/dL [facility] Healthcare Spec Grav, UA 1.02 1 - 1.03 [facility] Urobilinogen, UA 1.0 0.2 - 12 mg/dL [facility] Urinalysis macro (dipstick) panel (U)on 06-16-2025 Bilirubin, UA Negative Negative - 4(70) +++ mg/dL [facility] Blood, UA Negative Negative - 50 Han/mcL [facility] Healthcare Clarity, UA Clear [facility] re Color, UA Yellow [facility] Glucose, UA Negative Negative - 1999(110) ++++ mg/dL [facility] Interpretation and review of laboratory results Normal [facility] Ketones, UA Negative Negative - 160(16) ++++ mg/dL [facility] Healthcare Leukocytes, UA Negative Negative - 500+++ Jinny/mcL [facility] Healthcare Nitrite, UA Negative Negative - Positive [facility] pH, UA 6.5 5 - 9 [facility] Protein, UA Negative Negative - 1999(20) ++++ mg/dL [facility] Healthcare Spec Grav, UA 1.025 1 - 1.03 [facility] Urobilinogen, UA 1.0 0.2 - 12 mg/dL [facility] Urinalysis macro (dipstick) panel (U)on 05-31-2025 Bilirubin, UA Negative Negative - 4(70) +++ mg/dL [facility] Blood, UA Negative Negative - 50 Han/mcL [facility] Healthcare Clarity, UA Clear [facility] re Color, UA Yellow [facility] Glucose, UA Negative Negative - 1999(110) ++++ mg/dL [facility] Interpretation and review of laboratory results Abnormal [facility] Ketones, UA Negative Negative - 160(16) ++++ mg/dL [facility] Healthcare Leukocytes, UA Negative Negative - 500+++ Jinny/mcL [facility] Healthcare Nitrite, UA Negative Negative - Positive [facility] pH, UA 6 5 - 9 [facility] Protein, UA Trace Negative - 1999(20) ++++ mg/dL [facility] Healthcare Spec Grav, UA 0.03 1 - 1.03 [facility] Urobilinogen, UA 0.2 0.2 - 12 mg/dL [facility] US OB FOLLOW UP [...] II, MD, PHD at 20-May-2025 08:33:27 AM [facility] Normal Not Available Comment on above: Order Comment: US OB SCAN FOR GROWTH Estimated Date of Delivery: 07/21/25 Gestational Age as of 05/05/2025: 29w0d Urinalysis macro (dipstick) panel (U)on 05-19-2025 Bilirubin, UA Negative Negative - 4(70) +++ mg/dL [facility] Healthcare Blood, UA Negative Negative - 50 Han/mcL [facility] Clarity, UA Clear [facility] Color, UA Yellow [facility] Glucose, UA Negative Negative - 2000(110) ++++ mg/dL [facility] Interpretation and review of laboratory results Normal [...] UA Negative Negative - 1999(110) ++++ mg/dL [facility] Healthcare Interpretation and review of laboratory results Abnormal [facility] Healthcare Ketones, UA Negative Negative - 160(16) ++++ mg/dL [facility] Healthcare Leukocytes, UA Negative Negative - 500+++ Jinny/mcL [facility] Healthcare Nitrite, UA Negative Negative - Positive [facility] pH, UA 6.5 5 - 9 [facility] Protein, UA Trace Negative - 1999(20) ++++ mg/dL [facility] Healthcare Spec Grav, UA 1.025 1 - 1.03 [facility] Health care Urobilinogen, UA 0.2 0.2 - 12 mg/dL [facility] Healthcare [facility] Health[facility] e Urinalysis macro (dipstick) panel (U)on 04-20-2025 Bilirubin, UA Negative Negative - 4(70) +++ mg/dL [facility] Healthcare Blood, UA Negative Negative - 50 Han/mcL [facility] Healthcare Clarity, UA Clear [facility] Color, UA Sheree [facility] Glucose, UA Negative Negative - 1999(110) ++++ mg/dL [facility] Interpretation and review of laboratory results Abnormal [facility] Healthcare Ketones, UA Negative Negative - 160(16) ++++ mg/dL [facility] Healthcare Leukocytes, UA Negative Negative - 500+++ Jinny/mcL [facility] Healthcare Nitrite, UA Negative Negative - Positive [facility] pH, UA 5.5 5 - 9 [facility] Protein, UA Trace Negative - 1999(20) ++++ mg/dL [facility] Healthcare Spec Grav, UA 1.03 1 - 1.03 [facility] Urobilinogen, UA 0.2 0.2 - 12 mg/dL [facility] MLR HEMOGLOBIN A1Con 025 Glucose [Mass/Vol] 91 mg/dL [facility]althcare HbA1c (Bld) [Mass fraction] 4.8 % 4.5 - 6.2 % [facility] Comment on above: ADA RECOMMENDED LIMI T 4.0 - 6.0 ADA THERAPEUTIC TARGET < 7.0 ACTION SUGGESTED > 7.0 [facility] e US OB 14+ WEEKS ANATOMY [...] II, MD, PHD at 02-Apr-2025 10:21:46 AM [facility] Normal Not Available Comment on above: Order Comment: US OB ANATOMY SINGLE W US OB CERVICAL LENGTH Estimated Date of Delivery: 07/21/25 Gestational Age as of 02/23/2025: 18w6d Urinalysis macro (dipstick) panel (U)on 03-23-2025 Bilirubin, UA Negative Negative - 4(70) +++ mg/dL [facility] Blood, UA Negative Negative - 50 Han/mcL [facility] Clarity, UA Clear [facility] re Color, UA Yellow [facility] Glucose, UA Negative Negative - 1999(110) ++++ mg/dL [facility] Interpretation and review of laboratory results Abnormal [facility] Ketones, UA Negative Negative - 160(16) ++++ mg/dL [facility] Leukocytes, UA Negative Negative - 500+++ Jinny/mcL [facility] Nitrite, UA Negative Negative - Positive [facility] pH, UA 5.5 5 - 9 [facility] e Protein, UA Negative Negative - 1999(20) ++++ mg/dL [facility] Spec Grav, UA 1.02 1 - 1.03 [facility] Urobilinogen, UA 1.0 0.2 - 12 mg/dL [facility] e RECURRENT VAGINITIS (HTRX)on 02-24-2025 ATOPOBIUM VAGINAE 0 [facility] ATOPOBIUM VAGINAE Not detected [facility] BVAB 2,3 (BACTERIAL VAGINOSIS ASSOCIATED BACTERIA 2, 3); MOBILUNCUS SPP [address] [facility] BVAB 2,3 (BACTERIAL VAGINOSIS ASSOCIATED BACTERIA 2, 3); MOBILUNCUS SPP Not detected [facility] INDU ALBICANS, PARAPSILOSIS, TROPICALIS [address] [facility] INDU ALBICANS, PARAPSILOSIS, TROPICALIS Not detected [facility] INDU GLABRATA 0 [facility] INDU GLABRATA Not detected [facility] INDU KRUSEI Not [facility] CHLAMYDIA TRACHOMATIS [address] [facility] CHLAMYDIA TRACHOMATIS Not detected [facility] GARDNERELLA VAGINALIS 0 [facility] GARDNERELLA VAGINALIS Not detected [facility] MEGASPHAERA (TYPES 1, 2) [address] [facility] MEGASPHAERA (TYPES 1, 2) Not detected [facility] MYCOPLASMA GENITALIUM [address] [facility] MYCOPLASMA GENITALIUM Not detected [facility] NEISSERIA GONORRHOEAE [address] [facility] NEISSERIA GONORRHOEAE Not detected [facility] TRICHOMONAS VAGINALIS [address] [facility] TRICHOMONAS VAGINALIS Not detected [facility] e ALL CBC WITH AUTO DIFFon BASOPHILS ABSOLUTE AUTO [address] [facility] Basophils/100 WBC (Bld) 0.3 % 0.2 - 2.0 % [facility] Eosinophils/100 WBC (Bld) 1.2 % 0.9 - 7.0 % [facility] Erythrocyte distribution width (RBC) [Ratio] 12.6 % 11.0 - 15.0 % [facility] Hematocrit (Bld) [Volume fraction] 35.1 % Low 36.0 - 48.0 % [facility] Hemoglobin (Bld) [Mass/Vol] 12.5 g/dL 12.0 - 16.0 g/dL [facility] IMMATURE GRANULOCYTES ABS AUTO 0.[address] [facility] Immature granulocytes/100 WBC (Bld) 0.4 % 0.0 - 0.5 % [facility] Interpretation and review of laboratory results Abnormal [facility] LYMPHOCYTES ABSOLUTE AUTO 3.[address] [facility] Lymphocytes/100 WBC (Bld) 27.2 % 20.5 - 60.0 % [facility] MCH (RBC) [Entitic mass] 32.2 pg 26.7 - 34.[address] [facility] MCHC (RBC) [Mass/Vol] 35.6 g/dL High 29.9 - 35.2 g/dL [facility] MCV (RBC) [Entitic vol] 90.5 fL 81.0 - 99.[address] [facility] MONOCYTES ABSOLUTE AUTO 0.[address] [facility] Monocytes/100 WBC (Bld) 5.5 % 1.7 - 12.0 % [facility] NEUTROPHILS ABSOLUTE AUTO 9.[address] [facility] Neutrophils/100 WBC (Bld) 65.4 % 43.0 - 75.0 % [facility] Platelet mean volume (Bld) [Entitic vol] 9.2 fL Low 9.5 - 13.5 fL [facility] EO # 0.2 [...] Interpretation and review of laboratory results Abnormal [facility] Preg Test, Ur Positive Negative [facility] Urinalysis macro (dipstick) panel (U)on 12-25-2024 Bilirubin, UA Negative Negative - 4(70) +++ mg/dL [facility] Blood, UA Positive Negative - 50 Han/mcL [facility] Comment on above: small Clarity, UA Clear [facility] re Color, UA Yellow [facility] [employer] e Glucose, UA Negative Negative - 1999(110) ++++ mg/dL [facility] Interpretation and review of laboratory results Abnormal [facility] Ketones, UA Negative Negative - 160(16) ++++ mg/dL [facility] Leukocytes, UA Negative Negative - 500+++ Jinny/mcL [facility] Nitrite, UA Negative Negative - Positive [facility] pH, UA 6 5 - 9 [facility] [employer] e Protein, UA Negative Negative - 1999(20) ++++ mg/dL [facility] Spec Grav, UA 1.03 1 - 1.03 [facility] Urobilinogen, UA 0.2 0.2 - 12 mg/dL [facility] US OB TRANSVAGINALon 025 US [...] II, MD, PHD at 25-Dec-2024 08:23:40 AM [facility] Normal Not Available Comment on above: [...] GERMAIN LUNA Date: 2021-11-27 08:39 Normal [facility] COVID Quick Testingon 2020 Result Negative [facility] Other Vital Signs Date Time Vital Sign Value Performing Clinician Facility 07-20-2025 08:44-0400 Body weight 143.34 kg Melissa Cowan NP Work Phone: [facility] 07-20-2025 08:44-0400 Diastolic blood pressure 80 mm[Hg] Melissa Cowan NP Work Phone: [facility] 07-20-2025 08:44-0400 Systolic blood pressure 130 mm[Hg] Melissa Cowan NP Work Phone: [facility] 07-13-2025 09:09-0400 Body weight 143.25 kg Myrna GARIBAY Work Phone: [facility] 07-13-2025 09:09-0400 Diastolic blood pressure 82 mm[Hg] Myrna GARIBAY Work Phone: [facility] 07-13-2025 09:09-0400 Systolic blood pressure 128 mm[Hg] Myrna GARIBAY Work Phone: [facility] 07-08-2025 09:29-0400 Body weight 139.25 kg Renate Irene DO Work Phone: [facility] 07-08-2025 09:29-0400 Diastolic blood pressure 76 mm[Hg] Renaet Irene DO Work Phone: [facility] 07-08-2025 09:29-0400 Systolic blood pressure 138 mm[Hg] Renate Irene DO Work Phone: [facility] 07-01-2025 09:11-0400 Body weight 138.35 kg Myrna GARIBAY Work Phone: [facility] 07-01-2025 09:11-0400 Diastolic blood pressure 76 mm[Hg] Myrna GARIBAY Work Phone: [facility] 07-01-2025 09:11-0400 Systolic blood pressure 128 mm[Hg] Myrna Garcia PA Work Phone: [facility] 06-24-2025 08:45-0400 Body weight 134.72 kg Renate Irene DO Work Phone: [facility] 06-24-2025 08:45-0400 Diastolic blood pressure 82 mm[Hg] Renate Irene DO Work Phone: [facility] 06-24-2025 08:45-0400 Systolic blood pressure 126 mm[Hg] Renate Irene DO Work Phone: [facility] 06-16-2025 08:58-0400 Body weight 131.14 kg Myrna GARIBAY Work Phone: [facility] 06-16-2025 08:58-0400 Diastolic blood pressure 82 mm[Hg] Myrna Garcia PA Work Phone: [facility] 06-16-2025 08:58-0400 Systolic blood pressure 120 mm[Hg] Myrna GARIBAY Work Phone: [facility] 05-31-2025 08:51-0400 Body weight 125.08 kg Renate Irene DO Work Phone: [facility] 05-31-2025 08:51-0400 Diastolic blood pressure 82 mm[Hg] Renate Irene DO Work Phone: [facility] 05-31-2025 08:51-0400 Systolic blood pressure 126 mm[Hg] Renate Irene DO Work Phone: [facility] 05-19-2025 10:38-0400 Body weight 123.49 kg Melissa Camryn [employer]MP TRUCK DRIVER Work Phone: [facility] 05-19-2025 10:38-0400 Diastolic blood pressure 72 mm[Hg] Melissa Eberly [employer]MP TRUCK DRIVER Work Phone: [facility] 05-19-2025 10:38-0400 Systolic blood pressure 120 mm[Hg] Melissa Camryn [employer]MP TRUCK DRIVER Work Phone: [facility] 05-05-2025 09:06-0400 Body weight 121.9 kg Myrna GARIBAY Work Phone: [facility] 05-05-2025 09:06-0400 Diastolic blood pressure 80 mm[Hg] Myrna GARIBAY Work Phone: [facility] 05-05-2025 09:06-0400 Systolic blood pressure 132 mm[Hg] Myrna GARIBAY Work Phone: [facility] 04-20-2025 09:27-0400 Body weight 122.24 kg Renate Irene DO Work Phone: [facility] 04-20-2025 09:27-0400 Diastolic blood pressure 70 mm[Hg] Renate Irene DO Work Phone: [facility] 04-20-2025 09:27-0400 Systolic blood pressure 120 mm[Hg] Renate Irene DO Work Phone: [facility] 03-23-2025 11:11-0400 Body weight 119.35 kg Renate Irene DO Work Phone: [facility] 03-23-2025 11:11-0400 Diastolic blood pressure 74 mm[Hg] Renate Irene DO Work Phone: [facility] 03-23-2025 11:11-0400 Systolic blood pressure 114 mm[Hg] Renate Irene DO Work Phone: [facility] 02-23-2025 10:18-0400 Body weight 116.48 kg Myrna Garcia PA Work Phone: [facility] 02-23-2025 10:18-0400 Diastolic blood pressure 70 mm[Hg] Myrna Garcia PA Work Phone: [facility] 02-23-2025 10:18-0400 Systolic blood pressure 116 mm[Hg] Myrna Garcia PA Work Phone: [facility] 01-25-2025 11:32-0400 Body weight 117.84 kg Renate Irene DO Work Phone: [facility] 01-25-2025 11:32-0400 Diastolic blood pressure 68 mm[Hg] Renate Irene DO Work Phone: [facility] 01-25-2025 11:32-0400 Systolic blood pressure 118 mm[Hg] Renate Irene DO Work Phone: [facility] 12-25-2024 11:54-0500 Body weight 109.77 kg Nom Nurse [facility] 12-25-2024 11:54-0500 Diastolic blood pressure 70 mm[Hg] [facility] Nurse [facility] 12-25-2024 11:54-0500 Systolic blood pressure 118 mm[Hg] [facility] Nurse [facility] 05-01-2023 13:20-0400 Body height 175.26 cm Isadora Arroyo Other [facility] Other 05-01-2023 13:20-0400 Body mass index (BMI) [Ratio] 38.98 kg/m2 Isadora Arroyo Other [facility] Other 05-01-2023 13:20-0400 Body temperature 97.8 [degF] Isadora Arroyo Other [facility] Other 05-01-2023 13:20-0400 Body weight 119.75 kg Isadora Arroyo Other [facility] Other 05-01-2023 13:20-0400 Respiratory rate 18 /min Isadora Arroyo Other [facility] Other 05-01-2023 13:20-0400 SaO2% (BldA) [Mass fraction] 98 % Isadora Arroyo Other [facility] Other 09-19-2021 14:15-0500 Body height 175.26 cm Sheree Ginty Other [facility] Other 09-19-2021 14:15-0500 Body mass index (BMI) [Ratio] 36.91 kg/m2 Sheree Ginty Other [facility] Other 09-19-2021 14:15-0500 Body temperature 96.3 [degF] Sheree Ginty Other [facility] Other 09-19-2021 14:15-0500 Body weight 113.4 kg Sheree Ginty Other [facility] Other 09-19-2021 14:15-0500 Respiratory rate 18 /min Sheree Ginty Other [facility] Other 09-19-2021 14:15-0500 SaO2% (BldA) [Mass fraction] 97 % Sheree Ginty Other [facility] Other 07-27-2021 11:15-0400 Body height 175.26 cm Sheree Ginty Other [facility] Other 07-27-2021 11:15-0400 Body mass index (BMI) [Ratio] 36.91 kg/m2 Sheree Ginty Other [facility] Other 07-27-2021 11:15-0400 Body temperature 96.7 [degF] Sheree Ginty Other [facility] Other 07-27-2021 11:15-0400 Body weight 113.4 kg Sheree Ginty Other [facility] Other 07-27-2021 11:15-0400 Respiratory rate 18 /min Sheree Ginty Other [facility] Other 07-27-2021 11:15-0400 SaO2% (BldA) [Mass fraction] 98 % Sheree Ginty Other [facility] Other Encounters Encounter Date Encounter Type Care Provider Facility Start: 07-20-2025 End: 07-20-2025 Bamboo flowsheet Melissa Cowan NP Work Phone: [facility] Start: 07-20-2025 End: 07-20-2025 Bamboo flowsheet Melissa Cowan [employer]MP TRUCK DRIVER Work Phone: [facility] Start: 07-20-2025 End: 07-20-2025 Office outpatient visit 15 minutes Melissa Cowan [employer] TR[employer] DRIVER Work Phone: [facility] Comment on above: Third trimester preg leticia ([facility]); 39 weeks gestation of ([facility]) Start: 07-20-2025 End: 07-20-2025 ambulatory MELISSA COWAN [...] on above: 38 weeks gestation o f ([facility]) (Primary Dx); Third trimester ([facility]) Start: 07-08-2025 End: 07-08-2025 Bamboo flowsheet Renate Irene DO Work Phone: [facility] Start: 07-08-2025 End: 07-08-2025 Bamboo flowsheet Renate Irene DO Work Phone: [facility] Start: 07-08-2025 End: 07-08-2025 Clinisync Result Encounter Renate Irene DO Work Phone: [facility] Unsolicited Start: 07-08-2025 End: 07-08-2025 flow sheet Renate Irene DO Work Phone: [facility] Comment on above: 38 weeks gestation o f ([facility]); Third trimester ([facility]) Start: 07-08-2025 End: 07-08-2025 ambulatory RENATE IRENE Not Available Start: 07-01-2025 End: 07-01-2025 Bamboo flowsheet Myrna GARIBAY Work Phone: [facility] Start: 07-01-2025 End: 07-01-2025 Bamboo flowsheet Myrna GARIBAY Work Phone: [facility] Start: 07-01-2025 End: 07-01-2025 flow sheet Myrna GARIBAY Work Phone: [facility] Comment on above: Third trimester preg leticia ([facility]); 37 weeks gestation of ([facility]) Start: 07-01-2025 End: 07-01-2025 ambulatory MYRNA GARCIA Not Available Start: 06-24-2025 End: 06-24-2025 Bamboo flowsheet Renate Irene DO Work Phone: [facility] Start: 06-24-2025 End: 06-24-2025 Bamboo flowsheet Renate Irene DO Work Phone: [facility] Start: 06-24-2025 End: 06-24-2025 flow sheet Renate Irene DO Work Phone: [facility] Comment on above: Third trimester preg leticia ([facility]); 36 weeks gestation of ([facility]) Start: 06-24-2025 End: 06-24-2025 ambulatory RENATE IRENE [...] Comment on above: Third trimester preg leticia ([facility]); 35 weeks gestation of ([facility]) Start: 05-31-2025 End: 05-31-2025 Bamboo flowsheet Renate Irene DO Work Phone: [facility] Start: 05-31-2025 End: 05-31-2025 Bamboo flowsheet Renate Irene DO Work Phone: [facility] Start: 05-31-2025 End: 05-31-2025 flow sheet Renate Irene DO Work Phone: [facility] Comment on above: Third trimester preg leticia ([facility]); 32 weeks gestation of ([facility]) Start: 05-31-2025 End: 05-31-2025 ambulatory RENATE IRENE Not Available Start: 05-19-2025 End: 05-19-2025 Office outpatient visit 15 minutes Melissa Cowan [employer]MP TRUCK DRIVER Work Phone: [facility] Comment on above: Third trimester preg leticia ([facility]); 31 weeks gestation of ([facility]) Start: 05-19-2025 End: 05-19-2025 ambulatory MELISSA COWAN [...] incons istent with dates in second trimester ([facility]) (Primary Dx); Third trimester ([facility]); 29 weeks gestation of ([facility]) Start: 04-20-2025 End: 04-20-2025 Bamboo flowsheet Renate Irene DO Work Phone: [facility] Start: 04-20-2025 End: 04-20-2025 Bamboo flowsheet Renate Irene DO Work Phone: [facility] Start: 04-20-2025 End: 04-20-2025 flow sheet Renate Irene DO Work Phone: [facility] Comment on above: Second trimester pre gnancy ([facility]); 26 weeks gestation of ([facility]) Start: 04-20-2025 End: 04-20-2025 ambulatory [...] 05-01-2023 End: 05-01-2023 ambulatory Isadora Arroyo Other [facility] Other Start: 05-01-2023 Office outpatient vi sit 15 minutes Isadora Arroyo [facility] Start: 11-27-2021 End: 11-27-2021 ambulatory HORACIO ESCOBAR Facility: Start: 09-19-2021 End: 09-19-2021 ambulatory Sheree Kimbrough Other [facility] Other Start: 09-19-2021 Office outpatient vi sit [...] [facility] [address] [place] [address] Melissa Cowan, DUMP TRUCK DRIVER [address] [place] [address] [facility] Start: 07-20-2025 End: 07-20-2025 Patient encounter procedure [facility] Comment on above: Arrived Start: 07-13-2025 End: 07-13-2025 Patient encounter procedure 07/13/2025 8:50 AM EDT Routine [facility] [address] [place] [id number] Myrna Garcia PA [address] [place] [address] [facility] Start: 07-08-2025 End: 07-08-2025 Patient encounter procedure [facility] Comment on above: Arrived Start: 07-01-2025 End: 07-01-2025 Patient encounter procedure [facility] Comment on above: Arrived Start: 06-24-2025 End: 06-24-2026 CULTURE, GROUP B STREP WITH SUSCEPTIBLITY CULTURE, GROUP B STREP WITH SUSCEPTIBLITY Lab Routine Third trimester ([facility]) Expected: 06/24/2025, Expires: 06/24/2026 [facility] Work Phone: Comment on above: Expected: 06/24/2025 , Expires: 06/24/2026 Start: 06-24-2025 End: 06-24-2025 Patient encounter procedure [facility] Comment on above: Arrived Start: 06-21-2025 Influenza vaccination [facility] Start: 06-16-2025 End: 06-16-2025 Patient encounter procedure 06/16/2025 8:50 AM EDT Routine [facility] [address] [place] [phone] Myrna Gacria PA [address] [place] [address] [facility] Start: 05-31-2025 End: 05-31-2025 Patient encounter procedure 05/31/2025 8:40 AM EDT Routine [facility] [address] [place] [id number] Renate Bonilla DO [address] [place] [address] Arrived [facility] [place] [facility] Comment on above: Arrived Start: 05-05-2025 End: 09-05-2025 US for US OB follow up transabdominal approach Imaging Routine Size of fetus inconsistent with dates in second trimester ([facility]) Expected: 05/05/2025, Expires: 09/05/2025 [facility] Work Phone: Comment on above: Expected: 05/05/2025 , Expires: 09/05/2025 Start: 05-05-2025 End: 05-05-2025 Patient encounter procedure 05/05/2025 8:30 AM EDT Routine [facility] [address] [place] [address] Melissa Cowan, DUMP TRUCK DRIVER [address] [place] [id number] [facility] Start: 04-20-2025 End: 04-20-2025 [...] mellitus screening Expected: 03/23/2025 (Approximate), Expires: 03/23/2026 [facility] Work Phone: Comment on above: Expected: 03/23/2025 (Approximate), Expires: 03/23/2026 Start: 03-23-2025 End: 03-23-2026 Measurement of glucose 1 hour after glucose challenge for glucose tolerance test Glucose tolerance, 1 hour Lab Routine Diabetes mellitus screening Expected: 03/23/2025 (Approximate), Expires: 03/23/[address] [facility] Comment on above: Expected: 03/23/2025 (Approximate), Expires: [...] gestational age Expected: 12/24/2024 (Approximate), Expires: 12/24/2025 [facility] Comment on above: Expected: 12/24/2024 (Approximate), Expires: 12/24/2025 Start: 12-24-2024 End: 12-24-2025 Blood type and Indirect antibody screen panel - Blood Type and screen Lab Routine Missed menses , unspecified gestational age Expected: 12/24/2024 (Approximate), Expires: 12/24/2025 [facility] Work Phone: Comment on above: Expected: 12/24/2024 (Approximate), Expires: 12/24/2025 Start: 12-24-2024 End: 12-24-2025 Drugs of abuse panel - Urine by Screen method Rapid drug screen, urine Lab Routine , unspecified gestational age Encounter for supervision of normal first in first trimester Expected: 12/24/2024 (Approximate), Expires: 12/24/2025 [facility] Comment on above: Expected: 12/24/2024 (Approximate), Expires: 12/24/2025 Bacteria identified in Urine by Culture Urine culture Microbiology Routine Missed menses Ordered: 12/24/[address] [facility] Comment on above: Ordered: 12/24/2024 CBC W Auto Different ial panel - Blood CBC and differential Lab Routine Missed menses , unspecified gestational age Ordered: 12/24/[address] [facility] Comment on above: Ordered: 12/24/2024 CHLAMYDIA TRACHOMATI S (GENITO/STI) CHLAMYDIA TRACHOMATIS (GENITO/STI) Lab Routine STD exposure Ordered: 02/23/[address] [facility] Comment on above: Ordered: 02/23/2025 Cytology Cervical or vaginal smear or scraping study Pap Smear Pathology and Cytology Routine Well woman exam with routine gynecological exam Ordered: 02/23/[address] [facility] Comment on above: Ordered: 02/23/2025 Hemoglobin A1c/Hemoglobin.total in Blood Hemoglobin A1c Lab Routine Missed menses , unspecified gestational age Ordered: 12/24/[address] [facility] Comment on above: Ordered: 12/24/2024 Hepatitis B virus surface Ag [Presence] in Serum or Plasma by Immunoassay Hepatitis B surface antigen Lab Routine Missed menses , unspecified gestational age Ordered: 12/24/[address] [facility] Comment on above: Ordered: 12/24/2024 Hepatitis C virus Ab [Presence] in Serum or Plasma by Immunoassay Hepatitis C antibody Lab Routine Missed menses , unspecified gestational age Ordered: 12/24/[address] [facility] Comment on above: Ordered: 12/24/2024 HIV-1/HIV-2 antigen/antibody combination immunoassay HIV-1 and HIV-2 antibodies Lab Routine Missed menses , unspecified gestational age Ordered: 12/24/[address] [facility] Comment on above: Ordered: 12/24/2024 Neisseria gonorrhoea e DNA [Presence] in Unspecified specimen by COLLIN with probe detection Neisseria gonorrhea DNA probe, direct Lab Routine STD exposure Ordered: 02/23/[address] [facility] Comment on above: Ordered: 02/23/2025 Reagin Ab [Presence] in Serum by RPR RPR Lab Routine Missed menses , unspecified gestational age Ordered: 12/24/[address] [facility] Comment on above: Ordered: 12/24/2024 Rubella antibody, IgG Rubella an tibody, IgG Lab Routine Missed menses , unspecified gestational age Ordered: 12/24/[address] [facility] Comment on above: Ordered: 12/24/2024 SURESWAB(R) ADVANCED VAGINITIS PLUS, TMA SURESWAB(R) ADVANCED VAGINITIS PLUS, TMA Pathology and Cytology Routine Vaginal discharge Ordered: 02/23/2025 [facility] Work Phone: Comment on above: Ordered: 02/23/2025 Thyrotropin [Units/volume] in Serum or Plasma TSH Lab Routine , unspecified gestational age Ordered: 12/24/[address] [facility] Comment on above: Ordered: 12/24/2024 Immunizations Immunization Date Immunization Notes Care Provider Fa jack 11-17-2012 influenza virus vacc ine, unspecified formulation Renateneida Bonilla DO Work Phone: [facility] Payers Date Payer Category Payer Private Health Insurance [id number] 2024 Unknown [id number] 1998 Unknown [id number] 2..[id number]. 2.593 1998 Unknown [id number] 2.16.840.1.400224.3.579. 2.1259 1998 Unknown [id number] 2.16.840.1.740326.3.579. 2.1259 1998 Unknown [id number] 2.16.840.1.240149.3.579. 2.1259 1998 Unknown [id number] 2.16.840.1.006335.3.579. 2.1259 1998 Unknown [id number] 2.16.840.1.055441.3.579. 2.1259 1998 Unknown [id number] 2.16.840.1.877846.3.579. 2.9 1998 Unknown [id number] 2.16.840.1.163918.3.579. 2.9 1998 Unknown [id number] 2.16.840.1.701412.3.579. 2.1258 1998 Unknown [id number] 2.16.840.1.833180.3.579. 2.9 1998 Unknown [id number] 2.16.840.1.907616.3.579. 2.9 1998 Unknown [id number] 2.16.840.1.592232.3.579. 2.9 1998 Unknown [id number] 2.16.840.1.868323.3.579. 2.1258 1998 Unknown [id number] 2.16.840.1.879715.3.579. 2.9 1998 Unknown [id number] 2.16.840.1.264963.3.579. 2.1258 1998 Unknown [id number] 2.16.840.1.755894.3.579. 2.9 1998 Unknown [id number] 2.16.840.1.606661.3.579. 2.1258 1998 Unknown [id number] 2.16.840.1.743534.3.579. 2.9 1959 Unknown [id number] Unknown [id number] 2.16.840.1.962385.19 Social History Date Type Detail Facility Sex Assigned At [facility] Other Tobacco smoking status [facility] Tobacco smoking consumption unknown [facility] Start: 10-28-2024 [facility] Start: 1998 Sex assigned at Not on file [facility] Clinical Notes 07-27-2021 to 07-20-2025 [...] nursing note reviewed. Exam conducted with a sled maker present. Vitals: There is no height or weight on file to calculate BMI. BP: 130/80 Patient's last menstrual period was 10/23/2024. ASSESSMENT & PLAN ICD-10-CM 1. Third trimester ([facility]) Z34.93 POCT urinalysis dipstick manually resulted 2. 39 weeks gestation of ([facility]) Z3A.39 POCT urinalysis dipstick manually [...] Melissa Cowan NP documented in this encounter [facility] 07-13-2025 History of Presen t illness Narrative [...] nursing note reviewed. Exam conducted with a sled maker present. Vitals: There is no height or weight on file to calculate BMI. BP: 128/82 Patient's last menstrual period was 10/23/2024. ASSESSMENT & PLAN ICD-10-CM 1. 38 weeks gestation of ([facility]) Z3A.38 POCT urinalysis dipstick manually resulted 2. Third trimester ([facility]) Z34.93 POCT urinalysis dipstick manually resulted Patient [...] of: [place] Desir documented in this encounter [facility] 07-08-2025 History of Presen t illness Narrative [...] nursing note reviewed. Exam conducted with a sled maker present. Vitals: There is no height or weight on file to calculate BMI. BP: 138/76 Patient's last menstrual period was 10/23/2024. ASSESSMENT & PLAN ICD-10-CM 1. 38 weeks gestation of ([facility]) Z3A.38 POCT urinalysis dipstick manually resulted 2. Third trimester ([facility]) Z34.93 POCT urinalysis dipstick manually resulted Patient presents today for a routine obstetrics appointment. Patient is currently 38w1d with a Estimated Date of Delivery: 07/21/25. Elevated BP this morning and protein in urine, patient to be assessed at [facility] with possible follow up over the weekend at [facility]. Pelvic exam performed and patient is 1cm and 80% effaced. Patient to return to clinic in 1 week for routine OB. Documented by Sonia Gunderson LPN on behalf of: Renate Bonilla DO documented in this encounter [facility] 07-01-2025 History of Presen t illness Narrative [...] ASSESSMENT & PLAN ICD-10-CM 1. Third trimester ([facility]) Z34.93 2. 37 weeks gestation of ([facility]) Z3A.37 Return OB: Patient presents today for [...] of: [place] Desir documented in this encounter [facility] 06-24-2025 History of Presen t illness Narrative [...] nursing note reviewed. Exam conducted with a sled maker present. Vitals: There is no height or weight on file to calculate BMI. BP: 126/82 Patient's last menstrual period was 10/23/2024. ASSESSMENT & PLAN ICD-10-CM 1. Third trimester ([facility]) Z34.93 POCT urinalysis dipstick manually resulted CULTURE, GROUP B STREP WITH SUSCEPTIBLITY CULTURE, GROUP B STREP WITH SUSCEPTIBLITY 2. 36 weeks gestation of ([facility]) Z3A.36 Return OB: Patient presents today for [...] Renate Bonilla DO documented in this encounter [facility] 06-16-2025 History of Presen t illness Narrative [...] ASSESSMENT & PLAN ICD-10-CM 1. Third trimester ([facility]) Z34.93 POCT urinalysis dipstick manually resulted POCT urinalysis dipstick manually resulted 2. 35 weeks gestation of ([facility]) Z3A.35 POCT urinalysis dipstick manually resulted Return [...] of: [place] Desir documented in this encounter [facility] 05-31-2025 History of Presen t illness Narrative [...] nursing note reviewed. Exam conducted with a sled maker present. Vitals: There is no height or weight on file to calculate BMI. BP: 126/82 Patient's last menstrual period was 10/23/2024. ASSESSMENT & PLAN ICD-10-CM 1. Third trimester ([facility]) Z34.93 POCT urinalysis dipstick manually resulted 2. 32 weeks gestation of ([facility]) Z3A.32 Return OB: Patient presents today for [...] by Melissa Cowan NP on behalf of: Rentae Bonilla DO documented in this encounter [facility] 05-19-2025 History of Presen t illness Narrative [...] nursing note reviewed. Exam conducted with a sled maker present. Vitals: There is no height or weight on file to calculate BMI. BP: 120/72 Patient's last menstrual period was 10/23/2024. ASSESSMENT & PLAN ICD-10-CM 1. Third trimester ([facility]) Z34.93 POCT urinalysis dipstick manually resulted 2. 31 weeks gestation of ([facility]) Z3A.31 Return OB: Patient presents today for [...] Melissa Cowan NP documented in this encounter [facility] 05-05-2025 History of Presen t illness Narrative [...] nursing note reviewed. Exam conducted with a sled maker present. Vitals: There is no height or weight on file to calculate BMI. BP: 132/80 Patient's last menstrual period was 10/23/2024. ASSESSMENT & PLAN ICD-10-CM 1. Size of fetus inconsistent with dates in second trimester ([facility]) O26.842 US OB follow up transabdominal approach 2. Third trimester ([facility]) Z34.93 POCT urinalysis dipstick manually resulted 3. 29 weeks gestation of ([facility]) Z3A.29 Return OB: Patient presents today for [...] of: [place] Desir documented in this encounter [facility] 04-20-2025 History of Presen t illness Narrative [...] nursing note reviewed. Exam conducted with a sled maker present. Vitals: There is no height or weight on file to calculate BMI. BP: 120/70 Patient's last menstrual period was 10/23/2024. ASSESSMENT & PLAN ICD-10-CM 1. Second trimester ([facility]) Z34.92 POCT urinalysis dipstick manually resulted 2. 26 weeks gestation of ([facility]) Z3A.26 Return OB: Patient presents today for [...] Renate Bonilla DO documented in this encounter [facility] 03-23-2025 History of Presen t illness Narrative [...] nursing note reviewed. Exam conducted with a sled maker present. Vitals: There is no height [...] Renate Bonilla DO documented in this encounter [facility] 02-23-2025 History of Presen t illness Narrative [...] nursing note reviewed. Exam conducted with a sled maker present. Vitals: There is no height [...] of: [place] Desir documented in this encounter [facility] 01-25-2025 History of Presen t illness Narrative [...] nursing note reviewed. Exam conducted with a sled maker present. Vitals: There is no height [...] Renate Bonilla DO documented in this encounter [facility] 12-24-2024 History of Presen t illness Narrative [...] or undercooked meat, and [facility]. Patient has also been advised to not [...] Regla Gutierrez MA documented in this encounter [facility] 09-19-2021 Evaluation note Encounter Date Diagnosis Assessment [...] Patient care instructions given in writting by [facility] document [facility] 10-07-2021 Evaluation note* Encounter Date Diagnosis [...] Patient care instructions given in writting by [facility] Other Evaluation noteNort [employer] Other Evaluation note* Diagnosis Nausea and vomiting [...] and content) DATE CREATED AUTHOR 11/29/2021 [facility] DATE CREATED AUTHOR AUTHOR'S ORGANIZ ATION 07/25/[address] [facility] EPIC REASON FOR VISIT [...] BE BASED ON THE PRIMARY CLINICAL RECORDS. [facility] [employer] provides no warranty or guarantee of the accuracy or completeness of information in this document.
[2025-07-28] MEDS: 0.9 % SODIUM CHLORIDE 1,000 ML 125 ML IV ×2 (10:30→19:10)
[2025-07-28] MEDS: AMPICILLIN SODIUM 2,000 MG in 0.9 % SODIUM CHLORIDE 100 ML 200 MG IV (10:30)
[2025-07-28] MEDS: OXYTOCIN/0.9 % SODIUM CHLORIDE 10 UNITS/500 ML PLAST..BAG 6 UNIT IV (11:00)
[2025-07-28 11:30] LABS: Hematocrit 35.4 % (36.0-48.0); Hemoglobin 12.2 g/dL (12.0-16.0); Mean Corpuscular HGB Conc 34.5 g/dL (29.9-35.2); Mean Corpuscular Hemoglobin 32.4 pg (26.7-34.0); Mean Corpuscular Volume 93.9 fL (81.0-99.0); Platelet Count 232 10^3/uL (150-450); Red Blood Count 3.77 10^6/uL (4.20-5.40); White Blood Count 12.4 10^3/uL (4.0-11.0)
[2025-07-28] MEDS: AMPICILLIN SODIUM 1,000 MG in 0.9 % SODIUM CHLORIDE 50 ML 100 MG IV ×3 (14:41→22:35)
--- NOTE | 2025-07-28 17:16 | PM.OBHP ---
OB - H&P: HPI History of Present Illness Chief complaint: CONTRACTIONS : 1 Para: 0 Date of last menstrual period: 10/23/2024 Gestational age based on last menstrual period: 40w5d Narrative: 24yo G1 at 40w5d presented this morning with stronger contractions in early labor and was 2-3 cm dilated which is what she was yesterday and wanted to go home. She presented today with stronger contractions. She has had elevated BP on her last 3 visits in the office but has had work up for PIH which has always been negative. She was started on pitocin and has had slow progress throughout the day but is starting to have some cervical change. History of Present Dating criteria: LMP confirmed by 2nd trimester US care: good care Ultrasounds: normal mid trimester US complications: induced hypertension Medical complications OB: other (obesity) Labs Blood type: A (+) positive Rubella: immune RPR/VDLR: nonreactive GBS status: positive HBsAG: negative Narrative: Hep C neg HIV neg TSH normal Review of Systems ROS no headache, no blurry vision, no RUQ tenderness or epigastric pain Status of ROS: 10 or more systems reviewed and unremarkable except as noted in history and below Constitutional: Reports: fatigue (in ) Cardiovascular: Reports: swelling of feet/ankles (2+ to 3+ bilaterally up to her knees) PFSH PFSH Surgical History (Updated 07/27/25 @ 12:25 by DANNIE ISABEL MD) History of hemangioma excision ?Z98.890 - Other specified postprocedural states (ICD-10) ?Z86.018 - Personal history of other benign neoplasm (ICD-10) Family History (Updated 07/27/25 @ 12:21 by DANNIE ISABEL MD) Grandmother Family history of hypertension Social History (Updated 07/27/25 @ 12:31 by DANNIE ISABEL MD) Smoking status: Never smoker Non-prescribed substance use: denies use, 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) Highest level of school completed/degree received: 12th grade, no diploma Little interest or pleasure in doing things: several days Feeling down, depressed, or hopeless: several days Gender Identity: female Meds Home Medications and Allergies Home Medications ?Medication ?Instructions ?Recorded ?Confirmed ?Type No Known Home Medications 07/27/25 07/27/25 History Allergies Allergy/AdvReac Type Severity Reaction Status Date / Time latex Allergy Intermediate itching Verified 07/10/25 16:26 band aid AdvReac Intermediate itching Uncoded 07/10/25 16:26 Exam Constitutional Vital Signs, click to edit/add: Last Vital Signs Temp 98.1 F 07/28/25 14:15 Pulse 79 07/28/25 16:47 Resp 16 07/28/25 14:15 BP 108/58 07/28/25 16:48 Common normals: oriented x3, healthy appearing, alert and well nourished General appearance: cooperative Nutritional appearance: obese Orientation/consciousness: Yes awake HENMT Common normals: normocephalic Eye Common normals: EOMs intact bilaterally Respiratory Common normals: normal respiratory effort and no retractions Cardio Common normals: regular rate GI Common normals: soft to palpation and non-tender (gravid) Extremity Common normals: no calf tenderness General: edema (2+ to 3+ edema to her knees bilaterally) Psych Common normals: mental status grossly normal, thought process normal and cooperative Results Labs Labs: Short CBC 07/28/25 Range/Units 11:00 WBC 12.4 H (4.0-11.0) 10^3/uL Hgb 12.2 (12.0-16.0) g/dL Hct 35.4 L (36.0-48.0) % Plt Count 232 (150-450) 10^3/uL OB - A/P Assessment and Plan (1) Active labor at term: Plan Pain medication as needed Expect
[2025-07-28 19:22] LABS: Cannabinoid Screen Urine NEGATIVE (NEGATIVE); Methamphetamines Screen Urine NEGATIVE (NEGATIVE); Tricyclic Antidepressant Urine NEGATIVE (NEGATIVE)
[2025-07-28] MEDS: LIDOCAINE HCL 1% 200 MG/20 ML MDV INJ (23:10)
[2025-07-28] MEDS: OXYTOCIN/0.9 % SODIUM CHLORIDE 20 UNITS/1,000 ML PLAST..BAG 125 UNIT IV (23:18)
[2025-07-29] VITALS (8 sets, daily range): BP systolic 105–129; BP diastolic 63–80; PULSE 104–181; TEMP 36.7–36.8
--- NOTE | 2025-07-29 | PM.OBPRCVD ---
Procedure Procedure: 24yo now P1 was pushing ineffectively for a while and then pushed much more effectively. She had repetitive decels towards the end of the delivery and due to this and exhaustion, a vacuum was offered and the patient agreed. Outlet vacuum was accomplished without difficulty with one contraction and no pop offs. Intrapartal events: Prolonged 2nd Stage > 2.5 hours Delivery augmentation: rupture of membranes and pitocin Delivery monitor: external FHT, external uterine and internal FHT Route of delivery: vacuum extraction (outlet Kiwi M cup - one contraction and no pop offs) Indication for instrumentation: nonreassuring FHR tracing (and maternal exhaustion) Episiotomy Description: none L&D Laceration Description: perineal - 2nd degree Delivery repair: Vicryl (3-0) Estimated blood loss (mL): 350 Anesthesia type: Local Disposition: floor Narrative: Ua pH= 7.13 ; Uv pH= 7.13 Delivery date: 07/29/25 Gender: male presentation: vertex Placental delivery description: Spontaneous cord description: 3 Vessels heart rate - 1 minute: 100 bpm or Greater respiratory effort - 1 minute: No Spontaneous Effort muscle tone - 1 minute: Minimal Flexion/Extension reflex response - 1 minute: No Response color - 1 minute: Pallor or Cyanosis total score - 1 minute: 3 heart rate - 5 minute: 100 bpm or Greater respiratory effort - 5 minute: Spontaneous/Strong Cry muscle tone - 5 minute: Active Movement reflex response - 5 minute: Prompt Response color - 5 minute: Bluish Hands or Feet total score - 5 minute: 9
[2025-07-29] MEDS: IBUPROFEN 600 MG TABLET PO ×3 (00:53→20:39)
[2025-07-29 05:56] LABS: Hematocrit 29.2 % (36.0-48.0); Hemoglobin 10.0 g/dL (12.0-16.0); Immature Granulocytes Abs Auto 0.10 10^3/uL (0.00-0.03); Immature Granulocytes Pct Auto 0.5 % (0.0-0.5); Lymphocytes Absolute Auto 2.3 10^3/uL (1.2-3.8); Mean Corpuscular HGB Conc 34.2 g/dL (29.9-35.2); Mean Corpuscular Hemoglobin 32.7 pg (26.7-34.0); Mean Corpuscular Volume 95.4 fL (81.0-99.0); Platelet Count 206 10^3/uL (150-450); Red Blood Count 3.06 10^6/uL (4.20-5.40); White Blood Count 18.5 10^3/uL (4.0-11.0)
--- NOTE | 2025-07-29 08:48 | P.OBPN_ITS ---
OB - PN: Subj Subjective Patient comments: no complaints and pain well controlled [place] status: doing well Exam Constitutional Vital Signs, click to edit/add: Last Vital Signs Temp 98.1 F 07/28/25 14:15 Pulse 104 H 07/29/25 01:19 Resp 16 07/28/25 14:15 BP 108/66 07/29/25 01:19 O2 Del Method Room Air 07/29/25 01:00 Documenting provider has reviewed patient's vital signs: yes Common normals: no apparent distress Respiratory Common normals: normal respiratory effort and clear to auscultation bilaterally Cardio Common normals: regular rate and regular rhythm GI Common normals: Normal to inspection, nondistended, normoactive bowel sounds present Extremity Common normals: no clubbing, cyanosis or edema and no calf tenderness Results Labs Labs: Short CBC 07/28/25 07/29/25 Range/Units 11:00 05:53 WBC 12.4 H 18.5 H (4.0-11.0) 10^3/uL Hgb 12.2 10.0 L (12.0-16.0) g/dL Hct 35.4 L 29.2 L (36.0-48.0) % Plt Count 232 206 (150-450) 10^3/uL OB - PN: A/P Assessment and Plan (1) Active labor at term: Plan - Vaginal Delivery day: 1 Plan: routine care Time Spent with Patient Time: Total time spent is greater than 50% in coordination of care (as documented) at patient's floor/unit and/or counseling patient: Total time spent with greater than 50% in coordination of care (as documented) at patient's floor/unit and/or counseling patient: less than 15 minutes
[2025-07-29] MEDS: DOCUSATE SODIUM 100 MG CAPSULE PO ×2 (09:00→20:39)
[2025-07-29] MEDS: FERROUS SULFATE 325 MG TABLET PO ×2 (09:00→20:39)
[2025-07-29] MEDS: GLYCERIN/WITCH HAZEL PADS 1 PAD TOPICAL (09:01)
[2025-07-29] MEDS: BENZOCAINE/MENTHOL 85 GRAM SPRAY BOTTLE 1 APPLIC TOPICAL (09:01)
[2025-07-29] MEDS: ACETAMINOPHEN 325 MG TABLET 650 MG PO (13:52)
[2025-07-30 00:18] VITALS: TEMP 36.7
[2025-07-30 00:19] VITALS: BP 107/56; PULSE 88
[2025-07-30] MEDS: IBUPROFEN 600 MG TABLET PO ×2 (03:08→08:51)
[2025-07-30 08:40] VITALS: BP 120/64; PULSE 85; TEMP 36.6
[2025-07-30 08:42] VITALS: BP 120/64; PULSE 85
[2025-07-30] MEDS: FERROUS SULFATE 325 MG TABLET PO (08:51)
[2025-07-30] MEDS: DOCUSATE SODIUM 100 MG CAPSULE PO (08:52)
--- NOTE | 2025-07-30 12:14 | P.OBPN_ITS ---
OB - PN: Subj Subjective Patient comments: no complaints and pain well controlled [place] status: doing well Exam Constitutional Vital Signs, click to edit/add: Last Vital Signs Temp 97.8 F 07/30/25 08:40 Pulse 85 07/30/25 08:42 Resp 16 07/30/25 08:40 BP 120/64 07/30/25 08:42 O2 Del Method Room Air 07/30/25 00:15 Documenting provider has reviewed patient's vital signs: yes Common normals: no apparent distress Respiratory Common normals: normal respiratory effort and clear to auscultation bilaterally Cardio Common normals: regular rate and regular rhythm GI Common normals: Normal to inspection, nondistended, normoactive bowel sounds present Extremity Common normals: no clubbing, cyanosis or edema and no calf tenderness OB - PN: A/P Assessment and Plan (1) Active labor at term: Plan - Vaginal Delivery day: 2 Plan: routine care, discharge home and follow up 6 weeks Time Spent with Patient Time: Total time spent is greater than 50% in coordination of care (as documented) at patient's floor/unit and/or counseling patient: Total time spent with greater than 50% in coordination of care (as documented) at patient's floor/unit and/or counseling patient: less than 15 minutes
== END 2025-07-30 14:10 | disposition home or self-care (01) | DRG 807 ==
PROVIDERS: Admitting Provider Obstetrics & Gynecology; Visit Provider Obstetrics & Gynecology
DX: O13.4 Gestational [pregnancy-induced] hypertension without significant proteinuria, complicating childbirth (principal); Z37.0 Single live birth; Z3A.40 40 weeks gestation of pregnancy; O99.824 Streptococcus B carrier state complicating childbirth; O63.1 Prolonged second stage (of labor); O70.1 Second degree perineal laceration during delivery
CPT/HCPCS: 36415; 59050; 59410; 80307; 85025; 85027; 86850; 86900; 86901; J0290; J2300

== ENCOUNTER 2025-08-03 07:42 | Outpatient (OUT) | payer OTHER, SELFPAY ==
--- OUTSIDE RECORDS SUMMARY | 2025-07-20 08:40 | XMS_ITS | Encounter Summary ---
Author Organization [facility] Address [address] [place] [address] Care Team Providers Care Smoke And Flame Specialist Name Role Phone Unavailable Primary Care Provider Unavailabl e Reason for Visit * Reason Comments Routine Visit Encounter Details Date Type Department Care Team (Late st Contact Info) Description 07/20/2025 8:40 AM EDT Routine [facility] [address] [address] Melissa Cowan NP [address] [place] [address] Third trimester ([facility]); 39 weeks gestation of ([facility]) Social History Tobacco Use Types [...] nursing note reviewed. Exam conducted with a cv tech present. Vitals: There is no height or weight on file to calculate BMI. BP: 130/80 Patient's last menstrual period was 10/23/2024. ASSESSMENT & PLAN ICD-10-CM 1. Third trimester ([facility]) Z34.93 POCT urinalysis dipstick manually resulted 2. 39 weeks gestation of ([facility]) Z3A.39 POCT urinalysis dipstick manually resulted Return [...] Routine 07/20/2025 8:50 AM EDT Third trimester ([facility]) 39 weeks gestation of ([facility]) documented in this encounter Results * (ABNORMAL) [...]
--- OUTSIDE RECORDS SUMMARY | 2025-07-27 09:50 | XMS_ITS | Encounter Summary ---
Author Organization [facility] Address [address] [place] [address] Care Team Providers Care Parking Enforcement Manager Name Role Phone Unavailable Primary Care Provider Unavailabl e Reason for Visit * Reason Comments Routine Visit Encounter Details Date Type Department Care Team (Late st Contact Info) Description 07/27/2025 9:50 AM EDT Routine [facility] [address] [address] Melissa Cowan NP [address] [place] [address] Third trimester ([facility]); 40 weeks gestation of ([facility]) Social History Tobacco [...] nursing note reviewed. Exam conducted with a furnace attendant present. Vitals: There is no height or weight on file to calculate BMI. BP: 142/90 Patient's last menstrual period was 10/23/2024. ASSESSMENT & PLAN ICD-10-CM 1. Third trimester ([facility]) Z34.93 POCT urinalysis dipstick manually resulted 2. 40 weeks gestation of ([facility]) Z3A.40 Return OB: Patient presents today for [...] Routine 07/27/2025 10:05 AM EDT Third trimester ([facility]) documented [...] 10:0 5 AM EDT us Melissa Camryn TEST DESK TROUBLE LOCATOR POINT OF CARE TEST ENTER/EDIT ORDERABLES Final Result documented in this encounter Visit Diagnoses Diagnosis Third trimester ([facility]) state, incidental 40 weeks gestation of ([facility]) documented in this encounter
--- OUTSIDE RECORDS SUMMARY | 2025-08-03 07:47 | XMS_ITS | Encounter Summary ---
Author Organization [facility] Address [address] [facility] [place] [address] Care Team Providers Care Steamer Blocker Name Role Phone Unavailable Primary Care Provider Unavailabl e Encounter Details Date Type Department Care Team (Late st Contact Info) Description 03/08/2025 Orders Only [facility] [address] [place] [address] Ellen Lr LPN [address] [employer] [place] [id number] Social History Tobacco Use Types Packs/Day Years [...]
--- OUTSIDE RECORDS SUMMARY | 2025-08-03 07:47 | XMS_ITS | Clinical Summary ---
Author Organization [employer] tem Address [id number] [address] [place] [address] Care Team Providers Care Power Operator Name Role Phone Mary Boss Kem CORPORATE TRUST OFFICER-ORDER TRACER Primary Care Provid er Allergies Active Allergy [...] on file Insurance [employer] Care Teams Power Operator Relationship Specialty Start Date End Date Mary Boss APRN-ORDER TRACER PCP - General Family Medicine 11/29/21
--- OUTSIDE RECORDS SUMMARY | 2025-08-03 07:47 | XMS_ITS | Encounter Summary ---
Author Organization [facility] Address [address] [place] [address] Care Team Providers Care Aircraft Pneudraulic Systems Mechanic Name Role Phone Unavailable Primary Care Provider Unavailabl e Encounter Details Date Type Department Care Team (Late st Contact Info) Description 07/20/2025 Bamboo flowsheet [facility] [address] [place] [address] Melissa Cowan, TORY [address] [facility] [place] [address] Social History [...]
--- OUTSIDE RECORDS SUMMARY | 2025-08-03 07:47 | XMS_ITS | Encounter Summary ---
Author Organization [facility] Address [address] [place] [address] Care Team Providers Care Nursing Unit Clerk Name Role Phone Unavailable Primary Care Provider Unavailabl e Encounter Details Date Type Department Care Team (Late st Contact Info) Description 03/08/2025 Abstract [facility] [place] [facility] [address] [facility] [place] [address] Jose Bonilla DO [address] [place] [address] [place], [place] [id number] Social History Tobacco Use Types Packs/Day Years [...]
--- OUTSIDE RECORDS SUMMARY | 2025-08-03 07:47 | XMS_ITS | Clinical Summary ---
Author Organization [facility] Healthcare Address [address] [place] [address] Care Team Providers Care Community Service Aide Name Role Phone Unavailable Primary Care Provider Unavailabl e Allergies Active Allergy Reactions Criticality Noted Date Comments Latex Hives,Rash Low 12/25/2024 Wound Dressing Adhesive Hives,Rash,Itching Low 09/20 Medications MV-Min-Fe Fum-FA-DHA ( 1 PO) Take by mouth Active ondansetron (Zofran) 4 MG tabletIndicatio ns:Nausea and vomiting in ([facility]) Take 1 tablet (4 mg) by mouth every 6 (six) hours if needed for nausea or vomiting for up to 30 doses Take 1 tablet by mouth every 6 hours as needed for nausea. 30 tablet 3 01/25/2025 Active Encounters Date Type Department Care Team Description 07/27/2025 9:50 AM EDT Routine [facility] [place] [address] Melissa Cowan NP Third trimester ([facility]); 40 weeks gestation of ([facility]) 07/27/2025 Abstract [facility] [place] [address] Renate Bonilla DO 07/27/2025 Bamboo flowsheet [facility] [place] [address] Melissa Cowan NP 07/20/2025 8:40 AM [place] [address] Melissa Cowan, TORY Third trimester ([facility]); 39 weeks gestation of ([facility]) 07/20/2025 Bamboo flowsheet [facility] [address] [facility] [place] [address] Melissa Cowan NP 07/13/2025 8:50 AM EDT Routine [facility] [address] [facility] [place] [address] Myrna Levy PA 38 weeks gestation of ([facility]) (Primary Dx); Third trimester ([facility]) 07/13/2025 Bamboo flowsheet [facility] [address] [facility] [place] [address] Myrna Levy PA 07/08/2025 9:20 AM EDT Routine [facility] [address] [facility] [place] [address] Renate Bonilla, 38 weeks gestation of ([facility]); Third trimester ([facility]) 07/08/2025 Clinisync Result Encounter [facility] External Department Unsolicited Renate Bonilla, DO 07/08/2025 Bamboo flowsheet [facility] [address] [facility] [facility] [place] [address] Renate Bonilla, DO 07/01/2025 9:10 AM EDT Routine [facility] [address] [facility] [place] [address] Mynra Levy PA Third trimester ([facility]); 37 weeks gestation of ([facility]) 07/01/2025 Bamboo flowsheet [facility] [address] [facility] [place] [address] Myrna Levy PA 06/24/2025 8:40 AM EDT Routine [facility] [address] [place] [address] Renate Bonilla, Third trimester ([facility]); 36 weeks gestation of ([facility]) 06/24/2025 Bamboo flowsheet [facility] [address] [facility] [facility] [place] [address] Renate Bonilla, 06/16/2025 8:50 AM EDT Routine [facility] [address] [place] [address] Myrna Levy PA Third trimester ([facility]); 35 weeks gestation of ([facility]) 06/16/2025 Bamboo flowsheet [facility] [address] [place] [address] Myrna Levy PA 06/14/2025 Telephone [facility] [address] [facility] [place] [address] Regla Gutierrez, KIT 06/09/2025 Telephone [facility] [address] [place] [address] Diamond Holder, [place] 05/31/2025 8:40 AM EDT Routine [facility] [address] [facility] [facility] [place] [address] Renate Bonilla, Third trimester ([facility]); 32 weeks gestation of ([facility]) 05/31/2025 Bamboo flowsheet [facility] [address] [facility] [place] [address] Renate Bonilla, 05/19/2025 10:30 AM EDT Routine [facility] [address] [facility] [facility] [place] [address] Melissa Cowan, TORY Third trimester [facility] 31 weeks gestation of ([facility]) 05/19/2025 10:00 AM EDT Ancillary Procedure [facility] [place] [address] Size of fetus inconsistent with dates in second trimester ([facility] 05/05/2025 8:40 AM EDT Routine [facility] [address] Myrna Levy PA Size of fetus inconsistent with dates in second trimester ([facility]) (Primary Dx); Third trimester ([facility]); 29 weeks gestation of ([facility]) 05/05/2025 Bamboo flowsheet [facility] [place] [address] Myrna Levy PA from Last 3 Months [...] Routine 07/27/2025 10:05 AM EDT Third trimester ([facility]) POCT URINALYSIS DIPSTICK Routine 07/20/2025 8:50 AM EDT Third trimester ([facility]) 39 weeks gestation of ([facility]) POCT URINALYSIS DIPSTICK Routine 07/13/2025 9:15 AM EDT Third trimester ([facility]) 38 weeks gestation of ([facility]) MHPT FIBRINOGEN [...] 9:34 AM EDT 38 weeks gestation of ([facility]) Third trimester ([facility]) POCT URINALYSIS DIPSTICK Routine 07/01/2025 9:16 AM EDT Third trimester ([facility]) POCT URINALYSIS DIPSTICK Routine 06/24/2025 8:47 AM EDT Third trimester ([facility]) CULTURE, GROUP B STREP WITH SUSCEPTIBLITY Routine 06/24/2025 8:34 AM EDT Third trimester ([facility]) POCT URINALYSIS DIPSTICK Routine 06/16/2025 10:42 AM EDT Third trimester ([facility]) 35 weeks gestation of ([facility]) POCT URINALYSIS DIPSTICK Routine 05/31/2025 8:57 AM EDT Third trimester ([facility]) POCT URINALYSIS DIPSTICK Routine 05/19/2025 10:48 AM EDT Third trimester ([facility]) US OB FOLLOW UP TRANSABDOMINAL APPROACH Routine 05/19/2025 10:31 AM EDT Size of fetus inconsistent with dates in second trimester ([facility]) POCT URINALYSIS DIPSTICK Routine 05/05/2025 9:09 AM EDT Third trimester ([facility]) from Last 3 Months Results * (ABNORMAL) POCT urinalysis dipstick manually resulted (07/27/2025 10:05 AM EDT) Only the most recent of10 resultswithin the time period is included. Color, UA Yellow Clarity, UA Clear Glucose, UA Negative Negative - 1999(110) ++++ mg/dL Bilirubin, UA Negative Negative - 4(70) +++ mg/dL Ketones, UA Negative Negative - 160(16) ++++ mg/dL Spec Grav, UA 1.025 1 - 1.03 Blood, UA Positive Negative - 50 Han/mcL Comment:3+ pH, UA 6.0 5 - 9 Protein, UA Positive Negative - 1999(20) ++++ mg/dL Comment:Trace Urobilinogen, UA 0.2 0.2 [...] AM EDT Narrative 07/08/2025 10:41 [place] [address] Ultrasound Report Signed Patient: KURTIS BARNES MR#: [id number] : 2000 Acct:[id number] Age/Sex: 24 / F ADM Date: Loc: [facility] 254-[address]: Renate Bonilla D.O. Ordering Physician: Renate Bonilla D.O. Date of Service: 07/08/25 Procedure(s): US OB BPP w non-stress Accession Number(s): [id number] cc: Renate Bonilla D.O.; Physician,Non-Staff M.Sayda The [place] [id number] Patient Name: KURTIS BARNES MRN: [id number] date: 2000 Sex: F Assigned Patient Location: [facility] Current Patient Location: [facility] Accession/Order Number: [id number] Exam Date: 07/08/2025 10:11 Report Date: 07/08/2025 [...] Silva M.D. 07/08/2025 10:39 AM Dictation Location: [place] [address] Electronically authenticated by: [id number] Y Date: 07/08/2025 10:39 Dictated By: Cheri Da Silva M.D. Signed By: 07/08/25 1041 DD/ 1039 TD/TT: Drum Filler: Procedure Note Radiology, Radiologist, - 07/08/2025 [place] [address] Ultrasound Report Signed Patient: KURTIS BARNES RMR#: [id number] : 2000Acct:[id number] Age/Sex: 24 / FADM Date: Loc: [facility] 254-[address]: Renate Bonilla D.O. Ordering Physician: Renate Bonilla D.O. Date of Service: 07/08/25 Procedure(s): US OB BPP w non-stress Accession Number(s): [id number] cc: Renate Bonilla D.O.; Physician,Non-Staff Charo The [address] [address] Patient Name: KURTIS BARNES MRN: [id number] date: 2000 Sex: F Assigned Patient Location: [facility] Current Patient Location: [facility] Accession/Order Number: [id number] Exam Date: 07/08/2025 10:11 Report Date: 07/08/2025 10:39 At the request of: RENATE BONILLA DO Procedure: US OB BPP w non-stress BIOPHYSICAL PROFILE: CLINICAL INFORMATION: Increased BPs COMPARISON: None There is a single live intrauterine gestation in cephalic presentation.The reported gestational age is 38 weeks 1 day. The heart rate [id number] beats per minute. FINDINGS: TONE: 1 or [...] Silva M.D. 07/08/2025 10:39 AM Dictation Location: [employer] Electronically authenticated by: [id number] Y Date: 0:39 Dictated By: Cheri Da Silva M.D. Signed By:07/08/25 1041 DD/ 1039 TD/TT: Drum Filler: Renate Irene DO [facility] Final Result * (ABNORMAL) TBH CREATININE (07/08/2025 10:39 AM EDT) CREATININE 0.51(L) 0.55 - 1.02 mg/dL TBH TBH EGFR-AF DOMINICAN >60 >=60 mL/min/1.7 3m 2 TBH TBH EGFR-NON AF DOMINICAN >60 >=60 mL/min/1.7 3m 2 TBH 07/08/2025 10:3 9 AM EDT 07/08/2025 10:45 AM EDT Narrative CLINISYNC - 07/08/2025 11:06 AM EDT Renate Irene DO [facility] Final Result [facility] SRMCOH PROTHROMBIN TIME INR W/O COUM (07/08/2025 10:39 AM EDT) PROTHROMBIN TIME 9.6 9.0 - 11.6 sec TBH TBH INR <0.93 TBH Comment: DESIRED INR: 2.0-3.0 CONDITIONS NOT LISTED BELOW 2.5-3.5 FOR PROSTHETIC HEART VALVE REPLACEMENT 2.5-3.5 RECURRENT THROMBOSIS 07/08/2025 10:3 9 AM EDT 07/08/2025 10:45 AM EDT Narrative CLINISYNC - 07/08/2025 11:15 AM EDT Renate Irene DO CLIN[facility] Final Result [facility] TB * (ABNORMAL) MHPT FIBRINOGEN (07/08/2025 10:39 AM EDT) FIBRINOGEN 574(H) 200 - 400 mg/dL TB 07/08/2025 10:3 9 AM EDT 07/08/2025 10:45 AM EDT Narrative CLINISYNC - 07/08/2025 11:15 AM EDT Renate Irene DO CLINIS[facility] Final Result Performing Organization Address [facility]/ZIP Co de Phone Number CLINISYNC TB * (ABNORMAL) [facility] AST (07/08/2025 10:39 AM EDT) ASPARTATE AMINO TRANSFERASE 12(L) 15 - 37 U/L TB 07/08/2025 10:3 9 AM EDT 07/08/2025 10:45 AM EDT Narrative CLINISYNC - 07/08/2025 11:06 AM EDT Renate Irene DO CLINISYNC Final Result [facility] TB * [facility] APTT (07/08/2025 10:39 AM EDT) PARTIAL THROMBOPLASTIN TIME 27.1 22.3 - 36.2 sec TBH 07/08/2025 10:3 9 AM EDT 07/08/2025 10:45 AM EDT Narrative CLINISYNC - 07/08/2025 11:15 AM EDT Renate Irene DO [facility]INIS[facility]NC Final Result [facility] * (ABNORMAL) [facility] ALT (07/08/2025 10:39 AM EDT) ALANINE AMINOTRANSFERASE 13(L) 14 - 59 U/L TBH 07/08/2025 10:3 9 AM EDT 07/08/2025 10:45 AM EDT Narrative CLINISYNC - 07/08/2025 11:06 AM EDT Renate Irene DO CLINISYNC Final Result Performing Organization Address [facility] Co de Phone Number [facility] * ALL URIC ACID (07/08/2025 10:39 AM EDT) Pathologist [facility] URIC ACID 4.4 2.6 - 6.0 mg/dL TB 07/08/2025 10:3 9 AM EDT 07/08/2025 10:45 AM EDT [facility] CLINISYNC - 07/08/2025 11:[address] [facility] Final Result Performing Organization Address [facility]/ZIP Co de Phone Number [facility] * (ABNORMAL) ALL CBC WITH AUTO DIFF (07/08/2025 10:39 AM EDT) TBH WBC 11.0 4.0 - 11.0 10 3/uL TBH TBH RBC 3.61(L) 4.20 - 5.40 10 6/uL TBH TBH HGB 11.7(L) 12.0 - 16.0 g/dL TBH TBH HCT 33.9(L) 36.0 - 48.0 % TBH [...] DO CLINISYNC Final Result Performing Organization Address City/State/[facility] Co de Phone Number [facility] * ALL BUN (07/08/2025 10:39 AM EDT) BLOOD UREA NITROGEN 12.0 7.0 - 18.0 mg/dL TBH 07/08/2025 10:3 9 AM EDT 07/08/2025 10:45 AM EDT Narrative CLINISYNC - 07/08/2025 11:06 AM EDT Renate Irene DO CLIN[facility] Final Result Performing Organization Address City/State/[facility] de Phone Number [facility]IN[facility]NC TBH * (ABNORMAL) TBH URINE T PROTEIN CREAT RATIO (07/08/2025 10:10 AM EDT) TOTAL PROTEIN URINE RANDOM 16.0(H) <=11.9 mg/dL TBH CREATININE URINE RANDOM 121.60 20.00 - 300.00 mg/dL TBH PROTEIN CREATININE RATIO URINE 0.13 TBH 07/08/2025 10:1 0 AM EDT 07/08/2025 10:45 AM EDT Narrative CLINISYNC - 07/08/2025 11:07 AM EDT us Renate Irene DO CLINISYNC Final Result Performing Organization Address [facility] de Phone Number [place] [facility] * CULTURE, GROUP B STREP WITH SUSCEPTIBLITY (06/24/2025 8:34 AM EDT) Swab 06/24/2025 8:34 AM EDT us Renate Irene DO LAB BLOOD ORDERABLES Final Resul t Performing Organization Address [facility] de Phone Number EXTERNAL LAB * US [...] II, MD, PHD at 20-May-2025 08:33:27 AM [facility] Procedure Note Nanda Grant MD - [...] signed by NANDA GRANT II, MD, PHD [id number] 08:33:27 AM [facility] us Myrna GARIBAY IMG OB US PROCEDURES Final Resul t from Last 3 Months Insurance L[employer]ING [employer]
--- OUTSIDE RECORDS SUMMARY | 2025-08-03 07:47 | XMS_ITS | Encounter Summary ---
Author Organization [facility] Address [address] [place] [address] Care Team Providers Care Print Production Associate Name Role Phone Unavailable Primary Care Provider Unavailabl e Encounter Details Date Type Department Care Team (Late st Contact Info) Description 07/27/2025 Abstract [facility] [place] [facility] [address] [place] [address] Jose Bonilla DO [address] [place], [place] [id number] Social History Tobacco Use Types Packs/Day Years [...]
--- OUTSIDE RECORDS SUMMARY | 2025-08-03 07:47 | XMS_ITS | Encounter Summary ---
Author Organization [facility] Address [address] [place] [address] Care Team Providers Care Riverboat Captain Name Role Phone Unavailable Primary Care Provider Unavailabl e Encounter Details Date Type Department Care Team (Late st Contact Info) Description 03/02/2025 Abstract [facility] [address] [place] [address] Regla Gutierrez MA Social History Tobacco Use [...]
--- OUTSIDE RECORDS SUMMARY | 2025-08-03 07:48 | XMS_ITS | CCD ---
Author Organization [facility] CliniSywy Care Team Providers Care Green Chain Offbearer Name Role Phone HORACIO ESCOBAR Admitting Unavailable HORACIO ESCOBAR Attending Unavailable JOHN, NONE LISTED Primary Care Unavaila Germain Jasso Consulting Unavailable HORACIO ESCOBAR Consulting Unavailable Sheree Kimbrough Unavailable Isadora Arroyo Unavailable Unavailable Primary Care Provider Unavailcharo BONILLA, RENATE Attending Unavailable RADHA, MYRNA Attending Unavailable IRENE, RENATE Attending Unavailable IRENE, RENATE Attending Unavailable RADHA, MYRNA Attending Unavailable RADHA MYRNA Referring Unavailable CAMRYNMELISSA KUMAR Attending Unavailable IRENE, RENATE Attending Unavailable RADHA, MYRNA Attending Unavailable IRENE, RENATE Attending Unavailable RADHA, MYRNA Attending Unavailable IRENE, RENATE Attending Unavailable RADHA, MYRNA Attending Unavailable CAMRYN, MELISSA Attending Unavailable CAMRYN, MELISSA Attending Unavailable Allergies Allergy Classification Reported Allergen(s) [...] MG tablet Indications: Nausea and vomiting in ([facility]) Take 1 tablet (4 mg) by [...] oral solution (3 sources) alpha-Adrenergic Agonist, Uncompetitive S-mdukef-Z-aspartat e Receptor Antagonist, Sigma-1 Agonist Start: 07-27-2021 Start: 07-27-2021 take 10 mL by mouth every six hours Kidqylvgf-Mrscuhvf-MP 30-2-10 MG/5ML 10 mL Orally every 6 hours for 5 days Jul, Not-Taking dextromethorphan hydrobromid e 15 mg / guaiFENesin 400 mg / pseudoephedrine hydrochloride 60 mg oral tablet (3 sources) alpha-Adrenergic Agonist, Uncompetitive I-igvhji-M-aspartate Receptor Antagonist, Sigma-1 Agonist Start: 07-27-2021 Start: 07-27-2021 take 4 tablets by mo ut every twenty-four hours as needed Capmist DM [...] [39 weeks gestation of ] 07-20-2025 Episodic Residual codes; unclassified (2 sources) Gestation period, 40 weeks; Translations: [40 weeks gestation of ] 07-27-2025 Episodic Skin and subcutaneous tissue infections (1 [...] Range Facility Urinalysis macro (dipstick) panel (U)on 07-27-2025 Bilirubin, UA Negative Negative - 4(70) +++ mg/dL [facility] Blood, UA Positive Negative - 50 Han/mcL [facility] Comment on above: 3+ Clarity, UA Clear [facility] re Color, UA Yellow [facility] e Glucose, UA Negative Negative - 1999(110) ++++ mg/dL [facility] Interpretation and review of laboratory results Abnormal [facility] Ketones, UA Negative Negative - 160(16) ++++ mg/dL [facility] Leukocytes, UA Positive Negative - 500+++ Jinny/mcL [facility] Comment on above: 3+ Nitrite, UA Negative Negative - Positive [facility] pH, UA 6 5 - 9 [facility] e Protein, UA Positive Negative - 1999(20) ++++ mg/dL [facility] Comment on above: Trace Spec Grav, UA 1.025 1 - 1.03 [facility] Urobilinogen, UA 0.2 0.2 - 12 mg/dL [facility] Urinalysis macro (dipstick) panel (U)on 07-20-2025 Bilirubin, UA Negative Negative - 4(70) +++ mg/dL [facility] Blood, UA Negative Negative - 50 Han/mcL [facility] Clarity, UA Clear [facility] re Color, UA Yellow [facility] Glucose, UA Negative Negative - 1999(110) ++++ mg/dL [facility] Interpretation and review of laboratory results Abnormal [facility] Ketones, UA Negative Negative - 160(16) ++++ mg/dL [facility] Leukocytes, UA Positive Negative - 500+++ Jinny/mcL [facility] Comment on above: 3+ Nitrite, UA Negative Negative - Positive [facility] [...] UA Negative Negative - 1999(110) ++++ mg/dL [facility] Interpretation and review of laboratory results Abnormal [facility] Ketones, UA Negative Negative - 160(16) ++++ mg/dL [facility] Leukocytes, UA 1+ Negative - 500+++ Jinny/mcL [facility] Nitrite, UA Negative Negative - Positive [facility] pH, UA 6 5 - 9 [facility] Protein, UA Trace Negative - 1999(20) ++++ mg/dL [facility] Spec Grav, UA 1.03 1 - 1.03 [facility] Urobilinogen, UA 1.0 0.2 - 12 mg/dL [facility] US OB BPP W NON-STRESS on 07-08-[address] [address] Ultrasound Report Signed Patient: KURTIS BARNES MR#: [id number] : 2000 Acct:[id number] Age/Sex: 24 / F ADM Date: Loc: [facility] 254-[address]: Renate Bonilla D.O. Ordering Physician: Renate Bonilla D.O. Date of Service: 07/08/25 Procedure(s): US OB BPP w non-stress Accession Number(s): [id number] cc: Renate Bonilla D.O.; Physician,Non-Staff [place] [address] Patient Name: KURTIS BARNES MRN: [id number] date: 2000 Sex: F Assigned Patient Location: [facility] Current Patient Location: [facility] Accession/Order Number: [id number] Exam Date: 07/08/2025 10:11 Report Date: 07/08/2025 [...] Silva M.D. 07/08/2025 10:39 AM Dictation Location: [place] [address] Electronically authenticated by: [id number] Y Date: 07/08/2025 10:39 Dictated By: Cheri Da Silva M.D. Signed By: 07/08/25 1041 DD/ 1039 TD/TT: Nicu Rn: [facility] Radiology, Radiologist, - 07/08/2025 [place] [address] Ultrasound Report Signed Patient: KURTIS BARNES MR#: [id number] : 2000 Acct:[id number] Age/Sex: 24 / F ADM Date: Loc: [facility] 254-[address]: Renate Bonilla D.O. Ordering Physician: Renate Bonilla D.O. Date of Service: 07/08/25 Procedure(s): US OB BPP w non-stress Accession Number(s): [id number] cc: Renate Bonilla D.O.; Physician,Non-Staff [place] [address] Patient Name: KURTIS BARNES MRN: [facility]:[id number] date: 2000 Sex: F Assigned Patient Location: [facility] Current Patient Location: [facility] Accession/Order Number: [id number] Exam Date: 07/08/2025 10:11 Report Date: 07/08/2025 [...] Silva M.D. 07/08/2025 10:39 AM Dictation Location: [place] [address] Electronically authenticated by: [id number] Y Date: 07/08/2025 10:39 Dictated By: Cheri Da Silva M.D. Signed By: 07/08/25 1041 DD/ 1039 TD/TT: Nicu Rn: [facility] Radiology Study observation (narrative) [facility] US OB BPP W NON-STRESS Ordered By: Radiologist Radiology on 07-08-2025 [facility] Work Phone: Urinalysis macro (dipstick) panel (U)on 07-08-2025 Bilirubin, UA Negative Negative - 4(70) +++ mg/dL [facility] Blood, UA Negative Negative - 50 Han/mcL [facility] Clarity, UA Clear [facility] re Color, UA Straw [facility] Glucose, UA Negative Negative - 1999(110) ++++ mg/dL [facility] Interpretation and review of laboratory results Abnormal [facility] Ketones, UA Negative Negative - 160(16) ++++ mg/dL [facility] Leukocytes, UA Positive Negative - 500+++ Jinny/mcL [facility] Nitrite, UA Negative Negative - Positive [facility] pH, UA 6 5 - 9 [facility] Protein, UA Positive Negative - 1999(20) ++++ mg/dL [facility] Spec Grav, UA 1.02 1 - 1.03 [facility] Urobilinogen, UA 1.0 0.2 - 12 mg/dL [facility]inalysis macro (dipstick) panel (U)on 07-01-2025 Bilirubin, UA Negative Negative - 4(70) +++ mg/dL [facility] Blood, UA Negative Negative - 50 Han/mcL [facility] Clarity, UA Clear [facility] re Color, UA Yellow [facility] Glucose, UA Negative Negative - 1999(110) ++++ mg/dL [facility] Interpretation and review of laboratory results Normal [facility] Ketones, UA Negative Negative - 160(16) ++++ mg/dL [facility] Leukocytes, UA Negative Negative - 500+++ Jinny/mcL [facility] Healthcare Nitrite, UA Negative Negative - Positive [facility] pH, UA 6 5 - 9 [facility] Protein, UA Negative Negative - 1999(20) ++++ mg/dL [facility] Spec Grav, UA 1.02 1 - 1.03 [facility] care Urobilinogen, UA 1.0 0.2 - 12 mg/dL [facility] Urinalysis macro (dipstick) panel (U)on 06-24-2025 Bilirubin, UA Negative Negative - 4(70) +++ mg/dL [facility] Healthcare Blood, UA Negative Negative - 50 Han/mcL [facility] Healthcare Clarity, UA Cloudy [facility] re Color, UA Yellow [facility] Glucose, UA Negative Negative - 1999(110) ++++ mg/dL [facility] Interpretation and review of laboratory results Abnormal [facility] Ketones, UA Negative Negative - 160(16) ++++ mg/dL [facility] Leukocytes, UA 1+ Negative - 500+++ Jinny/mcL [facility] Healthcare Nitrite, UA Negative Negative - Positive [facility] pH, UA 6 5 - 9 [facility] Protein, UA Negative Negative - 1999(20) ++++ mg/dL [facility] Healthcare Spec Grav, UA 1.02 1 - 1.03 [facility] Urobilinogen, UA 1.0 0.2 - 12 mg/dL [facility] Urinalysis macro (dipstick) panel (U)on 06-16-2025 Bilirubin, UA Negative Negative - 4(70) +++ mg/dL [facility] Healthcare Blood, UA Negative Negative - 50 Han/mcL [facility] Healthcare Clarity, UA Clear [facility] re Color, UA Yellow [facility] Glucose, UA Negative Negative - 1999(110) ++++ mg/dL [facility] Interpretation and review of laboratory results Normal [facility] Ketones, UA Negative Negative - 160(16) ++++ mg/dL [facility] Healthcare Leukocytes, UA Negative Negative - 500+++ Jinny/mcL [facility] Healthcare Nitrite, UA Negative Negative - Positive [facility] pH, UA 6.5 5 - 9 [facility] Protein, UA Negative Negative - 1999(20) ++++ mg/dL [facility] Spec Grav, UA 1.025 1 - 1.03 [facility] Urobilinogen, UA 1.0 0.2 - 12 mg/dL [facility] Urinalysis macro (dipstick) panel (U)on 05-31-2025 Bilirubin, UA Negative Negative - 4(70) +++ mg/dL [facility] Blood, UA Negative Negative - 50 Han/mcL [facility] Clarity, UA Clear [facility] re Color, UA Yellow [facility] Glucose, UA Negative Negative - 1999(110) ++++ mg/dL [facility] Interpretation and review of laboratory results Abnormal [facility] Ketones, UA Negative Negative - 160(16) ++++ mg/dL [facility] Leukocytes, UA Negative Negative - 500+++ Jinny/mcL [facility] Nitrite, UA Negative Negative - Positive [facility] pH, UA 6 5 - 9 [facility] e Protein, UA Trace Negative - 1999(20) ++++ mg/dL [facility] Spec Grav, UA 0.03 1 - 1.03 [facility] Urobilinogen, UA 0.2 0.2 - 12 mg/dL [facility] US OB FOLLOW UP TRANSABDOMIN [...] II, MD, PHD at 20-May-2025 08:33:27 AM [facility] Normal Not Available Comment on above: Order Comment: US OB SCAN FOR GROWTH Estimated Date of Delivery: 07/21/25 Gestational Age as of 05/05/2025: 29w0d Urinalysis macro (dipstick) panel (U)on 05-19-2025 Bilirubin, UA Negative Negative - 4(70) +++ mg/dL [facility] Blood, UA Negative Negative - 50 Han/mcL [facility] Clarity, UA Clear [facility] Color, UA Yellow [facility] Glucose, UA Negative Negative - 1999(110) ++++ mg/dL [facility] Interpretation and review of laboratory results Normal [facility] Ketones, UA Negative Negative - 160(16) ++++ mg/dL [facility] Leukocytes, UA Negative Negative - 500+++ Jinny/mcL [facility] Healthcare Nitrite, UA Negative Negative - Positive [facility] pH, UA 6 5 - 9 [facility] Protein, UA Negative Negative - 1999(20) ++++ mg/dL [facility] Healthcare Spec Grav, UA 1.03 1 - 1.03 [facility] care Urobilinogen, UA 0.2 0.2 - 12 mg/dL [facility] Urinalysis macro (dipstick) panel (U)on 05-05-2025 Bilirubin, UA Negative Negative - 4(70) +++ mg/dL [facility] Blood, UA Negative Negative - 50 Han/mcL [facility] Healthcare Clarity, UA Clear [facility] Color, UA Yellow [facility] Glucose, UA Negative Negative - 1999(110) ++++ mg/dL [facility] Healthcare Interpretation and review of laboratory results Abnormal [facility] Ketones, UA Negative Negative - 160(16) ++++ mg/dL [facility] Leukocytes, UA Negative Negative - 500+++ Jinny/mcL [facility] Nitrite, UA Negative Negative - Positive [facility] pH, UA 6.5 5 - 9 [facility] Protein, UA Trace Negative - 1999(20) ++++ mg/dL [facility] Spec Grav, UA 1.025 1 - 1.03 [facility] Urobilinogen, UA 0.2 0.2 - 12 mg/dL [facility] Urinalysis macro (dipstick) panel (U)on 04-20-2025 Bilirubin, UA Negative Negative - 4(70) +++ mg/dL [facility] Blood, UA Negative Negative - 50 Han/mcL [facility] Clarity, UA Clear [facility] re Color, UA [facility] Glucose, UA Negative Negative - 1999(110) ++++ mg/dL [facility] Interpretation and review of laboratory results Abnormal [facility] Ketones, UA Negative Negative - 160(16) ++++ mg/dL [facility] Leukocytes, UA Negative Negative - 500+++ Jinny/mcL [facility] Nitrite, UA Negative Negative - Positive [facility] pH, UA 5.5 5 - 9 [facility] Protein, UA Trace Negative - 1999(20) ++++ mg/dL [facility] Spec Grav, UA 1.03 1 - 1.03 [facility] Urobilinogen, UA 0.2 0.2 - 12 mg/dL [facility] MLR HEMOGLOBIN A1Con 025 Glucose [Mass/Vol] 91 mg/dL [facility] HbA1c (Bld) [Mass fraction] 4.8 % 4.5 - 6.2 % [facility] Comment on above: ADA RECOMMENDED LIMI T 4.0 - 6.0 ADA THERAPEUTIC TARGET < 7.0 ACTION SUGGESTED > 7.0 [facility] US OB 14+ WEEKS ANATOMY SCAN [...] II, MD, PHD at 02-Apr-2025 10:21:46 AM [facility] Normal Not Available Comment on above: Order Comment: US OB ANATOMY SINGLE W US OB CERVICAL LENGTH Estimated Date of Delivery: 07/21/25 Gestational Age as of 02/23/2025: 18w6d Urinalysis macro (dipstick) panel (U)on 03-23-2025 Bilirubin, UA Negative Negative - 4(70) +++ mg/dL [facility] Blood, UA Negative Negative - 50 Han/mcL [facility] Clarity, UA Clear [facility] Color, UA Yellow [facility] Glucose, UA Negative Negative - 2000(110) ++++ mg/dL [facility] Interpretation and review of laboratory results Abnormal [facility] Ketones, UA Negative Negative - 160(16) ++++ mg/dL [facility] Leukocytes, UA Negative Negative - 500+++ Jinny/mcL [facility] Nitrite, UA Negative Negative - Positive [facility] pH, UA 5.5 5 - 9 [facility] Protein, UA Negative Negative - 1999(20) ++++ mg/dL [facility] Spec Grav, UA 1.02 1 - 1.03 [facility] Urobilinogen, UA 1.0 0.2 - 12 mg/dL [facility] RECURRENT VAGINITIS (HTRX)on 02-24-2025 ATOPOBIUM VAGINAE 0 [facility] ATOPOBIUM VAGINAE Not detected [facility] BVAB 2,3 (BACTERIAL VAGINOSIS ASSOCIATED BACTERIA 2, 3); MOBILUNCUS SPP 0 [facility] BVAB 2,3 (BACTERIAL VAGINOSIS ASSOCIATED BACTERIA 2, 3); MOBILUNCUS SPP Not detected [facility] INDU ALBICANS, PARAPSILOSIS, TROPICALIS 0 [facility] INDU ALBICANS, PARAPSILOSIS, TROPICALIS Not detected [facility] GLAB[facility]ATA Not detected [facility] INDU KRUSEI [facility] IN[facility] KRUSEI Not detected [facility] CHLAMYDIA TRACHOMATIS 0 [facility] CHLAMYDIA TRACHOMATIS Not detected [facility] GARDNERELLA VAGINALIS 0 [facility] GARDNERELLA VAGINALIS Not detected [facility] MEGASPHAERA (TYPES 1, 2) 0 [facility] MEGASPHAERA (TYPES 1, 2) Not detected [facility] MYCOPLASMA GENITALIUM 0 [facility] MYCOPLASMA GENITALIUM Not detected [facility] NEISSERIA GONORRHOEAE 0 [facility] NEISSERIA GONORRHOEAE Not detected [facility] TRICHOMONAS VAGINALIS 0 [facility] TRICHOMONAS VAGINALIS Not detected [facility] ALL CBC WITH AUTO DIFFon BASOPHILS ABSOLUTE AUTO 0 [facility] Basophils/100 WBC (Bld) 0.3 % 0.2 - 2.0 % [facility] Eosinophils/100 WBC (Bld) 1.2 % 0.9 - 7.0 % [facility] Erythrocyte distribution width (RBC) [Ratio] 12.6 % 11.0 - 15.0 % [facility] Hematocrit (Bld) [Volume fraction] 35.1 % Low 36.0 - 48.0 % [facility] Hemoglobin (Bld) [Mass/Vol] 12.5 g/dL 12.0 - 16.0 g/dL [facility] IMMATURE GRANULOCYTES ABS AUTO 0.06 High [facility] Immature granulocytes/100 WBC (Bld) 0.4 % 0.0 - 0.5 % [facility] Interpretation and review of laboratory results Abnormal [facility] LYMPHOCYTES ABSOLUTE AUTO 3.8 [facility] Lymphocytes/100 WBC (Bld) 27.2 % 20.5 - 60.0 % [facility] MCH (RBC) [Entitic mass] 32.2 pg 26.7 - 34.0 pg [facility] MCHC (RBC) [Mass/Vol] 35.6 g/dL High 29.9 - 35.2 g/dL [facility] MCV (RBC) [Entitic vol] 90.5 fL 81.0 - 99.0 fL [facility] MONOCYTES ABSOLUTE AUTO 0.8 [facility] Monocytes/100 WBC (Bld) 5.5 % 1.7 - 12.0 % [facility] NEUTROPHILS ABSOLUTE AUTO 9.2 High [facility] Neutrophils/100 WBC (Bld) 65.4 % 43.0 - 75.0 % [facility] Platelet mean volume (Bld) [Entitic vol] 9.2 fL Low 9.5 - 13.5 fL [facility] EO # 0.2 [facility] TB PLT 245 [facility] RBC 3.88 Low [facility] TB WBC 14.1 High [facility] Urinalysis macro (dipstick) panel (U)on 02-23-2025 Bilirubin, UA Negative Negative - 4(70) +++ mg/dL [facility] Blood, UA Negative Negative - 50 Han/mcL [facility] Clarity, UA Clear [facility] Color, UA Yellow [facility] Glucose, UA Negative Negative - 1999(110) ++++ mg/dL [facility] Interpretation and review of laboratory results Abnormal [facility] Ketones, UA Negative Negative - 160(16) ++++ mg/dL [facility] Leukocytes, UA Negative Negative - 500+++ Jinny/mcL [facility] Nitrite, UA Negative Negative - Positive [facility] pH, UA 6.5 5 - 9 [facility] e Protein, UA Negative Negative - 1999(20) ++++ mg/dL [facility] Healthcare Spec Grav, UA 1.02 1 - 1.03 [facility] care Urobilinogen, UA 1.0 0.2 - 12 mg/dL [facility] Urinalysis macro (dipstick) panel (U)on 01-25-2025 Bilirubin, UA Negative Negative - 4(70) +++ mg/dL [facility] Blood, UA Positive Negative - 50 Han/mcL [facility] Healthcare Comment on above: trace-intact Clarity, UA Clear [facility] re Color, UA Yellow [facility] Glucose, UA Negative Negative - 1999(110) ++++ mg/dL [facility] Interpretation and review of laboratory results Abnormal [facility] Ketones, UA Negative Negative - 160(16) ++++ mg/dL [facility] Leukocytes, UA Negative Negative - 500+++ Jinny/mcL [facility] Nitrite, UA Negative Negative - Positive [facility] pH, UA 6.5 5 - 9 [facility] e Protein, UA Negative Negative - 1999(20) ++++ mg/dL [facility] Spec Grav, UA 1.025 1 - 1.03 [facility] care Urobilinogen, UA 0.2 0.2 - 12 mg/dL [facility] HCG ( test) Ql (U)o n 12-25-2024 Interpretation and review of laboratory results Abnormal [facility] Preg Test, Ur Positive Negative [facility] care [facility] Urinalysis macro (dipstick) panel (U)on 12-25-2024 Bilirubin, UA Negative Negative - 4(70) +++ mg/dL [facility] Blood, UA Positive Negative - 50 Han/mcL [facility] Healthcare Comment on above: small Clarity, UA Clear [facility]ca re Color, UA Yellow [facility] e Glucose, UA Negative Negative - 1999(110) ++++ mg/dL [facility] Interpretation and review of laboratory results Abnormal [facility] Ketones, UA Negative Negative - 160(16) ++++ mg/dL [facility] Leukocytes, UA Negative Negative - 500+++ Jinny/mcL [facility] Healthcare Nitrite, UA Negative Negative - Positive [facility] pH, UA 6 5 - 9 [facility] Protein, UA Negative Negative - 1999(20) ++++ mg/dL [facility] Spec Grav, UA 1.03 1 - 1.03 [facility] Urobilinogen, UA 0.2 0.2 - 12 mg/dL [facility] US OB TRANSVAGINALon 025 [...] II, MD, PHD at 25-Dec-2024 08:23:40 AM [facility] Normal Not Available Comment on above: [...] GERMAIN LUNA Date: 2021-11-27 08:39 Normal [facility] Testing[facility] 2020 Result Negative [facility] [employer] Other Vital Signs Date Time Vital Sign Value Performing Clinician Facility 07-27-2025 10:44-0400 Diastolic blood pressure 100 mm[Hg] Melissa Camryn MOLD COOLER Work Phone: [facility] 07-27-2025 10:44-0400 Systolic blood pressure 160 mm[Hg] Melissa Camryn MOLD COOLER Work Phone: [facility] 07-27-2025 09:57-0400 Body weight 145.83 kg Melissa Camryn MOLD COOLER Work Phone: [facility] 07-20-2025 08:44-0400 Body weight 143.34 kg Melissa Camryn MOLD COOLER Work Phone: [facility] 07-20-2025 08:44-0400 Diastolic blood pressure 80 mm[Hg] Melissa Camryn MOLD COOLER Work Phone: [facility] 07-20-2025 08:44-0400 Systolic blood pressure 130 mm[Hg] Melissa Camryn MOLD COOLER Work Phone: [facility] 07-13-2025 09:09-0400 Body weight 143.25 kg Myrna GARIBAY Work Phone: [facility] 07-13-2025 09:09-0400 Diastolic blood pressure 82 mm[Hg] Myrna GARIBAY Work Phone: [facility] 07-13-2025 09:09-0400 Systolic blood pressure 128 mm[Hg] Myrna GARIBAY Work Phone: [facility] 07-08-2025 09:29-0400 Body weight 139.25 kg Renate Irene DO Work Phone: [facility] 07-08-2025 09:29-0400 Diastolic blood pressure 76 mm[Hg] Renate Irene DO Work Phone: [facility] 07-08-2025 09:29-0400 Systolic blood pressure 138 mm[Hg] Renate Irene DO Work Phone: [facility] 07-01-2025 09:11-0400 Body weight 138.35 kg Myrna GARIBAY Work Phone: [facility] 07-01-2025 09:11-0400 Diastolic blood pressure 76 mm[Hg] Myrna Garcia PA Work Phone: [facility] 07-01-2025 09:11-0400 Systolic blood pressure 128 mm[Hg] Myrna Garcia PA Work Phone: [facility] 06-24-2025 08:45-0400 Body weight 134.72 kg Renate Irene DO Work Phone: [facility] 06-24-2025 08:45-0400 Diastolic blood pressure 82 mm[Hg] Renate Irene DO Work Phone: [facility] 06-24-2025 08:45-0400 Systolic blood pressure 126 mm[Hg] Renate Irene DO Work Phone: [facility] 06-16-2025 08:58-0400 Body weight 131.14 kg Myrna GARIBAY Work Phone: [facility] 06-16-2025 08:58-0400 Diastolic blood pressure 82 mm[Hg] Myrna GARIBAY Work Phone: [facility] 06-16-2025 08:58-0400 Systolic blood pressure 120 mm[Hg] Myrna GARIBAY Work Phone: [facility] 05-31-2025 08:51-0400 Body weight 125.08 kg Renate Irene DO Work Phone: [facility] 05-31-2025 08:51-0400 Diastolic blood pressure 82 mm[Hg] Renate Irene DO Work Phone: [facility] 05-31-2025 08:51-0400 Systolic blood pressure 126 mm[Hg] Renate Irene DO Work Phone: [facility] 05-19-2025 10:38-0400 Body weight 123.49 kg Melissa Cowan NP Work Phone: [facility] 05-19-2025 10:38-0400 Diastolic blood pressure 72 mm[Hg] Melissa Camryn MOLD COOLER Work Phone: [facility] 05-19-2025 10:38-0400 Systolic blood pressure 120 mm[Hg] Melissa Camryn MOLD COOLER Work Phone: [facility] 05-05-2025 09:06-0400 Body weight 121.9 kg Myrna Garcia PA Work Phone: [facility] 05-05-2025 09:06-0400 Diastolic blood pressure 80 mm[Hg] Myrna Garcia PA Work Phone: [facility] 05-05-2025 09:06-0400 Systolic blood pressure 132 mm[Hg] Myrna Garcia PA Work Phone: [facility] 04-20-2025 09:27-0400 Body weight 122.24 kg Renate Irene DO Work Phone: [facility] 04-20-2025 09:27-0400 Diastolic blood pressure 70 mm[Hg] Renate Irene DO Work Phone: [facility] 04-20-2025 09:27-0400 Systolic blood pressure 120 mm[Hg] Renate Irene DO Work Phone: [facility] 03-23-2025 11:11-0400 Body weight 119.35 kg Renate Irene DO Work Phone: [facility] 03-23-2025 11:11-0400 Diastolic blood pressure 74 mm[Hg] Renate Irene DO Work Phone: [facility] 03-23-2025 11:11-0400 Systolic blood pressure 114 mm[Hg] Renate Irene DO Work Phone: [facility] 02-23-2025 10:18-0400 Body weight 116.48 kg Myrna Garcia PA Work Phone: [facility] 02-23-2025 10:18-0400 Diastolic blood pressure 70 mm[Hg] Myrna Garcia PA Work Phone: [facility] 02-23-2025 10:18-0400 Systolic blood pressure 116 mm[Hg] Myrna Radha PA Work Phone: [facility] 01-25-2025 11:32-0400 Body weight 117.84 kg Renate Irene DO Work Phone: [facility] 01-25-2025 11:32-0400 Diastolic blood pressure 68 mm[Hg] Renate Irene DO Work Phone: [facility] 01-25-2025 11:32-0400 Systolic blood pressure 118 mm[Hg] Renate Irene DO Work Phone: [facility] 12-25-2024 11:54-0500 Body weight 109.77 kg Noms Nurse [facility] 12-25-2024 11:54-0500 Diastolic blood pressure 70 mm[Hg] [facility] Nurse [facility] 12-25-2024 11:54-0500 Systolic blood pressure 118 mm[Hg] [facility] Nurse [facility] 05-01-2023 13:20-0400 Body height 175.26 cm Isadora Dina Other [employer] Other 05-01-2023 13:20-0400 Body mass index (BMI) [Ratio] 38.98 kg/m2 Isadora Dina Other [employer] Other 05-01-2023 13:20-0400 Body temperature 97.8 [degF] Isadora Dina Other [employer] Other 05-01-2023 13:20-0400 Body weight 119.75 kg Iasdora Dina Other [employer] Other 05-01-2023 13:20-0400 Respiratory rate 18 /min Isadora Arroyo Other [employer] Other 05-01-2023 13:20-0400 SaO2% (BldA) [Mass fraction] 98 % Isadora Arroyo Other [employer] Other 09-19-2021 14:15-0500 Body height 175.26 cm Sheree Ginty Other [employer] Other 09-19-2021 14:15-0500 Body mass index (BMI) [Ratio] 36.91 kg/m2 Sheree Ginty Other [employer] Other 09-19-2021 14:15-0500 Body temperature 96.3 [degF] Sheree Ginty Other [employer] Other 09-19-2021 14:15-0500 Body weight 113.4 kg Sheree Ginty Other [employer] Other 09-19-2021 14:15-0500 Respiratory rate 18 /min Sheree Ginty Other [employer] Other 09-19-2021 14:15-0500 SaO2% (BldA) [Mass fraction] 97 % Sheree Ginty Other [employer] Other 07-27-2021 11:15-0400 Body height 175.26 cm Sheree Ginty Other [employer] Other 07-27-2021 11:15-0400 Body mass index (BMI) [Ratio] 36.91 kg/m2 Sheree Ginty Other [employer] Other 07-27-2021 11:15-0400 Body temperature 96.7 [degF] Sheree Ginty Other [employer] Other 07-27-2021 11:15-0400 Body weight 113.4 kg Sheree Heathersonyaneida Other [employer] Other 07-27-2021 11:15-0400 Respiratory rate 18 /min Sheree Luis E Other [employer] Other 07-27-2021 11:15-0400 SaO2% (BldA) [Mass fraction] 98 % Sheree Heathernghia Other [employer] Other Encounters Encounter Date Encounter Type Care Provider Facility Start: 07-27-2025 End: 07-27-2025 Bamboo flowsheet Melissa Cowan MOLD COOLER Work Phone: [facility] Start: 07-27-2025 End: 07-27-2025 Bamboo flowsheet Melissa Cowan MOLD COOLER Work Phone: [facility] Start: 07-27-2025 End: 07-27-2025 ambulatory MELISSA COWAN Not Available Start: 07-27-2025 End: 07-27-2025 Office outpatient visit 15 minutes Melissa Cowan MOLD COOLER Work Phone: [facility] Comment on above: Third trimester preg leticia ([facility]); 40 weeks gestation of ([facility]) Start: 07-20-2025 End: 07-20-2025 Bamboo flowsheet Meilssa Cowan MOLD COOLER Work Phone: [facility] Start: 07-20-2025 End: 07-20-2025 Bamboo flowsheet Melissa Cowan MOLD COOLER Work Phone: [facility] Start: 07-20-2025 End: 07-20-2025 Office outpatient visit 15 minutes Melissa Cowan MOLD COOLER Work Phone: [facility] Comment on above: Third trimester preg leticia ([facility]); 39 weeks gestation of ([facility]) Start: 07-20-2025 End: 07-20-2025 ambulatory MELISSA CAMRYN Not Available Start: 07-13-2025 End: 07-13-2025 Bamboo flowsheet Myrna GARIBAY Work Phone: [facility] Start: 07-13-2025 End: 07-13-2025 Bamboo flowsheet Myrna GARIBAY Work Phone: [facility] Start: 07-13-2025 End: 07-13-2025 ambulatory MYRNA GARCIA Not Available Start: 07-13-2025 End: 07-13-2025 flow sheet Myrna GARIBAY Work Phone: [facility] Comment on above: 38 weeks gestation o f ([facility]) (Primary Dx); Third trimester ([facility]) Start: 07-08-2025 End: 07-08-2025 Bamboo flowsheet Renate Irene DO Work Phone: [facility] Start: 07-08-2025 End: 07-08-2025 Bamboo flowsheet Renate Irene DO Work Phone: [facility] Start: 07-08-2025 End: 07-08-2025 Clinisync Result Encounter Renate Irene DO Work Phone: [facility] Unsolicited Start: 07-08-2025 End: 07-08-2025 flow sheet Renate Irene DO Work Phone: [facility] Comment on above: 38 weeks gestation o f ([facility]); Third trimester ([facility]) Start: 07-08-2025 End: 07-08-2025 ambulatory RENATE IRENE Not Available Start: 07-01-2025 End: 07-01-2025 Bamboo flowsheet Myrna GARIBAY Work Phone: [facility] Start: 07-01-2025 End: 07-01-2025 Bamboo flowsheet Myrna GARIBAY Work Phone: [facility] Start: 07-01-2025 End: 07-01-2025 flow sheet Myrna GARIBAY Work Phone: [facility] Comment on above: Third trimester preg leticia ([facility]); 37 weeks gestation of ([facility]) Start: 07-01-2025 End: 07-01-2025 ambulatory MYRNA GARCIA Not Available Start: 06-24-2025 End: 06-24-2025 Bamboo flowsheet Renate Irene DO Work Phone: [facility] Start: 06-24-2025 End: 06-24-2025 Bamboo flowsheet Renate Irene DO Work Phone: [facility] Start: 06-24-2025 End: 06-24-2025 flow sheet Renate Irene DO Work Phone: [facility] Comment on above: Third trimester preg leticia ([facility]); 36 weeks gestation of ([facility]) Start: 06-24-2025 End: 06-24-2025 ambulatory RENATE IRENE Not Available Start: 06-16-2025 End: 06-16-2025 Bamboo flowsheet Myrna GARIBAY Work Phone: [facility] Start: 06-16-2025 End: 06-16-2025 Bamboo flowsheet Myrna GARIBAY Work Phone: [facility] Start: 06-16-2025 End: 06-16-2025 ambulatory MYRNA GARCIA Not Available Start: 06-16-2025 End: 06-16-2025 flow sheet Myrna GARIBAY Work Phone: [facility] Comment on above: Third trimester preg leticia ([facility]); 35 weeks gestation of ([facility]) Start: 05-31-2025 End: 05-31-2025 Bamboo flowsheet Renate Irene DO Work Phone: [facility] Start: 05-31-2025 End: 05-31-2025 Bamboo flowsheet Renate Irene DO Work Phone: [facility] Start: 05-31-2025 End: 05-31-2025 flow sheet Renate Irene DO Work Phone: [facility] Comment on above: Third trimester preg leticia ([facility]); 32 weeks gestation of ([facility]) Start: 05-31-2025 End: 05-31-2025 ambulatory RENATE IRENE Not Available Start: 05-19-2025 End: 05-19-2025 Office outpatient visit 15 minutes Melissa Cowan NP Work Phone: [facility] Comment on above: Third trimester preg leticia ([facility]); 31 weeks gestation of ([facility]) Start: 05-19-2025 End: 05-19-2025 ambulatory MELISSA [...] incons istent with dates in second trimester ([facility]) (Primary Dx); Third trimester ([facility]); 29 weeks gestation of ([facility]) Start: 04-20-2025 End: 04-20-2025 Bamboo flowsheet Renate Irene DO Work Phone: [facility] Start: 04-20-2025 End: 04-20-2025 Bamboo flowsheet Renate Irene DO Work Phone: [facility] Start: 04-20-2025 End: 04-20-2025 flow sheet Renate Irene DO Work Phone: [facility] Comment on above: Second trimester pre gnancy ([facility]); 26 weeks gestation of ([facility]) Start: 04-20-2025 End: 04-20-2025 ambulatory RENATE [...] Result Encounter Renate Irene DO Work Phone: [facility] External Department Unsolicited Start: 02-23-2025 End: 02-24-2025 External Result Encounter Myrna Garcia [place] Work Phone: [facility] External Department Unsolicited Start: 02-23-2025 End: 02-23-2025 Patient encounter procedure Myrna Dunbarez GARIBAY Work Phone: [facility] Start: 02-23-2025 End: 02-23-2025 Periodic preventive med est patient 18-39 yrs Myrna Dunbarez GARIBAY Work Phone: [facility] Comment on above: Screening, , for anatomic survey; Well woman exam with routine gynecological exam; Second trimester ; 18 weeks gestation of ; Vaginal discharge; STD exposure Start: 02-23-2025 End: 02-23-2025 ambulatory MYRNA GARCIA Not Available Start: 01-25-2025 End: 01-25-2025 Bamboo flowsheet Renate Irene DO Work Phone: [facility] Start: 01-25-2025 End: 01-25-2025 Bamboo flowsheet Renate Irene DO Work Phone: [facility] Start: 01-25-2025 End: 01-25-2025 ambulatory RENATE IRENE Not Available Start: 01-25-2025 End: 01-25-2025 flow sheet Renate Irene DO Work Phone: [facility] Comment on above: Nausea and vomiting in (Primary Dx); 14 weeks gestation of ; Second trimester Start: 12-24-2024 End: 12-24-2024 Office outpatient visit 5 minutes [facility] Irene Nurse [facility] Comment on above: GA: 10w1d Start: 12-24-2024 End: 12-24-2024 ambulatory RENATE IRENE Not Available Start: 05-01-2023 End: 05-01-2023 ambulatory Isadora Arroyo Other [employer] Other Start: 05-01-2023 Office outpatient vi sit 15 minutes Isadora Dina [facility] Start: 11-27-2021 End: 11-27-2021 ambulatory HORACIO ESCOBAR Facility:[facility] Start: 09-19-2021 End: 09-19-2021 ambulatory Sheree Heathernty Other [employer] Other Start: 09-19-2021 Office outpatient vi sit 15 minutes Sheree Ginty [facility] Start: 07-27-2021 Office outpatient vi sit 15 minutes Sheree Ginty [facility] Procedures Date Procedure Procedure Detail Performing Clinician Start: 07-27-2025 Urnls dip stick/tabl et rgnt non-auto w/o micrscp Melissa Cowan NP Work Phone: Start: 07-20-2025 Urnls dip stick/tabl et rgnt [...] stick/tabl et rgnt non-auto w/o micrscp Melissa Camryn MOLD COOLER Work Phone: Start: 05-05-2025 Urnls dip stick/tabl [...] encounter procedure 07/27/2025 9:50 AM EDT Routine [facility] [address] [place] [phone] eMlissa Cowan, [address] [place] [phone] [facility] Start: 07-20-2025 End: 07-20-2025 Patient encounter procedure [facility] Comment on above: Arrived Start: 07-13-2025 End: 07-13-2025 Patient encounter procedure 07/13/2025 8:50 AM EDT Routine [facility] [address] [place] [phone] Myrna Garcia PA [address] [place], [place] [id number] [facility] Start: 07-08-2025 End: 07-08-2025 Patient encounter procedure [facility] Comment on above: Arrived Start: 07-01-2025 End: 07-01-2025 Patient encounter procedure [facility] Comment on above: Arrived Start: 06-24-2025 End: 06-24-2026 CULTURE, GROUP B STREP WITH SUSCEPTIBLITY CULTURE, GROUP B STREP WITH SUSCEPTIBLITY Lab Routine Third trimester ([facility]) Expected: 06/24/2025, Expires: 06/24/2026 [facility] Work Phone: Comment on above: Expected: 06/24/2025 , Expires: 06/24/2026 Start: 06-24-2025 End: 06-24-2025 Patient encounter procedure [facility] Comment on above: Arrived Start: 06-21-2025 Influenza vaccination [facility] Start: 06-16-2025 End: 06-16-2025 Patient encounter procedure 06/16/2025 8:50 AM EDT Routine [facility] [address] [place] [phone] Myrna Garcia PA [address] [place], [place] [id number] [facility] Start: 05-31-2025 End: 05-31-2025 Patient encounter procedure 05/31/2025 8:40 AM EDT Routine [facility] [address] [place] [place] [phone] Renate Bonilla, [address] [place], [place] [phone] Arrived [facility] Comment on above: Arrived Start: 05-05-2025 End: 09-05-2025 US for US OB follow up transabdominal approach Imaging Routine Size of fetus inconsistent with dates in second trimester ([facility]) Expected: 05/05/2025, Expires: 09/05/2025 [facility] Work Phone: Comment on above: Expected: 05/05/2025 , Expires: 09/05/2025 Start: 05-05-2025 End: 05-05-2025 Patient encounter procedure 05/05/2025 8:30 AM EDT Routine [facility] [address] [place] [place] [phone] Melissa Cowan, MOLD COOLER [address] [place] [phone] [facility] Start: 04-20-2025 End: 04-20-2025 Patient encounter procedure [facility] Comment on above: Arrived Start: 03-31-2025 End: 03-31-2025 Professional / ancillary services management 03/31/2025 8:30 AM EDT Ancillary Procedure [facility] [address] [place] [phone] [facility] Start: 03-23-2025 End: 03-23-2026 CBC panel - Blood by Automated count CBC Lab Routine Diabetes mellitus screening Expected: 03/23/2025 (Approximate), Expires: 03/23/2026 [facility] Work Phone: Comment on above: Expected: 03/23/2025 (Approximate), Expires: 03/23/2026 Start: 03-23-2025 End: 03-23-2026 Measurement of glucose 1 hour after glucose challenge for glucose tolerance test Glucose tolerance, 1 hour Lab Routine Diabetes mellitus screening Expected: 03/23/2025 (Approximate), Expires: 03/23/2026 [facility] Comment on above: Expected: 03/23/2025 (Approximate), [...] for anatomic survey Expected: 02/23/2025, Expires: 05/26/2025 [facility] Comment on above: Expected: 02/23/2025 , [...] gestational age Expected: 12/24/2024 (Approximate), Expires: 12/24/2025 [facility] Work Phone: Comment on above: Expected: 12/24/2024 (Approximate), Expires: 12/24/2025 Start: 12-24-2024 End: 12-24-2025 Drugs of abuse panel - Urine by Screen method Rapid drug screen, urine Lab Routine , unspecified gestational age Encounter for supervision of normal first in first trimester Expected: 12/24/2024 (Approximate), Expires: 12/24/2025 [facility] Comment on above: Expected: 12/24/2024 (Approximate), Expires: 12/24/2025 Bacteria identified in Urine by Culture Urine culture Microbiology Routine Missed menses Ordered: 12/24/2024 [facility] Comment on above: Ordered: 12/24/2024 CBC W Auto Different ial panel - Blood CBC and differential Lab Routine Missed menses , unspecified gestational age Ordered: 12/24/2024 [facility] Comment on above: Ordered: 12/24/2024 CHLAMYDIA TRACHOMATI S (GENITO/STI) CHLAMYDIA TRACHOMATIS (GENITO/STI) Lab Routine STD exposure Ordered: 02/23/2025 [facility] Comment on above: Ordered: 02/23/2025 Cytology Cervical or vaginal smear or scraping study Pap Smear Pathology and Cytology Routine Well woman exam with routine gynecological exam Ordered: 02/23/2025 [facility] Comment on above: Ordered: 02/23/2025 Hemoglobin A1c/Hemoglobin.total in Blood Hemoglobin A1c Lab Routine Missed menses , unspecified gestational age Ordered: 12/24/2024 [facility] Comment on above: Ordered: 12/24/2024 Hepatitis B virus surface Ag [Presence] in Serum or Plasma by Immunoassay Hepatitis B surface antigen Lab Routine Missed menses , unspecified gestational age Ordered: 12/24/2024 [facility] Comment on above: Ordered: 12/24/2024 Hepatitis C virus Ab [Presence] in Serum or Plasma by Immunoassay Hepatitis C antibody Lab Routine Missed menses , unspecified gestational age Ordered: 12/24/2024 [facility] Comment on above: Ordered: 12/24/2024 HIV-1/HIV-2 antigen/antibody combination immunoassay HIV-1 and HIV-2 antibodies Lab Routine Missed menses , unspecified gestational age Ordered: 12/24/2024 [facility] Comment on above: Ordered: 12/24/2024 Neisseria gonorrhoea e DNA [Presence] in Unspecified specimen by COLLIN with probe detection Neisseria gonorrhea DNA probe, direct Lab Routine STD exposure Ordered: 02/23/2025 [facility] Comment on above: Ordered: 02/23/2025 Reagin Ab [Presence] in Serum by RPR RPR Lab Routine Missed menses , unspecified gestational age Ordered: 12/24/2024 [facility] Comment on above: Ordered: 12/24/2024 Rubella antibody, IgG Rubella an tibody, IgG Lab Routine Missed menses , unspecified gestational age Ordered: 12/24/2024 [facility] Comment on above: Ordered: 12/24/2024 SURESWAB(R) ADVANCED VAGINITIS PLUS, TMA SURESWAB(R) ADVANCED VAGINITIS PLUS, TMA Pathology and Cytology Routine Vaginal discharge Ordered: 02/23/2025 [facility] Work Phone: Comment on above: Ordered: 02/23/2025 Thyrotropin [Units/volume] in Serum or Plasma TSH Lab Routine , unspecified gestational age Ordered: 12/24/2024 [facility] Comment on above: Ordered: 12/24/2024 Immunizations Immunization Date Immunization Notes Care Provider Fa jack 11-17-2012 influenza virus vacc ine, unspecified formulation Renate Bonilla DO Work Phone: [facility] Payers Date Payer Category Payer Private Health [facility] [id number] 2024 Unknown [id number] 1998 Unknown [id number] 2.16.840.1.590322.3.579. 2.593 1998 Unknown [id number] 2.16.840.1.393820.3.579. 2.9 1998 Unknown [id number] 2.16.840.1.988580.3.579. 2.9 1998 Unknown [id number] 2.16.840.1.885660.3.579. 2.1258 1998 Unknown [id number] 2.16.840.1.056341.3.579. 2.1258 1998 Unknown [id number] 2.16.840.1.103056.3.579. 2.1258 1998 Unknown [id number] 2.16.840.1.597439.3.579. 2.1258 1998 Unknown [id number] 2.16.840.1.753140.3.579. 2.1258 1998 Unknown [id number] 2.16.840.1.055698.3.579. 2.1258 1998 Unknown [id number] 2.16.840.1.201342.3.579. 2.1258 1998 Unknown [id number] 2.16.840.1.384737.3.579. 2.1258 1998 Unknown [id number] 2.16.840.1.982841.3.579. 2.1258 1998 Unknown [id number] 2.16.840.1.311933.3.579. 2.1258 1998 Unknown [id number] 2.16.840.1.566131.3.579. 2.1258 1998 Unknown [id number] 2.16.840.1.705308.3.579. 2.1258 1998 Unknown [id number] 2.16.840.1.433529.3.579. 2.1258 1998 Unknown [id number] 2.16.840.1.133576.3.579. 2.9 1998 Unknown [id number] 2.16.840.1.811941.3.579. 2.1259 1998 Unknown [id number] 2.16.840.1.437963.3.579. 2.1259 1959 Unknown [id number] Unknown [id number] 2.16.840.1.762201.19 Social History Date Type Detail Facility Sex Assigned At [employer] Other Tobacco smoking status [facility] Tobacco smoking consumption unknown [facility] Start: 10-28-2024 [facility] Start: 2000 Sex assigned at Not on file N [facility] Clinical Notes 07-27-2021 to 07-27-2025 Melissa Cowan NP - 07/27/2025 9:50 AM EDChandra Cowan NP - 07/20/2025 8:40 AM [place] [facility] - 07/13/2025 8:50 AM Sarina Gunderson LPN - 07/08/2025 9:20 AM EDT Note Date & Type Note Facility 07-27-2025 History of Presen t illness Narrative Reason [...] nursing note reviewed. Exam conducted with a neon tube pumper present. Vitals: There is no height or weight on file to calculate BMI. BP: 142/90 Patient's last menstrual period was 10/23/2024. ASSESSMENT & PLAN ICD-10-CM 1. Third trimester ([facility]) Z34.93 POCT urinalysis dipstick manually resulted 2. 40 weeks gestation of ([facility]) Z3A.40 Return OB: Patient presents [...] 160/100 and contractions approximately every 10 minutes and trace proteinuria. Notified Labor and delivery that patient will be coming to be evaluated. Orders Placed This Encounter Procedures POCT urinalysis dipstick manually resulted Follow Up: Patient is to return to office in 1 week for routine OB appointment. Documented by Melissa Cowan NP on behalf of: Melissa Cowan NP documented in this encounter [facility] 07-20-2025 History of Presen t illness Narrative [...] nursing note reviewed. Exam conducted with a neon tube pumper present. Vitals: There is no height or weight on file to calculate BMI. BP: 130/80 Patient's last menstrual period was 10/23/2024. ASSESSMENT & PLAN ICD-10-CM 1. Third trimester ([facility]) Z34.93 POCT urinalysis dipstick manually resulted 2. 39 weeks gestation of ([facility]) Z3A.39 POCT urinalysis dipstick manually resulted [...] Melissa Cowan NP documented in this encounter [facility] 07-13-2025 History of Presen t illness Narrative [...] nursing note reviewed. Exam conducted with a neon tube pumper present. Vitals: There is no height or weight on file to calculate BMI. BP: 128/82 Patient's last menstrual period was 10/23/2024. ASSESSMENT & PLAN ICD-10-CM 1. 38 weeks gestation of ([facility]) Z3A.38 POCT urinalysis dipstick manually resulted 2. Third trimester ([facility]) Z34.93 POCT urinalysis dipstick manually [...] of: [place]EN[place] Desir documented in this encounter [facility] 07-08-2025 History of Presen t illness Narrative [...] nursing note reviewed. Exam conducted with a neon tube pumper present. Vitals: There is no height or weight on file to calculate BMI. BP: 138/76 Patient's last menstrual period was 10/23/2024. ASSESSMENT & PLAN ICD-10-CM 1. 38 weeks gestation of ([facility]) Z3A.38 POCT urinalysis dipstick manually resulted 2. Third trimester ([facility]) Z34.93 POCT urinalysis dipstick manually resulted Patient presents today for a routine obstetrics appointment. Patient is currently 38w1d with a Estimated Date of Delivery: 07/21/25. Elevated BP this morning and protein in urine, patient to be assessed at [facility] with possible follow up over the weekend at [facility]. Pelvic exam performed and patient is 1cm and 80% effaced. Patient to return to clinic in 1 week for routine OB. Documented by Sonia Gunderson LPN on behalf of: Renate Bonilla DO documented in this encounter [facility] 07-01-2025 History of Presen t illness Narrative [...] ASSESSMENT & PLAN ICD-10-CM 1. Third trimester ([facility]) Z34.93 2. 37 weeks gestation of ([facility]) Z3A.37 Return OB: Patient presents today [...] of: [place] Desir documented in this encounter [facility] 06-24-2025 History of Presen t illness [...] nursing note reviewed. Exam conducted with a neon tube pumper present. Vitals: There is no height or weight on file to calculate BMI. BP: 126/82 Patient's last menstrual period was 10/23/2024. ASSESSMENT & PLAN ICD-10-CM 1. Third trimester ([facility]) Z34.93 POCT urinalysis dipstick manually resulted CULTURE, GROUP B STREP WITH SUSCEPTIBLITY CULTURE, GROUP B STREP WITH SUSCEPTIBLITY 2. 36 weeks gestation of ([facility]) Z3A.36 Return OB: Patient presents today [...] Renate Bonilla DO documented in this encounter [facility] 06-16-2025 History of Presen t illness [...] ASSESSMENT & PLAN ICD-10-CM 1. Third trimester ([facility]) Z34.93 POCT urinalysis dipstick manually resulted POCT urinalysis dipstick manually resulted 2. 35 weeks gestation of ([facility]) Z3A.35 POCT urinalysis dipstick manually resulted [...] of: [place] Desir documented in this encounter [facility] 05-31-2025 History of Presen t illness [...] nursing note reviewed. Exam conducted with a neon tube pumper present. Vitals: There is no height or weight on file to calculate BMI. BP: 126/82 Patient's last menstrual period was 10/23/2024. ASSESSMENT & PLAN ICD-10-CM 1. Third trimester ([facility]) Z34.93 POCT urinalysis dipstick manually resulted 2. 32 weeks gestation of ([facility]) Z3A.32 Return OB: Patient presents today [...] Renate Bonilla DO documented in this encounter [facility] 05-19-2025 History of Presen t illness [...] nursing note reviewed. Exam conducted with a neon tube pumper present. Vitals: There is no height or weight on file to calculate BMI. BP: 120/72 Patient's last menstrual period was 10/23/2024. ASSESSMENT & PLAN ICD-10-CM 1. Third trimester ([facility]) Z34.93 POCT urinalysis dipstick manually resulted 2. 31 weeks gestation of ([facility]) Z3A.31 Return OB: Patient presents today [...] Melissa Cowan NP documented in this encounter [facility] 05-05-2025 History of Presen t illness [...] nursing note reviewed. Exam conducted with a neon tube pumper present. Vitals: There is no height or weight on file to calculate BMI. BP: 132/80 Patient's last menstrual period was 10/23/2024. ASSESSMENT & PLAN ICD-10-CM 1. Size of fetus inconsistent with dates in second trimester ([facility]) O26.842 US OB follow up transabdominal approach 2. Third trimester ([facility]) Z34.93 POCT urinalysis dipstick manually resulted 3. 29 weeks gestation of ([facility]) Z3A.29 Return OB: Patient presents today [...] of: PH[place]EN[place] Desir documented in this encounter [facility] 04-20-2025 History of Presen t illness [...] nursing note reviewed. Exam conducted with a neon tube pumper present. Vitals: There is no height or weight on file to calculate BMI. BP: 120/70 Patient's last menstrual period was 10/23/2024. ASSESSMENT & PLAN ICD-10-CM 1. Second trimester ([facility]) Z34.92 POCT urinalysis dipstick manually resulted 2. 26 weeks gestation of ([facility]) Z3A.26 Return OB: Patient presents today [...] Renate Bonilla DO documented in this encounter [facility] 03-23-2025 History of Presen t illness [...] nursing note reviewed. Exam conducted with a neon tube pumper present. Vitals: There is no height or [...] Renate Bonilla DO documented in this encounter [facility] 02-23-2025 History of Presen t illness [...] nursing note reviewed. Exam conducted with a neon tube pumper present. Vitals: There is no height or [...] of: [place] Desir documented in this encounter [facility] 01-25-2025 History of Presen t illness [...] nursing note reviewed. Exam conducted with a neon tube pumper present. Vitals: There is no height or [...] Renate Bonilla DO documented in this encounter [facility] 12-24-2024 History of Presen t illness [...] or undercooked meat, and stay away from [facility]. Patient has also been advised to not [...] Regla Gutierrez MA documented in this encounter [facility] 09-19-2021 Evaluation note Encounter Date Diagnosis [...] Patient care instructions given in writting by [facility] [employer] [facility] 10-07-2021 Evaluation note* Encounter Date Diagnosis [...] Patient care instructions given in writting by [facility] [employer] [facility] Evaluation noteNort [employer] Other Evaluation note* Diagnosis Nausea and vomiting [...] note* Diagnosis Third trimester ([facility]) state, incidental 40 weeks gestation of ([facility]) documented in this encounter [facility] Summary Purpose Family History No Family History Records FoundNo Family History Records Found Advance Directives No Advanced Directives Records FoundNo Advanced Directives Records Found Additional Source Comments INFORMATION SOURCE (unrecogn ized section and content) DATE CREATED AUTHOR 11/29/2021 [facility] DATE CREATED AUTHOR AUTHOR'S ORGANAWA ATION 07/29/2025 [facility] EPIC REASON FOR VISIT [...] BE BASED ON THE PRIMARY CLINICAL RECORDS. [employer] provides no warranty or guarantee of the accuracy or completeness of information in this document.
[2025-08-03 12:47] VITALS: BP 124/82; PULSE 100; TEMP 36.6; O2SAT 98
== END 2025-08-03 12:52 | disposition home or self-care (01) ==
LOC: FBCO 07:45
PROVIDERS: Visit Provider Obstetrics & Gynecology
DX: Z39.1 Encounter for care and examination of lactating mother (principal)